=== PATIENT | female | born 1960 | race Caucasian/White ===

== ENCOUNTER → 2021-03-29 10:15 | Outpatient (CLI) | payer BC, SELFPAY | PROVIDERS: PCP Registered Nurse; Referring Provider Registered Nurse; Visit Provider Registered Nurse | DX: Z13.820 Encounter for screening for osteoporosis (principal); M85.88 Other specified disorders of bone density and structure, other site; Z78.0 Asymptomatic menopausal state | CPT/HCPCS: 77080 ==

== ENCOUNTER → 2021-05-03 08:15 | Outpatient (CLI) | payer BC, SELFPAY ==
[2021-05-03 10:38] LABS: Add Manual Diff / Slide Review NO; Basophils Absolute Auto 0 /uL (0-100); Basophils Percent Auto 0.8 % (0-2); Eosinophils Absolute Auto 0 /uL (0-450); Eosinophils Percent Auto 0.4 % (2-4); Hematocrit 39.3 % (36-46); Hemoglobin 13.3 g/dL (12.0-16.0); Lymphocytes Absolute Auto 1200 /uL (1100-4500); Lymphocytes Percent Auto 26.1 % (25-40); Mean Corpuscular HGB Conc 33.8 % (30-36); Mean Corpuscular Hemoglobin 32.1 PG (26-34); Monocytes Absolute Auto 400 /uL (0-900); Monocytes Percent Auto 8.8 % (3-14); Neutrophils Absolute Auto 2900 /uL (1500-7000); Neutrophils Percent Auto 63.9 % (50-75); Platelet Count 286 X10^3/uL (150-400); Red Blood Cell Count 4.14 X10^6/uL (4.0-5.2); Red Cell Distribution Width 13.1 % (11.6-14.8); White Blood Cell Count 4.5 X10^3/uL (4.5-11.0)
[2021-05-03 11:42] LABS: Alanine Aminotransferase 16 IU/L (<35); Albumin 4.5 g/dL (3.5-5.0); Albumin Globulin Ratio 1.8 (1.0-2.8); Alkaline Phosphatase 59 U/L (38-126); Aspartate Aminotransferase 25 IU/L (14-36); BUN Creatinine Ratio 18.2 (6-22); Bilirubin Total 0.5 mg/dL (0.2-1.3); Blood Urea Nitrogen 12 mg/dL (7-17); Calcium 10.1 mg/dL (8.4-10.2); Carbon Dioxide 33 mmol/L (22-32); Chloride 96 mmol/L (98-107); Cholesterol 280 mg/dL (140-199); Estimated Glomerular Filt Rate > 60.0 mL/min (>60); Globulin 2.5 g/dL (1.7-4.1); Glucose 92 mg/dL (70-100); HEMOLYSIS < 15 (0-50); Sodium 134 mmol/L (137-145); Triglycerides 72 mg/dL (35-150)
[2021-05-03 12:00] LABS: HDL Cholesterol 154 mg/dL (40-60); LDL Cholesterol Calculated 112 mg/dL (<100)
== END ==
PROVIDERS: PCP Registered Nurse; Referring Provider Registered Nurse; Visit Provider Registered Nurse
DX: K21.9 Gastro-esophageal reflux disease without esophagitis (principal); K22.70 Barrett's esophagus without dysplasia; M25.519 Pain in unspecified shoulder; E78.5 Hyperlipidemia, unspecified
CPT/HCPCS: 36415; 80053; 80061; 85025

== ENCOUNTER → 2021-05-28 15:16 | Outpatient (CLI) | payer BC, SELFPAY ==
[2021-05-28 16:10] LABS: Appearance Urine UA CLEAR; Bilirubin Urine UA NEGATIVE (NEGATIVE); Color Urine UA YELLOW; Glucose Urine UA NEGATIVE (Negative); Ketones Urine UA NEGATIVE (NEGATIVE); Leukocyte Esterase Urine UA 1+ (NEGATIVE); Nitrite Urine UA NEGATIVE (Negative); Occult Blood Urine UA TRACE-INTACT (Negative); Protein Urine UA NEGATIVE (Negative); Specific Gravity Urine UA <=1.005 (1.000-1.035); Urobilinogen Urine UA 0.2 E.U./dL (0.2)
[2021-05-28 16:12] LABS: pH Urine UA 6.5 (4.5-8.0)
[2021-05-28 16:52] LABS: Bacteria Urine Moderate (10-30); Culture Indicated Urine Specimen Cultured; RBC Urine 0-1/HPF (0-5/HPF); Squamous Epithelial Cell Urine 0-1 /HPF (0-5/HPF); WBC Urine 1-5/HPF (0-5/HPF)
== END ==
PROVIDERS: PCP Registered Nurse; Referring Provider Registered Nurse; Visit Provider Registered Nurse
DX: N39.0 Urinary tract infection, site not specified (principal)
CPT/HCPCS: 81003; 81015; 87077; 87086; 87186

== ENCOUNTER → 2021-06-05 10:20 | Outpatient (CLI) | payer BC, SELFPAY ==
--- NOTE | 2021-06-05 | DI.MG.S_ITS ---
BILATERAL DIGITAL SCREENING MAMMOGRAM 3D/2D WITH CAD WITH AUGMENTATION: 06/05/2021 CLINICAL: Routine screening. Family history of breast cancer. Comparison is made to exams dated: 03/01/2020 mammogram, 01/08/2019 mammogram, and 08/22/2017 mammogram - outside location. The tissue of both breasts is heterogeneously dense. This may lower the sensitivity of mammography. Current study was also evaluated with a Computer Aided Detection (CAD) system. Bilateral breast implants are stable. No significant masses, calcifications, or other findings are seen in either breast. There has been no significant interval change. IMPRESSION: NEGATIVE There is no mammographic evidence of malignancy. A 1 year screening mammogram is recommended. This exam was interpreted at Station ID: [id number]. NOTE: For mammograms, a report in lay terms will be sent to the patient. Approximately 15% of breast malignancies will not be visualized mammographically. In the management of a palpable breast mass, a negative mammogram must not discourage biopsy of a clinically suspicious lesion. Electronically Signed By: Brandyn gilmore/valeria:06/05/2021 11:36:08 letter sent: Normal Exam ACR BI-RADS Category 1: Negative [id number]
== END ==
PROVIDERS: PCP Registered Nurse; Referring Provider Registered Nurse; Visit Provider Registered Nurse
DX: Z12.31 Encounter for screening mammogram for malignant neoplasm of breast (principal); Z80.3 Family history of malignant neoplasm of breast
CPT/HCPCS: 77063; 77067

== ENCOUNTER 2021-06-28 07:50 | Emergency (ER) | payer BC, SELFPAY ==
--- NOTE | 2021-06-28 07:54 | ED_ITS ---
HPI - General Adult General Chief complaint: Urogenital-Female Stated complaint: Bad UTI, back after antibiotics Time Seen by Provider: 06/28/21 07:54 History of Present Illness HPI narrative: 60-year-old woman with a history of hypertension, this tubular migraine and vaginal atrophy with recurrent urinary tract infections. She presents today with complaints of dysuria and vaginal itching and discomfort. She had been on Estrace and had been doing fairly well was discontinued 6 months ago and since then she has had increasing discomfort, 3 urinary tract infections, is concerned that she has a yeast infection today, increase dyspareunia and significant vaginal dryness. She has no history of tobacco use, heart disease, breast cancer. She is very sensitive to antibiotics and most of them do cause reactions. The Macrobid prescribed for the most recent bladder infection (which was E coli and sensitive to Macrobid) was effective in treating the urinary tract symptoms but cause significant vomiting while she took the medication. She notes that at this point she is developing significant urinary tract symptoms with every incident of intercourse. Macrobid for most recent urinary tract infection was discontinued about 3 days ago. She is now having recurrent symptoms that are more vaginal itching and discomfort rather than true dysuria. She is having no fevers or evidence of systemic bacterial infection. Related Data Home Medications Medication Instructions Recorded Confirmed estradiol 1 g VAGINAL 2XW 03/22/21 06/07/21 Previous Rx's Medication Instructions Recorded verapamil 120 mg tablet,extended 120 mg PO BID #180 tab 04/02/21 release rabeprazole 20 mg tablet,delayed 20 mg PO DAILY #30 tab 06/06/21 release diazepam 2 mg tablet 2 mg PO BEDTIME PRN #30 tab 06/26/21 cephalexin 500 mg capsule 500 mg PO TID #45 cap 06/28/21 estradiol (Estrace) 2 g VAGINAL DAILY #42.5 g 06/28/21 Allergies Allergy/AdvReac Type Severity Reaction Status Date / Time No Known Drug Allergies Allergy Verified 06/07/21 15:37 Review of Systems Review of Systems Narrative: Remainder of complete review of systems is otherwise unremarkable except for that included in the HPI. Patient History Medical History Barretts syndrome (~2006) Chicken pox (~2006) Colitis (~2020) Colon polyps (~2019) Osteopenia (~2014) UTI (urinary tract infection) Vestibular migraine (~1996) Surgical History Anesthesia H/O left wrist surgery History of breast augmentation History of knee surgery History of rectopexy (~08/2018) History of shoulder surgery (~03/2013) Family History Father Cancer Grandfather Diabetes mellitus Stroke Grandmother Stroke Grandmother Stroke Social History Smoking Status: Never smoker Smoking Status: Never smoker Exam Narrative Exam Narrative: General: Alert appropriate in no acute distress Respiratory: Able to speak in full sentences, no obvious respiratory distress Skin: No obvious rashes, warm and dry Neurologic: Grossly intact no obvious asymmetries or abnormalities Psych: appropriate insight and affect, cooperative Genitals: Significant vaginal atrophy with very central urethra putting her at increased risk for recurrent bladder infections. There is minimal discharge, no vaginal lesions and no inguinal adenopathy Initial Vital Signs Initial Vital Signs: Vital Signs Temperature 98.1 F 06/28/21 08:09 Pulse Rate 92 H 06/28/21 08:09 Respiratory Rate 16 06/28/21 08:09 Blood Pressure 138/68 06/28/21 08:09 Pulse Oximetry 100 06/28/21 08:09 Course Orders Ordered: ED Orders 06/28/21 08:30 UA Complete [Urinalysis and Microscopic] Stat Urine Culture Stat 06/28/21 09:00 Wet Prep Tric BV [place] Stat Vital Signs Vital signs: Vital Signs - 8 hr 06/28/21 08:09 Temperature 98.1 F Pulse Rate 92 H Respiratory Rate 16 Blood Pressure 138/68 Pulse Oximetry 100 Medical Decision Making Lab Data Lab results narrative: Urine Culture Final 05/30/21-41 Organism 1 Escherichia coli [place] Count >100,000 CFU/ml 1. Escherichia coli M.I.C. RX --------- --- * Amoxicillin/Clavulanate 8 S * Ampicillin >=32 R * Ampicillin/Sulbactam 8 S * Cefazolin <=4 S * Cefepime <=1 S * Ceftriaxone <=1 S * Ciprofloxacin <=0.25 S * Ertapenem <=0.5 S * Gentamicin <=1 S * Imipenem <=0.25 S * Levofloxacin 1 S * Nitrofurantoin <=16 S * Tobramycin <=1 S * Trimethoprim/Sulfamethoxazole >=320 R * Piperacillin/Tazobactam <=4 S Labs: Lab Results 06/28/21 Range/Units 08:30 Urine Color [place] Urine Appearance Cloudy Urine pH (4.5-8.0) Ur Specific [place] Not Reportable Urine Protein Not Reportable Urine Glucose (UA) Not Reportable Urine Ketones Not Reportable Urine Occult Blood Not Reportable Urine Nitrate Not Reportable Urine Bilirubin Not Reportable Urine Urobilinogen Not Reportable Ur Leukocyte Esterase Not Reportable Urine RBC 5-10/hpf H (0-5/HPF) Urine WBC >100/hpf H (0-5/HPF) Ur Squamous Epith Cells 1-5 /hpf (0-5/HPF) Amorphous Sediment 1+ Urine Bacteria Occasional (0-1) D (None) Ur Culture Indicated? Specimen cultured MDM Narrative Medical decision making narrative: Thank you for coming in today You have fairly significant vaginal atrophy and dryness in this is absolutely contributing to the dyspareunia (pain with intercourse, particularly with penetration) as well as the recurrent bladder infections. We talked briefly about why your anatomy is perfectly positioned to put you at significant risk for recurrent bladder infections. Today, there is no evidence of yeast infection, bacterial vaginosis or Trichomonas. Your urine has both red blood cells and white blood cells. I am going to suggest a 3 day course of Keflex, 500 mg 3 times a day. Will see what the culture returns. I have a number of suggestions for helping 1. Restart the Estrace cream. To do this, begin with 2 g in your vagina (do make sure little bit is spread over the inner labia as well) daily for 2 weeks. After that you can decreased to 1 g 2 to 3 times a week based on how dry your vagina is feeling. This will help lump up some of those tissues to try and reduce symptoms 2. Invested in some good sexual lubricant. Brand names for silicone base lubricant that may be helpful include Uber lube and Point Venture. You can order these online. [employer] in [place] carries both of these brands in addition to multiple other lubricants so that you can find one that works best for you. 3. Take 500 mg of Keflex, and antibiotic, after each episode of intercourse to prevent infections You need to establish a new primary care physician. I reviewed her case with Dr. Ann Marie Zavala at [facility], who will follow up with her as an outpatient. Discharge Plan Departure Patient Disposition: Home Clinical Impression: Menopausal vaginal dryness, Dyspareunia Instructions: DI for Dyspareunia Activity Restrictions/Additional Instructions: Thank you for coming in today You have fairly significant vaginal atrophy and dryness in this is absolutely contributing to the dyspareunia (pain with intercourse, particularly with penetration) as well as the recurrent bladder infections.? We talked briefly about why your anatomy is perfectly positioned to put you at significant risk for recurrent bladder infections. Today, there is no evidence of yeast infection, bacterial vaginosis or Trichomonas. Your urine has both red blood cells and white blood cells.? I am going to suggest a 3 day course of Keflex, 500 mg 3 times a day.? Will see what the culture returns. I have a number of suggestions for helping 1. Restart the Estrace cream.? To do this, begin with 2 g in your vagina (do make sure little bit is spread over the inner labia as well) daily for 2 weeks.? After that you can decreased to 1 g 2 to 3 times a week based on how dry your vagina is feeling.? This will help lump up some of those tissues to try and reduce symptoms 2. Invested in some good sexual lubricant.? Brand names for silicone base lubricant that may be helpful include Uber lube and Point Venture.? You can order these online.? [employer] in [place] carries both of these brands in addition to multiple other lubricants so that you can find one that works best for you. 3. Take 500 mg of Keflex, and antibiotic, after each episode of intercourse to prevent infections You need to establish a new primary care physician.? I reviewed your case with Dr. Ann Marie Zavala at [facility], who will follow up with her as an outpatient. Please call to schedule an appointment, let them know that your in the emergency room and Dr. Zavala has agreed to see you a patient Prescriptions: New estradiol [Estrace] 0.01 % (0.1 mg/gram) cream 2 g vaginal DAILY Qty: 42.5 0RF Rx Instructions: for 14 days then decrease to 1 g 2 to 3 times a week cephalexin 500 mg capsule 500 mg PO TID Qty: 45 0RF Rx Instructions: T.i.d. for 3 days then 1 capsule post coital as needed No Action verapamil 120 mg tablet extended release 120 mg PO BID Qty: 180 2RF rabeprazole 20 mg tablet,delayed release (DR/EC) 20 mg PO DAILY Qty: 30 1RF diazepam 2 mg tablet 2 mg PO BEDTIME PRN (Reason: vestibular dysfunction) Qty: 30 3RF estradiol 0.01 % (0.1 mg/gram) cream 1 g vaginal 2XW 0RF Referrals: Winnie Valdez ARNP [Primary Care Provider] - Lauren Zavala MD [Physician] -
[2021-06-28 08:09] VITALS: BP 138/68; PULSE 92; RESP 16; TEMP 36.7; O2SAT 100; BMI 19.0
[2021-06-28 08:50] LABS: Amorphous Sediment Urine 1+; Bacteria Urine Occasional (0-1); Color Urine UA Orange; Culture Indicated Urine Specimen Cultured; RBC Urine 5-10/HPF (0-5/HPF); Squamous Epithelial Cell Urine 1-5 /HPF (0-5/HPF); WBC Urine >100/HPF (0-5/HPF)
[2021-06-28 08:51] LABS: Appearance Urine UA Cloudy
== END 2021-06-28 10:19 | disposition home or self-care (01) ==
PROVIDERS: Emergency Provider Emergency Medicine; PCP Registered Nurse
DX: N94.19 Other specified dyspareunia (principal); N95.1 Menopausal and female climacteric states
CPT/HCPCS: 81001; 87077; 87086; 87186; 87210; 99281; 99282

== ENCOUNTER 2021-12-13 11:15 | Outpatient (RCR) | payer BC, SELFPAY ==
--- NOTE | 2021-08-06 17:09 | PT.OIE ---
Current Diagnoses Primary osteoarthritis, left shoulder (08/06/21) Unspecified rotator cuff tear or rupture of left shoulder, not specified as traumatic (08/06/21) Bursitis of left shoulder (08/06/21) Past Medical History (Last Reviewed 06/28/21 @ 09:08 by Meena Kincaid MD) Barretts syndrome (~2006) Chicken pox (~2006) Colitis (~2020) Colon polyps (~2019) H/O left wrist surgery History of breast augmentation History of knee surgery History of rectopexy (~08/2018) History of shoulder surgery (~03/2013) Osteopenia (~2014) UTI (urinary tract infection) Vestibular migraine (~1996) Past Surgical History (Last Reviewed 06/28/21 @ 09:08 by Meena Kincaid MD) Anesthesia H/O left wrist surgery History of breast augmentation History of knee surgery History of rectopexy (~08/2018) History of shoulder surgery (~03/2013) Visit Care Team Role Provider Type ELIANE Brasher Family Provider Advanced Payroll Officer Primary Care Provider Specialty: Medical Address: [address] [place] [address], [facility] Email: [email or web address] Alex Thurman MD Attending Provider Physician Referring Provider Specialty: Orthopedic Surgery Address: [address] [place] [address], [id number] Email: [email or web address] Physical Therapy Initial Evaluation PT-OP-A Visit Information Start: 08/06/21 08:28 Freq: Status: Active Protocol: Document 08/06/21 16:35 ADALGISA (Rec: 08/06/21 17:09 SAK [id number]) Out-Patient Physical Therapy Visit Information Visit Information Visit Type Initial Evaluation Visit Note post-op week one Visit Start Time 15:16 Visit Stop Time 16:10 Total Visit Minutes 56 Visit Number Number of [facility] Visits 0 Evaluation Information Evaluation Date 08/06/21 Precautions Precautions wear sling for 6-8 weeks. Passive ROM exercises to be done with elbow and hand. PT-OP-B Current Condition Start: 08/06/21 08:28 Freq: Status: Active Protocol: Document 08/06/21 16:35 [facility] (Rec: 08/06/21 17:09 [facility] [id number]) Current Condition History of Current Condition Onset Date 08/02/21 Current Complaints left shoulder dysfunction History of Current Condition s/p left RCR with arthroscopic distal clavicle excision, subacromial decompression extensive, rotator cuff repair . (operative report not available this date; have requested from Dr. Thurman's office). 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 Functional Limitations- Recreation/ unable at this time Hobbies Personal Factors Other Personal Factors That May Effect patient has osteopenia Therapy/Recovery PT-OP-C Subjective Start: 08/06/21 08:28 Freq: Status: Active Protocol: Document 08/06/21 16:35 [facility] (Rec: 08/06/21 17:09 [facility] [id number]) Patient Questionnaires Quick Dash- Upper Extremity Quick Dash UE Score 0 OP-PT Pain Assessment Pain Assessment Grid Paper Pain Assessment Grid Completed Yes Location left shoulder Pain Location Details post-op pain Home Pain Medication Use Pain Medications Used Yes Patient Goal now just Ibuprofen Pain Behaviors Pain Behaviors Facial Grimacing,Guarding, Wincing PT-OP-H Neuro Start: 08/06/21 08:28 Freq: Status: Active Protocol: Document 08/06/21 16:35 [facility] (Rec: 08/06/21 17:09 [facility] [id number]) Sensation Evaluation Gross Sensation Gross Sensation Left UE Impaired Sensation Description Paresthesia PT-OP-J Posture/Palpation/Skin Start: 08/06/21 08:28 Freq: Status: Active Protocol: Document 08/06/21 16:35 [facility] (Rec: 08/06/21 17:09 [facility] [id number]) Posture Evaluation Position Sitting Head/C-Spine Posture Forward Head T-Spine Posture Increased Kyphosis Shoulder Posture (L) Rounded,(R) Rounded Scapula Posture (L) Protracted,(R) Protracted Arm Posture (L) Internally Rotated Palpation Assessment Location left shoulder Palpation Details palpable tightness in UT, deltoid Skin Assessment Incisional Assessment Incision Appearance/Comments post-op dressing off, steri- strips intact. No signs or symptoms of infection PT-OP-K Range of Motion Start: 08/06/21 08:28 Freq: Status: Active Protocol: Document 08/06/21 16:35 [facility] (Rec: 08/06/21 17:09 [facility] [id number]) Cervical Spine Range of Motion Cervical Spine Active Comments WNL except tight left neck sidebend possibly due to sleeping position Shoulder Goniometric Range of Motion Shoulder Left Passive Flexion 30 Extension 0 External Rotation at 0 degrees Abduction 0 Internal Rotation 0 Comments ER not tested due to RCR Right Active Shoulder ROM WFL Yes Elbow/Forearm Range of Motion Elbow/Forearm carley Elbow/Forearm ROM WFL Yes PT-OP-M Strength Start: 08/06/21 08:28 Freq: Status: Active Protocol: Document 08/06/21 16:35 [facility] (Rec: 08/06/21 17:09 [facility] [id number]) Shoulder Strength Shoulder Manual Muscle Testing Left Comments not assessed due to surgery Right Flexion 5 Normal Abduction (C5) 5 Normal External Rotation 5 Normal Internal Rotation 5 Normal PT-OP-Q Treatments Start: 08/06/21 08:28 Freq: Status: Active Protocol: Document 08/06/21 16:35 [facility] (Rec: 08/06/21 17:09 [facility] [id number]) Therapeutic Exercises Supine Exercises PROM shoulder flex Side left Reps/Minutes 10x Comments by PT Sitting Exercises deep breathing Comments initiate next session wrist and hand ROM Side left Reps/Minutes 5x forearm pron/sup Side left Reps/Minutes 5x Comments UE supported on pillow elbow flex/ext Side left Reps/Minutes 5x Comments UE supported on pillow neck ROM Sitting Exercise Name flex/ext, rot, sidebending Reps/Minutes 3-5x ea Manual Therapy Treatment Soft Tissue Mobilization c/s, UT Mobilization Type Myofascial Release Intensity/Depth gentle Body Position Hooklying Self-Care/Home Management Treatment Education Patient Education Home Exercise Program,Joint Protection,Pain Management, Posture Other Education issued written HEP PT-OP-R Modalities Start: 08/06/21 08:28 Freq: Status: Active Protocol: Document 08/06/21 16:35 [facility] (Rec: 08/06/21 17:09 [facility] [id number]) Hot Pack/Cold Pack Treatment Cold Pack Location left shoulder Patient Position Hooklying Patient Tolerance Fair Comments patient reported discomfort from positioning, encouraged to ring fair next time if uncomfortable PT-OP-T Assessment and Plan Start: 08/06/21 08:28 Freq: Status: Active Protocol: Document 08/06/21 16:35 [facility] (Rec: 08/06/21 17:09 [facility] [id number]) Physical Therapy Assessment Rehab Potential Rehabilitation Potential Good Evaluation Complexity Number of Personal Factors/Comorbidities 1-2 Number of Body Systems Impaired 3 Clinical Presentation at Evaluation Evolving Impairments Impairments Functional Activities,ROM, Strength Goals Two Impairment right shoulder dysfunction Impairment Quickdash UE disability 100% Short Term Goal (STG) Decrease Quickdash UE disability index score to no greater than 50% as measure of improved function STG Duration Cotton Presser Goal (LTG) Decrease Quickdash UE disability score to no greater than 10% as measure of improved left UE function with patient able to return to all usual ADL's and activities including reaching overhead and behind her back with ease LTG Duration 11/04/21 One Impairment limited shoulder ROM and strength Short Term Goal (STG) Patient will be independent and compliant with HEP following post-op RCR protocol STG Duration 09/18/21 Cotton Presser Goal (LTG) Improve left shoulder ROM to full and strength to 5/5 to allow her to do all usual activities. LTG Duration 11/04/21 Assessment Summary Assessment Patient presents to PT s/p surgery left shoulder 08/02/21 which included arthroscopic distal clavicle excision, subacromial decompression extensive, rotator cuff tear repair. No surgical report or detailed protocol was available at evaluation but has been requested. Patient is compliant with wearing her sling and has been doing gentle pendulum exercises. Pendulum and table slide reviewed (patient did previously with right RCR) and patient instructed in gentle neck, elbow, wrist, and hand ROM to promote healing and decrease muscle tension. Written HEP issued and patient demonstrated good understanding. Evaluation session ended with ice pack to left shoulder in supine. Operative report and post-op protocol requested from Dr. Thurman's office. Patient will benefit from PT to rehab her left shoulder s/p surgical intervention as above. Physical Therapy Plan Frequency and Duration Frequency of Treatment 2x/Week Duration of Treatment 12 weeks Plan of Care Start Date 08/06/21 Plan of Care End Date 11/04/21 Therapeutic Interventions Therapeutic Interventions Aquatic Therapy,Home Exercise Program,Joint Mobilizations, Manual Therapy,Neuromuscular Re-education,Patient/Caregiver Education,Self-Care/Home Management,Soft Tissue Mobilization,Taping, Therapeutic Activities, Therapeutic Exercises Modalities Cold Pack/Ice Massage,Electric Stimulation,Hot Packs, Iontophoresis Next Visit Focus/Plan Next Note Type Treatment Note Next Visit Plan Review HEP and post-op protocol with patient. Ex bike for aeorobic ex and to facilitate circulation and healing. Gentle ther ex left shoulder per protocol. STM as needed to decrease muscle tension and pain and promote healing. End with ice pack, possibly IFES depending on pain.
--- NOTE | 2021-08-06 17:10 | PT.OPPOC ---
Physical, Occupational & Speech Therapy At [facility] Current Diagnoses Primary osteoarthritis, left shoulder (08/06/21) Unspecified rotator cuff tear or rupture of left shoulder, not specified as traumatic (08/06/21) Bursitis of left shoulder (08/06/21) Visit Care Team Role Provider Type ELIANE Brasher Family Provider Advanced Betting [employer] Manager Primary Care Provider Specialty: Medical Address: [address] [place] [address], [id number] Email: [email or web address] Alex Thurman MD Attending Provider Physician Referring Provider Specialty: Orthopedic Surgery Address: [address] [place] [address], [address] Email: [email or web address]-T Assessment and Plan Start: 08/06/21 08:28 Freq: Status: Active Protocol: Document 08/06/21 16:35 [facility] (Rec: 08/06/21 17:09 [facility] [id number]) Physical Therapy Assessment Rehab Potential Rehabilitation Potential Good Evaluation Complexity Number of Personal Factors/Comorbidities 1-2 Number of Body Systems Impaired 3 Clinical Presentation at Evaluation Evolving Impairments Impairments Functional Activities,ROM, Strength Goals Two Impairment right shoulder dysfunction Impairment Quickdash UE disability 100% Short Term Goal (STG) Decrease Quickdash UE disability index score to no greater than 50% as measure of improved function STG Duration Residential Goal (LTG) Decrease Quickdash UE disability score to no greater than 10% as measure of improved left UE function with patient able to return to all usual ADL's and activities including reaching overhead and behind her back with ease LTG Duration 11/04/21 One Impairment limited shoulder ROM and strength Short Term Goal (STG) Patient will be independent and compliant with HEP following post-op RCR protocol STG Duration 09/18/21 Residential Goal (LTG) Improve left shoulder ROM to full and strength to 5/5 to allow her to do all usual activities. LTG Duration 11/04/21 Assessment Summary Assessment Patient presents to PT s/p surgery left shoulder 08/02/21 which included arthroscopic distal clavicle excision, subacromial decompression extensive, rotator cuff tear repair. No surgical report or detailed protocol was available at evaluation but has been requested. Patient is compliant with wearing her sling and has been doing gentle pendulum exercises. Pendulum and table slide reviewed (patient did previously with right RCR) and patient instructed in gentle neck, elbow, wrist, and hand ROM to promote healing and decrease muscle tension. Written HEP issued and patient demonstrated good understanding. Evaluation session ended with ice pack to left shoulder in supine. Operative report and post-op protocol requested from Dr. Thurman's office. Patient will benefit from PT to rehab her left shoulder s/p surgical intervention as above. Physical Therapy Plan Frequency and Duration Frequency of Treatment 2x/Week Duration of Treatment 12 weeks Plan of Care Start Date 08/06/21 Plan of Care End Date 11/04/21 Therapeutic Interventions Therapeutic Interventions Aquatic Therapy,Home Exercise Program,Joint Mobilizations, Manual Therapy,Neuromuscular Re-education,Patient/Caregiver Education,Self-Care/Home Management,Soft Tissue Mobilization,Taping, Therapeutic Activities, Therapeutic Exercises Modalities Cold Pack/Ice Massage,Electric Stimulation,Hot Packs, Iontophoresis Next Visit Focus/Plan Next Note Type Treatment Note Next Visit Plan Review HEP and post-op protocol with patient. Ex bike for aeorobic ex and to facilitate circulation and healing. Gentle ther ex left shoulder per protocol. STM as needed to decrease muscle tension and pain and promote healing. End with ice pack, possibly IFES depending on pain. Plan of Care Dates Plan of Care Start Date 08/06/21 Plan of Care End Date 11/04/21 Electronically Signed by: Mayra Montilla PT 08/06/21 [id number] Please Sign and Return: I have reviewed this Plan of Care and certify that the skilled therapy services above are required to meet the patient?s needs. Physician Signature Date Printed Name and Credentials Clinical Instructor Signature Printed Name and Credentials
--- NOTE | 2021-08-08 10:04 | PT.OTN ---
Current Diagnoses Primary osteoarthritis, left shoulder (08/08/21) Unspecified rotator cuff tear or rupture of left shoulder, not specified as traumatic (08/08/21) Bursitis of left shoulder (08/08/21) Physical Therapy Treatment Note PT-OP-A Visit Information Start: 08/06/21 08:28 Freq: Status: Active Protocol: Document 08/08/21 09:29 [facility] (Rec: 08/08/21 10:04 [facility] [id number]) Out-Patient Physical Therapy Visit Information Visit Information Visit Type Treatment Note Visit Start Time 09:00 Visit Stop Time 09:40 Total Visit Minutes 40 Visit Number 2/40 Number of NETWORK MGR Visits 0 Precautions Precautions wear sling for 6-8 weeks. Passive ROM exercises to be done with elbow and hand: PT-OP-B Current Condition Start: 08/06/21 08:28 Freq: Status: Active Protocol: Document 08/08/21 09:29 [facility] (Rec: 08/08/21 10:04 [facility] [id number]) Current Condition History of Current Condition Onset Date 08/02/21 Current Complaints left shoulder dysfunction History of Current Condition s/p left RCR with arthroscopic distal clavicle excision, subacromial decompression extensive, rotator cuff repair . (operative report not available this date; have requested from Dr. Thurman's office). Patient reports she has been wearing her sling, using ice, doing gentle pendulum Prior Treatments and Tests prior right shoulder surgery with good outcome Treatment Goals Patient/Caregiver Goals regain full active use of left UE PT-OP-C Subjective Start: 08/06/21 08:28 Freq: Status: Active Protocol: Document 08/08/21 09:29 [facility] (Rec: 08/08/21 10:04 [facility] [id number]) OP-PT Subjective Patient Comments Patient Comments Patient tolerated HEP well except table slide; advised to discontinue. Patient tried to get in touch with Dr. Thurman's office to get detailed protocol, hasn't heard back. PT informed patient just received post-op report but still no protocol after PT called physician office. PT-OP-H Neuro Start: 08/06/21 08:28 Freq: Status: Active Protocol: Document 08/06/21 16:35 [facility] (Rec: 08/06/21 17:09 [facility] [id number]) Sensation Evaluation Gross Sensation Gross Sensation Left UE Impaired Sensation Description Paresthesia PT-OP-J Posture/Palpation/Skin Start: 08/06/21 08:28 Freq: Status: Active Protocol: Document 08/06/21 16:35 [facility] (Rec: 08/06/21 17:09 [facility] [id number]) Posture Evaluation Position Sitting Head/C-Spine Posture Forward Head T-Spine Posture Increased Kyphosis Shoulder Posture (L) Rounded,(R) Rounded Scapula Posture (L) Protracted,(R) Protracted Arm Posture (L) Internally Rotated Palpation Assessment Location left shoulder Palpation Details palpable tightness in UT, deltoid Skin Assessment Incisional Assessment Incision Appearance/Comments post-op dressing off, steri- strips intact. No signs or symptoms of infection PT-OP-K Range of Motion Start: 08/06/21 08:28 Freq: Status: Active Protocol: Document 08/06/21 16:35 [facility] (Rec: 08/06/21 17:09 [facility] [id number]) Cervical Spine Range of Motion Cervical Spine Active Comments WNL except tight left neck sidebend possibly due to sleeping position Shoulder Goniometric Range of Motion Shoulder Left Passive Flexion 30 Extension 0 External Rotation at 0 degrees Abduction 0 Internal Rotation 0 Comments ER not tested due to RCR Right Active Shoulder ROM WFL Yes Elbow/Forearm Range of Motion Elbow/Forearm carley Elbow/Forearm ROM WFL Yes PT-OP-M Strength Start: 08/06/21 08:28 Freq: Status: Active Protocol: Document 08/06/21 16:35 [facility] (Rec: 08/06/21 17:09 [facility] [id number]) Shoulder Strength Shoulder Manual Muscle Testing Left Comments not assessed due to surgery Right Flexion 5 Normal Abduction (C5) 5 Normal External Rotation 5 Normal Internal Rotation 5 Normal PT-OP-Q Treatments Start: 08/06/21 08:28 Freq: Status: Active Protocol: Document 08/08/21 09:29 [facility] (Rec: 08/08/21 10:04 [facility] [id number]) Therapeutic Exercises Sitting Exercises deep breathing Reps/Minutes 5x Comments diaphragmatic wrist and hand ROM Side left Reps/Minutes 5x forearm pron/sup Side left Reps/Minutes 5x Comments UE supported on pillow elbow flex/ext Side left Reps/Minutes 5x Comments UE supported on pillow neck ROM Sitting Exercise Name flex/ext, rot, sidebending Reps/Minutes 3-5x ea Comments with deep breathing Standing Exercises postural correction Reps/Minutes 2x Comments comparison of sides, importance of relaxing upper traps Self-Care/Home Management Treatment Education Patient Education Home Exercise Program,Joint Protection,Pain Management, Posture Other Education issued copy of operative report, advised to discontinue table slide due to pain, continue all other ex. Will await detailed protocol before progressing with any other exercises. PT-OP-R Modalities Start: 08/06/21 08:28 Freq: Status: Active Protocol: Document 08/08/21 09:29 [facility] (Rec: 08/08/21 10:04 [facility] [id number]) Hot Pack/Cold Pack Treatment Cold Pack Comments patient to do at home PT-OP-T Assessment and Plan Start: 08/06/21 08:28 Freq: Status: Active Protocol: Document 08/08/21 09:29 [facility] (Rec: 08/08/21 10:04 [facility] [id number]) Physical Therapy Assessment Impairments Impairments Functional Activities,ROM, Strength Goals Two Impairment right shoulder dysfunction Impairment Quickdash UE disability 100% Short Term Goal (STG) Decrease Quickdash UE disability index score to no greater than 50% as measure of improved function STG Duration Alf Goal (LTG) Decrease Quickdash UE disability score to no greater than 10% as measure of improved left UE function with patient able to return to all usual ADL's and activities including reaching overhead and behind her back with ease LTG Duration 11/04/21 One Impairment limited shoulder ROM and strength Short Term Goal (STG) Patient will be independent and compliant with HEP following post-op RCR protocol STG Duration 09/18/21 Alf Goal (LTG) Improve left shoulder ROM to full and strength to 5/5 to allow her to do all usual activities. LTG Duration 11/04/21 Assessment Summary Assessment Received operative report which indicated supraspinatus repair along with subacromial decompression, distal clavicle excision, and debridement GH joint. The report referenced protocol for partial rotator cuff PASTA repair, but protocol not sent to PT department; have requested this. Discussed need to receive Dr. Thurman's written protocol due to variability in doctor's protocols and our need to carefully follow for best outcome. Patient in agreement. Patient to see Dr. Thurman for follow-up appointment 09/14/21 prior to any further PT. REviewed HEP today with some verbal cues for relaxing upper trap, gentle postural correction, use of body to move arm with pendulum. Patient demonstrated good understanding and is performing good deep breathing as instructed and with use of mirror able to self-correct overactivation of UT. Physical Therapy Plan Frequency and Duration Frequency of Treatment 2x/Week Duration of Treatment 12 weeks Plan of Care Start Date 08/06/21 Plan of Care End Date 11/04/21 Therapeutic Interventions Therapeutic Interventions Aquatic Therapy,Home Exercise Program,Joint Mobilizations, Manual Therapy,Neuromuscular Re-education,Patient/Caregiver Education,Self-Care/Home Management,Soft Tissue Mobilization,Taping, Therapeutic Activities, Therapeutic Exercises Modalities Cold Pack/Ice Massage,Electric Stimulation,Hot Packs, Iontophoresis Next Visit Focus/Plan Next Note Type Treatment Note Next Visit Plan Continue left shoulder rehab per post-op protocol when receive.
--- NOTE | 2021-08-23 14:18 | PT.OTN ---
Current Diagnoses Primary osteoarthritis, left shoulder (08/27/21) Unspecified rotator cuff tear or rupture of left shoulder, not specified as traumatic (08/27/21) Bursitis of left shoulder (08/27/21) Physical Therapy Treatment Note PT-OP-A Visit Information Start: 08/06/21 08:28 Freq: Status: Active Protocol: Document 08/27/21 10:20 [facility] (Rec: 08/27/21 11:17 [facility] [id number]) Out-Patient Physical Therapy Visit Information Visit Information Visit Type Treatment Note Visit Start Time 10:20 Visit Stop Time 11:17 Total Visit Minutes 57 Visit Number 4/40 Number of PLASTIC MOLDING OPERATOR Visits 1 Precautions Precautions wear sling for 6-8 weeks. Passive ROM exercises to be done with elbow and hand. See protocol in chart. PT-OP-B Current Condition Start: 08/06/21 08:28 Freq: Status: Active Protocol: Document 08/23/21 09:48 [facility] (Rec: 08/23/21 10:34 [facility] [id number]) Current Condition History of Current Condition Onset Date 08/02/21 Current Complaints left shoulder dysfunction History of Current Condition s/p left RCR with arthroscopic distal clavicle excision, subacromial decompression extensive, rotator cuff repair . (operative report not available this date; have requested from Dr. Thurman's office). Patient reports she has been wearing her sling, using ice, doing gentle pendulum Prior Treatments and Tests prior right shoulder surgery with good outcome PT-OP-C Subjective Start: 08/06/21 08:28 Freq: Status: Active Protocol: Document 08/27/21 10:20 [facility] (Rec: 08/27/21 11:22 [facility] [id number]) OP-PT Subjective Patient Comments Patient Comments Pt reports having more difficutly sleeping the last few nights due to increased L shd pain. PT-OP-H Neuro Start: 08/06/21 08:28 Freq: Status: Active Protocol: Document 08/06/21 16:35 [facility] (Rec: 08/06/21 17:09 [facility] [id number]) Sensation Evaluation Gross Sensation Gross Sensation Left UE Impaired Sensation Description Paresthesia PT-OP-J Posture/Palpation/Skin Start: 08/06/21 08:28 Freq: Status: Active Protocol: Document 08/06/21 16:35 [facility] (Rec: 08/06/21 17:09 [facility] [id number]) Posture Evaluation Position Sitting Head/C-Spine Posture Forward Head T-Spine Posture Increased Kyphosis Shoulder Posture (L) Rounded,(R) Rounded Scapula Posture (L) Protracted,(R) Protracted Arm Posture (L) Internally Rotated Palpation Assessment Location left shoulder Palpation Details palpable tightness in UT, deltoid Skin Assessment Incisional Assessment Incision Appearance/Comments post-op dressing off, steri- strips intact. No signs or symptoms of infection PT-OP-K Range of Motion Start: 08/06/21 08:28 Freq: Status: Active Protocol: Document 08/06/21 16:35 [facility] (Rec: 08/06/21 17:09 [facility] [id number]) Cervical Spine Range of Motion Cervical Spine Active Comments WNL except tight left neck sidebend possibly due to sleeping position Shoulder Goniometric Range of Motion Shoulder Left Passive Flexion 30 Extension 0 External Rotation at 0 degrees Abduction 0 Internal Rotation 0 Comments ER not tested due to RCR Right Active Shoulder ROM WFL Yes Elbow/Forearm Range of Motion Elbow/Forearm carley Elbow/Forearm ROM WFL Yes PT-OP-M Strength Start: 08/06/21 08:28 Freq: Status: Active Protocol: Document 08/06/21 16:35 [facility] (Rec: 08/06/21 17:09 [facility] [id number]) Shoulder Strength Shoulder Manual Muscle Testing Left Comments not assessed due to surgery Right Flexion 5 Normal Abduction (C5) 5 Normal External Rotation 5 Normal Internal Rotation 5 Normal PT-OP-Q Treatments Start: 08/06/21 08:28 Freq: Status: Active Protocol: Document 08/27/21 10:20 [facility] (Rec: 08/27/21 11:17 [facility] [id number]) Therapeutic Exercises Supine Exercises shoulder ER Supine Exercise Name no greater than 34 deg per protocol Equipment Used cane Reps/Minutes 10x10 Comments ROM to 15 deg PROM shoulder flex Side left Reps/Minutes 10x Comments by PT Sitting Exercises wrist and hand ROM Side left Reps/Minutes 5x forearm pron/sup Side left Reps/Minutes 5x Comments UE supported on pillow elbow flex/ext Side left Reps/Minutes 5x Comments UE supported on pillow neck ROM Sitting Exercise Name flex/ext, rot, sidebending Reps/Minutes 3-5x ea Comments with deep breathing Standing Exercises pendulum Reps/Minutes 10x all directions Comments cues for relaxation, deep breathing Manual Therapy Treatment Soft Tissue Mobilization Scar Body Location L shd Intensity/Depth Superficial Body Position Hooklying c/s, UT Mobilization Type Myofascial Release Intensity/Depth gentle Body Position Hooklying Comments pillow under L arm for comfort Self-Care/Home Management Treatment Education Patient Education Pain Management Other Education Pt has had more pain recently when sleeping. Practiced ways to place pillows around L shd for comfort for more support of L elbow & shd. Discussed getting abduction sling for more comfort/decreasing L shd pain PT-OP-R Modalities Start: 08/06/21 08:28 Freq: Status: Active Protocol: Document 08/27/21 10:20 [facility] (Rec: 08/27/21 11:17 [facility] [id number]) Hot Pack/Cold Pack Treatment Cold Pack Location left shoulder Patient Position Hooklying Patient Tolerance Good PT-OP-T Assessment and Plan Start: 08/06/21 08:28 Freq: Status: Active Protocol: Document 08/27/21 10:20 [facility] (Rec: 08/27/21 11:17 [facility] [id number]) Physical Therapy Assessment Goals Two Impairment right shoulder dysfunction Impairment Quickdash UE disability 100% Short Term Goal (STG) Decrease Quickdash UE disability index score to no greater than 50% as measure of improved function STG Duration Penitentiary Goal (LTG) Decrease Quickdash UE disability score to no greater than 10% as measure of improved left UE function with patient able to return to all usual ADL's and activities including reaching overhead and behind her back with ease LTG Duration 11/04/21 One Impairment limited shoulder ROM and strength Short Term Goal (STG) Patient will be independent and compliant with HEP following post-op RCR protocol STG Duration 09/18/21 [employer] Leader Goal (LTG) Improve left shoulder ROM to full and strength to 5/5 to allow her to do all usual activities. LTG Duration 11/04/21 Assessment Summary Assessment Pt has been having more pain recently when sleeping but is still able to be active during the day. She gets relief with both ice and heat and has been alternating at home. Encouraged pt to continue alternating if it's most comfortable for pain management and educated pt on using pillows for positioning L shd for comfort to improve sleep. Performed gentle ROM and STM for shd/neck pain relief with pt feeling decreased shd/neck pain after STM to L UT. Physical Therapy Plan Frequency and Duration Frequency of Treatment 2x/Week Duration of Treatment 12 weeks Plan of Care Start Date 08/06/21 Plan of Care End Date 11/04/21 Therapeutic Interventions Therapeutic Interventions Aquatic Therapy,Home Exercise Program,Joint Mobilizations, Manual Therapy,Neuromuscular Re-education,Patient/Caregiver Education,Self-Care/Home Management,Soft Tissue Mobilization,Taping, Therapeutic Activities, Therapeutic Exercises Modalities Cold Pack/Ice Massage,Electric Stimulation,Hot Packs, Iontophoresis Next Visit Focus/Plan Next Note Type Treatment Note Next Visit Plan Follow up on sleep position. Continue PT per protocol received from Dr. Thurman through patient today. STM to UT & cervical musculature for pain relief.
--- NOTE | 2021-08-27 11:24 | PT.OTN ---
Current Diagnoses Primary osteoarthritis, left shoulder (08/27/21) Unspecified rotator cuff tear or rupture of left shoulder, not specified as traumatic (08/27/21) Bursitis of left shoulder (08/27/21) Physical Therapy Treatment Note PT-OP-A Visit Information Start: 08/06/21 08:28 Freq: Status: Active Protocol: Document 08/27/21 10:20 MA (Rec: 08/27/21 11:17 MA [id number]) Out-Patient Physical Therapy Visit Information Visit Information Visit Type Treatment Note Visit Start Time 10:20 Visit Stop Time 11:17 Total Visit Minutes 57 Visit Number 4/40 Number of FIRE EXTINGUISHER TESTER Visits 1 Precautions Precautions wear sling for 6-8 weeks. Passive ROM exercises to be done with elbow and hand. See protocol in chart. PT-OP-B Current Condition Start: 08/06/21 08:28 Freq: Status: Active Protocol: Document 08/23/21 09:48 SAK (Rec: 08/23/21 10:34 SAK [id number]) Current Condition History of Current Condition Onset Date 08/02/21 Current Complaints left shoulder dysfunction History of Current Condition s/p left RCR with arthroscopic distal clavicle excision, subacromial decompression extensive, rotator cuff repair . (operative report not available this date; have requested from Dr. Thurman's office). Patient reports she has been wearing her sling, using ice, doing gentle pendulum Prior Treatments and Tests prior right shoulder surgery with good outcome PT-OP-C Subjective Start: 08/06/21 08:28 Freq: Status: Active Protocol: Document 08/27/21 10:20 MA (Rec: 08/27/21 11:22 MA [id number]) OP-PT Subjective Patient Comments Patient Comments Pt reports having more difficutly sleeping the last few nights due to increased L shd pain. PT-OP-H Neuro Start: 08/06/21 08:28 Freq: Status: Active Protocol: Document 08/06/21 16:35 SAK (Rec: 08/06/21 17:09 SAK [id number]) Sensation Evaluation Gross Sensation Gross Sensation Left UE Impaired Sensation Description Paresthesia PT-OP-J Posture/Palpation/Skin Start: 08/06/21 08:28 Freq: Status: Active Protocol: Document 08/06/21 16:35 SAK (Rec: 08/06/21 17:09 SAK [id number]) Posture Evaluation Position Sitting Head/C-Spine Posture Forward Head T-Spine Posture Increased Kyphosis Shoulder Posture (L) Rounded,(R) Rounded Scapula Posture (L) Protracted,(R) Protracted Arm Posture (L) Internally Rotated Palpation Assessment Location left shoulder Palpation Details palpable tightness in UT, deltoid Skin Assessment Incisional Assessment Incision Appearance/Comments post-op dressing off, steri- strips intact. No signs or symptoms of infection PT-OP-K Range of Motion Start: 08/06/21 08:28 Freq: Status: Active Protocol: Document 08/06/21 16:35 [facility] (Rec: 08/06/21 17:09 [facility] [id number]) Cervical Spine Range of Motion Cervical Spine Active Comments WNL except tight left neck sidebend possibly due to sleeping position Shoulder Goniometric Range of Motion Shoulder Left Passive Flexion 30 Extension 0 External Rotation at 0 degrees Abduction 0 Internal Rotation 0 Comments ER not tested due to RCR Right Active Shoulder ROM WFL Yes Elbow/Forearm Range of Motion Elbow/Forearm carley Elbow/Forearm ROM WFL Yes PT-OP-M Strength Start: 08/06/21 08:28 Freq: Status: Active Protocol: Document 08/06/21 16:35 [facility] (Rec: 08/06/21 17:09 [facility] [id number]) Shoulder Strength Shoulder Manual Muscle Testing Left Comments not assessed due to surgery Right Flexion 5 Normal Abduction (C5) 5 Normal External Rotation 5 Normal Internal Rotation 5 Normal PT-OP-Q Treatments Start: 08/06/21 08:28 Freq: Status: Active Protocol: Document 08/27/21 10:20 MA (Rec: 08/27/21 11:17 MA [id number]) Therapeutic Exercises Supine Exercises shoulder ER Supine Exercise Name no greater than 34 deg per protocol Equipment Used cane Reps/Minutes 10x10 Comments ROM to 15 deg PROM shoulder flex Side left Reps/Minutes 10x Comments by PT Sitting Exercises wrist and hand ROM Side left Reps/Minutes 5x forearm pron/sup Side left Reps/Minutes 5x Comments UE supported on pillow elbow flex/ext Side left Reps/Minutes 5x Comments UE supported on pillow neck ROM Sitting Exercise Name flex/ext, rot, sidebending Reps/Minutes 3-5x ea Comments with deep breathing Standing Exercises pendulum Reps/Minutes 10x all directions Comments cues for relaxation, deep breathing Manual Therapy Treatment Soft Tissue Mobilization Scar Body Location L shd Intensity/Depth Superficial Body Position Hooklying c/s, UT Mobilization Type Myofascial Release Intensity/Depth gentle Body Position Hooklying Comments pillow under L arm for comfort Self-Care/Home Management Treatment Education Patient Education Pain Management Other Education Pt has had more pain recently when sleeping. Practiced ways to place pillows around L shd for comfort for more support of L elbow & shd. Discussed getting abduction sling for more comfort/decreasing L shd pain PT-OP-R Modalities Start: 08/06/21 08:28 Freq: Status: Active Protocol: Document 08/27/21 10:20 MA (Rec: 08/27/21 11:17 MA [id number]) Hot Pack/Cold Pack Treatment Cold Pack Location left shoulder Patient Position Hooklying Patient Tolerance Good PT-OP-T Assessment and Plan Start: 08/06/21 08:28 Freq: Status: Active Protocol: Document 08/27/21 10:20 MA (Rec: 08/27/21 11:17 MA [id number]) Physical Therapy Assessment Goals Two Impairment right shoulder dysfunction Impairment Quickdash UE disability 100% Short Term Goal (STG) Decrease Quickdash UE disability index score to no greater than 50% as measure of improved function STG Duration Fpc Goal (LTG) Decrease Quickdash UE disability score to no greater than 10% as measure of improved left UE function with patient able to return to all usual ADL's and activities including reaching overhead and behind her back with ease LTG Duration 11/04/21 One Impairment limited shoulder ROM and strength Short Term Goal (STG) Patient will be independent and compliant with HEP following post-op RCR protocol STG Duration 09/18/21 Can Dragger Goal (LTG) Improve left shoulder ROM to full and strength to 5/5 to allow her to do all usual activities. LTG Duration 11/04/21 Assessment Summary Assessment Pt has been having more pain recently when sleeping but is still able to be active during the day. She gets relief with both ice and heat and has been alternating at home. Encouraged pt to continue alternating if it's most comfortable for pain management and educated pt on using pillows for positioning L shd for comfort to improve sleep. Performed gentle ROM and STM for shd/neck pain relief with pt feeling decreased shd/neck pain after STM to L UT. Physical Therapy Plan Frequency and Duration Frequency of Treatment 2x/Week Duration of Treatment 12 weeks Plan of Care Start Date 08/06/21 Plan of Care End Date 11/04/21 Therapeutic Interventions Therapeutic Interventions Aquatic Therapy,Home Exercise Program,Joint Mobilizations, Manual Therapy,Neuromuscular Re-education,Patient/Caregiver Education,Self-Care/Home Management,Soft Tissue Mobilization,Taping, Therapeutic Activities, Therapeutic Exercises Modalities Cold Pack/Ice Massage,Electric Stimulation,Hot Packs, Iontophoresis Next Visit Focus/Plan Next Note Type Treatment Note Next Visit Plan Follow up on sleep position. Continue PT per protocol received from Dr. Thurman through patient today. STM to UT & cervical musculature for pain relief.
--- NOTE | 2021-08-29 16:35 | PT.OTN ---
Current Diagnoses Primary osteoarthritis, left shoulder (08/29/21) Unspecified rotator cuff tear or rupture of left shoulder, not specified as traumatic (08/29/21) Bursitis of left shoulder (08/29/21) Physical Therapy Treatment Note PT-OP-A Visit Information Start: 08/06/21 08:28 Freq: Status: Active Protocol: Document 08/29/21 14:17 SAK (Rec: 08/29/21 15:29 SAK [id number]) Out-Patient Physical Therapy Visit Information Visit Information Visit Type Treatment Note Visit Note 4 wks post op tomorrow Visit Start Time 14:30 Visit Stop Time 15:27 Total Visit Minutes 57 Visit Number 5/40 Number of FAUCETS ASSEMBLER Visits 0 Precautions Precautions wear sling for 6-8 weeks. Passive ROM exercises to be done with elbow and hand. See protocol in chart. PT-OP-B Current Condition Start: 08/06/21 08:28 Freq: Status: Active Protocol: Document 08/23/21 09:48 SAK (Rec: 08/23/21 10:34 SAK [id number]) Current Condition History of Current Condition Onset Date 08/02/21 Current Complaints left shoulder dysfunction History of Current Condition s/p left RCR with arthroscopic distal clavicle excision, subacromial decompression extensive, rotator cuff repair . (operative report not available this date; have requested from Dr. Thurman's office). Patient reports she has been wearing her sling, using ice, doing gentle pendulum Prior Treatments and Tests prior right shoulder surgery with good outcome PT-OP-C Subjective Start: 08/06/21 08:28 Freq: Status: Active Protocol: Document 08/27/21 10:20 MA (Rec: 08/27/21 11:22 MA [id number]) OP-PT Subjective Patient Comments Patient Comments Pt reports having more difficutly sleeping the last few nights due to increased L shd pain. PT-OP-H Neuro Start: 08/06/21 08:28 Freq: Status: Active Protocol: Document 08/06/21 16:35 SAK (Rec: 08/06/21 17:09 SAK [id number]) Sensation Evaluation Gross Sensation Gross Sensation Left UE Impaired Sensation Description Paresthesia PT-OP-J Posture/Palpation/Skin Start: 08/06/21 08:28 Freq: Status: Active Protocol: Document 08/06/21 16:35 SAK (Rec: 08/06/21 17:09 [facility] [id number]) Posture Evaluation Position Sitting Head/C-Spine Posture Forward Head T-Spine Posture Increased Kyphosis Shoulder Posture (L) Rounded,(R) Rounded Scapula Posture (L) Protracted,(R) Protracted Arm Posture (L) Internally Rotated Palpation Assessment Location left shoulder Palpation Details palpable tightness in UT, deltoid Skin Assessment Incisional Assessment Incision Appearance/Comments post-op dressing off, steri- strips intact. No signs or symptoms of infection PT-OP-K Range of Motion Start: 08/06/21 08:28 Freq: Status: Active Protocol: Document 08/06/21 16:35 [facility] (Rec: 08/06/21 17:09 [facility] [id number]) Cervical Spine Range of Motion Cervical Spine Active Comments WNL except tight left neck sidebend possibly due to sleeping position Shoulder Goniometric Range of Motion Shoulder Left Passive Flexion 30 Extension 0 External Rotation at 0 degrees Abduction 0 Internal Rotation 0 Comments ER not tested due to RCR Right Active Shoulder ROM WFL Yes Elbow/Forearm Range of Motion Elbow/Forearm carley Elbow/Forearm ROM WFL Yes PT-OP-M Strength Start: 08/06/21 08:28 Freq: Status: Active Protocol: Document 08/06/21 16:35 [facility] (Rec: 08/06/21 17:09 [facility] [id number]) Shoulder Strength Shoulder Manual Muscle Testing Left Comments not assessed due to surgery Right Flexion 5 Normal Abduction (C5) 5 Normal External Rotation 5 Normal Internal Rotation 5 Normal PT-OP-Q Treatments Start: 08/06/21 08:28 Freq: Status: Active Protocol: Document 08/29/21 14:17 [facility] (Rec: 08/29/21 15:29 [facility] [id number]) Therapeutic Exercises Supine Exercises Shoulder abd Supine Exercise Name PROM Reps/Minutes 10x3 Comments in scapular plane Shoulder flex Supine Exercise Name AAROM Equipment Used wand Reps/Minutes 10x Comments issued written instr for HEP PROM IR/ER Reps/Minutes 10x Comments UE at 30 deg abd, supported on pillow shoulder ER Supine Exercise Name as tolerated Equipment Used cane Reps/Minutes 10x10 Comments ROM to 15 deg, pain end-range. Instructed to increase frequency of ex PROM shoulder flex Side left Reps/Minutes 10x Comments by PT Sidelying Exercises scapular retraction Sidelying Exercise Name A. Straight toward spine B. diagonal Reps/Minutes 10x ea Comments verbal and manual cues Sitting Exercises neck stretches Comments HEP deep breathing Comments HEP wrist and hand ROM Comments HEP forearm pron/sup Comments HEP elbow flex/ext Comments HEP neck ROM Comments HEP Standing Exercises pendulum Comments HEP Manual Therapy Treatment Soft Tissue Mobilization rhomboids Body Location left Mobilization Type Strumming,Sustained Pressure Intensity/Depth Moderate Body Position Sidelying right Comments instructed in use of tennis or raquetball for self-massage at home Scar Body Location L shd Intensity/Depth Moderate Body Position Hooklying c/s, UT Mobilization Type Myofascial Release Intensity/Depth gentle Body Position Hooklying Comments pillow under L arm for comfort Self-Care/Home Management Treatment Education Patient Education Home Exercise Program,Joint Protection,Pain Management, Posture Other Education Discussed protocol. AAROM shoulder flexion with wand added to HEP, instructed to increase frequency of ER PT-OP-R Modalities Start: 08/06/21 08:28 Freq: Status: Active Protocol: Document 08/29/21 14:17 [facility] (Rec: 08/29/21 15:29 [facility] [id number]) Electric Stimulation Electric Stimulation Interferential Current (IFC) Body Location left shoulder Duration (Minutes) 10 Intensity 14 Target/Sweep Sweep Patient Position Hooklying Combined With Heat/Cold Cold Pack Comments for pain management Hot Pack/Cold Pack Treatment Hot Pack Location left c/s and shoulder Patient Position Hooklying Treatment Duration (minutes) 10 Patient Tolerance Good Comments beginning of treatment during detailed discussion of protocol, precautions PT-OP-T Assessment and Plan Start: 08/06/21 08:28 Freq: Status: Active Protocol: Document 08/29/21 14:17 [facility] (Rec: 08/29/21 15:29 [facility] [id number]) Physical Therapy Assessment Goals Two Impairment right shoulder dysfunction Impairment Quickdash UE disability 100% Short Term Goal (STG) Decrease Quickdash UE disability index score to no greater than 50% as measure of improved function STG Duration [facility]iary Goal (LTG) Decrease Quickdash UE disability score to no greater than 10% as measure of improved left UE function with patient able to return to all usual ADL's and activities including reaching overhead and behind her back with ease LTG Duration 11/04/21 One Impairment limited shoulder ROM and strength Short Term Goal (STG) Patient will be independent and compliant with HEP following post-op RCR protocol STG Duration 2/15/22 [facility]iary Goal (LTG) Improve left shoulder ROM to full and strength to 5/5 to allow her to do all usual activities. LTG Duration 11/04/21 Assessment Summary Assessment Improved left shoulder flexion to 114 deg with AAROM. Demonstrated good understanding of this ex and addition of table slide as shown previously. Patient to increase frequency of shoulder ER ROM as very limited at this time. Scapular retraction difficulty for patient. Continue with cues for relaxing into shoulder ROM with HEP, decreasing overactivation of UT. Physical Therapy Plan Frequency and Duration Frequency of Treatment 2x/Week Duration of Treatment 12 weeks Plan of Care Start Date 08/06/21 Plan of Care End Date 11/04/21 Therapeutic Interventions Therapeutic Interventions Aquatic Therapy,Home Exercise Program,Joint Mobilizations, Manual Therapy,Neuromuscular Re-education,Patient/Caregiver Education,Self-Care/Home Management,Soft Tissue Mobilization,Taping, Therapeutic Activities, Therapeutic Exercises Modalities Cold Pack/Ice Massage,Electric Stimulation,Hot Packs, Iontophoresis Next Visit Focus/Plan Next Note Type Treatment Note Next Visit Plan Continue left shoulder rehab per protocol with emphasis at this time on achieving full ROM. Add prone row to neutral after further scapular stab work in sidelying
--- NOTE | 2021-09-03 12:05 | PT.OTN ---
Current Diagnoses Primary osteoarthritis, left shoulder (09/03/21) Unspecified rotator cuff tear or rupture of left shoulder, not specified as traumatic (09/03/21) Bursitis of left shoulder (09/03/21) Physical Therapy Treatment Note PT-OP-A Visit Information Start: 08/06/21 08:28 Freq: Status: Active Protocol: Document 09/03/21 11:06 MA (Rec: 09/03/21 12:05 MA [id number]) Out-Patient Physical Therapy Visit Information Visit Information Visit Type Treatment Note Visit Start Time 11:05 Visit Stop Time 12:05 Total Visit Minutes 60 Visit Number Number of WAIST CUTTER Visits 1 Precautions Precautions wear sling for 6-8 weeks. Passive ROM exercises to be done with elbow and hand. See protocol in chart. PT-OP-B Current Condition Start: 08/06/21 08:28 Freq: Status: Active Protocol: Document 08/23/21 09:48 SAK (Rec: 08/23/21 10:34 SAK [id number]) Current Condition History of Current Condition Onset Date 08/02/21 Current Complaints left shoulder dysfunction History of Current Condition s/p left RCR with arthroscopic distal clavicle excision, subacromial decompression extensive, rotator cuff repair . (operative report not available this date; have requested from Dr. Thurman's office). Patient reports she has been wearing her sling, using ice, doing gentle pendulum Prior Treatments and Tests prior right shoulder surgery with good outcome PT-OP-C Subjective Start: 08/06/21 08:28 Freq: Status: Active Protocol: Document 09/03/21 11:06 MA (Rec: 09/03/21 12:05 MA [id number]) OP-PT Subjective Patient Comments Patient Comments Pt reports still having difficulty sleeping but thinks it is because she has upped her reps. PT-OP-H Neuro Start: 08/06/21 08:28 Freq: Status: Active Protocol: Document 08/06/21 16:35 SAK (Rec: 08/06/21 17:09 SAK [id number]) Sensation Evaluation Gross Sensation Gross Sensation Left UE Impaired Sensation Description Paresthesia PT-OP-J Posture/Palpation/Skin Start: 08/06/21 08:28 Freq: Status: Active Protocol: Document 08/06/21 16:35 SAK (Rec: 08/06/21 17:09 SAK [id number]) Posture Evaluation Position Sitting Head/C-Spine Posture Forward Head T-Spine Posture Increased Kyphosis Shoulder Posture (L) Rounded,(R) Rounded Scapula Posture (L) Protracted,(R) Protracted Arm Posture (L) Internally Rotated Palpation Assessment Location left shoulder Palpation Details palpable tightness in UT, deltoid Skin Assessment Incisional Assessment Incision Appearance/Comments post-op dressing off, steri- strips intact. No signs or symptoms of infection PT-OP-K Range of Motion Start: 08/06/21 08:28 Freq: Status: Active Protocol: Document 08/06/21 16:35 [facility] (Rec: 08/06/21 17:09 [facility] [id number]) Cervical Spine Range of Motion Cervical Spine Active Comments WNL except tight left neck sidebend possibly due to sleeping position Shoulder Goniometric Range of Motion Shoulder Left Passive Flexion 30 Extension 0 External Rotation at 0 degrees Abduction 0 Internal Rotation 0 Comments ER not tested due to RCR Right Active Shoulder ROM WFL Yes Elbow/Forearm Range of Motion Elbow/Forearm carley Elbow/Forearm ROM WFL Yes PT-OP-M Strength Start: 08/06/21 08:28 Freq: Status: Active Protocol: Document 08/06/21 16:35 [facility] (Rec: 08/06/21 17:09 [facility] [id number]) Shoulder Strength Shoulder Manual Muscle Testing Left Comments not assessed due to surgery Right Flexion 5 Normal Abduction (C5) 5 Normal External Rotation 5 Normal Internal Rotation 5 Normal PT-OP-Q Treatments Start: 08/06/21 08:28 Freq: Status: Active Protocol: Document 09/03/21 11:06 MA (Rec: 09/03/21 12:05 MA [id number]) Therapeutic Exercises Supine Exercises Shoulder abd Supine Exercise Name PROM Reps/Minutes 10x3 Comments in scapular plane Shoulder flex Supine Exercise Name AAROM Equipment Used wand Reps/Minutes 10x Comments issued written instr for HEP PROM IR/ER Reps/Minutes 10x Comments UE at 30 deg abd, supported on pillow shoulder ER Supine Exercise Name as tolerated Equipment Used cane Reps/Minutes 10x10 Comments ROM to 15 deg, pain end-range. Instructed to increase frequency of ex PROM shoulder flex Side left Reps/Minutes 10x Comments by PT Prone Exercises Row Prone Exercise Name scap retraction Side left Reps/Minutes 10x Comments AAROM for first 5x to get motion and avoid UT Sidelying Exercises scapular retraction Sidelying Exercise Name A. Straight toward spine B. diagonal Reps/Minutes 10x ea Comments verbal and manual cues Manual Therapy Treatment Soft Tissue Mobilization Scar Body Location L shd Intensity/Depth Moderate Body Position Hooklying c/s, UT Mobilization Type Myofascial Release Intensity/Depth gentle Body Position Hooklying Comments pillow under L arm for comfort PT-OP-R Modalities Start: 08/06/21 08:28 Freq: Status: Active Protocol: Document 09/03/21 11:06 MA (Rec: 09/03/21 12:05 MA [id number]) Electric Stimulation Electric Stimulation Interferential Current (IFC) Body Location left shoulder Duration (Minutes) 10 Intensity 14 Target/Sweep Sweep Patient Position Hooklying Combined With Heat/Cold Cold Pack Comments for pain management PT-OP-T Assessment and Plan Start: 08/06/21 08:28 Freq: Status: Active Protocol: Document 09/03/21 11:06 MA (Rec: 09/03/21 12:05 MA [id number]) Physical Therapy Assessment Goals Two Impairment right shoulder dysfunction Impairment Quickdash UE disability 100% Short Term Goal (STG) Decrease Quickdash UE disability index score to no greater than 50% as measure of improved function STG Duration Group Home Goal (LTG) Decrease Quickdash UE disability score to no greater than 10% as measure of improved left UE function with patient able to return to all usual ADL's and activities including reaching overhead and behind her back with ease LTG Duration 11/04/21 One Impairment limited shoulder ROM and strength Short Term Goal (STG) Patient will be independent and compliant with HEP following post-op RCR protocol STG Duration 09/18/21 Preschool Substitute Teacher Goal (LTG) Improve left shoulder ROM to full and strength to 5/5 to allow her to do all usual activities. LTG Duration 11/04/21 Assessment Summary Assessment Pt requires cues throughout exercises to avoid elevating L shd. She is able to perform prone scap retraction exercise with tactile cues for avoiding elevation during retraction. Pt has minor stretch pain felt when L arm is hanging over table when prone. At end of tx, pt states her shd flexion table slide exercise is too painful. Discussed holding off on exercise until Friday when PT can review exercise with pt . Physical Therapy Plan Frequency and Duration Frequency of Treatment 2x/Week Duration of Treatment 12 weeks Plan of Care Start Date 08/06/21 Plan of Care End Date 11/04/21 Therapeutic Interventions Therapeutic Interventions Aquatic Therapy,Home Exercise Program,Joint Mobilizations, Manual Therapy,Neuromuscular Re-education,Patient/Caregiver Education,Self-Care/Home Management,Soft Tissue Mobilization,Taping, Therapeutic Activities, Therapeutic Exercises Modalities Cold Pack/Ice Massage,Electric Stimulation,Hot Packs, Iontophoresis Next Visit Focus/Plan Next Note Type Treatment Note Next Visit Plan Start with table slide shd flexion Continue left shoulder rehab per protocol with emphasis at this time on achieving full ROM. Add prone row to neutral after further scapular stab work in sidelying
--- NOTE | 2021-09-05 13:36 | PT.OTN ---
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 Passive ROM exercises to be done with elbow and hand. See protocol in chart. PT-OP-B Current Condition Start: 08/06/21 08:28 Freq: Status: Active Protocol: Document 08/23/21 09:48 SAK (Rec: 08/23/21 10:34 SAK [id number]) Current Condition History of Current Condition Onset Date 08/02/21 Current Complaints left shoulder dysfunction History of Current Condition s/p left RCR with arthroscopic distal clavicle excision, subacromial decompression extensive, rotator cuff repair . (operative report not available this date; have requested from Dr. Thurman's office). Patient reports she has been wearing her sling, using ice, doing gentle pendulum Prior Treatments and Tests prior right shoulder surgery with good outcome PT-OP-C Subjective Start: 08/06/21 08:28 Freq: Status: Active Protocol: Document 09/05/21 13:19 MA (Rec: 09/05/21 13:36 MA [id number]) OP-PT Subjective Patient Comments Patient Comments Pt arrives with towel roll for increasing abduction with sling and states it has been helping but her shoulder continues to be really sore in the evenings and while sleeping. PT-OP-H Neuro Start: 08/06/21 08:28 Freq: Status: Active Protocol: Document 08/06/21 16:35 SAK (Rec: 08/06/21 17:09 SAK [id number]) Sensation Evaluation Gross Sensation Gross Sensation Left UE Impaired Sensation Description Paresthesia PT-OP-J Posture/Palpation/Skin Start: 08/06/21 08:28 Freq: Status: Active Protocol: Document 08/06/21 16:35 [facility] (Rec: 08/06/21 17:09 [facility] [id number]) Posture Evaluation Position Sitting Head/C-Spine Posture Forward Head T-Spine Posture Increased Kyphosis Shoulder Posture (L) Rounded,(R) Rounded Scapula Posture (L) Protracted,(R) Protracted Arm Posture (L) Internally Rotated Palpation Assessment Location left shoulder Palpation Details palpable tightness in UT, deltoid Skin Assessment Incisional Assessment Incision Appearance/Comments post-op dressing off, steri- strips intact. No signs or symptoms of infection PT-OP-K Range of Motion Start: 08/06/21 08:28 Freq: Status: Active Protocol: Document 08/06/21 16:35 [facility] (Rec: 08/06/21 17:09 [facility] [id number]) Cervical Spine Range of Motion Cervical Spine Active Comments WNL except tight left neck sidebend possibly due to sleeping position Shoulder Goniometric Range of Motion Shoulder Left Passive Flexion 30 Extension 0 External Rotation at 0 degrees Abduction 0 Internal Rotation 0 Comments ER not tested due to RCR Right Active Shoulder ROM WFL Yes Elbow/Forearm Range of Motion Elbow/Forearm carley Elbow/Forearm ROM WFL Yes PT-OP-M Strength Start: 08/06/21 08:28 Freq: Status: Active Protocol: Document 08/06/21 16:35 [facility] (Rec: 08/06/21 17:09 [facility] [id number]) Shoulder Strength Shoulder Manual Muscle Testing Left Comments not assessed due to surgery Right Flexion 5 Normal Abduction (C5) 5 Normal External Rotation 5 Normal Internal Rotation 5 Normal PT-OP-Q Treatments Start: 08/06/21 08:28 Freq: Status: Active Protocol: Document 09/05/21 13:19 MA (Rec: 09/05/21 13:36 MA [id number]) Therapeutic Exercises Supine Exercises Shoulder flex Supine Exercise Name AAROM Equipment Used wand Reps/Minutes 10x Comments issued written instr for HEP shoulder ER Supine Exercise Name as tolerated Equipment Used cane Reps/Minutes 10x10 Comments ROM to 15 deg, pain end-range. Instructed to increase frequency of ex PROM shoulder flex Side left Reps/Minutes 10x Comments by PT Prone Exercises Row Prone Exercise Name scap retraction Side left Reps/Minutes 10x Comments AAROM Sitting Exercises Table Slide Sitting Exercise Name shd flex Side bilateral Comments modified HEP version to have elbows bent for comfort Scap Retraction Side bilateral Resistance none Reps/Minutes 8x Comments cues to avoid elevation- added to HEP Manual Therapy Treatment Soft Tissue Mobilization Scar Body Location L shd Intensity/Depth Moderate Body Position Hooklying c/s, UT Mobilization Type Myofascial Release Intensity/Depth gentle Body Position Hooklying Comments pillow under L arm for comfort Self-Care/Home Management Treatment Education Patient Education Home Exercise Program Other Education Added seated scap retraction. Reviewed table slide-shd flexion- exercise with pt due to pain felt when performing. Modified exercise to have elbows flexed to 90 with pt having no pain, only feeling stretch. PT-OP-R Modalities Start: 08/06/21 08:28 Freq: Status: Active Protocol: Document 09/05/21 13:19 MA (Rec: 09/05/21 13:36 MA [id number]) Hot Pack/Cold Pack Treatment Hot Pack Location left c/s and shoulder Patient Position Hooklying Treatment Duration (minutes) 10 Patient Tolerance Good Comments during STM PT-OP-T Assessment and Plan Start: 08/06/21 08:28 Freq: Status: Active Protocol: Document 09/05/21 13:19 MA (Rec: 09/05/21 13:36 MA [id number]) Physical Therapy Assessment Goals Two Impairment right shoulder dysfunction Impairment Quickdash UE disability 100% Short Term Goal (STG) Decrease Quickdash UE disability index score to no greater than 50% as measure of improved function STG Duration Longterm Goal (LTG) Decrease Quickdash UE disability score to no greater than 10% as measure of improved left UE function with patient able to return to all usual ADL's and activities including reaching overhead and behind her back with ease LTG Duration 11/04/21 One Impairment limited shoulder ROM and strength Short Term Goal (STG) Patient will be independent and compliant with HEP following post-op RCR protocol STG Duration 09/18/21 Longterm Goal (LTG) Improve left shoulder ROM to full and strength to 5/5 to allow her to do all usual activities. LTG Duration 11/04/21 Assessment Summary Assessment Pt continues to have difficulty with scapular retraction without elevation on L shd. Added seated scap retraction to HEP and reviewed prone AAROM scap retraction exercise with pt unable to complete independently with proper form this session. Modified pt's table slide (shd flex) exercise to pt performing with elbows flexed to 90 degrees to reduce discomfort and bring pt into slight ABD with flexion ( scaption). Physical Therapy Plan Frequency and Duration Frequency of Treatment 2x/Week Duration of Treatment 12 weeks Plan of Care Start Date 08/06/21 Plan of Care End Date 11/04/21 Therapeutic Interventions Therapeutic Interventions Aquatic Therapy,Home Exercise Program,Joint Mobilizations, Manual Therapy,Neuromuscular Re-education,Patient/Caregiver Education,Self-Care/Home Management,Soft Tissue Mobilization,Taping, Therapeutic Activities, Therapeutic Exercises Modalities Cold Pack/Ice Massage,Electric Stimulation,Hot Packs, Iontophoresis Next Visit Focus/Plan Next Note Type Treatment Note Next Visit Plan Review modified table slide Continue left shoulder rehab per protocol with emphasis at this time on achieving full ROM. Add prone row to neutral after further scapular stab work in sidelying
--- NOTE | 2021-09-11 17:46 | PT.OTN ---
Current Diagnoses Primary osteoarthritis, left shoulder (09/11/21) Unspecified rotator cuff tear or rupture of left shoulder, not specified as traumatic (09/11/21) Bursitis of left shoulder (09/11/21) Physical Therapy Treatment Note PT-OP-A Visit Information Start: 08/06/21 08:28 Freq: Status: Active Protocol: Document 09/11/21 11:22 SAK (Rec: 09/11/21 12:55 [facility] [id number]) Out-Patient Physical Therapy Visit Information Visit Information Visit Type Treatment Note Visit Note 5 1/2 wks post op Visit Start Time 11:10 Visit Stop Time 12:07 Total Visit Minutes 57 Visit Number 8/40 Number of ASSESSMENT ANALYST Visits 0 Precautions Precautions see protocol in chart. Now able to progress to AAROM as tolerated, no sling per physician PT-OP-B Current Condition Start: 08/06/21 08:28 Freq: Status: Active Protocol: Document 08/23/21 09:48 SAK (Rec: 08/23/21 10:34 [facility] [id number]) Current Condition History of Current Condition Onset Date 08/02/21 Current Complaints left shoulder dysfunction History of Current Condition s/p left RCR with arthroscopic distal clavicle excision, subacromial decompression extensive, rotator cuff repair . (operative report not available this date; have requested from Dr. Thurman's office). Patient reports she has been wearing her sling, using ice, doing gentle pendulum Prior Treatments and Tests prior right shoulder surgery with good outcome PT-OP-C Subjective Start: 08/06/21 08:28 Freq: Status: Active Protocol: Document 09/11/21 11:22 SAK (Rec: 09/11/21 12:55 [facility] [id number]) OP-PT Subjective Patient Comments Patient Comments Saw Dr. Thurman yesterday who said no more sling, slept without sling last night and that was much better. Ok to use left UE to brush teeth. Feels better without sling, feels external rotation still very slow. PT-OP-H Neuro Start: 08/06/21 08:28 Freq: Status: Active Protocol: Document 08/06/21 16:35 SAK (Rec: 08/06/21 17:09 [facility] [id number]) Sensation Evaluation Gross Sensation Gross Sensation Left UE Impaired Sensation Description Paresthesia PT-OP-J Posture/Palpation/Skin Start: 08/06/21 08:28 Freq: Status: Active Protocol: Document 08/06/21 16:35 [facility] (Rec: 08/06/21 17:09 [facility] [id number]) Posture Evaluation Position Sitting Head/C-Spine Posture Forward Head T-Spine Posture Increased Kyphosis Shoulder Posture (L) Rounded,(R) Rounded Scapula Posture (L) Protracted,(R) Protracted Arm Posture (L) Internally Rotated Palpation Assessment Location left shoulder Palpation Details palpable tightness in [place], deltoid Skin Assessment Incisional Assessment Incision Appearance/Comments post-op dressing off, steri- strips intact. No signs or symptoms of infection PT-OP-K Range of Motion Start: 08/06/21 08:28 Freq: Status: Active Protocol: Document 08/06/21 16:35 [facility] (Rec: 08/06/21 17:09 [facility] [id number]) Cervical Spine Range of Motion Cervical Spine Active Comments WNL except tight left neck sidebend possibly due to sleeping position Shoulder Goniometric Range of Motion Shoulder Left Passive Flexion 30 Extension 0 External Rotation at 0 degrees Abduction 0 Internal Rotation 0 Comments ER not tested due to RCR Right Active Shoulder ROM WFL Yes Elbow/Forearm Range of Motion Elbow/Forearm carley Elbow/Forearm ROM WFL Yes PT-OP-M Strength Start: 08/06/21 08:28 Freq: Status: Active Protocol: Document 08/06/21 16:35 [facility] (Rec: 08/06/21 17:09 [facility] [id number]) Shoulder Strength Shoulder Manual Muscle Testing Left Comments not assessed due to surgery Right Flexion 5 Normal Abduction (C5) 5 Normal External Rotation 5 Normal Internal Rotation 5 Normal PT-OP-Q Treatments Start: 08/06/21 08:28 Freq: Status: Active Protocol: Document 09/11/21 11:22 [facility] (Rec: 09/11/21 17:46 [facility] [id number]) Therapeutic Exercises Supine Exercises shoulder abduction Side left Equipment Used wand Reps/Minutes 5x Comments pain-free ROM Shoulder abd Supine Exercise Name PROM Reps/Minutes 10x3 Comments in scapular plane Shoulder flex Supine Exercise Name AAROM Equipment Used wand Reps/Minutes 10x Comments issued written instr for HEP PROM IR/ER Reps/Minutes 10x Comments UE at 30 deg abd, supported on pillow Sidelying Exercises scapular retraction Sidelying Exercise Name A. Straight toward spine B. diagonal Reps/Minutes 10x ea Comments verbal and manual cues to avoid [place] recruitement Standing Exercises ball roll Standing Exercise Name flx/ext, hor ab/ad, circles Equipment Used 55 cm ball on elevated mat table (kitchen table height) Comments palm down; try palm up next session pendulum Comments adding AAROM movement Manual Therapy Treatment Soft Tissue Mobilization biceps, deltoid insertion Body Location left shoulder Mobilization Type Myofascial Release Intensity/Depth Moderate rhomboids Body Location left Mobilization Type Myofascial Release,Strumming, Sustained Pressure Intensity/Depth Moderate Body Position Sidelying right Comments instructed in use of tennis or raquetball for self-massage at home Scar Body Location L shd Mobilization Type Myofascial Release Intensity/Depth Moderate Body Position Hooklying c/s, [place] Mobilization Type Myofascial Release Intensity/Depth Moderate Body Position Hooklying Comments pillow under L arm for comfort Self-Care/Home Management Treatment Education Patient Education Home Exercise Program Other Education updated with HANNA with hand on therapy ball, with wand for abduction in scapular plane PT-OP-R Modalities Start: 08/06/21 08:28 Freq: Status: Active Protocol: Document 09/11/21 11:22 [facility] (Rec: 09/11/21 17:46 [facility] [id number]) Electric Stimulation Electric Stimulation Interferential Current (IFC) Body Location left shoulder Duration (Minutes) 10 Intensity 14 Target/Sweep Sweep Patient Position Hooklying Combined With Heat/Cold Cold Pack Comments for pain management s/p ther ex Hot Pack/Cold Pack Treatment Hot Pack Location left c/s and shoulder Patient Position Hooklying Treatment Duration (minutes) 10 Patient Tolerance Good Comments during [facility] PT-OP-T Assessment and Plan Start: 08/06/21 08:28 Freq: Status: Active Protocol: Document 09/11/21 11:22 [facility] (Rec: 09/11/21 12:55 [facility] [id number]) Physical Therapy Assessment Goals Two Impairment right shoulder dysfunction Impairment Quickdash UE disability 100% Short Term Goal (STG) Decrease Quickdash UE disability index score to no greater than 50% as measure of improved function STG Duration Hand Welt Butter Goal (LTG) Decrease Quickdash UE disability score to no greater than 10% as measure of improved left UE function with patient able to return to all usual ADL's and activities including reaching overhead and behind her back with ease LTG Duration 11/04/21 One Impairment limited shoulder ROM and strength Short Term Goal (STG) Patient will be independent and compliant with HEP following post-op RCR protocol STG Duration 09/18/21 Hand Welt Butter Goal (LTG) Improve left shoulder ROM to full and strength to 5/5 to allow her to do all usual activities. LTG Duration 11/04/21 Assessment Summary Assessment Continue to emphasize normalized mechanics with use of mirror for visual feedback. Added AAROM shoulder abduction, standing AAROM with arm on therapy bal on table. Added self-massage with tennis ball for periscapualr musculature. Improved tolerance for shoulder flex with wand with thumbs up position. Improved scapular retraction in sidelying with manual cues. Physical Therapy Plan Frequency and Duration Frequency of Treatment 2x/Week Duration of Treatment 12 weeks Plan of Care Start Date 08/06/21 Plan of Care End Date 11/04/21 Therapeutic Interventions Therapeutic Interventions Aquatic Therapy,Home Exercise Program,Joint Mobilizations, Manual Therapy,Neuromuscular Re-education,Patient/Caregiver Education,Self-Care/Home Management,Soft Tissue Mobilization,Taping, Therapeutic Activities, Therapeutic Exercises Modalities Cold Pack/Ice Massage,Electric Stimulation,Hot Packs, Iontophoresis Next Visit Focus/Plan Next Note Type Treatment Note Next Visit Plan Initiate aquatic therapy for AAROM, manual aquatic therapy techniques for ROM left shoulder.
--- NOTE | 2021-09-12 10:15 | PT.OTN ---
Current Diagnoses Primary osteoarthritis, left shoulder (09/11/21) Unspecified rotator cuff tear or rupture of left shoulder, not specified as traumatic (09/11/21) Bursitis of left shoulder (09/11/21) Physical Therapy Treatment Note PT-OP-A Visit Information Start: 08/06/21 08:28 Freq: Status: Active Protocol: Document 09/12/21 10:15 SAK (Rec: 09/13/21 08:46 [facility] [id number]) Out-Patient Physical Therapy Visit Information Visit Information Visit Type Treatment Note Visit Start Time 10:15 Visit Stop Time 10:55 Total Visit Minutes 40 Visit Number Precautions Precautions see protocol in chart. Now able to progress to AAROM as tolerated, no sling per physician PT-OP-B Current Condition Start: 08/06/21 08:28 Freq: Status: Active Protocol: Document 08/23/21 09:48 SAK (Rec: 08/23/21 10:34 SAK [id number]) Current Condition History of Current Condition Onset Date 08/02/21 Current Complaints left shoulder dysfunction History of Current Condition s/p left RCR with arthroscopic distal clavicle excision, subacromial decompression extensive, rotator cuff repair . (operative report not available this date; have requested from Dr. Thurman's office). Patient reports she has been wearing her sling, using ice, doing gentle pendulum Prior Treatments and Tests prior right shoulder surgery with good outcome PT-OP-C Subjective Start: 08/06/21 08:28 Freq: Status: Active Protocol: Document 09/12/21 10:15 SAK (Rec: 09/13/21 08:46 [facility] [id number]) OP-PT Subjective Patient Comments Patient Comments Sore from PT yesterday; sore not painful. Excited but nervous to try aquatic PT PT-OP-H Neuro Start: 08/06/21 08:28 Freq: Status: Active Protocol: Document 08/06/21 16:35 SAK (Rec: 08/06/21 17:09 [facility] [id number]) Sensation Evaluation Gross Sensation Gross Sensation Left UE Impaired Sensation Description Paresthesia PT-OP-J Posture/Palpation/Skin Start: 08/06/21 08:28 Freq: Status: Active Protocol: Document 08/06/21 16:35 SAK (Rec: 08/06/21 17:09 [facility] [id number]) Posture Evaluation Position Sitting Head/C-Spine Posture Forward Head T-Spine Posture Increased Kyphosis Shoulder Posture (L) Rounded,(R) Rounded Scapula Posture (L) Protracted,(R) Protracted Arm Posture (L) Internally Rotated Palpation Assessment Location left shoulder Palpation Details palpable tightness in UT, deltoid Skin Assessment Incisional Assessment Incision Appearance/Comments post-op dressing off, steri- strips intact. No signs or symptoms of infection PT-OP-K Range of Motion Start: 08/06/21 08:28 Freq: Status: Active Protocol: Document 08/06/21 16:35 [facility] (Rec: 08/06/21 17:09 [facility] [id number]) Cervical Spine Range of Motion Cervical Spine Active Comments WNL except tight left neck sidebend possibly due to sleeping position Shoulder Goniometric Range of Motion Shoulder Left Passive Flexion 30 Extension 0 External Rotation at 0 degrees Abduction 0 Internal Rotation 0 Comments ER not tested due to RCR Right Active Shoulder ROM WFL Yes Elbow/Forearm Range of Motion Elbow/Forearm carley Elbow/Forearm ROM WFL Yes PT-OP-M Strength Start: 08/06/21 08:28 Freq: Status: Active Protocol: Document 08/06/21 16:35 [facility] (Rec: 08/06/21 17:09 [facility] [id number]) Shoulder Strength Shoulder Manual Muscle Testing Left Comments not assessed due to surgery Right Flexion 5 Normal Abduction (C5) 5 Normal External Rotation 5 Normal Internal Rotation 5 Normal PT-OP-Q Treatments Start: 08/06/21 08:28 Freq: Status: Active Protocol: Document 09/11/21 11:22 [facility] (Rec: 09/11/21 17:46 [facility] [id number]) Therapeutic Exercises Supine Exercises shoulder abduction Side left Equipment Used wand Reps/Minutes 5x Comments pain-free ROM Shoulder abd Supine Exercise Name PROM Reps/Minutes 10x3 Comments in scapular plane Shoulder flex Supine Exercise Name AAROM Equipment Used wand Reps/Minutes 10x Comments issued written instr for HEP PROM IR/ER Reps/Minutes 10x Comments UE at 30 deg abd, supported on pillow Sidelying Exercises scapular retraction Sidelying Exercise Name A. Straight toward spine B. diagonal Reps/Minutes 10x ea Comments verbal and manual cues to avoid UT recruitement Standing Exercises ball roll Standing Exercise Name flx/ext, hor ab/ad, circles Equipment Used 55 cm ball on elevated mat table (kitchen table height) Comments palm down; try palm up next session pendulum Comments adding AAROM movement Manual Therapy Treatment Soft Tissue Mobilization biceps, deltoid insertion Body Location left shoulder Mobilization Type Myofascial Release Intensity/Depth Moderate rhomboids Body Location left Mobilization Type Myofascial Release,Strumming, Sustained Pressure Intensity/Depth Moderate Body Position Sidelying right Comments instructed in use of tennis or raquetball for self-massage at home Scar Body Location L shd Mobilization Type Myofascial Release Intensity/Depth Moderate Body Position Hooklying c/s, UT Mobilization Type Myofascial Release Intensity/Depth Moderate Body Position Hooklying Comments pillow under L arm for comfort Self-Care/Home Management Treatment Education Patient Education Home Exercise Program Other Education updated with HANNA with hand on therapy ball, with wand for abduction in scapular plane PT-OP-R Modalities Start: 08/06/21 08:28 Freq: Status: Active Protocol: Document 09/11/21 11:22 [facility] (Rec: 09/11/21 17:46 [facility] [id number]) Electric Stimulation Electric Stimulation Interferential Current (IFC) Body Location left shoulder Duration (Minutes) 10 Intensity 14 Target/Sweep Sweep Patient Position Hooklying Combined With Heat/Cold Cold Pack Comments for pain management s/p ther ex Hot Pack/Cold Pack Treatment Hot Pack Location left c/s and shoulder Patient Position Hooklying Treatment Duration (minutes) 10 Patient Tolerance Good Comments during STM PT-OP-S Aquatic Treatment Start: 08/06/21 08:28 Freq: Status: Active Protocol: Document 09/12/21 10:15 [facility] (Rec: 09/13/21 08:53 [facility] [id number]) Aquatics Treatment Pool Entry/Exit Pool Entry/Exit Method Stairs Assistance Independent Water Walking Forwards Water Level Chest Level Walking Equipment no left UE use Upper Extremity Exercises UT stretch Body Position Standing Water Level Neck Level Reps/Duration 10x1 left scapular retraction Body Position Standing Water Level Neck Level Reps/Duration 10x2 pendulum Body Position Standing Water Level Waist Level Reps/Duration 10x all planes shoulder ER/IR Body Position Standing Water Level Neck Level Reps/Duration 10x2 Comments cane shoulder ext Body Position Standing Water Level Neck Level Reps/Duration cane Comments cues for neutral postural alignment, inhibit UT shoulder hor ab/ad Details palms parallel to water surface Body Position Standing Water Level Neck Level Reps/Duration 10x2 Comments cues for neutral postural alignment, inhibit UT shoulder abduction Body Position Standing Reps/Duration 10x2 Comments cues for neutral postural alignment, inhibit UT shoulder flex Body Position wall squat and stand Water Level Neck Level Reps/Duration 10x2 Comments allowing bouyancy assist, opposite UE for extension Manual Techniques WATSU for thoracic and shoulder mobility/ROM; initial hold at scapulas, then at waist, gentle Aquatic Massage black neck float, float-its above knees rhomboids, UT, subscap, scar PT-OP-T Assessment and Plan Start: 08/06/21 08:28 Freq: Status: Active Protocol: Document 09/12/21 10:15 SAK (Rec: 09/13/21 08:46 SAK [id number]) Physical Therapy Assessment Goals Two Impairment right shoulder dysfunction Impairment Quickdash UE disability 100% Short Term Goal (STG) Decrease Quickdash UE disability index score to no greater than 50% as measure of improved function STG Duration Shoe Salesperson Goal (LTG) Decrease Quickdash UE disability score to no greater than 10% as measure of improved left UE function with patient able to return to all usual ADL's and activities including reaching overhead and behind her back with ease LTG Duration 11/04/21 One Impairment limited shoulder ROM and strength Short Term Goal (STG) Patient will be independent and compliant with HEP following post-op RCR protocol STG Duration 09/18/21 Shoe Salesperson Goal (LTG) Improve left shoulder ROM to full and strength to 5/5 to allow her to do all usual activities. LTG Duration 11/04/21 Assessment Summary Assessment Good tolerance for gentle aquatic therapy with supine PROM techniques, DTM, and AAROM with patient education regarding effects of bouyancy. Cont with cues for decreased UT recruitment but patient verbalized and dmeonstrated increase ease of shoulder movement in the pool, ER still very limited. Wasn't able to find her mask and snorkel so unable to do prone techniques. Physical Therapy Plan Frequency and Duration Frequency of Treatment 2x/Week Duration of Treatment 12 weeks Plan of Care Start Date 08/06/21 Plan of Care End Date 11/04/21 Therapeutic Interventions Therapeutic Interventions Aquatic Therapy,Home Exercise Program,Joint Mobilizations, Manual Therapy,Neuromuscular Re-education,Patient/Caregiver Education,Self-Care/Home Management,Soft Tissue Mobilization,Taping, Therapeutic Activities, Therapeutic Exercises Modalities Cold Pack/Ice Massage,Electric Stimulation,Hot Packs, Iontophoresis Next Visit Focus/Plan Next Note Type Treatment Note Next Visit Plan Continue PT with combination land and aquatic PT following RCR protocol. Gentle progression of AAROM all planes of movement.
--- NOTE | 2021-09-17 16:58 | PT.OTN ---
Current Diagnoses Primary osteoarthritis, left shoulder (09/12/21) Unspecified rotator cuff tear or rupture of left shoulder, not specified as traumatic (09/12/21) Bursitis of left shoulder (09/12/21) Physical Therapy Treatment Note PT-OP-A Visit Information Start: 08/06/21 08:28 Freq: Status: Active Protocol: Document 09/17/21 11:00 SAK (Rec: 09/17/21 16:57 [facility] [id number]) Out-Patient Physical Therapy Visit Information Visit Information Visit Type Treatment Note Visit Start Time 11:00 Visit Stop Time 11:45 Total Visit Minutes 45 Visit Number Precautions Precautions see protocol in chart. Now able to progress to AAROM as tolerated, no sling per physician PT-OP-B Current Condition Start: 08/06/21 08:28 Freq: Status: Active Protocol: Document 08/23/21 09:48 SAK (Rec: 08/23/21 10:34 [facility] [id number]) Current Condition History of Current Condition Onset Date 08/02/21 Current Complaints left shoulder dysfunction History of Current Condition s/p left RCR with arthroscopic distal clavicle excision, subacromial decompression extensive, rotator cuff repair . (operative report not available this date; have requested from Dr. Thurman's office). Patient reports she has been wearing her sling, using ice, doing gentle pendulum Prior Treatments and Tests prior right shoulder surgery with good outcome PT-OP-C Subjective Start: 08/06/21 08:28 Freq: Status: Active Protocol: Document 09/17/21 11:00 SAK (Rec: 09/17/21 16:57 [facility] [id number]) OP-PT Subjective Patient Comments Patient Comments Had some soreness from aquatic PT but felt like it was helpful. Glad to get back in for another aquatic PT session . Range of motion slow PT-OP-H Neuro Start: 08/06/21 08:28 Freq: Status: Active Protocol: Document 08/06/21 16:35 SAK (Rec: 08/06/21 17:09 [facility] [id number]) Sensation Evaluation Gross Sensation Gross Sensation Left UE Impaired Sensation Description Paresthesia PT-OP-J Posture/Palpation/Skin Start: 08/06/21 08:28 Freq: Status: Active Protocol: Document 08/06/21 16:35 SAK (Rec: 08/06/21 17:09 [facility] [id number]) Posture Evaluation Position Sitting Head/C-Spine Posture Forward Head T-Spine Posture Increased Kyphosis Shoulder Posture (L) Rounded,(R) Rounded Scapula Posture (L) Protracted,(R) Protracted Arm Posture (L) Internally Rotated Palpation Assessment Location left shoulder Palpation Details palpable tightness in UT, deltoid Skin Assessment Incisional Assessment Incision Appearance/Comments post-op dressing off, steri- strips intact. No signs or symptoms of infection PT-OP-K Range of Motion Start: 08/06/21 08:28 Freq: Status: Active Protocol: Document 08/06/21 16:35 [facility] (Rec: 08/06/21 17:09 [facility] [id number]) Cervical Spine Range of Motion Cervical Spine Active Comments WNL except tight left neck sidebend possibly due to sleeping position Shoulder Goniometric Range of Motion Shoulder Left Passive Flexion 30 Extension 0 External Rotation at 0 degrees Abduction 0 Internal Rotation 0 Comments ER not tested due to RCR Right Active Shoulder ROM WFL Yes Elbow/Forearm Range of Motion Elbow/Forearm carley Elbow/Forearm ROM WFL Yes PT-OP-M Strength Start: 08/06/21 08:28 Freq: Status: Active Protocol: Document 08/06/21 16:35 [facility] (Rec: 08/06/21 17:09 [facility] [id number]) Shoulder Strength Shoulder Manual Muscle Testing Left Comments not assessed due to surgery Right Flexion 5 Normal Abduction (C5) 5 Normal External Rotation 5 Normal Internal Rotation 5 Normal PT-OP-Q Treatments Start: 08/06/21 08:28 Freq: Status: Active Protocol: Document 09/11/21 11:22 [facility] (Rec: 09/11/21 17:46 [facility] [id number]) Therapeutic Exercises Supine Exercises shoulder abduction Side left Equipment Used wand Reps/Minutes 5x Comments pain-free ROM Shoulder abd Supine Exercise Name PROM Reps/Minutes 10x3 Comments in scapular plane Shoulder flex Supine Exercise Name AAROM Equipment Used wand Reps/Minutes 10x Comments issued written instr for HEP PROM IR/ER Reps/Minutes 10x Comments UE at 30 deg abd, supported on pillow Sidelying Exercises scapular retraction Sidelying Exercise Name A. Straight toward spine B. diagonal Reps/Minutes 10x ea Comments verbal and manual cues to avoid UT recruitement Standing Exercises ball roll Standing Exercise Name flx/ext, hor ab/ad, circles Equipment Used 55 cm ball on elevated mat table (kitchen table height) Comments palm down; try palm up next session pendulum Comments adding AAROM movement Manual Therapy Treatment Soft Tissue Mobilization biceps, deltoid insertion Body Location left shoulder Mobilization Type Myofascial Release Intensity/Depth Moderate rhomboids Body Location left Mobilization Type Myofascial Release,Strumming, Sustained Pressure Intensity/Depth Moderate Body Position Sidelying right Comments instructed in use of tennis or raquetball for self-massage at home Scar Body Location L shd Mobilization Type Myofascial Release Intensity/Depth Moderate Body Position Hooklying c/s, UT Mobilization Type Myofascial Release Intensity/Depth Moderate Body Position Hooklying Comments pillow under L arm for comfort Self-Care/Home Management Treatment Education Patient Education Home Exercise Program Other Education updated with HANNA with hand on therapy ball, with wand for abduction in scapular plane PT-OP-R Modalities Start: 08/06/21 08:28 Freq: Status: Active Protocol: Document 09/11/21 11:22 [facility] (Rec: 09/11/21 17:46 [facility] [id number]) Electric Stimulation Electric Stimulation Interferential Current (IFC) Body Location left shoulder Duration (Minutes) 10 Intensity 14 Target/Sweep Sweep Patient Position Hooklying Combined With Heat/Cold Cold Pack Comments for pain management s/p ther ex Hot Pack/Cold Pack Treatment Hot Pack Location left c/s and shoulder Patient Position Hooklying Treatment Duration (minutes) 10 Patient Tolerance Good Comments during STM PT-OP-S Aquatic Treatment Start: 08/06/21 08:28 Freq: Status: Active Protocol: Document 09/17/21 11:00 [facility] (Rec: 09/17/21 16:57 [facility] [id number]) Aquatics Treatment Pool Entry/Exit Pool Entry/Exit Method Stairs Assistance Independent Water Walking Sideways Water Level Neck Level Level of Assistance Standby Assistance Comments with shoulder ab/ad backward Water Level Neck Level Level of Assistance Verbal Cues Comments reverse breastroke UE's Forwards Water Level Neck Level Walking Equipment gentle breastroke UE's Upper Extremity Exercises upper trunk rotation Body Position Standing Water Level Neck Level Comments noodle push/pull Body Position Standing Water Level Neck Level Reps/Duration 10x Comments noodle scapular retraction Body Position Standing Water Level Neck Level Reps/Duration 10x2 shoulder ER/IR Details elbows at side, at 90 abd, Body Position Standing Water Level Neck Level Reps/Duration 10x ea Comments cane shoulder hor ab/ad Details palms parallel to water surface with IR and ER Body Position Standing Water Level Neck Level Reps/Duration 10x2 Comments cues for neutral postural alignment, inhibit UT, cross midline in front shoulder abduction Body Position Standing Reps/Duration 10x2 Comments cues for neutral postural alignment, inhibit UT shoulder flex Body Position wall squat and stand Water Level Neck Level Reps/Duration 10x2 Swim Strokes prone crawl Laps/Duration 6 min Comments slow, pain-free ROM, manual facil of upward scapular rotation Manual Techniques [place] passive for thoracic and shoulder mobility/ROM; initial hold at scapulas, then at waist Aquatic Joint Mobilizations general upper thoracic, scapulothoracic mobilization Aquatic Massage black neck float, float-its above knees rhomboids, UT, subscap, scar Other shoulder isometrics Body Position Standing Comments instruction in isometrics for HEP all motions PT-OP-T Assessment and Plan Start: 08/06/21 08:28 Freq: Status: Active Protocol: Document 09/17/21 11:00 [facility] (Rec: 09/17/21 16:57 [facility] [id number]) Physical Therapy Assessment Goals Two Impairment right shoulder dysfunction Impairment Quickdash UE disability 100% Short Term Goal (STG) Decrease Quickdash UE disability index score to no greater than 50% as measure of improved function STG Duration Metal Flow Coordinator Goal (LTG) Decrease Quickdash UE disability score to no greater than 10% as measure of improved left UE function with patient able to return to all usual ADL's and activities including reaching overhead and behind her back with ease LTG Duration 11/04/21 One Impairment limited shoulder ROM and strength Short Term Goal (STG) Patient will be independent and compliant with HEP following post-op RCR protocol STG Duration 09/18/21 [facility] Goal (LTG) Improve left shoulder ROM to full and strength to 5/5 to allow her to do all usual activities. LTG Duration 11/04/21 Assessment Summary Assessment Improving tolerance for ther ex, stretching, HEP. Added isometrics for HEP, and progressed to active ROM all planes left shoulder. Continues to have difficulty with over-recruitment of UT but is also aware. Demonstrated good understanding of isometrics; will issue handout at next session. Physical Therapy Plan Next Visit Focus/Plan Next Note Type Treatment Note Next Visit Plan Continue PT with combination land and aquatic PT following RCR protocol. Progression of AROM all planes, gentle joint mobilization to improve shoulder ER. Goniometric measurements
--- NOTE | 2021-09-20 12:23 | PT.OTN ---
Current Diagnoses Primary osteoarthritis, left shoulder (09/20/21) Unspecified rotator cuff tear or rupture of left shoulder, not specified as traumatic (09/20/21) Bursitis of left shoulder (09/20/21) Physical Therapy Treatment Note PT-OP-A Visit Information Start: 08/06/21 08:28 Freq: Status: Active Protocol: Document 09/20/21 10:32 SAK (Rec: 09/20/21 12:23 SAK [id number]) Out-Patient Physical Therapy Visit Information Visit Information Visit Type Treatment Note Visit Start Time 10:30 Visit Stop Time 11:25 Total Visit Minutes 55 Visit Number Precautions Precautions see protocol in chart. Now able to progress to AAROM as tolerated, no sling per physician PT-OP-B Current Condition Start: 08/06/21 08:28 Freq: Status: Active Protocol: Document 08/23/21 09:48 SAK (Rec: 08/23/21 10:34 SAK [id number]) Current Condition History of Current Condition Onset Date 08/02/21 Current Complaints left shoulder dysfunction History of Current Condition s/p left RCR with arthroscopic distal clavicle excision, subacromial decompression extensive, rotator cuff repair . (operative report not available this date; have requested from Dr. Thurman's office). Patient reports she has been wearing her sling, using ice, doing gentle pendulum Prior Treatments and Tests prior right shoulder surgery with good outcome PT-OP-C Subjective Start: 08/06/21 08:28 Freq: Status: Active Protocol: Document 09/20/21 10:32 SAK (Rec: 09/20/21 12:23 SAK [id number]) OP-PT Subjective Patient Comments Patient Comments Sore in good way after PT, slept well, slept well next couple nights but last night didn't sleep well after busy day including 3 mile hike, sore back side of shoulder, then in middle of night went to move and accidentally used left UE. Thinks ROM improving . PT-OP-H Neuro Start: 08/06/21 08:28 Freq: Status: Active Protocol: Document 08/06/21 16:35 SAK (Rec: 08/06/21 17:09 SAK [id number]) Sensation Evaluation Gross Sensation Gross Sensation Left UE Impaired Sensation Description Paresthesia PT-OP-J Posture/Palpation/Skin Start: 08/06/21 08:28 Freq: Status: Active Protocol: Document 08/06/21 16:35 [facility] (Rec: 08/06/21 17:09 [facility] [id number]) Posture Evaluation Position Sitting Head/C-Spine Posture Forward Head T-Spine Posture Increased Kyphosis Shoulder Posture (L) Rounded,(R) Rounded Scapula Posture (L) Protracted,(R) Protracted Arm Posture (L) Internally Rotated Palpation Assessment Location left shoulder Palpation Details palpable tightness in UT, deltoid Skin Assessment Incisional Assessment Incision Appearance/Comments post-op dressing off, steri- strips intact. No signs or symptoms of infection PT-OP-K Range of Motion Start: 08/06/21 08:28 Freq: Status: Active Protocol: Document 08/06/21 16:35 [facility] (Rec: 08/06/21 17:09 [facility] [id number]) Cervical Spine Range of Motion Cervical Spine Active Comments WNL except tight left neck sidebend possibly due to sleeping position Shoulder Goniometric Range of Motion Shoulder Left Passive Flexion 30 Extension 0 External Rotation at 0 degrees Abduction 0 Internal Rotation 0 Comments ER not tested due to RCR Right Active Shoulder ROM WFL Yes Elbow/Forearm Range of Motion Elbow/Forearm carley Elbow/Forearm ROM WFL Yes PT-OP-M Strength Start: 08/06/21 08:28 Freq: Status: Active Protocol: Document 08/06/21 16:35 [facility] (Rec: 08/06/21 17:09 [facility] [id number]) Shoulder Strength Shoulder Manual Muscle Testing Left Comments not assessed due to surgery Right Flexion 5 Normal Abduction (C5) 5 Normal External Rotation 5 Normal Internal Rotation 5 Normal PT-OP-Q Treatments Start: 08/06/21 08:28 Freq: Status: Active Protocol: Document 09/20/21 10:32 [facility] (Rec: 09/20/21 12:23 [facility] [id number]) Therapeutic Exercises Supine Exercises PNF Supine Exercise Name AAROM D1 and D2 Reps/Minutes 5x ea lower trunk rotation Reps/Minutes 5x Comments cues for arms out to side sleeper stretch Reps/Minutes 2x30 Comments cues for deep breathing, stretch not pain shoulder horizontal add, post capsule stretch Reps/Minutes 4x30 Comments cues for deep breathing, stretch not pain shoulder abduction Side left Equipment Used wand Reps/Minutes 5x Comments cues for stretch, not pain Shoulder flex Supine Exercise Name AAROM Equipment Used wand Reps/Minutes 10x Comments with manual scapular mobilization PROM IR/ER Supine Exercise Name manual Reps/Minutes 10x Comments UE at 30 deg abd, supported on pillow shoulder ER Supine Exercise Name active Reps/Minutes 10x10 Comments cues for correct form PROM shoulder flex Side left Reps/Minutes 10x Comments by PT Prone Exercises Row Prone Exercise Name scap retraction, elbow straight Side left Reps/Minutes 10x Comments AAROM Sidelying Exercises upper trunk rotation Resistance left Reps/Minutes 5x scapular retraction Sidelying Exercise Name A. Straight toward spine B. diagonal Reps/Minutes 10x ea Comments verbal and manual cues to avoid UT recruitement Sitting Exercises Shoulder ER stretch Equipment Used table Reps/Minutes 2x30 Manual Therapy Treatment Soft Tissue Mobilization rhomboids Body Location left Mobilization Type Myofascial Release,Strumming, Sustained Pressure Intensity/Depth Moderate Body Position Sidelying right Manual Techniques shoulder Type inf and post glide Body Location left shoulder Body Position Supine Reps/Duration 5 min PT-OP-R Modalities Start: 08/06/21 08:28 Freq: Status: Active Protocol: Document 09/20/21 10:32 [facility] (Rec: 09/20/21 12:23 [facility] [id number]) Electric Stimulation Electric Stimulation Interferential Current (IFC) Body Location left shoulder Duration (Minutes) 10 Intensity 11 Target/Sweep Sweep Patient Position Hooklying Combined With Heat/Cold Cold Pack Comments for pain management s/p ther ex PT-OP-S Aquatic Treatment Start: 08/06/21 08:28 Freq: Status: Active Protocol: Document 09/17/21 11:00 SAK (Rec: 09/17/21 16:57 [facility] [id number]) Aquatics Treatment Pool Entry/Exit Pool Entry/Exit Method Stairs Assistance Independent Water Walking Sideways Water Level Neck Level Level of Assistance Standby Assistance Comments with shoulder ab/ad backward Water Level Neck Level Level of Assistance Verbal Cues Comments reverse breastroke UE's Forwards Water Level Neck Level Walking Equipment gentle breastroke UE's Upper Extremity Exercises upper trunk rotation Body Position Standing Water Level Neck Level Comments noodle push/pull Body Position Standing Water Level Neck Level Reps/Duration 10x Comments noodle scapular retraction Body Position Standing Water Level Neck Level Reps/Duration 10x2 shoulder ER/IR Details elbows at side, at 90 abd, Body Position Standing Water Level Neck Level Reps/Duration 10x ea Comments cane shoulder hor ab/ad Details palms parallel to water surface with IR and ER Body Position Standing Water Level Neck Level Reps/Duration 10x2 Comments cues for neutral postural alignment, inhibit UT, cross midline in front shoulder abduction Body Position Standing Reps/Duration 10x2 Comments cues for neutral postural alignment, inhibit UT shoulder flex Body Position wall squat and stand Water Level Neck Level Reps/Duration 10x2 Swim Strokes prone crawl Laps/Duration 6 min Comments slow, pain-free ROM, manual facil of upward scapular rotation Manual Techniques Bad Ragaz passive for thoracic and shoulder mobility/ROM; initial hold at scapulas, then at waist Aquatic Joint Mobilizations general upper thoracic, scapulothoracic mobilization Aquatic Massage black neck float, float-its above knees rhomboids, UT, subscap, scar Other shoulder isometrics Body Position Standing Comments instruction in isometrics for HEP all motions PT-OP-T Assessment and Plan Start: 08/06/21 08:28 Freq: Status: Active Protocol: Document 09/20/21 10:32 [facility] (Rec: 09/20/21 12:23 [facility] [id number]) Physical Therapy Assessment Goals Two Impairment right shoulder dysfunction Impairment Quickdash UE disability 100% Short Term Goal (STG) Decrease Quickdash UE disability index score to no greater than 50% as measure of improved function STG Duration Nursing Home Goal (LTG) Decrease Quickdash UE disability score to no greater than 10% as measure of improved left UE function with patient able to return to all usual ADL's and activities including reaching overhead and behind her back with ease LTG Duration 11/04/21 One Impairment limited shoulder ROM and strength Short Term Goal (STG) Patient will be independent and compliant with HEP following post-op RCR protocol STG Duration 09/18/21 Churn Tender Goal (LTG) Improve left shoulder ROM to full and strength to 5/5 to allow her to do all usual activities. LTG Duration 11/04/21 Assessment Summary Assessment Patient had a couple good days after PT, very sore today. Added gentle GH post and inf glides, posterior capusule stretch, sleeper stretch, seated passive ER stretch. ROM changes very slow despite excellent compliance to HEP. AAROM shoulder flex 120, abduction 78, ER 19, IR 34. Physical Therapy Plan Frequency and Duration Frequency of Treatment 2x/Week Duration of Treatment 12 weeks Plan of Care Start Date 08/06/21 Plan of Care End Date 11/04/21 Therapeutic Interventions Therapeutic Interventions Aquatic Therapy,Home Exercise Program,Joint Mobilizations, Manual Therapy,Neuromuscular Re-education,Patient/Caregiver Education,Self-Care/Home Management,Soft Tissue Mobilization,Taping, Therapeutic Activities, Therapeutic Exercises Modalities Cold Pack/Ice Massage,Electric Stimulation,Hot Packs, Iontophoresis Next Visit Focus/Plan Next Note Type Treatment Note Next Visit Plan Continue PT with combination land and aquatic PT following RCR protocol. Progression of AROM all planes, gentle joint mobilization to improve shoulder ER.
--- NOTE | 2021-09-24 12:00 | PT.OTN ---
Current Diagnoses Primary osteoarthritis, left shoulder (09/24/21) Unspecified rotator cuff tear or rupture of left shoulder, not specified as traumatic (09/24/21) Bursitis of left shoulder (09/24/21) Physical Therapy Treatment Note PT-OP-A Visit Information Start: 08/06/21 08:28 Freq: Status: Active Protocol: Document 09/24/21 10:21 MA (Rec: 09/24/21 11:06 MA [id number]) Out-Patient Physical Therapy Visit Information Visit Information Visit Type Treatment Note Visit Start Time 10:15 Visit Stop Time 11:00 Total Visit Minutes 45 Visit Number Number of CONTACT CENTER TEAM LEAD Visits 1 Precautions Precautions see protocol in chart. Now able to progress to AAROM as tolerated, no sling per physician PT-OP-B Current Condition Start: 08/06/21 08:28 Freq: Status: Active Protocol: Document 08/23/21 09:48 SAK (Rec: 08/23/21 10:34 SAK [id number]) Current Condition History of Current Condition Onset Date 08/02/21 Current Complaints left shoulder dysfunction History of Current Condition s/p left RCR with arthroscopic distal clavicle excision, subacromial decompression extensive, rotator cuff repair . (operative report not available this date; have requested from Dr. Thurman's office). Patient reports she has been wearing her sling, using ice, doing gentle pendulum Prior Treatments and Tests prior right shoulder surgery with good outcome PT-OP-C Subjective Start: 08/06/21 08:28 Freq: Status: Active Protocol: Document 09/24/21 10:21 MA (Rec: 09/24/21 11:06 MA [id number]) OP-PT Subjective Patient Comments Patient Comments Pt feels she is sleeping a little better. She has been feeling popping in L shd during flexion and doesn't know if it's just scar tissue or soemthing wrong. PT-OP-H Neuro Start: 08/06/21 08:28 Freq: Status: Active Protocol: Document 08/06/21 16:35 SAK (Rec: 08/06/21 17:09 SAK [id number]) Sensation Evaluation Gross Sensation Gross Sensation Left UE Impaired Sensation Description Paresthesia PT-OP-J Posture/Palpation/Skin Start: 08/06/21 08:28 Freq: Status: Active Protocol: Document 08/06/21 16:35 SAK (Rec: 08/06/21 17:09 [facility] [id number]) Posture Evaluation Position Sitting Head/C-Spine Posture Forward Head T-Spine Posture Increased Kyphosis Shoulder Posture (L) Rounded,(R) Rounded Scapula Posture (L) Protracted,(R) Protracted Arm Posture (L) Internally Rotated Palpation Assessment Location left shoulder Palpation Details palpable tightness in UT, deltoid Skin Assessment Incisional Assessment Incision Appearance/Comments post-op dressing off, steri- strips intact. No signs or symptoms of infection PT-OP-K Range of Motion Start: 08/06/21 08:28 Freq: Status: Active Protocol: Document 08/06/21 16:35 [facility] (Rec: 08/06/21 17:09 [facility] [id number]) Cervical Spine Range of Motion Cervical Spine Active Comments WNL except tight left neck sidebend possibly due to sleeping position Shoulder Goniometric Range of Motion Shoulder Left Passive Flexion 30 Extension 0 External Rotation at 0 degrees Abduction 0 Internal Rotation 0 Comments ER not tested due to RCR Right Active Shoulder ROM WFL Yes Elbow/Forearm Range of Motion Elbow/Forearm carley Elbow/Forearm ROM WFL Yes PT-OP-M Strength Start: 08/06/21 08:28 Freq: Status: Active Protocol: Document 08/06/21 16:35 [facility] (Rec: 08/06/21 17:09 [facility] [id number]) Shoulder Strength Shoulder Manual Muscle Testing Left Comments not assessed due to surgery Right Flexion 5 Normal Abduction (C5) 5 Normal External Rotation 5 Normal Internal Rotation 5 Normal PT-OP-Q Treatments Start: 08/06/21 08:28 Freq: Status: Active Protocol: Document 09/24/21 10:21 MA (Rec: 09/24/21 11:06 MA [id number]) Therapeutic Exercises Supine Exercises shoulder horizontal add, post capsule stretch Reps/Minutes 4x30 Comments cues for deep breathing, stretch not pain Shoulder flex Supine Exercise Name AAROM Equipment Used wand Reps/Minutes 10x Comments with manual scapular mobilization shoulder ER Supine Exercise Name active Reps/Minutes 10x10 Comments cues for correct form Sitting Exercises Shoulder ER stretch Equipment Used table Reps/Minutes 2x30 Table Slide Sitting Exercise Name shd flex Side bilateral Comments warm up stretch Standing Exercises Isometrics Standing Exercise Name Add, ABD, IR, ER, Ext, flex Side left Equipment Used towel roll Reps/Minutes 5x5SH Comments added to HEP Manual Therapy Treatment Soft Tissue Mobilization biceps, deltoid insertion Body Location left shoulder Mobilization Type Myofascial Release Intensity/Depth Moderate PT-OP-R Modalities Start: 08/06/21 08:28 Freq: Status: Active Protocol: Document 09/24/21 10:21 MA (Rec: 09/24/21 11:06 MA [id number]) Electric Stimulation Electric Stimulation Interferential Current (IFC) Body Location left shoulder Duration (Minutes) 10 Intensity 11 Target/Sweep Sweep Patient Position Hooklying Combined With Heat/Cold Cold Pack Comments for pain management s/p ther ex PT-OP-S Aquatic Treatment Start: 08/06/21 08:28 Freq: Status: Active Protocol: Document 09/17/21 11:00 SAK (Rec: 09/17/21 16:57 SAK [id number]) Aquatics Treatment Pool Entry/Exit Pool Entry/Exit Method Stairs Assistance Independent Water Walking Sideways Water Level Neck Level Level of Assistance Standby Assistance Comments with shoulder ab/ad backward Water Level Neck Level Level of Assistance Verbal Cues Comments reverse breastroke UE's Forwards Water Level Neck Level Walking Equipment gentle breastroke UE's Upper Extremity Exercises upper trunk rotation Body Position Standing Water Level Neck Level Comments noodle push/pull Body Position Standing Water Level Neck Level Reps/Duration 10x Comments noodle scapular retraction Body Position Standing Water Level Neck Level Reps/Duration 10x2 shoulder ER/IR Details elbows at side, at 90 abd, Body Position Standing Water Level Neck Level Reps/Duration 10x ea Comments cane shoulder hor ab/ad Details palms parallel to water surface with IR and ER Body Position Standing Water Level Neck Level Reps/Duration 10x2 Comments cues for neutral postural alignment, inhibit UT, cross midline in front shoulder abduction Body Position Standing Reps/Duration 10x2 Comments cues for neutral postural alignment, inhibit UT shoulder flex Body Position wall squat and stand Water Level Neck Level Reps/Duration 10x2 Swim Strokes prone crawl Laps/Duration 6 min Comments slow, pain-free ROM, manual facil of upward scapular rotation Manual Techniques Bad Ragaz passive for thoracic and shoulder mobility/ROM; initial hold at scapulas, then at waist Aquatic Joint Mobilizations general upper thoracic, scapulothoracic mobilization Aquatic Massage black neck float, float-its above knees rhomboids, UT, subscap, scar Other shoulder isometrics Body Position Standing Comments instruction in isometrics for HEP all motions PT-OP-T Assessment and Plan Start: 08/06/21 08:28 Freq: Status: Active Protocol: Document 09/24/21 10:21 MA (Rec: 09/24/21 11:06 MA [id number]) Physical Therapy Assessment Goals Two Impairment right shoulder dysfunction Impairment Quickdash UE disability 100% Short Term Goal (STG) Decrease Quickdash UE disability index score to no greater than 50% as measure of improved function STG Duration Employment Advisor Goal (LTG) Decrease Quickdash UE disability score to no greater than 10% as measure of improved left UE function with patient able to return to all usual ADL's and activities including reaching overhead and behind her back with ease LTG Duration 11/04/21 One Impairment limited shoulder ROM and strength Short Term Goal (STG) Patient will be independent and compliant with HEP following post-op RCR protocol STG Duration 09/18/21 Snf Goal (LTG) Improve left shoulder ROM to full and strength to 5/5 to allow her to do all usual activities. LTG Duration 11/04/21 Assessment Summary Assessment Pt requires frequent cues to avoid compensations during ER and flexion exercises. During supine AAROM flexion she extends thoracic spine; switching to hooklying position helped decrease this compensation. During AAROM ER pt tends to further abduct shd to increase ROM and therapist had to block pt's elbow to avoid abduction. Added isometric exercises (flex/ext, ER/IR, ADD/ABD) with pt having no increase in pain. She is getting occassional ' popping' felt over bicep tendon origin but does not have pain when it 'pops'. Physical Therapy Plan Frequency and Duration Frequency of Treatment 2x/Week Duration of Treatment 12 weeks Plan of Care Start Date 08/06/21 Plan of Care End Date 11/04/21 Therapeutic Interventions Therapeutic Interventions Aquatic Therapy,Home Exercise Program,Joint Mobilizations, Manual Therapy,Neuromuscular Re-education,Patient/Caregiver Education,Self-Care/Home Management,Soft Tissue Mobilization,Taping, Therapeutic Activities, Therapeutic Exercises Modalities Cold Pack/Ice Massage,Electric Stimulation,Hot Packs, Iontophoresis Next Visit Focus/Plan Next Note Type Treatment Note Next Visit Plan Review isometric exercises added to HEP. Continue PT with combination land and aquatic PT following RCR protocol. Progression of AROM all planes , gentle joint mobilization to improve shoulder ER.
--- NOTE | 2021-09-26 16:06 | PT.OTN ---
Current Diagnoses Primary osteoarthritis, left shoulder (09/26/21) Unspecified rotator cuff tear or rupture of left shoulder, not specified as traumatic (09/26/21) Bursitis of left shoulder (09/26/21) Physical Therapy Treatment Note PT-OP-A Visit Information Start: 08/06/21 08:28 Freq: Status: Active Protocol: Document 09/26/21 12:04 MA (Rec: 09/26/21 12:54 MA [id number]) Out-Patient Physical Therapy Visit Information Visit Information Visit Type Treatment Note Visit Start Time 12:00 Visit Stop Time 12:50 Total Visit Minutes 48 Visit Number 14/40 Number of DIET AID Visits 2 Precautions Precautions see protocol in chart. Now able to progress to AAROM as tolerated, no sling per physician PT-OP-B Current Condition Start: 08/06/21 08:28 Freq: Status: Active Protocol: Document 08/23/21 09:48 SAK (Rec: 08/23/21 10:34 SAK [id number]) Current Condition History of Current Condition Onset Date 08/02/21 Current Complaints left shoulder dysfunction History of Current Condition s/p left RCR with arthroscopic distal clavicle excision, subacromial decompression extensive, rotator cuff repair . (operative report not available this date; have requested from Dr. Thurman's office). Patient reports she has been wearing her sling, using ice, doing gentle pendulum Prior Treatments and Tests prior right shoulder surgery with good outcome PT-OP-C Subjective Start: 08/06/21 08:28 Freq: Status: Active Protocol: Document 09/26/21 12:04 MA (Rec: 09/26/21 12:54 MA [id number]) OP-PT Subjective Patient Comments Patient Comments Pt tried her isometric exercises at home and had no pain until last night. Pain kept her up again at night and she feels more still today. PT-OP-H Neuro Start: 08/06/21 08:28 Freq: Status: Active Protocol: Document 08/06/21 16:35 SAK (Rec: 08/06/21 17:09 SAK [id number]) Sensation Evaluation Gross Sensation Gross Sensation Left UE Impaired Sensation Description Paresthesia PT-OP-J Posture/Palpation/Skin Start: 08/06/21 08:28 Freq: Status: Active Protocol: Document 08/06/21 16:35 SAK (Rec: 08/06/21 17:09 SAK [id number]) Posture Evaluation Position Sitting Head/C-Spine Posture Forward Head T-Spine Posture Increased Kyphosis Shoulder Posture (L) Rounded,(R) Rounded Scapula Posture (L) Protracted,(R) Protracted Arm Posture (L) Internally Rotated Palpation Assessment Location left shoulder Palpation Details palpable tightness in UT, deltoid Skin Assessment Incisional Assessment Incision Appearance/Comments post-op dressing off, steri- strips intact. No signs or symptoms of infection PT-OP-K Range of Motion Start: 08/06/21 08:28 Freq: Status: Active Protocol: Document 08/06/21 16:35 SAK (Rec: 08/06/21 17:09 [facility] [id number]) Cervical Spine Range of Motion Cervical Spine Active Comments WNL except tight left neck sidebend possibly due to sleeping position Shoulder Goniometric Range of Motion Shoulder Left Passive Flexion 30 Extension 0 External Rotation at 0 degrees Abduction 0 Internal Rotation 0 Comments ER not tested due to RCR Right Active Shoulder ROM WFL Yes Elbow/Forearm Range of Motion Elbow/Forearm carley Elbow/Forearm ROM WFL Yes PT-OP-M Strength Start: 08/06/21 08:28 Freq: Status: Active Protocol: Document 08/06/21 16:35 SAK (Rec: 08/06/21 17:09 [facility] [id number]) Shoulder Strength Shoulder Manual Muscle Testing Left Comments not assessed due to surgery Right Flexion 5 Normal Abduction (C5) 5 Normal External Rotation 5 Normal Internal Rotation 5 Normal PT-OP-Q Treatments Start: 08/06/21 08:28 Freq: Status: Active Protocol: Document 09/26/21 12:04 MA (Rec: 09/26/21 12:54 MA [id number]) Therapeutic Exercises Supine Exercises sleeper stretch Reps/Minutes 2x30 Comments cues for deep breathing, stretch not pain shoulder horizontal add, post capsule stretch Reps/Minutes 4x30 Comments cues for deep breathing, stretch not pain shoulder abduction Side left Equipment Used wand Reps/Minutes 5x Comments cues for stretch, not pain Shoulder flex Supine Exercise Name AAROM Equipment Used wand Reps/Minutes 10x Comments with manual scapular mobilization PROM IR/ER Supine Exercise Name manual Reps/Minutes 10x Comments UE at 30 deg abd, supported on pillow shoulder ER Supine Exercise Name active Reps/Minutes 10x10 Comments cues for correct form Sidelying Exercises scapular retraction Sidelying Exercise Name A. Straight toward spine B. diagonal Reps/Minutes 10x ea Comments verbal and manual cues to avoid UT recruitement Standing Exercises Isometrics Standing Exercise Name Add, ABD, IR, ER, Ext, flex Side left Equipment Used towel roll Reps/Minutes 5x5SH Comments added to HEP Manual Therapy Treatment Soft Tissue Mobilization biceps, deltoid insertion Body Location left shoulder Mobilization Type Myofascial Release Intensity/Depth Moderate rhomboids Body Location left Mobilization Type Myofascial Release,Strumming, Sustained Pressure Intensity/Depth Moderate Body Position Sidelying right c/s, UT Mobilization Type Myofascial Release Intensity/Depth Moderate Body Position Hooklying Comments pillow under L arm for comfort Manual Techniques PNF Type L PROM D1/D2 diagonals PT-OP-R Modalities Start: 08/06/21 08:28 Freq: Status: Active Protocol: Document 09/26/21 12:04 MA (Rec: 09/26/21 12:54 MA [id number]) Hot Pack/Cold Pack Treatment Hot Pack Location left c/s and shoulder Patient Position Hooklying Treatment Duration (minutes) 10 Patient Tolerance Good Comments during [facility] PT-OP-S Aquatic Treatment Start: 08/06/21 08:28 Freq: Status: Active Protocol: Document 09/17/21 11:00 SAK (Rec: 09/17/21 16:57 SAK [id number]) Aquatics Treatment Pool Entry/Exit Pool Entry/Exit Method Stairs Assistance Independent Water Walking Sideways Water Level Neck Level Level of Assistance Standby Assistance Comments with shoulder ab/ad backward Water Level Neck Level Level of Assistance Verbal Cues Comments reverse breastroke UE's Forwards Water Level Neck Level Walking Equipment gentle breastroke UE's Upper Extremity Exercises upper trunk rotation Body Position Standing Water Level Neck Level Comments noodle push/pull Body Position Standing Water Level Neck Level Reps/Duration 10x Comments noodle scapular retraction Body Position Standing Water Level Neck Level Reps/Duration 10x2 shoulder ER/IR Details elbows at side, at 90 abd, Body Position Standing Water Level Neck Level Reps/Duration 10x ea Comments cane shoulder hor ab/ad Details palms parallel to water surface with IR and ER Body Position Standing Water Level Neck Level Reps/Duration 10x2 Comments cues for neutral postural alignment, inhibit UT, cross midline in front shoulder abduction Body Position Standing Reps/Duration 10x2 Comments cues for neutral postural alignment, inhibit UT shoulder flex Body Position wall squat and stand Water Level Neck Level Reps/Duration 10x2 Swim Strokes prone crawl Laps/Duration 6 min Comments slow, pain-free ROM, manual facil of upward scapular rotation Manual Techniques Bad Ragaz passive for thoracic and shoulder mobility/ROM; initial hold at scapulas, then at waist Aquatic Joint Mobilizations general upper thoracic, scapulothoracic mobilization Aquatic Massage black neck float, float-its above knees rhomboids, UT, subscap, scar Other shoulder isometrics Body Position Standing Comments instruction in isometrics for HEP all motions PT-OP-T Assessment and Plan Start: 08/06/21 08:28 Freq: Status: Active Protocol: Document 09/26/21 12:04 MA (Rec: 09/26/21 12:54 MA [id number]) Physical Therapy Assessment Goals Two Impairment right shoulder dysfunction Impairment Quickdash UE disability 100% Short Term Goal (STG) Decrease Quickdash UE disability index score to no greater than 50% as measure of improved function STG Duration Freight Tallier Goal (LTG) Decrease Quickdash UE disability score to no greater than 10% as measure of improved left UE function with patient able to return to all usual ADL's and activities including reaching overhead and behind her back with ease LTG Duration 11/04/21 One Impairment limited shoulder ROM and strength Short Term Goal (STG) Patient will be independent and compliant with HEP following post-op RCR protocol STG Duration 09/18/21 Freight Tallier Goal (LTG) Improve left shoulder ROM to full and strength to 5/5 to allow her to do all usual activities. LTG Duration 11/04/21 Assessment Summary Assessment Pt contiues to compensate during AAROM flexion by extending spine and requires heavy cues even with knees bent to avoid compensations. She has pain with AAROM PNF but only 'stretch' pain is felt in PROM PNF with pt having most difficulty when moved into D1 flexion. Her flexion, abduction and IR/ER ROM have all improved. Pt has had increased pain after long walks without her sling. Discussed pt wearing sling for her long walks/hikes only. Physical Therapy Plan Frequency and Duration Frequency of Treatment 2x/Week Duration of Treatment 12 weeks Plan of Care Start Date 08/06/21 Plan of Care End Date 11/04/21 Therapeutic Interventions Therapeutic Interventions Aquatic Therapy,Home Exercise Program,Joint Mobilizations, Manual Therapy,Neuromuscular Re-education,Patient/Caregiver Education,Self-Care/Home Management,Soft Tissue Mobilization,Taping, Therapeutic Activities, Therapeutic Exercises Modalities Cold Pack/Ice Massage,Electric Stimulation,Hot Packs, Iontophoresis Next Visit Focus/Plan Next Note Type Treatment Note Next Visit Plan Continue Isometric and PNF. Continue PT with combination land and aquatic PT following RCR protocol. Progression of AROM all planes, gentle joint mobilization to improve shoulder ER.
--- NOTE | 2021-10-01 14:44 | PT.OTN ---
Current Diagnoses Primary osteoarthritis, left shoulder (10/01/21) Unspecified rotator cuff tear or rupture of left shoulder, not specified as traumatic (10/01/21) Bursitis of left shoulder (10/01/21) Physical Therapy Treatment Note PT-OP-A Visit Information Start: 08/06/21 08:28 Freq: Status: Active Protocol: Document 10/01/21 14:33 SAK (Rec: 10/01/21 14:44 [facility] [id number]) Out-Patient Physical Therapy Visit Information Visit Information Visit Type Aquatic Treatment Note Visit Note post op 8 wks. Visit Start Time 12:30 Visit Stop Time 13:15 Total Visit Minutes 45 Visit Number 14/40 Number of EXHAUST AND MUFFLER REPAIRER Visits 0 Precautions Precautions See protocol. Can now do AROM . PT-OP-B Current Condition Start: 08/06/21 08:28 Freq: Status: Active Protocol: Document 08/23/21 09:48 SAK (Rec: 08/23/21 10:34 [facility] [id number]) Current Condition History of Current Condition Onset Date 08/02/21 Current Complaints left shoulder dysfunction History of Current Condition s/p left RCR with arthroscopic distal clavicle excision, subacromial decompression extensive, rotator cuff repair . (operative report not available this date; have requested from Dr. Thurman's office). Patient reports she has been wearing her sling, using ice, doing gentle pendulum Prior Treatments and Tests prior right shoulder surgery with good outcome PT-OP-C Subjective Start: 08/06/21 08:28 Freq: Status: Active Protocol: Document 10/01/21 14:33 SAK (Rec: 10/01/21 14:44 [facility] [id number]) OP-PT Subjective Patient Comments Patient Comments Reports sees improvement but it is slow, sleeping some better. Some deep aching with some sharper twinges at times . PT-OP-H Neuro Start: 08/06/21 08:28 Freq: Status: Active Protocol: Document 08/06/21 16:35 SAK (Rec: 08/06/21 17:09 [facility] [id number]) Sensation Evaluation Gross Sensation Gross Sensation Left UE Impaired Sensation Description Paresthesia PT-OP-J Posture/Palpation/Skin Start: 08/06/21 08:28 Freq: Status: Active Protocol: Document 08/06/21 16:35 SAK (Rec: 08/06/21 17:09 [facility] [id number]) Posture Evaluation Position Sitting Head/C-Spine Posture Forward Head T-Spine Posture Increased Kyphosis Shoulder Posture (L) Rounded,(R) Rounded Scapula Posture (L) Protracted,(R) Protracted Arm Posture (L) Internally Rotated Palpation Assessment Location left shoulder Palpation Details palpable tightness in UT, deltoid Skin Assessment Incisional Assessment Incision Appearance/Comments post-op dressing off, steri- strips intact. No signs or symptoms of infection PT-OP-K Range of Motion Start: 08/06/21 08:28 Freq: Status: Active Protocol: Document 08/06/21 16:35 [facility] (Rec: 08/06/21 17:09 [facility] [id number]) Cervical Spine Range of Motion Cervical Spine Active Comments WNL except tight left neck sidebend possibly due to sleeping position Shoulder Goniometric Range of Motion Shoulder Left Passive Flexion 30 Extension 0 External Rotation at 0 degrees Abduction 0 Internal Rotation 0 Comments ER not tested due to RCR Right Active Shoulder ROM WFL Yes Elbow/Forearm Range of Motion Elbow/Forearm carley Elbow/Forearm ROM WFL Yes PT-OP-M Strength Start: 08/06/21 08:28 Freq: Status: Active Protocol: Document 08/06/21 16:35 [facility] (Rec: 08/06/21 17:09 [facility] [id number]) Shoulder Strength Shoulder Manual Muscle Testing Left Comments not assessed due to surgery Right Flexion 5 Normal Abduction (C5) 5 Normal External Rotation 5 Normal Internal Rotation 5 Normal PT-OP-Q Treatments Start: 08/06/21 08:28 Freq: Status: Active Protocol: Document 09/26/21 12:04 MA (Rec: 09/26/21 12:54 MA [id number]) Therapeutic Exercises Supine Exercises sleeper stretch Reps/Minutes 2x30 Comments cues for deep breathing, stretch not pain shoulder horizontal add, post capsule stretch Reps/Minutes 4x30 Comments cues for deep breathing, stretch not pain shoulder abduction Side left Equipment Used wand Reps/Minutes 5x Comments cues for stretch, not pain Shoulder flex Supine Exercise Name AAROM Equipment Used wand Reps/Minutes 10x Comments with manual scapular mobilization PROM IR/ER Supine Exercise Name manual Reps/Minutes 10x Comments UE at 30 deg abd, supported on pillow shoulder ER Supine Exercise Name active Reps/Minutes 10x10 Comments cues for correct form Sidelying Exercises scapular retraction Sidelying Exercise Name A. Straight toward spine B. diagonal Reps/Minutes 10x ea Comments verbal and manual cues to avoid UT recruitement Standing Exercises Isometrics Standing Exercise Name Add, ABD, IR, ER, Ext, flex Side left Equipment Used towel roll Reps/Minutes 5x5SH Comments added to HEP Manual Therapy Treatment Soft Tissue Mobilization biceps, deltoid insertion Body Location left shoulder Mobilization Type Myofascial Release Intensity/Depth Moderate rhomboids Body Location left Mobilization Type Myofascial Release,Strumming, Sustained Pressure Intensity/Depth Moderate Body Position Sidelying right c/s, UT Mobilization Type Myofascial Release Intensity/Depth Moderate Body Position Hooklying Comments pillow under L arm for comfort Manual Techniques PNF Type L PROM D1/D2 diagonals PT-OP-R Modalities Start: 08/06/21 08:28 Freq: Status: Active Protocol: Document 09/26/21 12:04 MA (Rec: 09/26/21 12:54 MA [id number]) Hot Pack/Cold Pack Treatment Hot Pack Location left c/s and shoulder Patient Position Hooklying Treatment Duration (minutes) 10 Patient Tolerance Good Comments during [facility] PT-OP-S Aquatic Treatment Start: 08/06/21 08:28 Freq: Status: Active Protocol: Document 10/01/21 14:33 SAK (Rec: 10/01/21 14:44 SAK [id number]) Aquatics Treatment Pool Entry/Exit Pool Entry/Exit Method Stairs Assistance Independent Water Walking Sideways Water Level Neck Level Level of Assistance Standby Assistance Comments with shoulder ab/ad backward Water Level Neck Level Level of Assistance Verbal Cues Comments reverse breastroke UE's Upper Extremity Exercises circles Reps/Duration 10x upper trunk rotation Body Position Standing Water Level Neck Level Comments noodle push/pull Body Position Standing Water Level Neck Level Reps/Duration 10x Comments noodle shoulder ER/IR Details elbows at side, at 90 abd, Body Position Standing Water Level Neck Level Reps/Duration 10x ea Comments cane shoulder ext Body Position Standing Water Level Neck Level Reps/Duration cane Comments cues for neutral postural alignment, inhibit UT shoulder hor ab/ad Details palms parallel to water surface with IR and ER Body Position Standing Water Level Neck Level Reps/Duration 10x2 Comments cues for neutral postural alignment, inhibit UT, cross midline in front shoulder abduction Body Position Standing Reps/Duration 10x2 Comments cues for neutral postural alignment, inhibit UT shoulder flex Body Position wall squat and stand Water Level Neck Level Reps/Duration 10x2 [place] Activities [place] Activities Bicycle,Cross Country,Running Equipment medium belt Duration 7 min Swim Strokes sidestroke Comments verbal instruction Elementary Backstroke Laps/Duration 3 min prone crawl Laps/Duration 6 min Comments slow, pain-free ROM, manual facil of upward scapular rotation Manual Techniques Bad Ragaz passive for thoracic and shoulder mobility/ROM; initial hold at scapulas, then at waist Aquatic Joint Mobilizations general upper thoracic, scapulothoracic mobilization Aquatic Massage black neck float, float-its above knees rhomboids, UT, subscap, scar PT-OP-T Assessment and Plan Start: 08/06/21 08:28 Freq: Status: Active Protocol: Document 10/01/21 14:33 [facility] (Rec: 10/01/21 14:44 [facility] [id number]) Physical Therapy Assessment Goals Two Impairment right shoulder dysfunction Impairment Quickdash UE disability 100% Short Term Goal (STG) Decrease Quickdash UE disability index score to no greater than 50% as measure of improved function STG Duration Long-Term Goal (LTG) Decrease Quickdash UE disability score to no greater than 10% as measure of improved left UE function with patient able to return to all usual ADL's and activities including reaching overhead and behind her back with ease LTG Duration 11/04/21 One Impairment limited shoulder ROM and strength Short Term Goal (STG) Patient will be independent and compliant with HEP following post-op RCR protocol STG Duration 09/18/21 Long-Term Goal (LTG) Improve left shoulder ROM to full and strength to 5/5 to allow her to do all usual activities. LTG Duration 11/04/21 Assessment Summary Assessment slow progress, patient presenting with some impingement symptoms, poor scapular mobility and stabilization, range of motion coming slowly. Physical Therapy Plan Frequency and Duration Frequency of Treatment 2x/Week Duration of Treatment 12 weeks Plan of Care Start Date 08/06/21 Plan of Care End Date 11/04/21 Therapeutic Interventions Therapeutic Interventions Aquatic Therapy,Home Exercise Program,Joint Mobilizations, Manual Therapy,Neuromuscular Re-education,Patient/Caregiver Education,Self-Care/Home Management,Soft Tissue Mobilization,Taping, Therapeutic Activities, Therapeutic Exercises Modalities Cold Pack/Ice Massage,Electric Stimulation,Hot Packs, Iontophoresis Next Visit Focus/Plan Next Note Type Treatment Note Next Visit Plan Continue Isometric and PNF. Continue PT with combination land and aquatic PT following RCR protocol. Progression of AROM all planes, gentle joint mobilization to improve shoulder ROM especially ER. Sidelying shoulder elevation with UE on bedside table gravity eliminated with pillowcase or slider sheet. Goniometric measurements.
--- NOTE | 2021-10-17 17:57 | PT.OTN ---
Current Diagnoses Primary osteoarthritis, left shoulder (10/17/21) Unspecified rotator cuff tear or rupture of left shoulder, not specified as traumatic (10/17/21) Bursitis of left shoulder (10/17/21) Physical Therapy Treatment Note PT-OP-A Visit Information Start: 08/06/21 08:28 Freq: Status: Active Protocol: Document 10/17/21 09:19 MA (Rec: 10/17/21 10:25 MA [id number]) Out-Patient Physical Therapy Visit Information Visit Information Visit Type Treatment Note Visit Start Time 09:30 Visit Stop Time 10:15 Total Visit Minutes 45 Visit Number Number of FLATWORK ASSEMBLER Visits 1 Precautions Precautions See protocol. Can now do AROM . PT-OP-B Current Condition Start: 08/06/21 08:28 Freq: Status: Active Protocol: Document 08/23/21 09:48 SAK (Rec: 08/23/21 10:34 SAK [id number]) Current Condition History of Current Condition Onset Date 08/02/21 Current Complaints left shoulder dysfunction History of Current Condition s/p left RCR with arthroscopic distal clavicle excision, subacromial decompression extensive, rotator cuff repair . (operative report not available this date; have requested from Dr. Thurman's office). Patient reports she has been wearing her sling, using ice, doing gentle pendulum Prior Treatments and Tests prior right shoulder surgery with good outcome PT-OP-C Subjective Start: 08/06/21 08:28 Freq: Status: Active Protocol: Document 10/17/21 09:19 MA (Rec: 10/17/21 10:25 MA [id number]) OP-PT Subjective Patient Comments Patient Comments Pt has had a cold for the last two weeks but is starting to feel better. She has been doing her exercises every day PT-OP-H Neuro Start: 08/06/21 08:28 Freq: Status: Active Protocol: Document 08/06/21 16:35 SAK (Rec: 08/06/21 17:09 SAK [id number]) Sensation Evaluation Gross Sensation Gross Sensation Left UE Impaired Sensation Description Paresthesia PT-OP-J Posture/Palpation/Skin Start: 08/06/21 08:28 Freq: Status: Active Protocol: Document 08/06/21 16:35 SAK (Rec: 08/06/21 17:09 SAK [id number]) Posture Evaluation Position Sitting Head/C-Spine Posture Forward Head T-Spine Posture Increased Kyphosis Shoulder Posture (L) Rounded,(R) Rounded Scapula Posture (L) Protracted,(R) Protracted Arm Posture (L) Internally Rotated Palpation Assessment Location left shoulder Palpation Details palpable tightness in UT, deltoid Skin Assessment Incisional Assessment Incision Appearance/Comments post-op dressing off, steri- strips intact. No signs or symptoms of infection PT-OP-K Range of Motion Start: 08/06/21 08:28 Freq: Status: Active Protocol: Document 08/06/21 16:35 [facility] (Rec: 08/06/21 17:09 SAK [id number]) Cervical Spine Range of Motion Cervical Spine Active Comments WNL except tight left neck sidebend possibly due to sleeping position Shoulder Goniometric Range of Motion Shoulder Left Passive Flexion 30 Extension 0 External Rotation at 0 degrees Abduction 0 Internal Rotation 0 Comments ER not tested due to RCR Right Active Shoulder ROM WFL Yes Elbow/Forearm Range of Motion Elbow/Forearm carley Elbow/Forearm ROM WFL Yes PT-OP-M Strength Start: 08/06/21 08:28 Freq: Status: Active Protocol: Document 08/06/21 16:35 SAK (Rec: 08/06/21 17:09 [facility] [id number]) Shoulder Strength Shoulder Manual Muscle Testing Left Comments not assessed due to surgery Right Flexion 5 Normal Abduction (C5) 5 Normal External Rotation 5 Normal Internal Rotation 5 Normal PT-OP-Q Treatments Start: 08/06/21 08:28 Freq: Status: Active Protocol: Document 10/17/21 09:19 MA (Rec: 10/17/21 17:55 MA [id number]) Therapeutic Exercises Sidelying Exercises Flexion Sidelying Exercise Name table slide, gravity eliminated flexion Side left Equipment Used pillow case Reps/Minutes 2' Comments pt has improved AROM in gravity eliminated Sitting Exercises Table Slide Sitting Exercise Name shd flex Side bilateral Comments warm up stretch Standing Exercises Wall Crawl Standing Exercise Name flexion and abduction Side left Equipment Used wall Reps/Minutes 2x10SH Comments added to HEP ER stretch Side left Equipment Used doorway Reps/Minutes 2x30 Comments added to HEP Manual Therapy Treatment Manual Techniques PROM Type L shd all planes- stretcing into pt's tolerance to improve ROM Body Location L shd Body Position Supine Reps/Duration 10' Comments with hot pack PNF Type L PROM D1/D2 diagonals shoulder Type inf and post glide Body Location left shoulder Body Position Supine Reps/Duration 5 min Self-Care/Home Management Treatment Education Caregiver Education Added to HEP: shd ER stretch in doorway, wall crawl into flex and abuction PT-OP-R Modalities Start: 08/06/21 08:28 Freq: Status: Active Protocol: Document 10/17/21 09:19 MA (Rec: 10/17/21 17:57 MA [id number]) Hot Pack/Cold Pack Treatment Hot Pack Location left c/s and shoulder Patient Position Hooklying Treatment Duration (minutes) 10 Patient Tolerance Good Comments durign PROM stretches PT-OP-S Aquatic Treatment Start: 08/06/21 08:28 Freq: Status: Active Protocol: Document 10/01/21 14:33 SAK (Rec: 10/01/21 14:44 SAK [id number]) Aquatics Treatment Pool Entry/Exit Pool Entry/Exit Method Stairs Assistance Independent Water Walking Sideways Water Level Neck Level Level of Assistance Standby Assistance Comments with shoulder ab/ad backward Water Level Neck Level Level of Assistance Verbal Cues Comments reverse breastroke UE's Upper Extremity Exercises circles Reps/Duration 10x upper trunk rotation Body Position Standing Water Level Neck Level Comments noodle push/pull Body Position Standing Water Level Neck Level Reps/Duration 10x Comments noodle shoulder ER/IR Details elbows at side, at 90 abd, Body Position Standing Water Level Neck Level Reps/Duration 10x ea Comments cane shoulder ext Body Position Standing Water Level Neck Level Reps/Duration cane Comments cues for neutral postural alignment, inhibit UT shoulder hor ab/ad Details palms parallel to water surface with IR and ER Body Position Standing Water Level Neck Level Reps/Duration 10x2 Comments cues for neutral postural alignment, inhibit UT, cross midline in front shoulder abduction Body Position Standing Reps/Duration 10x2 Comments cues for neutral postural alignment, inhibit UT shoulder flex Body Position wall squat and stand Water Level Neck Level Reps/Duration 10x2 [place] Activities [place] Activities Bicycle,Cross Country,Running Equipment medium belt Duration 7 min Swim Strokes sidestroke Comments verbal instruction Elementary Backstroke Laps/Duration 3 min prone crawl Laps/Duration 6 min Comments slow, pain-free ROM, manual facil of upward scapular rotation Manual Techniques Bad Ragaz passive for thoracic and shoulder mobility/ROM; initial hold at scapulas, then at waist Aquatic Joint Mobilizations general upper thoracic, scapulothoracic mobilization Aquatic Massage black neck float, float-its above knees rhomboids, UT, subscap, scar PT-OP-T Assessment and Plan Start: 08/06/21 08:28 Freq: Status: Active Protocol: Document 10/17/21 09:19 MA (Rec: 10/17/21 10:25 MA [id number]) Physical Therapy Assessment Goals Two Impairment right shoulder dysfunction Impairment Quickdash UE disability 100% Short Term Goal (STG) Decrease Quickdash UE disability index score to no greater than 50% as measure of improved function STG Duration Alf Goal (LTG) Decrease Quickdash UE disability score to no greater than 10% as measure of improved left UE function with patient able to return to all usual ADL's and activities including reaching overhead and behind her back with ease LTG Duration 11/04/21 One Impairment limited shoulder ROM and strength Short Term Goal (STG) Patient will be independent and compliant with HEP following post-op RCR protocol STG Duration 09/18/21 Extrusion Bender Goal (LTG) Improve left shoulder ROM to full and strength to 5/5 to allow her to do all usual activities. LTG Duration 11/04/21 Assessment Summary Assessment AROM shd flexion increased from 105-115 degrees at end of session, ABD from 84-90 degrees, IR (from 45 degrees abd) 40-42 degrees, and ER 8- 11 degrees. Pt is 11 wks post op and continues to have decreased ROM. FLATWORK ASSEMBLER passively streteched pt to tolerance in all shd planes to increase ROM this session. Added in shd ER stretch using doorway and wall crawl into flexion and abduction with instructions for pt to go to tolerance and hold stretch. Pt requires frequent cues to avoid thoracic extension during shd flexion and to avoid increasing ABD during ER. Physical Therapy Plan Frequency and Duration Frequency of Treatment 2x/Week Duration of Treatment 12 weeks Plan of Care Start Date 08/06/21 Plan of Care End Date 11/04/21 Therapeutic Interventions Therapeutic Interventions Aquatic Therapy,Home Exercise Program,Joint Mobilizations, Manual Therapy,Neuromuscular Re-education,Patient/Caregiver Education,Self-Care/Home Management,Soft Tissue Mobilization,Taping, Therapeutic Activities, Therapeutic Exercises Modalities Cold Pack/Ice Massage,Electric Stimulation,Hot Packs, Iontophoresis Next Visit Focus/Plan Next Note Type Treatment Note Next Visit Plan Goniometric measurements. Review new HEP: shd ER stretch in doorway, wall crawl Flex and ABD; Continue with gravity eliminated shd flexion, Isometric and PNF. Continue PT with combination land and aquatic PT following RCR protocol. Progression of AROM all planes, gentle joint mobilization to improve shoulder ROM especially ER.
--- NOTE | 2021-10-22 16:44 | PT.OTN ---
Current Diagnoses Primary osteoarthritis, left shoulder (10/22/21) Unspecified rotator cuff tear or rupture of left shoulder, not specified as traumatic (10/22/21) Bursitis of left shoulder (10/22/21) Physical Therapy Treatment Note PT-OP-A Visit Information Start: 08/06/21 08:28 Freq: Status: Active Protocol: Document 10/22/21 12:30 SAK (Rec: 10/22/21 16:39 SAK [id number]) Out-Patient Physical Therapy Visit Information Visit Information Visit Type Aquatic Treatment Note Visit Start Time 12:30 Visit Stop Time 13:15 Total Visit Minutes 45 Visit Number 16/40 Number of HEALTH CARE RECRUITER Visits 0 Precautions Precautions Updated from Dr. Thurman today: continue with protocol, begin aggressive ROM, no ROM restrictions. PT-OP-B Current Condition Start: 08/06/21 08:28 Freq: Status: Active Protocol: Document 08/23/21 09:48 SAK (Rec: 08/23/21 10:34 SAK [id number]) Current Condition History of Current Condition Onset Date 08/02/21 Current Complaints left shoulder dysfunction History of Current Condition s/p left RCR with arthroscopic distal clavicle excision, subacromial decompression extensive, rotator cuff repair . (operative report not available this date; have requested from Dr. Thurman's office). Patient reports she has been wearing her sling, using ice, doing gentle pendulum Prior Treatments and Tests prior right shoulder surgery with good outcome PT-OP-C Subjective Start: 08/06/21 08:28 Freq: Status: Active Protocol: Document 10/22/21 12:30 SAK (Rec: 10/22/21 16:39 SAK [id number]) OP-PT Subjective Patient Comments Patient Comments Patient reports she saw Dr. Thurman who wants her to do aggressive ROM at this time. States her tells her he sees daily improvement but patient discouraged by slow progress with ROM. Has tried to do low load long duration stretching as recommended but has had difficulty with set-up . PT-OP-H Neuro Start: 08/06/21 08:28 Freq: Status: Active Protocol: Document 08/06/21 16:35 SAK (Rec: 08/06/21 17:09 SAK [id number]) Sensation Evaluation Gross Sensation Gross Sensation Left UE Impaired Sensation Description Paresthesia PT-OP-J Posture/Palpation/Skin Start: 08/06/21 08:28 Freq: Status: Active Protocol: Document 08/06/21 16:35 [facility] (Rec: 08/06/21 17:09 [facility] [id number]) Posture Evaluation Position Sitting Head/C-Spine Posture Forward Head T-Spine Posture Increased Kyphosis Shoulder Posture (L) Rounded,(R) Rounded Scapula Posture (L) Protracted,(R) Protracted Arm Posture (L) Internally Rotated Palpation Assessment Location left shoulder Palpation Details palpable tightness in UT, deltoid Skin Assessment Incisional Assessment Incision Appearance/Comments post-op dressing off, steri- strips intact. No signs or symptoms of infection PT-OP-K Range of Motion Start: 08/06/21 08:28 Freq: Status: Active Protocol: Document 08/06/21 16:35 [facility] (Rec: 08/06/21 17:09 [facility] [id number]) Cervical Spine Range of Motion Cervical Spine Active Comments WNL except tight left neck sidebend possibly due to sleeping position Shoulder Goniometric Range of Motion Shoulder Left Passive Flexion 30 Extension 0 External Rotation at 0 degrees Abduction 0 Internal Rotation 0 Comments ER not tested due to RCR Right Active Shoulder ROM WFL Yes Elbow/Forearm Range of Motion Elbow/Forearm carley Elbow/Forearm ROM WFL Yes PT-OP-M Strength Start: 08/06/21 08:28 Freq: Status: Active Protocol: Document 08/06/21 16:35 [facility] (Rec: 08/06/21 17:09 [facility] [id number]) Shoulder Strength Shoulder Manual Muscle Testing Left Comments not assessed due to surgery Right Flexion 5 Normal Abduction (C5) 5 Normal External Rotation 5 Normal Internal Rotation 5 Normal PT-OP-Q Treatments Start: 08/06/21 08:28 Freq: Status: Active Protocol: Document 10/17/21 09:19 MA (Rec: 10/17/21 17:55 MA [id number]) Therapeutic Exercises Sidelying Exercises Flexion Sidelying Exercise Name table slide, gravity eliminated flexion Side left Equipment Used pillow case Reps/Minutes 2' Comments pt has improved AROM in gravity eliminated Sitting Exercises Table Slide Sitting Exercise Name shd flex Side bilateral Comments warm up stretch Standing Exercises Wall Crawl Standing Exercise Name flexion and abduction Side left Equipment Used wall Reps/Minutes 2x10SH Comments added to HEP ER stretch Side left Equipment Used doorway Reps/Minutes 2x30 Comments added to HEP Manual Therapy Treatment Manual Techniques PROM Type L shd all planes- stretcing into pt's tolerance to improve ROM Body Location L shd Body Position Supine Reps/Duration 10' Comments with hot pack PNF Type L PROM D1/D2 diagonals shoulder Type inf and post glide Body Location left shoulder Body Position Supine Reps/Duration 5 min Self-Care/Home Management Treatment Education Caregiver Education Added to HEP: shd ER stretch in doorway, wall crawl into flex and abuction PT-OP-R Modalities Start: 08/06/21 08:28 Freq: Status: Active Protocol: Document 10/17/21 09:19 MA (Rec: 10/17/21 17:57 MA [id number]) Hot Pack/Cold Pack Treatment Hot Pack Location left c/s and shoulder Patient Position Hooklying Treatment Duration (minutes) 10 Patient Tolerance Good Comments durign PROM stretches PT-OP-S Aquatic Treatment Start: 08/06/21 08:28 Freq: Status: Active Protocol: Document 10/22/21 12:30 SAK (Rec: 10/22/21 16:44 SAK [id number]) Aquatics Treatment Pool Entry/Exit Pool Entry/Exit Method Stairs Assistance Independent Upper Extremity Exercises ER stretch Reps/Duration 10x shoulder ext Body Position Standing Water Level Neck Level Equipment cane Comments row shoulder abduction Body Position Standing Equipment cane Reps/Duration 10x2 Comments cues for neutral postural alignment, inhibit UT shoulder flex Body Position wall squat and stand Water Level Neck Level Equipment cane Reps/Duration 10x2 [place] Activities [place] Activities Bicycle,Cross Country,Running Equipment medium belt Duration 7 min Comments emphasis on UE reaching Swim Strokes Backstroke Laps/Duration 2 laps Comments cues for technique prone crawl Laps/Duration 2 laps Comments cues for incorporating trunk rotation, upward rotation of scapula Manual Techniques Bad Ragaz passive for thoracic and shoulder mobility/ROM; initial hold at scapulas, then at waist Aquatic Joint Mobilizations general upper thoracic, scapulothoracic mobilization Aquatic Massage black neck float, float-its above knees rhomboids, UT, subscap, scar PT-OP-T Assessment and Plan Start: 08/06/21 08:28 Freq: Status: Active Protocol: Document 10/22/21 12:30 SAK (Rec: 10/22/21 16:39 SAK [id number]) Physical Therapy Assessment Goals Two Impairment right shoulder dysfunction Impairment Quickdash UE disability 100% Short Term Goal (STG) Decrease Quickdash UE disability index score to no greater than 50% as measure of improved function STG Duration [employer] Terminal Operator Goal (LTG) Decrease Quickdash UE disability score to no greater than 10% as measure of improved left UE function with patient able to return to all usual ADL's and activities including reaching overhead and behind her back with ease LTG Duration 11/04/21 One Impairment limited shoulder ROM and strength Short Term Goal (STG) Patient will be independent and compliant with HEP following post-op RCR protocol STG Duration 09/18/21 [place] Terminal Operator Goal (LTG) Improve left shoulder ROM to full and strength to 5/5 to allow her to do all usual activities. LTG Duration 11/04/21 Assessment Summary Assessment Goniometric measurements not taken at pool but noted improved functional use of left UE with ability to lift left UE slightly out of water for modified crawl today, and with modified backstroke noted approx 120 degrees shoulder flex. Needs manual cues and facilitation for upward rotation of scapula with elevation, further joint mobilization to allow GH glide . Encouraged further trial of low load, long direction. Posterior capsule stretch technique corrected with improved stretch felt. Physical Therapy Plan Frequency and Duration Frequency of Treatment 2x/Week Duration of Treatment 12 weeks Plan of Care Start Date 08/06/21 Plan of Care End Date 11/04/21 Therapeutic Interventions Therapeutic Interventions Aquatic Therapy,Home Exercise Program,Joint Mobilizations, Manual Therapy,Neuromuscular Re-education,Patient/Caregiver Education,Self-Care/Home Management,Soft Tissue Mobilization,Taping, Therapeutic Activities, Therapeutic Exercises Modalities Cold Pack/Ice Massage,Electric Stimulation,Hot Packs, Iontophoresis Next Visit Focus/Plan Next Note Type Treatment Note Next Visit Plan Goniometric measurements. Progression of ROM all planes, PNF, joint mobilization with emphasis on posterior and inferior glide to improve shoulder ROM especially ER. Review new HEP: shoulder ER stretch doorway, wall crawl, corrected posterior capsule stretch.
--- NOTE | 2021-10-24 14:14 | PT.OTN ---
Current Diagnoses Primary osteoarthritis, left shoulder (10/24/21) Unspecified rotator cuff tear or rupture of left shoulder, not specified as traumatic (10/24/21) Bursitis of left shoulder (10/24/21) Physical Therapy Treatment Note PT-OP-A Visit Information Start: 08/06/21 08:28 Freq: Status: Active Protocol: Document 10/24/21 10:23 MA (Rec: 10/24/21 11:09 MA [id number]) Out-Patient Physical Therapy Visit Information Visit Information Visit Type Treatment Note Visit Start Time 10:20 Visit Stop Time 11:05 Total Visit Minutes 45 Visit Number Number of COMMERCIAL CONSTRUCTION PROJECT MANAGER Visits 1 Precautions Precautions Updated from Dr. Thurman today: continue with protocol, begin aggressive ROM, no ROM restrictions. PT-OP-B Current Condition Start: 08/06/21 08:28 Freq: Status: Active Protocol: Document 08/23/21 09:48 SAK (Rec: 08/23/21 10:34 SAK [id number]) Current Condition History of Current Condition Onset Date 08/02/21 Current Complaints left shoulder dysfunction History of Current Condition s/p left RCR with arthroscopic distal clavicle excision, subacromial decompression extensive, rotator cuff repair . (operative report not available this date; have requested from Dr. Thurman's office). Patient reports she has been wearing her sling, using ice, doing gentle pendulum Prior Treatments and Tests prior right shoulder surgery with good outcome PT-OP-C Subjective Start: 08/06/21 08:28 Freq: Status: Active Protocol: Document 10/24/21 10:23 MA (Rec: 10/24/21 11:09 MA [id number]) OP-PT Subjective Patient Comments Patient Comments Pt reports seeing Dr who wants her to start reistance exercises and continue with aggressive ROM PT-OP-H Neuro Start: 08/06/21 08:28 Freq: Status: Active Protocol: Document 08/06/21 16:35 SAK (Rec: 08/06/21 17:09 SAK [id number]) Sensation Evaluation Gross Sensation Gross Sensation Left UE Impaired Sensation Description Paresthesia PT-OP-J Posture/Palpation/Skin Start: 08/06/21 08:28 Freq: Status: Active Protocol: Document 08/06/21 16:35 SAK (Rec: 08/06/21 17:09 SAK [id number]) Posture Evaluation Position Sitting Head/C-Spine Posture Forward Head T-Spine Posture Increased Kyphosis Shoulder Posture (L) Rounded,(R) Rounded Scapula Posture (L) Protracted,(R) Protracted Arm Posture (L) Internally Rotated Palpation Assessment Location left shoulder Palpation Details palpable tightness in UT, deltoid Skin Assessment Incisional Assessment Incision Appearance/Comments post-op dressing off, steri- strips intact. No signs or symptoms of infection PT-OP-K Range of Motion Start: 08/06/21 08:28 Freq: Status: Active Protocol: Document 08/06/21 16:35 [facility] (Rec: 08/06/21 17:09 SAK [id number]) Cervical Spine Range of Motion Cervical Spine Active Comments WNL except tight left neck sidebend possibly due to sleeping position Shoulder Goniometric Range of Motion Shoulder Left Passive Flexion 30 Extension 0 External Rotation at 0 degrees Abduction 0 Internal Rotation 0 Comments ER not tested due to RCR Right Active Shoulder ROM WFL Yes Elbow/Forearm Range of Motion Elbow/Forearm carley Elbow/Forearm ROM WFL Yes PT-OP-M Strength Start: 08/06/21 08:28 Freq: Status: Active Protocol: Document 08/06/21 16:35 SAK (Rec: 08/06/21 17:09 SAK [id number]) Shoulder Strength Shoulder Manual Muscle Testing Left Comments not assessed due to surgery Right Flexion 5 Normal Abduction (C5) 5 Normal External Rotation 5 Normal Internal Rotation 5 Normal PT-OP-Q Treatments Start: 08/06/21 08:28 Freq: Status: Active Protocol: Document 10/24/21 10:23 MA (Rec: 10/24/21 11:09 MA [id number]) Therapeutic Exercises Standing Exercises Wall Crawl Standing Exercise Name flexion and abduction Side left Equipment Used wall Reps/Minutes 2x10SH Comments added to HEP ER stretch Side left Equipment Used doorway Reps/Minutes 2x30 Comments added to HEP Manual Therapy Treatment Manual Techniques PROM Type L shd all planes- stretcing into pt's tolerance to improve ROM Body Location L shd Body Position Supine Reps/Duration 10' Comments with hot pack PNF Type L PROM D1/D2 diagonals Self-Care/Home Management Treatment Education Patient Education Home Exercise Program Other Education HEP: added strap assisted inferior mob with 90/90 AROM shd ER/IR. Discussed watching for compensations while pt performs all HEP. PT-OP-R Modalities Start: 08/06/21 08:28 Freq: Status: Active Protocol: Document 10/24/21 10:23 MA (Rec: 10/24/21 14:13 MA [id number]) Hot Pack/Cold Pack Treatment Hot Pack Location left c/s and shoulder Patient Position Hooklying Treatment Duration (minutes) 10 Patient Tolerance Good Comments During manual PT-OP-S Aquatic Treatment Start: 08/06/21 08:28 Freq: Status: Active Protocol: Document 10/22/21 12:30 SAK (Rec: 10/22/21 16:44 SAK [id number]) Aquatics Treatment Pool Entry/Exit Pool Entry/Exit Method Stairs Assistance Independent Upper Extremity Exercises ER stretch Reps/Duration 10x shoulder ext Body Position Standing Water Level Neck Level Equipment cane Comments row shoulder abduction Body Position Standing Equipment cane Reps/Duration 10x2 Comments cues for neutral postural alignment, inhibit UT shoulder flex Body Position wall squat and stand Water Level Neck Level Equipment cane Reps/Duration 10x2 [place] Activities [place] Activities Bicycle,Cross Country,Running Equipment medium belt Duration 7 min Comments emphasis on UE reaching Swim Strokes Backstroke Laps/Duration 2 laps Comments cues for technique prone crawl Laps/Duration 2 laps Comments cues for incorporating trunk rotation, upward rotation of scapula Manual Techniques Bad Ragaz passive for thoracic and shoulder mobility/ROM; initial hold at scapulas, then at waist Aquatic Joint Mobilizations general upper thoracic, scapulothoracic mobilization Aquatic Massage black neck float, float-its above knees rhomboids, UT, subscap, scar PT-OP-T Assessment and Plan Start: 08/06/21 08:28 Freq: Status: Active Protocol: Document 10/24/21 10:23 MA (Rec: 10/24/21 11:09 MA [id number]) Physical Therapy Assessment Goals Two Impairment right shoulder dysfunction Impairment Quickdash UE disability 100% Short Term Goal (STG) Decrease Quickdash UE disability index score to no greater than 50% as measure of improved function STG Duration Senior Care Goal (LTG) Decrease Quickdash UE disability score to no greater than 10% as measure of improved left UE function with patient able to return to all usual ADL's and activities including reaching overhead and behind her back with ease LTG Duration 11/04/21 One Impairment limited shoulder ROM and strength Short Term Goal (STG) Patient will be independent and compliant with HEP following post-op RCR protocol STG Duration 09/18/21 Licensed Land Surveyor Goal (LTG) Improve left shoulder ROM to full and strength to 5/5 to allow her to do all usual activities. LTG Duration 11/04/21 Assessment Summary Assessment Jenny continues to have 7/10 pain during all ROM activities . She was able to improve AROM flexion 124-130 degrees and ABD 89-94 degrees today. Pt is still severly limited in L shd ABD and ER. Added to HEP an inferior jt mob using mobilization belt when L shd is supported at 90/90 for improving active IR/ER. Reivewed pt's latest HEP exercises with pt requiring heavy cues to avoid scapular elevation and/or thoracic extension. Pt will continue to benefit from skilled therapy for improving L shd ROM in all planes to return to normal ADLs. Physical Therapy Plan Frequency and Duration Frequency of Treatment 2x/Week Duration of Treatment 12 weeks Plan of Care Start Date 08/06/21 Plan of Care End Date 11/04/21 Therapeutic Interventions Therapeutic Interventions Aquatic Therapy,Home Exercise Program,Joint Mobilizations, Manual Therapy,Neuromuscular Re-education,Patient/Caregiver Education,Self-Care/Home Management,Soft Tissue Mobilization,Taping, Therapeutic Activities, Therapeutic Exercises Modalities Cold Pack/Ice Massage,Electric Stimulation,Hot Packs, Iontophoresis Next Visit Focus/Plan Next Note Type Progress Note Next Visit Plan Update POC next appt Goniometric measurements. Progression of ROM all planes, PNF, joint mobilization with emphasis on posterior and inferior glide to improve shoulder ROM especially ER. Review new HEP: shoulder ER stretch doorway, wall crawl, and self-mob for inferior glide with IR/ER. Subscapular release with PROM to AAROM elevation supine. Manual facilitation of upward scapular rotation with elevation.
--- NOTE | 2021-10-29 16:53 | PT.OTN ---
Current Diagnoses Primary osteoarthritis, left shoulder (10/29/21) Unspecified rotator cuff tear or rupture of left shoulder, not specified as traumatic (10/29/21) Bursitis of left shoulder (10/29/21) Physical Therapy Treatment Note PT-OP-A Visit Information Start: 08/06/21 08:28 Freq: Status: Active Protocol: Document 10/29/21 15:20 SAK (Rec: 10/29/21 16:52 [facility] [id number]) Out-Patient Physical Therapy Visit Information Visit Information Visit Type Treatment Note Visit Start Time 15:15 Visit Stop Time 16:15 Total Visit Minutes 60 Visit Number 18/40 Number of FIELD LABORATORY OPERATOR Visits 0 Precautions Precautions Updated from Dr. Thurman today: continue with protocol, begin aggressive ROM, no ROM restrictions. PT-OP-B Current Condition Start: 08/06/21 08:28 Freq: Status: Active Protocol: Document 08/23/21 09:48 SAK (Rec: 08/23/21 10:34 [facility] [id number]) Current Condition History of Current Condition Onset Date 08/02/21 Current Complaints left shoulder dysfunction History of Current Condition s/p left RCR with arthroscopic distal clavicle excision, subacromial decompression extensive, rotator cuff repair . (operative report not available this date; have requested from Dr. Thurman's office). Patient reports she has been wearing her sling, using ice, doing gentle pendulum Prior Treatments and Tests prior right shoulder surgery with good outcome PT-OP-C Subjective Start: 08/06/21 08:28 Freq: Status: Active Protocol: Document 10/29/21 15:20 SAK (Rec: 10/29/21 16:52 [facility] [id number]) OP-PT Subjective Patient Comments Patient Comments Having more difficulty sleeping, frustrated by slow progress but had frozen shoulder after right shoulder surgery so realizes she is at higher risk. Compliant to HEP but has difficulty with not letting shoulder elevate with movement of shoulder. PT-OP-H Neuro Start: 08/06/21 08:28 Freq: Status: Active Protocol: Document 08/06/21 16:35 SAK (Rec: 08/06/21 17:09 [facility] [id number]) Sensation Evaluation Gross Sensation Gross Sensation Left UE Impaired Sensation Description Paresthesia PT-OP-J Posture/Palpation/Skin Start: 08/06/21 08:28 Freq: Status: Active Protocol: Document 08/06/21 16:35 [facility] (Rec: 08/06/21 17:09 [facility] [id number]) Posture Evaluation Position Sitting Head/C-Spine Posture Forward Head T-Spine Posture Increased Kyphosis Shoulder Posture (L) Rounded,(R) Rounded Scapula Posture (L) Protracted,(R) Protracted Arm Posture (L) Internally Rotated Palpation Assessment Location left shoulder Palpation Details palpable tightness in UT, deltoid Skin Assessment Incisional Assessment Incision Appearance/Comments post-op dressing off, steri- strips intact. No signs or symptoms of infection PT-OP-K Range of Motion Start: 08/06/21 08:28 Freq: Status: Active Protocol: Document 08/06/21 16:35 [facility] (Rec: 08/06/21 17:09 [facility] [id number]) Cervical Spine Range of Motion Cervical Spine Active Comments WNL except tight left neck sidebend possibly due to sleeping position Shoulder Goniometric Range of Motion Shoulder Left Passive Flexion 30 Extension 0 External Rotation at 0 degrees Abduction 0 Internal Rotation 0 Comments ER not tested due to RCR Right Active Shoulder ROM WFL Yes Elbow/Forearm Range of Motion Elbow/Forearm carley Elbow/Forearm ROM WFL Yes PT-OP-M Strength Start: 08/06/21 08:28 Freq: Status: Active Protocol: Document 08/06/21 16:35 [facility] (Rec: 08/06/21 17:09 [facility] [id number]) Shoulder Strength Shoulder Manual Muscle Testing Left Comments not assessed due to surgery Right Flexion 5 Normal Abduction (C5) 5 Normal External Rotation 5 Normal Internal Rotation 5 Normal PT-OP-Q Treatments Start: 08/06/21 08:28 Freq: Status: Active Protocol: Document 10/29/21 15:20 [facility] (Rec: 10/29/21 16:52 [facility] [id number]) Therapeutic Exercises Supine Exercises pec stretch Equipment Used foam roll Reps/Minutes 1 min shoulder horizontal add, post capsule stretch Reps/Minutes 4x30 Comments cues for deep breathing, stretch not pain Shoulder abd Supine Exercise Name PROM Reps/Minutes 10x3 Comments in scapular plane, with inf GH glide PROM IR/ER Supine Exercise Name manual Reps/Minutes 10x Comments UE at 30 deg abd, supported on pillow shoulder ER Supine Exercise Name passive, AAROM, AROM Reps/Minutes 10x10 Comments cues for correct form PROM shoulder flex Side left Reps/Minutes 10x Comments by PT with manual inferior GH glide Sidelying Exercises Flexion Sidelying Exercise Name table slide, gravity eliminated flexion Side left Equipment Used pillow case Reps/Minutes 2' Comments pt has improved AROM in gravity eliminated scapular retraction Sidelying Exercise Name A. Straight toward spine B. diagonal Reps/Minutes 10x ea Comments verbal and manual cues to avoid UT recruitement Standing Exercises scapular square Reps/Minutes 5x ea shoulder ext Standing Exercise Name paddle Equipment Used cane Reps/Minutes 10x5 Wall Crawl Comments discontinue due to impingement ER stretch Comments discontinue due to impingement pendulum Reps/Minutes 10x ea Comments 1# weight for distraction Manual Therapy Treatment Joint Mobilizations GH Direction posterior glides, inferior glides Body Position Supine Comments gr II-III scapula Direction protract, retract Grade III Body Position Sidelying Manual Techniques PROM Type L shd all planes- stretcing into pt's tolerance to improve ROM Body Location L shd Body Position Supine Reps/Duration 10' Comments with hot pack PNF Type L PROM D1/D2 diagonals PT-OP-R Modalities Start: 08/06/21 08:28 Freq: Status: Active Protocol: Document 10/29/21 15:20 SAK (Rec: 10/29/21 16:52 SAK [id number]) Hot Pack/Cold Pack Treatment Cold Pack Location left shoulder Patient Position Hooklying Patient Tolerance Good Comments after treatment PT-OP-S Aquatic Treatment Start: 08/06/21 08:28 Freq: Status: Active Protocol: Document 10/22/21 12:30 SAK (Rec: 10/22/21 16:44 [facility] [id number]) Aquatics Treatment Pool Entry/Exit Pool Entry/Exit Method Stairs Assistance Independent Upper Extremity Exercises ER stretch Reps/Duration 10x shoulder ext Body Position Standing Water Level Neck Level Equipment cane Comments row shoulder abduction Body Position Standing Equipment cane Reps/Duration 10x2 Comments cues for neutral postural alignment, inhibit UT shoulder flex Body Position wall squat and stand Water Level Neck Level Equipment cane Reps/Duration 10x2 [place] Activities [place] Activities Bicycle,Cross [place],Running Equipment medium belt Duration 7 min Comments emphasis on UE reaching Swim Strokes Backstroke Laps/Duration 2 laps Comments cues for technique prone crawl Laps/Duration 2 laps Comments cues for incorporating trunk rotation, upward rotation of scapula Manual Techniques Bad Ragaz passive for thoracic and shoulder mobility/ROM; initial hold at scapulas, then at waist Aquatic Joint Mobilizations general upper thoracic, scapulothoracic mobilization Aquatic Massage black neck float, float-its above knees rhomboids, UT, subscap, scar PT-OP-T Assessment and Plan Start: 08/06/21 08:28 Freq: Status: Active Protocol: Document 10/29/21 15:20 SAK (Rec: 10/29/21 16:52 [facility] [id number]) Physical Therapy Assessment Goals Two Impairment right shoulder dysfunction Impairment Quickdash UE disability 100% Short Term Goal (STG) Decrease Quickdash UE disability index score to no greater than 50% as measure of improved function 10/29/21: goal progress STG Duration 11/29/21 Residential Goal (LTG) Decrease Quickdash UE disability score to no greater than 10% as measure of improved left UE function with patient able to return to all usual ADL's and activities including reaching overhead and behind her back with ease LTG Duration 12/28/21 One Impairment limited shoulder ROM and strength Short Term Goal (STG) Patient will be independent and compliant with HEP following post-op RCR protocol 10/29/21: patient independent and compliant with HEP, however ROM coming slowly, appears to have developed adhesive capsulitis as she did after right shoulder surgery STG Duration 11/29/21 Residential Goal (LTG) Improve left shoulder ROM to full and strength to 5/5 to allow her to do all usual activities. 10/29/21: PROM left shoulder flex 130, abduction 88, IR to buttock, ER to 28 LTG Duration 12/28/21 Assessment Summary Assessment Patient having difficulty with recovery from her left shoulder surgery as noted above with limited range of motion and appears to have developed adhesive capsulitis/ frozen shoulder as she reports she did after a right shoulder surgery previously. We discussed her risk factors. Continue to educate her in not jamming her shoulder into impingement positions; she has difficulty inhibiting her upper traps with ther ex. and in her frustration with progress tends to push into impingment. ROM improvements noted with GH and scapular joint mobilization and manual guidance of scapular rotation with shoulder elvation. Have begun instruction in self- mobilization of GH joint for HEP, but will need further instruction and guidance for safety. She is highly motivated. Will benefit from further PT to increase her left shoulder ROM, strength, and function. Physical Therapy Plan Frequency and Duration Frequency of Treatment 2x/Week Duration of Treatment 12 weeks Plan of Care Start Date 10/29/21 Plan of Care End Date 12/28/21 Therapeutic Interventions Therapeutic Interventions Aquatic Therapy,Home Exercise Program,Joint Mobilizations, Manual Therapy,Neuromuscular Re-education,Patient/Caregiver Education,Self-Care/Home Management,Soft Tissue Mobilization,Taping, Therapeutic Activities, Therapeutic Exercises Modalities Cold Pack/Ice Massage,Electric Stimulation,Hot Packs, Iontophoresis Next Visit Focus/Plan Next Note Type Treatment Note Next Visit Plan Goniometric measurements. Progression of ROM all planes, PNF, joint mobilization with emphasis on posterior and inferior glide to improve shoulder ROM especially ER. Continue patient instruction for self-mobilization. Subscapular release with PROM to AAROM elevation supine. Manual facilitation of upward scapular rotation with elevation.
--- NOTE | 2021-10-29 16:55 | PT.OPPOC ---
Physical, Occupational & Speech Therapy At [facility] Current Diagnoses Primary osteoarthritis, left shoulder (10/29/21) Unspecified rotator cuff tear or rupture of left shoulder, not specified as traumatic (10/29/21) Bursitis of left shoulder (10/29/21) Visit Care Team Role Provider Type ELIANE Brasher Family Provider Advanced Macroeconomics Professor Primary Care Provider Specialty: Medical Address: [address] [place] [address], [id number] Email: [email or web address] Alex Thurman MD Attending Provider Physician Referring Provider Specialty: Orthopedics Orthopedic Surgery Address: [address] [place] [address], [id number] Email: [email or web address] Plan Of Care PT-OP-T Assessment and Plan Start: 08/06/21 08:28 Freq: Status: Active Protocol: Document 10/29/21 15:20 SAK (Rec: 10/29/21 16:52 [facility] [id number]) Physical Therapy Assessment Goals Two Impairment right shoulder dysfunction Impairment Quickdash UE disability 100% Short Term Goal (STG) Decrease Quickdash UE disability index score to no greater than 50% as measure of improved function 10/29/21: goal progress STG Duration 11/29/21 Long-Term Goal (LTG) Decrease Quickdash UE disability score to no greater than 10% as measure of improved left UE function with patient able to return to all usual ADL's and activities including reaching overhead and behind her back with ease LTG Duration 12/28/21 One Impairment limited shoulder ROM and strength Short Term Goal (STG) Patient will be independent and compliant with HEP following post-op RCR protocol 10/29/21: patient independent and compliant with HEP, however ROM coming slowly, appears to have developed adhesive capsulitis as she did after right shoulder surgery STG Duration 11/29/21 Long-Term Goal (LTG) Improve left shoulder ROM to full and strength to 5/5 to allow her to do all usual activities. 10/29/21: PROM left shoulder flex 130, abduction 88, IR to buttock, ER to 28 LTG Duration 12/28/21 Assessment Summary Assessment Patient having difficulty with recovery from her left shoulder surgery as noted above with limited range of motion and appears she likely has developed adhesive capsulitis/frozen shoulder as she reports she did after a right shoulder surgery previously. She did miss 2 weeks of PT due to illness which also has impacted her recover. Continue to educate her in not jamming her shoulder into impingement positions; she has difficulty inhibiting her upper traps with ther ex. and in her frustration with progress tends to push into impingment. ROM improvements noted with GH and scapular joint mobilization and manual guidance of scapular rotation with shoulder elvation. Have begun instruction in self- mobilization of GH joint for HEP, but will need further instruction and guidance for safety. She is highly motivated. Will benefit from further PT to increase her left shoulder ROM, strength, and function. Physical Therapy Plan Frequency and Duration Frequency of Treatment 2x/Week Duration of Treatment 12 weeks Plan of Care Start Date 10/29/21 Plan of Care End Date 12/28/21 Therapeutic Interventions Therapeutic Interventions Aquatic Therapy,Home Exercise Program,Joint Mobilizations, Manual Therapy,Neuromuscular Re-education,Patient/Caregiver Education,Self-Care/Home Management,Soft Tissue Mobilization,Taping, Therapeutic Activities, Therapeutic Exercises Modalities Cold Pack/Ice Massage,Electric Stimulation,Hot Packs, Iontophoresis Next Visit Focus/Plan Next Note Type Treatment Note Next Visit Plan Goniometric measurements. Progression of ROM all planes, PNF, joint mobilization with emphasis on posterior and inferior glide to improve shoulder ROM especially ER. Continue patient instruction for self-mobilization. Subscapular release with PROM to AAROM elevation supine. Manual facilitation of upward scapular rotation with elevation. Plan of Care Dates Plan of Care Start Date 10/29/21 Plan of Care End Date 12/28/21 Electronically Signed by: Mayra Montilla, PT 10/29/21 [id number] Please Sign and Return: I have reviewed this Plan of Care and certify that the skilled therapy services above are required to meet the patient?s needs. Physician Signature Date Printed Name and Credentials Clinical Instructor Signature Printed Name and Credentials
--- NOTE | 2021-11-02 11:00 | PT.OTN ---
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 (operative report not available this date; have requested from Dr. Thurman's office). Patient reports she has been wearing her sling, using ice, doing gentle pendulum Prior Treatments and Tests prior right shoulder surgery with good outcome PT-OP-C Subjective Start: 08/06/21 08:28 Freq: Status: Active Protocol: Document 11/05/21 11:15 MA (Rec: 11/05/21 13:08 MA [id number]) OP-PT Subjective Patient Comments Patient Comments Pt feels she is getting a little better now that got a belt to do jt mobs at home PT-OP-H Neuro Start: 08/06/21 08:28 Freq: Status: Active Protocol: Document 08/06/21 16:35 SAK (Rec: 08/06/21 17:09 SAK [id number]) Sensation Evaluation Gross Sensation Gross Sensation Left UE Impaired Sensation Description Paresthesia PT-OP-J Posture/Palpation/Skin Start: 08/06/21 08:28 Freq: Status: Active Protocol: Document 08/06/21 16:35 SAK (Rec: 08/06/21 17:09 SAK [id number]) Posture Evaluation Position Sitting Head/C-Spine Posture Forward Head T-Spine Posture Increased Kyphosis Shoulder Posture (L) Rounded,(R) Rounded Scapula Posture (L) Protracted,(R) Protracted Arm Posture (L) Internally Rotated Palpation Assessment Location left shoulder Palpation Details palpable tightness in UT, deltoid Skin Assessment Incisional Assessment Incision Appearance/Comments post-op dressing off, steri- strips intact. No signs or symptoms of infection PT-OP-K Range of Motion Start: 08/06/21 08:28 Freq: Status: Active Protocol: Document 08/06/21 16:35 [facility] (Rec: 08/06/21 17:09 [facility] [id number]) Cervical Spine Range of Motion Cervical Spine Active Comments WNL except tight left neck sidebend possibly due to sleeping position Shoulder Goniometric Range of Motion Shoulder Left Passive Flexion 30 Extension 0 External Rotation at 0 degrees Abduction 0 Internal Rotation 0 Comments ER not tested due to RCR Right Active Shoulder ROM WFL Yes Elbow/Forearm Range of Motion Elbow/Forearm carley Elbow/Forearm ROM WFL Yes PT-OP-M Strength Start: 08/06/21 08:28 Freq: Status: Active Protocol: Document 08/06/21 16:35 [facility] (Rec: 08/06/21 17:09 [facility] [id number]) Shoulder Strength Shoulder Manual Muscle Testing Left Comments not assessed due to surgery Right Flexion 5 Normal Abduction (C5) 5 Normal External Rotation 5 Normal Internal Rotation 5 Normal PT-OP-Q Treatments Start: 08/06/21 08:28 Freq: Status: Active Protocol: Document 11/05/21 11:15 MA (Rec: 11/05/21 13:08 MA [id number]) Therapeutic Exercises Supine Exercises PNF Supine Exercise Name AAROM D1 and D2 Reps/Minutes 5x ea Sitting Exercises Self-mob Sitting Exercise Name inferior glide- AROM ER Side left Equipment Used traction belt Reps/Minutes 3' Table Slide Sitting Exercise Name shd flex Side bilateral Comments warm up stretch Manual Therapy Treatment Soft Tissue Mobilization biceps, deltoid insertion Body Location left shoulder Mobilization Type Myofascial Release Intensity/Depth Moderate c/s, UT Mobilization Type Myofascial Release Intensity/Depth Moderate Body Position Hooklying Joint Mobilizations GH Direction inferior glides Body Position Supine Comments gr II Manual Techniques PROM Type L shd all planes- stretcing into pt's tolerance to improve ROM Body Location L shd Body Position Supine Reps/Duration 10' Comments with hot pack PT-OP-R Modalities Start: 08/06/21 08:28 Freq: Status: Active Protocol: Document 11/05/21 11:15 MA (Rec: 11/05/21 13:08 MA [id number]) Hot Pack/Cold Pack Treatment Hot Pack Location left c/s and shoulder Patient Position Hooklying Treatment Duration (minutes) 10 Patient Tolerance Good Comments During manual PT-OP-S Aquatic Treatment Start: 08/06/21 08:28 Freq: Status: Active Protocol: Document 11/02/21 15:03 SAK (Rec: 11/02/21 15:15 SAK [id number]) Aquatics Treatment Upper Extremity Exercises ER stretch Reps/Duration 10x scapular retraction Body Position Standing Water Level Neck Level Reps/Duration 10x2 Comments manual cues for scapular retraction shoulder ER/IR Details elbows at side, at 90 abd, Body Position Standing Water Level Neck Level Reps/Duration 10x ea Comments cane [place] Activities [place] Activities Bicycle,Bicycle Backwards, Cross [place],Running Equipment medium belt Duration 10 min Comments emphasis on UE reaching fwd/ bck in flex/ext and breastroke arms with scapular retraction Swim Strokes Backstroke Laps/Duration 2 laps Comments cues for technique, no jamming into joint pain prone crawl Laps/Duration 2 laps Comments cues for technique, no jamming into joint pain Manual Techniques Bad Ragaz passive for thoracic and shoulder mobility/ROM; initial hold at scapulas, then at waist Aquatic Joint Mobilizations general upper thoracic, scapulothoracic mobilization, subscapular release, GH inf glide supine and standing with left UE on pool deck for stabilization, posterior glide standing Aquatic Massage black neck float, float-its above knees rhomboids, subscap PT-OP-T Assessment and Plan Start: 08/06/21 08:28 Freq: Status: Active Protocol: Document 11/05/21 11:15 MA (Rec: 11/05/21 13:08 MA [id number]) Physical Therapy Assessment Goals Two Impairment right shoulder dysfunction Impairment Quickdash UE disability 100% Short Term Goal (STG) Decrease Quickdash UE disability index score to no greater than 50% as measure of improved function 10/29/21: goal progress STG Duration 11/29/21 Content Checker Goal (LTG) Decrease Quickdash UE disability score to no greater than 10% as measure of improved left UE function with patient able to return to all usual ADL's and activities including reaching overhead and behind her back with ease LTG Duration 12/28/21 One Impairment limited shoulder ROM and strength Short Term Goal (STG) Patient will be independent and compliant with HEP following post-op RCR protocol 10/29/21: patient independent and compliant with HEP, however ROM coming slowly, appears to have developed adhesive capsulitis as she did after right shoulder surgery STG Duration 11/29/21 Longterm Goal (LTG) Improve left shoulder ROM to full and strength to 5/5 to allow her to do all usual activities. 10/29/21: PROM left shoulder flex 130, abduction 88, IR to buttock, ER to 28 LTG Duration 12/28/21 Assessment Summary Assessment Pt has L shd AROM 128 degree flexion, abd 96 degrees, ER 15 degrees, Ext 40 degrees at end of session. She is doing better self-correcting when she begins to compensate with scaupular elevation during GH flexion. Pt continues to be limited in all L shd ROM and will continue to benefit from both aquatic and land PT to increase ROM to functional levels. Physical Therapy Plan Frequency and Duration Frequency of Treatment 2x/Week Duration of Treatment 12 weeks Plan of Care Start Date 10/29/21 Plan of Care End Date 12/28/21 Therapeutic Interventions Therapeutic Interventions Aquatic Therapy,Home Exercise Program,Joint Mobilizations, Manual Therapy,Neuromuscular Re-education,Patient/Caregiver Education,Self-Care/Home Management,Soft Tissue Mobilization,Taping, Therapeutic Activities, Therapeutic Exercises Modalities Cold Pack/Ice Massage,Electric Stimulation,Hot Packs, Iontophoresis Next Visit Focus/Plan Next Note Type Treatment Note Next Visit Plan Goniometric measurements. Progression of ROM all planes without impingement, joint mobilization with emphasis on posterior and inferior glide to improve shoulder ROM especially ER. Continue patient instruction for self- mobilization. Subscapular release with PROM to AAROM elevation supine. Manual facilitation of upward scapular rotation with elevation. MWM techniques to facilitate normal joint kinematics and decreased RC irritation with movment.
--- NOTE | 2021-11-05 13:08 | PT.OTN ---
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 (operative report not available this date; have requested from Dr. Thurman's office). Patient reports she has been wearing her sling, using ice, doing gentle pendulum Prior Treatments and Tests prior right shoulder surgery with good outcome PT-OP-C Subjective Start: 08/06/21 08:28 Freq: Status: Active Protocol: Document 11/05/21 11:15 MA (Rec: 11/05/21 13:08 MA [id number]) OP-PT Subjective Patient Comments Patient Comments Pt feels she is getting a little better now that got a belt to do jt mobs at home PT-OP-H Neuro Start: 08/06/21 08:28 Freq: Status: Active Protocol: Document 08/06/21 16:35 SAK (Rec: 08/06/21 17:09 SAK [id number]) Sensation Evaluation Gross Sensation Gross Sensation Left UE Impaired Sensation Description Paresthesia PT-OP-J Posture/Palpation/Skin Start: 08/06/21 08:28 Freq: Status: Active Protocol: Document 08/06/21 16:35 SAK (Rec: 08/06/21 17:09 SAK [id number]) Posture Evaluation Position Sitting Head/C-Spine Posture Forward Head T-Spine Posture Increased Kyphosis Shoulder Posture (L) Rounded,(R) Rounded Scapula Posture (L) Protracted,(R) Protracted Arm Posture (L) Internally Rotated Palpation Assessment Location left shoulder Palpation Details palpable tightness in UT, deltoid Skin Assessment Incisional Assessment Incision Appearance/Comments post-op dressing off, steri- strips intact. No signs or symptoms of infection PT-OP-K Range of Motion Start: 08/06/21 08:28 Freq: Status: Active Protocol: Document 08/06/21 16:35 [facility] (Rec: 08/06/21 17:09 [facility] [id number]) Cervical Spine Range of Motion Cervical Spine Active Comments WNL except tight left neck sidebend possibly due to sleeping position Shoulder Goniometric Range of Motion Shoulder Left Passive Flexion 30 Extension 0 External Rotation at 0 degrees Abduction 0 Internal Rotation 0 Comments ER not tested due to RCR Right Active Shoulder ROM WFL Yes Elbow/Forearm Range of Motion Elbow/Forearm carley Elbow/Forearm ROM WFL Yes PT-OP-M Strength Start: 08/06/21 08:28 Freq: Status: Active Protocol: Document 08/06/21 16:35 [facility] (Rec: 08/06/21 17:09 [facility] [id number]) Shoulder Strength Shoulder Manual Muscle Testing Left Comments not assessed due to surgery Right Flexion 5 Normal Abduction (C5) 5 Normal External Rotation 5 Normal Internal Rotation 5 Normal PT-OP-Q Treatments Start: 08/06/21 08:28 Freq: Status: Active Protocol: Document 11/05/21 11:15 MA (Rec: 11/05/21 13:08 MA [id number]) Therapeutic Exercises Supine Exercises PNF Supine Exercise Name AAROM D1 and D2 Reps/Minutes 5x ea Sitting Exercises Self-mob Sitting Exercise Name inferior glide- AROM ER Side left Equipment Used traction belt Reps/Minutes 3' Table Slide Sitting Exercise Name shd flex Side bilateral Comments warm up stretch Manual Therapy Treatment Soft Tissue Mobilization biceps, deltoid insertion Body Location left shoulder Mobilization Type Myofascial Release Intensity/Depth Moderate c/s, [place] Mobilization Type Myofascial Release Intensity/Depth Moderate Body Position Hooklying Joint Mobilizations GH Direction inferior glides Body Position Supine Comments gr II Manual Techniques PROM Type L shd all planes- stretcing into pt's tolerance to improve ROM Body Location L shd Body Position Supine Reps/Duration 10' Comments with hot pack PT-OP-R Modalities Start: 08/06/21 08:28 Freq: Status: Active Protocol: Document 11/05/21 11:15 MA (Rec: 11/05/21 13:08 MA [id number]) Hot Pack/Cold Pack Treatment Hot Pack Location left c/s and shoulder Patient Position Hooklying Treatment Duration (minutes) 10 Patient Tolerance Good Comments During manual PT-OP-S Aquatic Treatment Start: 08/06/21 08:28 Freq: Status: Active Protocol: Document 11/02/21 15:03 SAK (Rec: 11/02/21 15:15 SAK [id number]) Aquatics Treatment Upper Extremity Exercises ER stretch Reps/Duration 10x scapular retraction Body Position Standing Water Level Neck Level Reps/Duration 10x2 Comments manual cues for scapular retraction shoulder ER/IR Details elbows at side, at 90 abd, Body Position Standing Water Level Neck Level Reps/Duration 10x ea Comments cane [place] Activities [place] Activities Bicycle,Bicycle Backwards, Cross [place],Running Equipment medium belt Duration 10 min Comments emphasis on UE reaching fwd/ bck in flex/ext and breastroke arms with scapular retraction Swim Strokes Backstroke Laps/Duration 2 laps Comments cues for technique, no jamming into joint pain prone crawl Laps/Duration 2 laps Comments cues for technique, no jamming into joint pain Manual Techniques Bad Ragaz passive for thoracic and shoulder mobility/ROM; initial hold at scapulas, then at waist Aquatic Joint Mobilizations general upper thoracic, scapulothoracic mobilization, subscapular release, GH inf glide supine and standing with left UE on pool deck for stabilization, posterior glide standing Aquatic Massage black neck float, float-its above knees rhomboids, subscap PT-OP-T Assessment and Plan Start: 08/06/21 08:28 Freq: Status: Active Protocol: Document 11/05/21 11:15 MA (Rec: 11/05/21 13:08 MA [id number]) Physical Therapy Assessment Goals Two Impairment right shoulder dysfunction Impairment Quickdash UE disability 100% Short Term Goal (STG) Decrease Quickdash UE disability index score to no greater than 50% as measure of improved function 10/29/21: goal progress STG Duration 11/29/21 Online Trader Goal (LTG) Decrease Quickdash UE disability score to no greater than 10% as measure of improved left UE function with patient able to return to all usual ADL's and activities including reaching overhead and behind her back with ease LTG Duration 12/28/21 One Impairment limited shoulder ROM and strength Short Term Goal (STG) Patient will be independent and compliant with HEP following post-op RCR protocol 10/29/21: patient independent and compliant with HEP, however ROM coming slowly, appears to have developed adhesive capsulitis as she did after right shoulder surgery STG Duration 11/29/21 Residential Goal (LTG) Improve left shoulder ROM to full and strength to 5/5 to allow her to do all usual activities. 10/29/21: PROM left shoulder flex 130, abduction 88, IR to buttock, ER to 28 LTG Duration 12/28/21 Assessment Summary Assessment Pt has L shd AROM 128 degree flexion, abd 96 degrees, ER 15 degrees, Ext 40 degrees at end of session. She is doing better self-correcting when she begins to compensate with scaupular elevation during GH flexion. Pt continues to be limited in all L shd ROM and will continue to benefit from both aquatic and land PT to increase ROM to functional levels. Physical Therapy Plan Frequency and Duration Frequency of Treatment 2x/Week Duration of Treatment 12 weeks Plan of Care Start Date 10/29/21 Plan of Care End Date 12/28/21 Therapeutic Interventions Therapeutic Interventions Aquatic Therapy,Home Exercise Program,Joint Mobilizations, Manual Therapy,Neuromuscular Re-education,Patient/Caregiver Education,Self-Care/Home Management,Soft Tissue Mobilization,Taping, Therapeutic Activities, Therapeutic Exercises Modalities Cold Pack/Ice Massage,Electric Stimulation,Hot Packs, Iontophoresis Next Visit Focus/Plan Next Note Type Treatment Note Next Visit Plan Goniometric measurements. Progression of ROM all planes without impingement, joint mobilization with emphasis on posterior and inferior glide to improve shoulder ROM especially ER. Continue patient instruction for self- mobilization. Subscapular release with PROM to AAROM elevation supine. Manual facilitation of upward scapular rotation with elevation. MWM techniques to facilitate normal joint kinematics and decreased RC irritation with movment.
--- NOTE | 2021-11-09 15:26 | PT.OTN ---
Current Diagnoses Primary osteoarthritis, left shoulder (11/09/21) Unspecified rotator cuff tear or rupture of left shoulder, not specified as traumatic (11/09/21) Bursitis of left shoulder (11/09/21) Physical Therapy Treatment Note PT-OP-A Visit Information Start: 08/06/21 08:28 Freq: Status: Active Protocol: Document 11/09/21 13:45 MA (Rec: 11/09/21 15:20 MA [id number]) Out-Patient Physical Therapy Visit Information Visit Information Visit Type Treatment Note Visit Start Time 13:45 Visit Stop Time 14:35 Total Visit Minutes 50 Visit Number Number of CIPHER EXPERT Visits 2 PT-OP-B Current Condition Start: 08/06/21 08:28 Freq: Status: Active Protocol: Document 08/23/21 09:48 SAK (Rec: 08/23/21 10:34 SAK [id number]) Current Condition History of Current Condition Onset Date 08/02/21 Current Complaints left shoulder dysfunction History of Current Condition s/p left RCR with arthroscopic distal clavicle excision, subacromial decompression extensive, rotator cuff repair . (operative report not available this date; have requested from Dr. Thurman's office). Patient reports she has been wearing her sling, using ice, doing gentle pendulum Prior Treatments and Tests prior right shoulder surgery with good outcome PT-OP-C Subjective Start: 08/06/21 08:28 Freq: Status: Active Protocol: Document 11/09/21 13:45 MA (Rec: 11/09/21 15:20 MA [id number]) OP-PT Subjective Patient Comments Patient Comments Pt has been going to pool on her own and tried fwd crawl in pool but had a lot of pain. The pain has gone away now . PT-OP-H Neuro Start: 08/06/21 08:28 Freq: Status: Active Protocol: Document 08/06/21 16:35 SAK (Rec: 08/06/21 17:09 SAK [id number]) Sensation Evaluation Gross Sensation Gross Sensation Left UE Impaired Sensation Description Paresthesia PT-OP-J Posture/Palpation/Skin Start: 08/06/21 08:28 Freq: Status: Active Protocol: Document 08/06/21 16:35 SAK (Rec: 08/06/21 17:09 SAK [id number]) Posture Evaluation Position Sitting Head/C-Spine Posture Forward Head T-Spine Posture Increased Kyphosis Shoulder Posture (L) Rounded,(R) Rounded Scapula Posture (L) Protracted,(R) Protracted Arm Posture (L) Internally Rotated Palpation Assessment Location left shoulder Palpation Details palpable tightness in UT, deltoid Skin Assessment Incisional Assessment Incision Appearance/Comments post-op dressing off, steri- strips intact. No signs or symptoms of infection PT-OP-K Range of Motion Start: 08/06/21 08:28 Freq: Status: Active Protocol: Document 08/06/21 16:35 [facility] (Rec: 08/06/21 17:09 [facility] [id number]) Cervical Spine Range of Motion Cervical Spine Active Comments WNL except tight left neck sidebend possibly due to sleeping position Shoulder Goniometric Range of Motion Shoulder Left Passive Flexion 30 Extension 0 External Rotation at 0 degrees Abduction 0 Internal Rotation 0 Comments ER not tested due to RCR Right Active Shoulder ROM WFL Yes Elbow/Forearm Range of Motion Elbow/Forearm carley Elbow/Forearm ROM WFL Yes PT-OP-M Strength Start: 08/06/21 08:28 Freq: Status: Active Protocol: Document 08/06/21 16:35 [facility] (Rec: 08/06/21 17:09 [facility] [id number]) Shoulder Strength Shoulder Manual Muscle Testing Left Comments not assessed due to surgery Right Flexion 5 Normal Abduction (C5) 5 Normal External Rotation 5 Normal Internal Rotation 5 Normal PT-OP-Q Treatments Start: 08/06/21 08:28 Freq: Status: Active Protocol: Document 11/09/21 13:45 MA (Rec: 11/09/21 15:20 MA [id number]) Therapeutic Exercises Standing Exercises ER stretch Comments reviewed per pt's request Other Exercises Self-Mobs Other Exercise Name MWM flexion, Abd, IR/ER Equipment Used lvl 5 TB and traction belt Reps/Minutes 25' Comments see self-care for HEP additions Self-Care/Home Management Treatment Activities Self-Care/Home Management Activities Self-Mobs to L shd: 1. seated inferior glide with AROM ER/IR 2. Inferior self mob with oscillations in standing (no AROM) 3. inferior glide AROM flexion in supine 4. standing inferior glide AROM ABD 5. posterior glide AROM IR PT-OP-R Modalities Start: 08/06/21 08:28 Freq: Status: Active Protocol: Document 11/09/21 13:45 MA (Rec: 11/09/21 15:20 MA [id number]) Hot Pack/Cold Pack Treatment Hot Pack Location left c/s and shoulder Patient Position Hooklying Treatment Duration (minutes) 10 Patient Tolerance Good Comments after session today PT-OP-S Aquatic Treatment Start: 08/06/21 08:28 Freq: Status: Active Protocol: Document 11/02/21 15:03 SAK (Rec: 11/02/21 15:15 SAK [id number]) Aquatics Treatment Upper Extremity Exercises ER stretch Reps/Duration 10x scapular retraction Body Position Standing Water Level Neck Level Reps/Duration 10x2 Comments manual cues for scapular retraction shoulder ER/IR Details elbows at side, at 90 abd, Body Position Standing Water Level Neck Level Reps/Duration 10x ea Comments cane [place] Activities [place] Activities Bicycle,Bicycle Backwards, Cross [place],Running Equipment medium belt Duration 10 min Comments emphasis on UE reaching fwd/ bck in flex/ext and breastroke arms with scapular retraction Swim Strokes Backstroke Laps/Duration 2 laps Comments cues for technique, no jamming into joint pain prone crawl Laps/Duration 2 laps Comments cues for technique, no jamming into joint pain Manual Techniques Bad Ragaz passive for thoracic and shoulder mobility/ROM; initial hold at scapulas, then at waist Aquatic Joint Mobilizations general upper thoracic, scapulothoracic mobilization, subscapular release, GH inf glide supine and standing with left UE on pool deck for stabilization, posterior glide standing Aquatic Massage black neck float, float-its above knees rhomboids, subscap PT-OP-T Assessment and Plan Start: 08/06/21 08:28 Freq: Status: Active Protocol: Document 11/09/21 13:45 MA (Rec: 11/09/21 15:20 MA [id number]) Physical Therapy Assessment Goals Two Impairment right shoulder dysfunction Impairment Quickdash UE disability 100% Short Term Goal (STG) Decrease Quickdash UE disability index score to no greater than 50% as measure of improved function 10/29/21: goal progress STG Duration 11/29/21 [place] Goal (LTG) Decrease Quickdash UE disability score to no greater than 10% as measure of improved left UE function with patient able to return to all usual ADL's and activities including reaching overhead and behind her back with ease LTG Duration 12/28/21 One Impairment limited shoulder ROM and strength Short Term Goal (STG) Patient will be independent and compliant with HEP following post-op RCR protocol 10/29/21: patient independent and compliant with HEP, however ROM coming slowly, appears to have developed adhesive capsulitis as she did after right shoulder surgery STG Duration 11/29/21 [place] Goal (LTG) Improve left shoulder ROM to full and strength to 5/5 to allow her to do all usual activities. 10/29/21: PROM left shoulder flex 130, abduction 88, IR to buttock, ER to 28 LTG Duration 12/28/21 Assessment Summary Assessment Pt had 130 degrees L shd flex, 94 degrees ABD, 14 degrees ER today. Spent this session educating pt on MWM and self- mobs to do at home. Dispensed new HEP and lvl 5 TB for mobs. Discussed doing mobs every other day to start and educated pt on possible increased soreness after today 's session. Physical Therapy Plan Frequency and Duration Frequency of Treatment 2x/Week Duration of Treatment 12 weeks Plan of Care Start Date 10/29/21 Plan of Care End Date 12/28/21 Therapeutic Interventions Therapeutic Interventions Aquatic Therapy,Home Exercise Program,Joint Mobilizations, Manual Therapy,Neuromuscular Re-education,Patient/Caregiver Education,Self-Care/Home Management,Soft Tissue Mobilization,Taping, Therapeutic Activities, Therapeutic Exercises Modalities Cold Pack/Ice Massage,Electric Stimulation,Hot Packs, Iontophoresis Next Visit Focus/Plan Next Note Type Treatment Note Next Visit Plan Review new HEP (MWM). Goniometric measurements. Progression of ROM all planes without impingement, joint mobilization with emphasis on posterior and inferior glide to improve shoulder ROM especially ER. Continue patient instruction for self- mobilization. Subscapular release with PROM to AAROM elevation supine. Manual facilitation of upward scapular rotation with elevation. MWM techniques to facilitate normal joint kinematics and decreased RC irritation with movment.
--- NOTE | 2021-11-12 13:41 | PT.OTN ---
Current Diagnoses Primary osteoarthritis, left shoulder (11/12/21) Unspecified rotator cuff tear or rupture of left shoulder, not specified as traumatic (11/12/21) Bursitis of left shoulder (11/12/21) Physical Therapy Treatment Note PT-OP-A Visit Information Start: 08/06/21 08:28 Freq: Status: Active Protocol: Document 11/12/21 11:15 MA (Rec: 11/12/21 12:04 MA [id number]) Out-Patient Physical Therapy Visit Information Visit Information Visit Type Treatment Note Visit Start Time 11:12 Visit Stop Time 12:00 Total Visit Minutes 43 Visit Number Number of S[employer]IOR [employer]PORATE [employer]ATEGY MANAGER Visits 3 PT-OP-B Current Condition Start: 08/06/21 08:28 Freq: Status: Active Protocol: Document 08/23/21 09:48 SAK (Rec: 08/23/21 10:34 SAK [id number]) Current Condition History of Current Condition Onset Date 08/02/21 Current Complaints left shoulder dysfunction History of Current Condition s/p left RCR with arthroscopic distal clavicle excision, subacromial decompression extensive, rotator cuff repair . (operative report not available this date; have requested from Dr. Thurman's office). Patient reports she has been wearing her sling, using ice, doing gentle pendulum Prior Treatments and Tests prior right shoulder surgery with good outcome PT-OP-C Subjective Start: 08/06/21 08:28 Freq: Status: Active Protocol: Document 11/12/21 11:15 MA (Rec: 11/12/21 12:04 MA [id number]) OP-PT Subjective Patient Comments Patient Comments Pt would like to review several of the self-mobs PT-OP-H Neuro Start: 08/06/21 08:28 Freq: Status: Active Protocol: Document 08/06/21 16:35 SAK (Rec: 08/06/21 17:09 SAK [id number]) Sensation Evaluation Gross Sensation Gross Sensation Left UE Impaired Sensation Description Paresthesia PT-OP-J Posture/Palpation/Skin Start: 08/06/21 08:28 Freq: Status: Active Protocol: Document 08/06/21 16:35 SAK (Rec: 08/06/21 17:09 SAK [id number]) Posture Evaluation Position Sitting Head/C-Spine Posture Forward Head T-Spine Posture Increased Kyphosis Shoulder Posture (L) Rounded,(R) Rounded Scapula Posture (L) Protracted,(R) Protracted Arm Posture (L) Internally Rotated Palpation Assessment Location left shoulder Palpation Details palpable tightness in UT, deltoid Skin Assessment Incisional Assessment Incision Appearance/Comments post-op dressing off, steri- strips intact. No signs or symptoms of infection PT-OP-K Range of Motion Start: 08/06/21 08:28 Freq: Status: Active Protocol: Document 08/06/21 16:35 [facility] (Rec: 08/06/21 17:09 [facility] [id number]) Cervical Spine Range of Motion Cervical Spine Active Comments WNL except tight left neck sidebend possibly due to sleeping position Shoulder Goniometric Range of Motion Shoulder Left Passive Flexion 30 Extension 0 External Rotation at 0 degrees Abduction 0 Internal Rotation 0 Comments ER not tested due to RCR Right Active Shoulder ROM WFL Yes Elbow/Forearm Range of Motion Elbow/Forearm carley Elbow/Forearm ROM WFL Yes PT-OP-M Strength Start: 08/06/21 08:28 Freq: Status: Active Protocol: Document 08/06/21 16:35 [facility] (Rec: 08/06/21 17:09 [facility] [id number]) Shoulder Strength Shoulder Manual Muscle Testing Left Comments not assessed due to surgery Right Flexion 5 Normal Abduction (C5) 5 Normal External Rotation 5 Normal Internal Rotation 5 Normal PT-OP-Q Treatments Start: 08/06/21 08:28 Freq: Status: Active Protocol: Document 11/12/21 11:15 MA (Rec: 11/12/21 12:04 MA [id number]) Therapeutic Exercises Standing Exercises Isometrics Standing Exercise Name Add, ABD, IR, ER, Ext, flex Side left Equipment Used towel roll Reps/Minutes 5x5SH Comments reviewed ER and ext only due to pt having increased pain at home Other Exercises Self-Mobs Other Exercise Name MWM flexion, Abd, IR/ER Equipment Used lvl 5 TB and traction belt Reps/Minutes 10' Comments review of HEP Manual Therapy Treatment Joint Mobilizations GH Direction inferior glides Body Position Supine Comments gr II Manual Techniques PROM Type L shd all planes- contract- relax Body Location L shd Body Position Supine Reps/Duration 10' Comments with hot pack shoulder Type inf and post glide Body Location left shoulder Body Position Supine Reps/Duration 5 min PT-OP-R Modalities Start: 08/06/21 08:28 Freq: Status: Active Protocol: Document 11/12/21 11:15 MA (Rec: 11/12/21 12:04 MA [id number]) Hot Pack/Cold Pack Treatment Hot Pack Location left shoulder Patient Position Hooklying Treatment Duration (minutes) 10 Patient Tolerance Good Comments during manual PT-OP-S Aquatic Treatment Start: 08/06/21 08:28 Freq: Status: Active Protocol: Document 11/02/21 15:03 SAK (Rec: 11/02/21 15:15 SAK [id number]) Aquatics Treatment Upper Extremity Exercises ER stretch Reps/Duration 10x scapular retraction Body Position Standing Water Level Neck Level Reps/Duration 10x2 Comments manual cues for scapular retraction shoulder ER/IR Details elbows at side, at 90 abd, Body Position Standing Water Level Neck Level Reps/Duration 10x ea Comments cane [place] Activities [place] Activities Bicycle,Bicycle Backwards, Cross [place],Running Equipment medium belt Duration 10 min Comments emphasis on UE reaching fwd/ bck in flex/ext and breastroke arms with scapular retraction Swim Strokes Backstroke Laps/Duration 2 laps Comments cues for technique, no jamming into joint pain prone crawl Laps/Duration 2 laps Comments cues for technique, no jamming into joint pain Manual Techniques Bad Ragaz passive for thoracic and shoulder mobility/ROM; initial hold at scapulas, then at waist Aquatic Joint Mobilizations general upper thoracic, scapulothoracic mobilization, subscapular release, GH inf glide supine and standing with left UE on pool deck for stabilization, posterior glide standing Aquatic Massage black neck float, float-its above knees rhomboids, subscap PT-OP-T Assessment and Plan Start: 08/06/21 08:28 Freq: Status: Active Protocol: Document 11/12/21 11:15 MA (Rec: 11/12/21 12:04 MA [id number]) Physical Therapy Assessment Goals Two Impairment right shoulder dysfunction Impairment Quickdash UE disability 100% Short Term Goal (STG) Decrease Quickdash UE disability index score to no greater than 50% as measure of improved function 10/29/21: goal progress STG Duration 11/29/21 [facility] Goal (LTG) Decrease Quickdash UE disability score to no greater than 10% as measure of improved left UE function with patient able to return to all usual ADL's and activities including reaching overhead and behind her back with ease LTG Duration 12/28/21 One Impairment limited shoulder ROM and strength Short Term Goal (STG) Patient will be independent and compliant with HEP following post-op RCR protocol 10/29/21: patient independent and compliant with HEP, however ROM coming slowly, appears to have developed adhesive capsulitis as she did after right shoulder surgery STG Duration 11/29/21 Sleeve Fixer Goal (LTG) Improve left shoulder ROM to full and strength to 5/5 to allow her to do all usual activities. 10/29/21: PROM left shoulder flex 130, abduction 88, IR to buttock, ER to 28 LTG Duration 12/28/21 Assessment Summary Assessment Jenny'ashley Parisi shd AROM today: 133 degrees flexion, 100 degrees ABD, 23 degrees ER. She is showing good improvement in ROM since starting more MWM and self-mobs at home. Encouraged pt to keep up with all HEP while she is out of therapy for a week on vacation . Physical Therapy Plan Frequency and Duration Frequency of Treatment 2x/Week Duration of Treatment 12 weeks Plan of Care Start Date 10/29/21 Plan of Care End Date 12/28/21 Therapeutic Interventions Therapeutic Interventions Aquatic Therapy,Home Exercise Program,Joint Mobilizations, Manual Therapy,Neuromuscular Re-education,Patient/Caregiver Education,Self-Care/Home Management,Soft Tissue Mobilization,Taping, Therapeutic Activities, Therapeutic Exercises Modalities Cold Pack/Ice Massage,Electric Stimulation,Hot Packs, Iontophoresis Next Visit Focus/Plan Next Note Type Treatment Note Next Visit Plan Review new HEP (MWM). Goniometric measurements. Progression of ROM all planes without impingement, joint mobilization with emphasis on posterior and inferior glide to improve shoulder ROM especially ER. Continue patient instruction for self- mobilization. Subscapular release with PROM to AAROM elevation supine. Manual facilitation of upward scapular rotation with elevation. MWM techniques to facilitate normal joint kinematics and decreased RC irritation with movment.
--- NOTE | 2021-11-23 13:44 | PT.OTN ---
Current Diagnoses Primary osteoarthritis, left shoulder (11/23/21) Unspecified rotator cuff tear or rupture of left shoulder, not specified as traumatic (11/23/21) Bursitis of left shoulder (11/23/21) Physical Therapy Treatment Note PT-OP-A Visit Information Start: 08/06/21 08:28 Freq: Status: Active Protocol: Document 11/23/21 13:04 SP (Rec: 11/23/21 13:48 SP [id number]) Out-Patient Physical Therapy Visit Information Visit Information Visit Type Treatment Note Visit Start Time 13:04 Visit Stop Time 13:44 Total Visit Minutes 40 Visit Number Number of MEDICAL ARTIST Visits 4 Evaluation Information Evaluation Date 08/06/21 Precautions Precautions Aggressive ROM, no ROM restrictions PT-OP-B Current Condition Start: 08/06/21 08:28 Freq: Status: Active Protocol: Document 08/23/21 09:48 SAK (Rec: 08/23/21 10:34 SAK [id number]) Current Condition History of Current Condition Onset Date 08/02/21 Current Complaints left shoulder dysfunction History of Current Condition s/p left RCR with arthroscopic distal clavicle excision, subacromial decompression extensive, rotator cuff repair . (operative report not available this date; have requested from Dr. Thurman's office). Patient reports she has been wearing her sling, using ice, doing gentle pendulum Prior Treatments and Tests prior right shoulder surgery with good outcome PT-OP-C Subjective Start: 08/06/21 08:28 Freq: Status: Active Protocol: Document 11/23/21 13:04 SP (Rec: 11/23/21 13:48 SP [id number]) OP-PT Subjective Patient Comments Patient Comments Pt states busy out of town, did what can, thinks lost ROM. PT-OP-H Neuro Start: 08/06/21 08:28 Freq: Status: Active Protocol: Document 08/06/21 16:35 SAK (Rec: 08/06/21 17:09 SAK [id number]) Sensation Evaluation Gross Sensation Gross Sensation Left UE Impaired Sensation Description Paresthesia PT-OP-J Posture/Palpation/Skin Start: 08/06/21 08:28 Freq: Status: Active Protocol: Document 08/06/21 16:35 SAK (Rec: 08/06/21 17:09 SAK [id number]) Posture Evaluation Position Sitting Head/C-Spine Posture Forward Head T-Spine Posture Increased Kyphosis Shoulder Posture (L) Rounded,(R) Rounded Scapula Posture (L) Protracted,(R) Protracted Arm Posture (L) Internally Rotated Palpation Assessment Location left shoulder Palpation Details palpable tightness in UT, deltoid Skin Assessment Incisional Assessment Incision Appearance/Comments post-op dressing off, steri- strips intact. No signs or symptoms of infection PT-OP-K Range of Motion Start: 08/06/21 08:28 Freq: Status: Active Protocol: Document 11/23/21 13:04 SP (Rec: 11/23/21 13:48 SP [id number]) Shoulder Goniometric Range of Motion Shoulder Left Passive Shoulder ROM WFL No Testing Position Supine Flexion 129 Abduction 95 External Rotation at 0 degrees Abduction 39 Comments standing IR: L behind L buttocks/ lateral sacrum Right Active Shoulder ROM WFL Yes Testing Position Supine Flexion 180 Abduction 178 External Rotation at 0 degrees Abduction 65 Internal Rotation Behind Back (text) T6 PT-OP-M Strength Start: 08/06/21 08:28 Freq: Status: Active Protocol: Document 08/06/21 16:35 SAK (Rec: 08/06/21 17:09 SAK [id number]) Shoulder Strength Shoulder Manual Muscle Testing Left Comments not assessed due to surgery Right Flexion 5 Normal Abduction (C5) 5 Normal External Rotation 5 Normal Internal Rotation 5 Normal PT-OP-Q Treatments Start: 08/06/21 08:28 Freq: Status: Active Protocol: Document 11/23/21 13:04 SP (Rec: 11/23/21 13:48 SP [id number]) Therapeutic Exercises Sitting Exercises pulleys Sitting Exercise Name FF and scaption Side right Resistance AAROM using RUE Equipment Used traction belt under L pelvis and over L shld (clavicle/scap ) Reps/Minutes x10 each direction Comments improved segemental MWM and less UT recruitment Self-mob Sitting Exercise Name inferior glide- AROM ER ( standing) Side left Resistance dowel, rolled towel under arm Equipment Used back to wall for neutral spine LS/CS Reps/Minutes x10 Comments cued inferior glide with ER no trunk twisting Standing Exercises shd IR Standing Exercise Name added toHEP Side right Resistance towel AAROM Equipment Used mirror Reps/Minutes 3 sec hold x5 Comments cued no UT recruit Other Exercises self STMs Other Exercise Name ball wall, theracane Comments post scap and neck- good feedback. Self-Care/Home Management Treatment Education Patient Education Body Mechanics,Home Exercise Program,Pain Management, Posture Other Education Initiated kamille w/ Mob strap FF/scaption, ER wand back to wall, IR behind back, self STMs. PT-OP-R Modalities Start: 08/06/21 08:28 Freq: Status: Active Protocol: Document 11/12/21 11:15 MA (Rec: 11/12/21 12:04 MA [id number]) Hot Pack/Cold Pack Treatment Hot Pack Location left shoulder Patient Position Hooklying Treatment Duration (minutes) 10 Patient Tolerance Good Comments during manual PT-OP-S Aquatic Treatment Start: 08/06/21 08:28 Freq: Status: Active Protocol: Document 11/02/21 15:03 SAK (Rec: 11/02/21 15:15 SAK [id number]) Aquatics Treatment Upper Extremity Exercises ER stretch Reps/Duration 10x scapular retraction Body Position Standing Water Level Neck Level Reps/Duration 10x2 Comments manual cues for scapular retraction shoulder ER/IR Details elbows at side, at 90 abd, Body Position Standing Water Level Neck Level Reps/Duration 10x ea Comments cane Scheller Activities Scheller Activities Bicycle,Bicycle Backwards, Cross Country,Running Equipment medium belt Duration 10 min Comments emphasis on UE reaching fwd/ bck in flex/ext and breastroke arms with scapular retraction Swim Strokes Backstroke Laps/Duration 2 laps Comments cues for technique, no jamming into joint pain prone crawl Laps/Duration 2 laps Comments cues for technique, no jamming into joint pain Manual Techniques Bad Ragaz passive for thoracic and shoulder mobility/ROM; initial hold at scapulas, then at waist Aquatic Joint Mobilizations general upper thoracic, scapulothoracic mobilization, subscapular release, GH inf glide supine and standing with left UE on pool deck for stabilization, posterior glide standing Aquatic Massage black neck float, float-its above knees rhomboids, subscap PT-OP-T Assessment and Plan Start: 08/06/21 08:28 Freq: Status: Active Protocol: Document 11/23/21 13:04 SP (Rec: 11/23/21 13:48 SP [id number]) Physical Therapy Assessment Goals Two Impairment right shoulder dysfunction Impairment Quickdash UE disability 100% Short Term Goal (STG) Decrease Quickdash UE disability index score to no greater than 50% as measure of improved function 10/29/21: goal progress STG Duration 11/29/21 Prison Goal (LTG) Decrease Quickdash UE disability score to no greater than 10% as measure of improved left UE function with patient able to return to all usual ADL's and activities including reaching overhead and behind her back with ease LTG Duration 12/28/21 One Impairment limited shoulder ROM and strength Short Term Goal (STG) Patient will be independent and compliant with HEP following post-op RCR protocol 10/29/21: patient independent and compliant with HEP, however ROM coming slowly, appears to have developed adhesive capsulitis as she did after right shoulder surgery STG Duration 11/29/21 Prison Goal (LTG) Improve left shoulder ROM to full and strength to 5/5 to allow her to do all usual activities. 10/29/21: PROM left shoulder flex 130, abduction 88, IR to buttock, ER to 28 11/23/21: L shld AROM supine: FF 129deg, 95 aBD, ER 39, IR behind back buttocks standing. LTG Duration 12/28/21 Progressing 11/23/21 Assessment Summary Assessment Pt improved AAROM w/ strap over superior shld around L leg while performed kamille FF/ Scaption cued neck and jaw relax neutral decreased UT recruitment, will go to [employer] and see if can get materials to make kamille for home, good feedback response and less UT recruitment AAROM self without assist required today. Good feedback to self STMs ball wall and theracane. Physical Therapy Plan Frequency and Duration Frequency of Treatment 2x/Week Duration of Treatment 12 weeks Plan of Care Start Date 10/29/21 Plan of Care End Date 12/28/21 Therapeutic Interventions Therapeutic Interventions Aquatic Therapy,Home Exercise Program,Joint Mobilizations, Manual Therapy,Neuromuscular Re-education,Patient/Caregiver Education,Self-Care/Home Management,Soft Tissue Mobilization,Taping, Therapeutic Activities, Therapeutic Exercises Modalities Cold Pack/Ice Massage,Electric Stimulation,Hot Packs, Iontophoresis Next Visit Focus/Plan Next Note Type Treatment Note Next Visit Plan Review response to las ttx: new HEP (MWM): kamille w/ strap , ER/ IR wand, self STMs. POC:Progression of ROM all planes without impingement, joint mobilization with emphasis on posterior and inferior glide to improve shoulder ROM especially ER. Continue patient instruction for self-mobilization. Subscapular release with PROM to AAROM elevation supine. Manual facilitation of upward scapular rotation with elevation. MWM techniques to facilitate normal joint kinematics and decreased RC irritation with movment.
--- NOTE | 2021-11-26 16:22 | PT.OTN ---
Current Diagnoses Primary osteoarthritis, left shoulder (11/26/21) Unspecified rotator cuff tear or rupture of left shoulder, not specified as traumatic (11/26/21) Bursitis of left shoulder (11/26/21) Physical Therapy Treatment Note PT-OP-A Visit Information Start: 08/06/21 08:28 Freq: Status: Active Protocol: Document 11/26/21 15:20 SAK (Rec: 11/26/21 16:21 [facility] [id number]) Out-Patient Physical Therapy Visit Information Visit Information Visit Type Treatment Note Visit Start Time 15:15 Visit Stop Time 16:05 Total Visit Minutes 55 Visit Number Number of PLATE PRINTER Visits 0 Evaluation Information Evaluation Date 08/06/21 Precautions Precautions Aggressive ROM, no ROM restrictions PT-OP-B Current Condition Start: 08/06/21 08:28 Freq: Status: Active Protocol: Document 08/23/21 09:48 SAK (Rec: 08/23/21 10:34 SAK [id number]) Current Condition History of Current Condition Onset Date 08/02/21 Current Complaints left shoulder dysfunction History of Current Condition s/p left RCR with arthroscopic distal clavicle excision, subacromial decompression extensive, rotator cuff repair . (operative report not available this date; have requested from Dr. Thurman's office). Patient reports she has been wearing her sling, using ice, doing gentle pendulum Prior Treatments and Tests prior right shoulder surgery with good outcome PT-OP-C Subjective Start: 08/06/21 08:28 Freq: Status: Active Protocol: Document 11/26/21 15:20 SAK (Rec: 11/26/21 16:21 [facility] [id number]) OP-PT Subjective Patient Comments Patient Comments Patient states she is feeling she is making gradual progress , slow but steady, isn't having trouble sleeping anymore. Can't quite do her hair using left UE but geting close. Very difficult still to reach behind her back. PT-OP-H Neuro Start: 08/06/21 08:28 Freq: Status: Active Protocol: Document 08/06/21 16:35 SAK (Rec: 08/06/21 17:09 [facility] [id number]) Sensation Evaluation Gross Sensation Gross Sensation Left UE Impaired Sensation Description Paresthesia PT-OP-J Posture/Palpation/Skin Start: 08/06/21 08:28 Freq: Status: Active Protocol: Document 08/06/21 16:35 [facility] (Rec: 08/06/21 17:09 [facility] [id number]) Posture Evaluation Position Sitting Head/C-Spine Posture Forward Head T-Spine Posture Increased Kyphosis Shoulder Posture (L) Rounded,(R) Rounded Scapula Posture (L) Protracted,(R) Protracted Arm Posture (L) Internally Rotated Palpation Assessment Location left shoulder Palpation Details palpable tightness in UT, deltoid Skin Assessment Incisional Assessment Incision Appearance/Comments post-op dressing off, steri- strips intact. No signs or symptoms of infection PT-OP-K Range of Motion Start: 08/06/21 08:28 Freq: Status: Active Protocol: Document 11/23/21 13:04 SP (Rec: 11/23/21 13:48 SP [id number]) Shoulder Goniometric Range of Motion Shoulder Left Passive Shoulder ROM WFL No Testing Position Supine Flexion 129 Abduction 95 External Rotation at 0 degrees Abduction 39 Comments standing IR: L behind L buttocks/ lateral sacrum Right Active Shoulder ROM WFL Yes Testing Position Supine Flexion 180 Abduction 178 External Rotation at 0 degrees Abduction 65 Internal Rotation Behind Back (text) T6 PT-OP-M Strength Start: 08/06/21 08:28 Freq: Status: Active Protocol: Document 08/06/21 16:35 [facility] (Rec: 08/06/21 17:09 [facility] [id number]) Shoulder Strength Shoulder Manual Muscle Testing Left Comments not assessed due to surgery Right Flexion 5 Normal Abduction (C5) 5 Normal External Rotation 5 Normal Internal Rotation 5 Normal PT-OP-Q Treatments Start: 08/06/21 08:28 Freq: Status: Active Protocol: Document 11/26/21 15:20 [facility] (Rec: 11/26/21 16:21 [facility] [id number]) Therapeutic Exercises Supine Exercises shoulder horizontal add, post capsule stretch Reps/Minutes 4x30 Comments cues for deep breathing, stretch not pain Shoulder flex Equipment Used theraband Reps/Minutes 10x Comments with submax hor ab/ER pull of TB PROM IR/ER Supine Exercise Name manual Reps/Minutes 10x Comments UE at 30 deg abd, supported on pillow Sitting Exercises pulleys Sitting Exercise Name FF and scaption Side right Resistance AAROM using RUE Equipment Used traction belt under L pelvis and over L shld (clavicle/scap ) Reps/Minutes x10 each direction Comments improved segemental MWM and less UT recruitment Self-mob Sitting Exercise Name inferior glide- AROM ER ( standing) Side left Resistance dowel, rolled towel under arm Equipment Used back to wall for neutral spine LS/CS Reps/Minutes x10 Comments cued inferior glide with ER no trunk twisting Standing Exercises row, sh ext, add Resistance L1 TB Reps/Minutes 10x Comments cues for scapular movement shd IR Standing Exercise Name added toHEP Side right Resistance towel AAROM Equipment Used mirror Reps/Minutes 3 sec hold x5 Comments cued no UT recruit Manual Therapy Treatment Joint Mobilizations GH Direction inferior glides, posterior glides Body Position Supine Comments gr III Manual Techniques PROM Type L shd all planes- contract- relax Body Location L shd Body Position Supine Self-Care/Home Management Treatment Education Patient Education Body Mechanics,Home Exercise Program,Pain Management, Posture PT-OP-R Modalities Start: 08/06/21 08:28 Freq: Status: Active Protocol: Document 11/26/21 15:20 [facility] (Rec: 11/26/21 16:22 [facility] [id number]) Hot Pack/Cold Pack Treatment Hot Pack Location left shoulder Patient Position Hooklying Treatment Duration (minutes) 15 Patient Tolerance Good Comments after treatment PT-OP-S Aquatic Treatment Start: 08/06/21 08:28 Freq: Status: Active Protocol: Document 11/02/21 15:03 [facility] (Rec: 11/02/21 15:15 [facility] [id number]) Aquatics Treatment Upper Extremity Exercises ER stretch Reps/Duration 10x scapular retraction Body Position Standing Water Level Neck Level Reps/Duration 10x2 Comments manual cues for scapular retraction shoulder ER/IR Details elbows at side, at 90 abd, Body Position Standing Water Level Neck Level Reps/Duration 10x ea Comments cane [place]more Activities Gilmore Activities Bicycle,Bicycle Backwards, Cross [place],Running Equipment medium belt Duration 10 min Comments emphasis on UE reaching fwd/ bck in flex/ext and breastroke arms with scapular retraction Swim Strokes Backstroke Laps/Duration 2 laps Comments cues for technique, no jamming into joint pain prone crawl Laps/Duration 2 laps Comments cues for technique, no jamming into joint pain Manual Techniques Bad Ragaz passive for thoracic and shoulder mobility/ROM; initial hold at scapulas, then at waist Aquatic Joint Mobilizations general upper thoracic, scapulothoracic mobilization, subscapular release, GH inf glide supine and standing with left UE on pool deck for stabilization, posterior glide standing Aquatic Massage black neck float, float-its above knees rhomboids, subscap PT-OP-T Assessment and Plan Start: 08/06/21 08:28 Freq: Status: Active Protocol: Document 11/26/21 15:20 SAK (Rec: 11/26/21 16:21 SAK [id number]) Physical Therapy Assessment Goals Two Impairment right shoulder dysfunction Impairment Quickdash UE disability 100% Short Term Goal (STG) Decrease Quickdash UE disability index score to no greater than 50% as measure of improved function 10/29/21: goal progress STG Duration 11/29/21 Pin Inserter Goal (LTG) Decrease Quickdash UE disability score to no greater than 10% as measure of improved left UE function with patient able to return to all usual ADL's and activities including reaching overhead and behind her back with ease LTG Duration 12/28/21 One Impairment limited shoulder ROM and strength Short Term Goal (STG) Patient will be independent and compliant with HEP following post-op RCR protocol 10/29/21: patient independent and compliant with HEP, however ROM coming slowly, appears to have developed adhesive capsulitis as she did after right shoulder surgery STG Duration 11/29/21 Fdc Goal (LTG) Improve left shoulder ROM to full and strength to 5/5 to allow her to do all usual activities. 10/29/21: PROM left shoulder flex 130, abduction 88, IR to buttock, ER to 28 11/23/21: L shld AROM supine: FF 129deg, 95 aBD, ER 39, IR behind back buttocks standing. LTG Duration 12/28/21 Progressing 11/23/21 Assessment Summary Assessment Patient improved to 140 deg PROM shoulder flex, 102 abduction, 39 ER, posterior buttock IR. Excellent compliance to HEP with assisting. Steady progress Physical Therapy Plan Frequency and Duration Frequency of Treatment 2x/Week Duration of Treatment 12 weeks Plan of Care Start Date 10/29/21 Plan of Care End Date 12/28/21 Therapeutic Interventions Therapeutic Interventions Aquatic Therapy,Home Exercise Program,Joint Mobilizations, Manual Therapy,Neuromuscular Re-education,Patient/Caregiver Education,Self-Care/Home Management,Soft Tissue Mobilization,Taping, Therapeutic Activities, Therapeutic Exercises Modalities Cold Pack/Ice Massage,Electric Stimulation,Hot Packs, Iontophoresis Next Visit Focus/Plan Next Note Type Treatment Note Next Visit Plan Continue PT per POC: Progression of ROM all planes without impingement, joint mobilization with emphasis on posterior and inferior glide to improve shoulder ROM especially ER. Continue patient instruction for self- mobilization. Subscapular release with PROM to AAROM elevation supine. Manual facilitation of upward scapular rotation with elevation. MWM techniques to facilitate normal joint kinematics and decreased RC irritation with movment.
--- NOTE | 2021-11-29 08:28 | PT.OTN ---
Current Diagnoses Primary osteoarthritis, left shoulder (11/29/21) Unspecified rotator cuff tear or rupture of left shoulder, not specified as traumatic (11/29/21) Bursitis of left shoulder (11/29/21) Physical Therapy Treatment Note PT-OP-A Visit Information Start: 08/06/21 08:28 Freq: Status: Active Protocol: Document 11/29/21 11:17 SAK (Rec: 11/29/21 12:57 SAK [id number]) Out-Patient Physical Therapy Visit Information Visit Information Visit Type Treatment Note Visit Start Time 11:15 Visit Stop Time 12:10 Total Visit Minutes 55 Visit Number / Number of CALCULATION REVIEWER Visits 0 Evaluation Information Evaluation Date 08/06/21 Precautions Precautions Aggressive ROM, no ROM restrictions PT-OP-B Current Condition Start: 08/06/21 08:28 Freq: Status: Active Protocol: Document 08/23/21 09:48 SAK (Rec: 08/23/21 10:34 SAK [id number]) Current Condition History of Current Condition Onset Date 08/02/21 Current Complaints left shoulder dysfunction History of Current Condition s/p left RCR with arthroscopic distal clavicle excision, subacromial decompression extensive, rotator cuff repair . (operative report not available this date; have requested from Dr. Thurman's office). Patient reports she has been wearing her sling, using ice, doing gentle pendulum Prior Treatments and Tests prior right shoulder surgery with good outcome PT-OP-C Subjective Start: 08/06/21 08:28 Freq: Status: Active Protocol: Document 11/29/21 11:17 SAK (Rec: 11/29/21 12:57 SAK [id number]) OP-PT Subjective Patient Comments Patient Comments No new c/o. Should get pulleys today in mail PT-OP-H Neuro Start: 08/06/21 08:28 Freq: Status: Active Protocol: Document 08/06/21 16:35 SAK (Rec: 08/06/21 17:09 SAK [id number]) Sensation Evaluation Gross Sensation Gross Sensation Left UE Impaired Sensation Description Paresthesia PT-OP-J Posture/Palpation/Skin Start: 08/06/21 08:28 Freq: Status: Active Protocol: Document 08/06/21 16:35 SAK (Rec: 08/06/21 17:09 SAK [id number]) Posture Evaluation Position Sitting Head/C-Spine Posture Forward Head T-Spine Posture Increased Kyphosis Shoulder Posture (L) Rounded,(R) Rounded Scapula Posture (L) Protracted,(R) Protracted Arm Posture (L) Internally Rotated Palpation Assessment Location left shoulder Palpation Details palpable tightness in UT, deltoid Skin Assessment Incisional Assessment Incision Appearance/Comments post-op dressing off, steri- strips intact. No signs or symptoms of infection PT-OP-K Range of Motion Start: 08/06/21 08:28 Freq: Status: Active Protocol: Document 11/23/21 13:04 SP (Rec: 11/23/21 13:48 SP [id number]) Shoulder Goniometric Range of Motion Shoulder Left Passive Shoulder ROM WFL No Testing Position Supine Flexion 129 Abduction 95 External Rotation at 0 degrees Abduction 39 Comments standing IR: L behind L buttocks/ lateral sacrum Right Active Shoulder ROM WFL Yes Testing Position Supine Flexion 180 Abduction 178 External Rotation at 0 degrees Abduction 65 Internal Rotation Behind Back (text) T6 PT-OP-M Strength Start: 08/06/21 08:28 Freq: Status: Active Protocol: Document 08/06/21 16:35 [facility] (Rec: 08/06/21 17:09 [facility] [id number]) Shoulder Strength Shoulder Manual Muscle Testing Left Comments not assessed due to surgery Right Flexion 5 Normal Abduction (C5) 5 Normal External Rotation 5 Normal Internal Rotation 5 Normal PT-OP-Q Treatments Start: 08/06/21 08:28 Freq: Status: Active Protocol: Document 11/29/21 11:17 SAK (Rec: 11/29/21 12:57 SAK [id number]) Cardio Equipment Upper Body Ergometer (UBE) Duration (Minutes) 6 RPM 120 Seat Position 9 Height 2.5 Other fwd/bck; cues for right UE doing most of work Therapeutic Exercises Supine Exercises Shoulder abd Supine Exercise Name PROM Reps/Minutes 10x3 Comments in scapular plane, with inf GH glide Shoulder flex Equipment Used theraband, foam roller Reps/Minutes 10x Comments with submax hor ab/ER pull of TB PROM IR/ER Supine Exercise Name manual Reps/Minutes 10x Comments UE at 30 deg abd, supported on pillow, with contract/relax PROM shoulder flex Side left Reps/Minutes 10x Comments by PT with manual inferior GH glide Prone Exercises I,T,Y Equipment Used 65 cm ball Reps/Minutes 10xea Comments manual facil scapula, vc for initiating movement with scapula Sidelying Exercises shoulder abduction Sidelying Exercise Name scaption Comments manual inferior glide humerus Flexion Sidelying Exercise Name table slide, gravity eliminated flexion Side left Equipment Used pillow case Reps/Minutes 2' Comments pt has improved AROM in gravity eliminated upper trunk rotation Sidelying Exercise Name open book Resistance carley Reps/Minutes 5x Comments manual facil, deep breath Sitting Exercises pulleys Sitting Exercise Name FF,scaption, IR Side right Resistance AAROM using RUE Equipment Used traction belt under L pelvis and over L shld (clavicle/scap ) Reps/Minutes x10 each direction Comments improved segemental MWM and less UT recruitment Standing Exercises row, sh ext, add Comments not done, did yesterday at home shd IR Comments not done, did yesterday at home PT-OP-R Modalities Start: 08/06/21 08:28 Freq: Status: Active Protocol: Document 11/29/21 11:17 [facility] (Rec: 12/02/21 08:20 [facility] [id number]) Electric Stimulation Electric Stimulation Interferential Current (IFC) Body Location left shoulder Duration (Minutes) 10 Intensity 11 Target/Sweep Sweep Patient Position Hooklying Combined With Heat/Cold Cold Pack Comments for pain management s/p ther ex PT-OP-S Aquatic Treatment Start: 08/06/21 08:28 Freq: Status: Active Protocol: Document 11/02/21 15:03 [facility] (Rec: 11/02/21 15:15 [facility] [id number]) Aquatics Treatment Upper Extremity Exercises ER stretch Reps/Duration 10x scapular retraction Body Position Standing Water Level Neck Level Reps/Duration 10x2 Comments manual cues for scapular retraction shoulder ER/IR Details elbows at side, at 90 abd, Body Position Standing Water Level Neck Level Reps/Duration 10x ea Comments cane [place] Activities [place] Activities Bicycle,Bicycle Backwards, Cross [place],Running Equipment medium belt Duration 10 min Comments emphasis on UE reaching fwd/ bck in flex/ext and breastroke arms with scapular retraction Swim Strokes Backstroke Laps/Duration 2 laps Comments cues for technique, no jamming into joint pain prone crawl Laps/Duration 2 laps Comments cues for technique, no jamming into joint pain Manual Techniques Bad Ragaz passive for thoracic and shoulder mobility/ROM; initial hold at scapulas, then at waist Aquatic Joint Mobilizations general upper thoracic, scapulothoracic mobilization, subscapular release, GH inf glide supine and standing with left UE on pool deck for stabilization, posterior glide standing Aquatic Massage black neck float, float-its above knees rhomboids, subscap PT-OP-T Assessment and Plan Start: 08/06/21 08:28 Freq: Status: Active Protocol: Document 11/29/21 11:17 [facility] (Rec: 11/29/21 12:57 [facility] [id number]) Physical Therapy Assessment Goals Two Impairment right shoulder dysfunction Impairment Quickdash UE disability 100% Short Term Goal (STG) Decrease Quickdash UE disability index score to no greater than 50% as measure of improved function 10/29/21: goal progress STG Duration 11/29/21 Nursing Home Goal (LTG) Decrease Quickdash UE disability score to no greater than 10% as measure of improved left UE function with patient able to return to all usual ADL's and activities including reaching overhead and behind her back with ease LTG Duration 12/28/21 One Impairment limited shoulder ROM and strength Short Term Goal (STG) Patient will be independent and compliant with HEP following post-op RCR protocol 10/29/21: patient independent and compliant with HEP, however ROM coming slowly, appears to have developed adhesive capsulitis as she did after right shoulder surgery STG Duration 11/29/21 Client Experience Consultant Goal (LTG) Improve left shoulder ROM to full and strength to 5/5 to allow her to do all usual activities. 10/29/21: PROM left shoulder flex 130, abduction 88, IR to buttock, ER to 28 11/23/21: L shld AROM supine: FF 129deg, 95 aBD, ER 39, IR behind back buttocks standing. LTG Duration 12/28/21 Progressing 11/23/21 Assessment Summary Assessment Shoulder ER inc to 45 after ex , manual techniques today, steady progress. IR most limited. Physical Therapy Plan Frequency and Duration Frequency of Treatment 2x/Week Duration of Treatment 12 weeks Plan of Care Start Date 10/29/21 Plan of Care End Date 12/28/21 Therapeutic Interventions Therapeutic Interventions Aquatic Therapy,Home Exercise Program,Joint Mobilizations, Manual Therapy,Neuromuscular Re-education,Patient/Caregiver Education,Self-Care/Home Management,Soft Tissue Mobilization,Taping, Therapeutic Activities, Therapeutic Exercises Modalities Cold Pack/Ice Massage,Electric Stimulation,Hot Packs, Iontophoresis Next Visit Focus/Plan Next Note Type Treatment Note Next Visit Plan Add prone W over therapy ball, continue progression of shoulder ROM and strengthening with cues and mobilization for normal joint kinematics, avoid impoingment. Add light weight to sidelying shoulder ER. MWM for shoulder IR.
--- NOTE | 2021-12-02 08:20 | PT.OTN ---
Current Diagnoses Primary osteoarthritis, left shoulder (11/29/21) Unspecified rotator cuff tear or rupture of left shoulder, not specified as traumatic (11/29/21) Bursitis of left shoulder (11/29/21) Physical Therapy Treatment Note PT-OP-A Visit Information Start: 08/06/21 08:28 Freq: Status: Active Protocol: Document 11/29/21 11:17 SAK (Rec: 11/29/21 12:57 SAK [id number]) Out-Patient Physical Therapy Visit Information Visit Information Visit Type Treatment Note Visit Start Time 11:15 Visit Stop Time 12:10 Total Visit Minutes 55 Visit Number / Number of SYSTEMS SOFTWARE MANAGER Visits 0 Evaluation Information Evaluation Date 08/06/21 Precautions Precautions Aggressive ROM, no ROM restrictions PT-OP-B Current Condition Start: 08/06/21 08:28 Freq: Status: Active Protocol: Document 08/23/21 09:48 SAK (Rec: 08/23/21 10:34 SAK [id number]) Current Condition History of Current Condition Onset Date 08/02/21 Current Complaints left shoulder dysfunction History of Current Condition s/p left RCR with arthroscopic distal clavicle excision, subacromial decompression extensive, rotator cuff repair . (operative report not available this date; have requested from Dr. Thurman's office). Patient reports she has been wearing her sling, using ice, doing gentle pendulum Prior Treatments and Tests prior right shoulder surgery with good outcome PT-OP-C Subjective Start: 08/06/21 08:28 Freq: Status: Active Protocol: Document 11/29/21 11:17 SAK (Rec: 11/29/21 12:57 SAK [id number]) OP-PT Subjective Patient Comments Patient Comments No new c/o. Should get pulleys today in mail PT-OP-H Neuro Start: 08/06/21 08:28 Freq: Status: Active Protocol: Document 08/06/21 16:35 SAK (Rec: 08/06/21 17:09 SAK [id number]) Sensation Evaluation Gross Sensation Gross Sensation Left UE Impaired Sensation Description Paresthesia PT-OP-J Posture/Palpation/Skin Start: 08/06/21 08:28 Freq: Status: Active Protocol: Document 08/06/21 16:35 SAK (Rec: 08/06/21 17:09 SAK [id number]) Posture Evaluation Position Sitting Head/C-Spine Posture Forward Head T-Spine Posture Increased Kyphosis Shoulder Posture (L) Rounded,(R) Rounded Scapula Posture (L) Protracted,(R) Protracted Arm Posture (L) Internally Rotated Palpation Assessment Location left shoulder Palpation Details palpable tightness in [place], deltoid Skin Assessment Incisional Assessment Incision Appearance/Comments post-op dressing off, steri- strips intact. No signs or symptoms of infection PT-OP-K Range of Motion Start: 08/06/21 08:28 Freq: Status: Active Protocol: Document 11/23/21 13:04 SP (Rec: 11/23/21 13:48 SP [id number]) Shoulder Goniometric Range of Motion Shoulder Left Passive Shoulder ROM WFL No Testing Position Supine Flexion 129 Abduction 95 External Rotation at 0 degrees Abduction 39 Comments standing IR: L behind L buttocks/ lateral sacrum Right Active Shoulder ROM WFL Yes Testing Position Supine Flexion 180 Abduction 178 External Rotation at 0 degrees Abduction 65 Internal Rotation Behind Back (text) T6 PT-OP-M Strength Start: 08/06/21 08:28 Freq: Status: Active Protocol: Document 08/06/21 16:35 [facility] (Rec: 08/06/21 17:09 [facility] [id number]) Shoulder Strength Shoulder Manual Muscle Testing Left Comments not assessed due to surgery Right Flexion 5 Normal Abduction (C5) 5 Normal External Rotation 5 Normal Internal Rotation 5 Normal PT-OP-Q Treatments Start: 08/06/21 08:28 Freq: Status: Active Protocol: Document 11/29/21 11:17 SAK (Rec: 11/29/21 12:57 SAK [id number]) Cardio Equipment Upper Body Ergometer (UBE) Duration (Minutes) 6 RPM 120 Seat Position 9 Height 2.5 Other fwd/bck; cues for right UE doing most of work Therapeutic Exercises Supine Exercises Shoulder abd Supine Exercise Name PROM Reps/Minutes 10x3 Comments in scapular plane, with inf GH glide Shoulder flex Equipment Used theraband, foam roller Reps/Minutes 10x Comments with submax hor ab/ER pull of TB PROM IR/ER Supine Exercise Name manual Reps/Minutes 10x Comments UE at 30 deg abd, supported on pillow, with contract/relax PROM shoulder flex Side left Reps/Minutes 10x Comments by PT with manual inferior GH glide Prone Exercises I,T,Y Equipment Used 65 cm ball Reps/Minutes 10xea Comments manual facil scapula, vc for initiating movement with scapula Sidelying Exercises shoulder abduction Sidelying Exercise Name scaption Comments manual inferior glide humerus Flexion Sidelying Exercise Name table slide, gravity eliminated flexion Side left Equipment Used pillow case Reps/Minutes 2' Comments pt has improved AROM in gravity eliminated upper trunk rotation Sidelying Exercise Name open book Resistance carley Reps/Minutes 5x Comments manual facil, deep breath Sitting Exercises pulleys Sitting Exercise Name FF,scaption, IR Side right Resistance AAROM using RUE Equipment Used traction belt under L pelvis and over L shld (clavicle/scap ) Reps/Minutes x10 each direction Comments improved segemental MWM and less UT recruitment Standing Exercises row, sh ext, add Comments not done, did yesterday at home shd IR Comments not done, did yesterday at home PT-OP-R Modalities Start: 08/06/21 08:28 Freq: Status: Active Protocol: Document 11/29/21 11:17 [facility] (Rec: 12/02/21 08:20 [facility] [id number]) Electric Stimulation Electric Stimulation Interferential Current (IFC) Body Location left shoulder Duration (Minutes) 10 Intensity 11 Target/Sweep Sweep Patient Position Hooklying Combined With Heat/Cold Cold Pack Comments for pain management s/p ther ex PT-OP-S Aquatic Treatment Start: 08/06/21 08:28 Freq: Status: Active Protocol: Document 11/02/21 15:03 [facility] (Rec: 11/02/21 15:15 [facility] [id number]) Aquatics Treatment Upper Extremity Exercises ER stretch Reps/Duration 10x scapular retraction Body Position Standing Water Level Neck Level Reps/Duration 10x2 Comments manual cues for scapular retraction shoulder ER/IR Details elbows at side, at 90 abd, Body Position Standing Water Level Neck Level Reps/Duration 10x ea Comments cane [place] Activities [place] Activities Bicycle,Bicycle Backwards, Cross [place],Running Equipment medium belt Duration 10 min Comments emphasis on UE reaching fwd/ bck in flex/ext and breastroke arms with scapular retraction Swim Strokes Backstroke Laps/Duration 2 laps Comments cues for technique, no jamming into joint pain prone crawl Laps/Duration 2 laps Comments cues for technique, no jamming into joint pain Manual Techniques Bad Ragaz passive for thoracic and shoulder mobility/ROM; initial hold at scapulas, then at waist Aquatic Joint Mobilizations general upper thoracic, scapulothoracic mobilization, subscapular release, GH inf glide supine and standing with left UE on pool deck for stabilization, posterior glide standing Aquatic Massage black neck float, float-its above knees rhomboids, subscap PT-OP-T Assessment and Plan Start: 08/06/21 08:28 Freq: Status: Active Protocol: Document 11/29/21 11:17 [facility] (Rec: 11/29/21 12:57 [facility] [id number]) Physical Therapy Assessment Goals Two Impairment right shoulder dysfunction Impairment Quickdash UE disability 100% Short Term Goal (STG) Decrease Quickdash UE disability index score to no greater than 50% as measure of improved function 10/29/21: goal progress STG Duration 11/29/21 Care Home Goal (LTG) Decrease Quickdash UE disability score to no greater than 10% as measure of improved left UE function with patient able to return to all usual ADL's and activities including reaching overhead and behind her back with ease LTG Duration 12/28/21 One Impairment limited shoulder ROM and strength Short Term Goal (STG) Patient will be independent and compliant with HEP following post-op RCR protocol 10/29/21: patient independent and compliant with HEP, however ROM coming slowly, appears to have developed adhesive capsulitis as she did after right shoulder surgery STG Duration 11/29/21 Motion Picture Photographer Goal (LTG) Improve left shoulder ROM to full and strength to 5/5 to allow her to do all usual activities. 10/29/21: PROM left shoulder flex 130, abduction 88, IR to buttock, ER to 28 11/23/21: L shld AROM supine: FF 129deg, 95 aBD, ER 39, IR behind back buttocks standing. LTG Duration 12/28/21 Progressing 11/23/21 Assessment Summary Assessment Shoulder ER inc to 45 after ex , manual techniques today, steady progress. IR most limited. Physical Therapy Plan Frequency and Duration Frequency of Treatment 2x/Week Duration of Treatment 12 weeks Plan of Care Start Date 10/29/21 Plan of Care End Date 12/28/21 Therapeutic Interventions Therapeutic Interventions Aquatic Therapy,Home Exercise Program,Joint Mobilizations, Manual Therapy,Neuromuscular Re-education,Patient/Caregiver Education,Self-Care/Home Management,Soft Tissue Mobilization,Taping, Therapeutic Activities, Therapeutic Exercises Modalities Cold Pack/Ice Massage,Electric Stimulation,Hot Packs, Iontophoresis Next Visit Focus/Plan Next Note Type Treatment Note Next Visit Plan Add prone W over therapy ball, continue progression of shoulder ROM and strengthening with cues and mobilization for normal joint kinematics, avoid impoingment. Add light weight to sidelying shoulder ER. MWM for shoulder IR.
--- NOTE | 2021-12-03 15:38 | PT.OTN ---
Current Diagnoses Primary osteoarthritis, left shoulder (12/03/21) Unspecified rotator cuff tear or rupture of left shoulder, not specified as traumatic (12/03/21) Bursitis of left shoulder (12/03/21) Physical Therapy Treatment Note PT-OP-A Visit Information Start: 08/06/21 08:28 Freq: Status: Active Protocol: Document 12/03/21 08:59 SAK (Rec: 12/03/21 09:51 [facility] [id number]) Out-Patient Physical Therapy Visit Information Visit Information Visit Type Treatment Note Visit Start Time 09:00 Visit Stop Time 09:55 Total Visit Minutes 55 Visit Number 26/40 Number of GEAR HOBBER OPERATOR Visits 0 Precautions Precautions Aggressive ROM, no ROM restrictions PT-OP-B Current Condition Start: 08/06/21 08:28 Freq: Status: Active Protocol: Document 08/23/21 09:48 SAK (Rec: 08/23/21 10:34 [facility] [id number]) Current Condition History of Current Condition Onset Date 08/02/21 Current Complaints left shoulder dysfunction History of Current Condition s/p left RCR with arthroscopic distal clavicle excision, subacromial decompression extensive, rotator cuff repair . (operative report not available this date; have requested from Dr. Thurman's office). Patient reports she has been wearing her sling, using ice, doing gentle pendulum Prior Treatments and Tests prior right shoulder surgery with good outcome PT-OP-C Subjective Start: 08/06/21 08:28 Freq: Status: Active Protocol: Document 12/03/21 08:59 SAK (Rec: 12/03/21 09:51 [facility] [id number]) OP-PT Subjective Patient Comments Patient Comments stiff this am, got pulleys and therapy ball, managed to use left UE to assist with doing hair. Continues to use strap for self-mobilization PT-OP-H Neuro Start: 08/06/21 08:28 Freq: Status: Active Protocol: Document 08/06/21 16:35 SAK (Rec: 08/06/21 17:09 [facility] [id number]) Sensation Evaluation Gross Sensation Gross Sensation Left UE Impaired Sensation Description Paresthesia PT-OP-J Posture/Palpation/Skin Start: 08/06/21 08:28 Freq: Status: Active Protocol: Document 08/06/21 16:35 SAK (Rec: 08/06/21 17:09 [facility] [id number]) Posture Evaluation Position Sitting Head/C-Spine Posture Forward Head T-Spine Posture Increased Kyphosis Shoulder Posture (L) Rounded,(R) Rounded Scapula Posture (L) Protracted,(R) Protracted Arm Posture (L) Internally Rotated Palpation Assessment Location left shoulder Palpation Details palpable tightness in UT, deltoid Skin Assessment Incisional Assessment Incision Appearance/Comments post-op dressing off, steri- strips intact. No signs or symptoms of infection PT-OP-K Range of Motion Start: 08/06/21 08:28 Freq: Status: Active Protocol: Document 11/23/21 13:04 SP (Rec: 11/23/21 13:48 SP [id number]) Shoulder Goniometric Range of Motion Shoulder Left Passive Shoulder ROM WFL No Testing Position Supine Flexion 129 Abduction 95 External Rotation at 0 degrees Abduction 39 Comments standing IR: L behind L buttocks/ lateral sacrum Right Active Shoulder ROM WFL Yes Testing Position Supine Flexion 180 Abduction 178 External Rotation at 0 degrees Abduction 65 Internal Rotation Behind Back (text) T6 PT-OP-M Strength Start: 08/06/21 08:28 Freq: Status: Active Protocol: Document 08/06/21 16:35 [facility] (Rec: 08/06/21 17:09 [facility] [id number]) Shoulder Strength Shoulder Manual Muscle Testing Left Comments not assessed due to surgery Right Flexion 5 Normal Abduction (C5) 5 Normal External Rotation 5 Normal Internal Rotation 5 Normal PT-OP-Q Treatments Start: 08/06/21 08:28 Freq: Status: Active Protocol: Document 12/03/21 08:59 [facility] (Rec: 12/03/21 09:51 [facility] [id number]) Cardio Equipment Upper Body Ergometer (UBE) Duration (Minutes) 8 RPM 120 Seat Position 9 Height 3.5 Other fwd/bck; cues for right UE doing most of work Therapeutic Exercises Supine Exercises T, Y Reps/Minutes 5x10 Comments stretch Prone Exercises W Reps/Minutes 10x I,T,Y Equipment Used 65 cm ball Reps/Minutes 10xea Comments manual facil scapula, vc for initiating movement with scapula Sidelying Exercises shoulder abduction Sidelying Exercise Name scaption Comments manual inferior glide humerus Manual Therapy Treatment Soft Tissue Mobilization rhomboids Body Location left Mobilization Type Myofascial Release,Strumming, Sustained Pressure Intensity/Depth Moderate Body Position Sidelying right Joint Mobilizations GH Direction inferior glides, posterior glides Body Position Supine Comments gr III Manual Techniques contract/relaxd shoulder IR Body Position Sitting Reps/Duration 3 reps x 2 Comments followed by active IR MWM shoulder IR Body Position Sitting Reps/Duration 3 min Comments with inf glide GH PNF Type L PROM D1/D2 diagonals PT-OP-R Modalities Start: 08/06/21 08:28 Freq: Status: Active Protocol: Document 12/03/21 08:59 [facility] (Rec: 12/03/21 15:37 [facility] [id number]) Electric Stimulation Electric Stimulation Interferential Current (IFC) Body Location left shoulder Duration (Minutes) 10 Intensity 11 Target/Sweep Sweep Patient Position Hooklying Combined With Heat/Cold Cold Pack Comments for pain management s/p ther ex PT-OP-S Aquatic Treatment Start: 08/06/21 08:28 Freq: Status: Active Protocol: Document 11/02/21 15:03 [facility] (Rec: 11/02/21 15:15 [facility] [id number]) Aquatics Treatment Upper Extremity Exercises ER stretch Reps/Duration 10x scapular retraction Body Position Standing Water Level Neck Level Reps/Duration 10x2 Comments manual cues for scapular retraction shoulder ER/IR Details elbows at side, at 90 abd, Body Position Standing Water Level Neck Level Reps/Duration 10x ea Comments cane [place] Activities [place] Activities Bicycle,Bicycle Backwards, Cross [place],Running Equipment medium belt Duration 10 min Comments emphasis on UE reaching fwd/ bck in flex/ext and breastroke arms with scapular retraction Swim Strokes Backstroke Laps/Duration 2 laps Comments cues for technique, no jamming into joint pain prone crawl Laps/Duration 2 laps Comments cues for technique, no jamming into joint pain Manual Techniques Bad Ragaz passive for thoracic and shoulder mobility/ROM; initial hold at scapulas, then at waist Aquatic Joint Mobilizations general upper thoracic, scapulothoracic mobilization, subscapular release, GH inf glide supine and standing with left UE on pool deck for stabilization, posterior glide standing Aquatic Massage black neck float, float-its above knees rhomboids, subscap PT-OP-T Assessment and Plan Start: 08/06/21 08:28 Freq: Status: Active Protocol: Document 12/03/21 08:59 [facility] (Rec: 12/03/21 09:51 SAK [id number]) Physical Therapy Assessment Impairments Impairments Functional Activities,ROM, Strength Goals Two Impairment right shoulder dysfunction Impairment Quickdash UE disability 100% Short Term Goal (STG) Decrease Quickdash UE disability index score to no greater than 50% as measure of improved function 10/29/21: goal progress STG Duration 11/29/21 Senior Care Goal (LTG) Decrease Quickdash UE disability score to no greater than 10% as measure of improved left UE function with patient able to return to all usual ADL's and activities including reaching overhead and behind her back with ease LTG Duration 12/28/21 One Impairment limited shoulder ROM and strength Short Term Goal (STG) Patient will be independent and compliant with HEP following post-op RCR protocol 10/29/21: patient independent and compliant with HEP, however ROM coming slowly, appears to have developed adhesive capsulitis as she did after right shoulder surgery STG Duration 11/29/21 Senior Care Goal (LTG) Improve left shoulder ROM to full and strength to 5/5 to allow her to do all usual activities. 10/29/21: PROM left shoulder flex 130, abduction 88, IR to buttock, ER to 28 11/23/21: L shld AROM supine: FF 129deg, 95 aBD, ER 39, IR behind back buttocks standing. LTG Duration 12/28/21 Progressing 11/23/21 Assessment Summary Assessment Shoulder ER inc to 50 after exercises and manual techniques today. IR improved to L5 after MWM. Continues with steady progress with ROM and functional use of her left UE. Physical Therapy Plan Frequency and Duration Frequency of Treatment 2x/Week Duration of Treatment 12 weeks Plan of Care Start Date 10/29/21 Plan of Care End Date 12/28/21 Therapeutic Interventions Therapeutic Interventions Aquatic Therapy,Home Exercise Program,Joint Mobilizations, Manual Therapy,Neuromuscular Re-education,Patient/Caregiver Education,Self-Care/Home Management,Soft Tissue Mobilization,Taping, Therapeutic Activities, Therapeutic Exercises Modalities Cold Pack/Ice Massage,Electric Stimulation,Hot Packs, Iontophoresis Next Visit Focus/Plan Next Note Type Treatment Note Next Visit Plan Add light weight to sidelying shoulder ER. MWM for shoulder IR, abduction, and flexion. Work toward full ROM left shoulder without impingement.
--- NOTE | 2021-12-11 16:43 | PT.OTN ---
Current Diagnoses Primary osteoarthritis, left shoulder (12/11/21) Unspecified rotator cuff tear or rupture of left shoulder, not specified as traumatic (12/11/21) Bursitis of left shoulder (12/11/21) Physical Therapy Treatment Note PT-OP-A Visit Information Start: 08/06/21 08:28 Freq: Status: Active Protocol: Document 12/11/21 13:47 SAK (Rec: 12/11/21 14:34 [facility] [id number]) Out-Patient Physical Therapy Visit Information Visit Information Visit Type Treatment Note Visit Start Time 13:45 Visit Stop Time 14:40 Total Visit Minutes 55 Visit Number Number of ENDLESS STEAMER TENDER Visits 0 Precautions Precautions Aggressive ROM, no ROM restrictions PT-OP-B Current Condition Start: 08/06/21 08:28 Freq: Status: Active Protocol: Document 08/23/21 09:48 SAK (Rec: 08/23/21 10:34 [facility] [id number]) Current Condition History of Current Condition Onset Date 08/02/21 Current Complaints left shoulder dysfunction History of Current Condition s/p left RCR with arthroscopic distal clavicle excision, subacromial decompression extensive, rotator cuff repair . (operative report not available this date; have requested from Dr. Thurman's office). Patient reports she has been wearing her sling, using ice, doing gentle pendulum Prior Treatments and Tests prior right shoulder surgery with good outcome PT-OP-C Subjective Start: 08/06/21 08:28 Freq: Status: Active Protocol: Document 12/11/21 13:47 SAK (Rec: 12/11/21 14:34 [facility] [id number]) OP-PT Subjective Patient Comments Patient Comments Was doing a lot of lifting of heavy camera, left elbow swelling a lot. Traveling and having visitors. Trying to do exercises but not quite as compliant. PT-OP-H Neuro Start: 08/06/21 08:28 Freq: Status: Active Protocol: Document 08/06/21 16:35 SAK (Rec: 08/06/21 17:09 [facility]AK [id number]) Sensation Evaluation Gross Sensation Gross Sensation Left UE Impaired Sensation Description Paresthesia PT-OP-J Posture/Palpation/Skin Start: 08/06/21 08:28 Freq: Status: Active Protocol: Document 08/06/21 16:35 SAK (Rec: 08/06/21 17:09 [facility] [id number]) Posture Evaluation Position Sitting Head/C-Spine Posture Forward Head T-Spine Posture Increased Kyphosis Shoulder Posture (L) Rounded,(R) Rounded Scapula Posture (L) Protracted,(R) Protracted Arm Posture (L) Internally Rotated Palpation Assessment Location left shoulder Palpation Details palpable tightness in UT, deltoid Skin Assessment Incisional Assessment Incision Appearance/Comments post-op dressing off, steri- strips intact. No signs or symptoms of infection PT-OP-K Range of Motion Start: 08/06/21 08:28 Freq: Status: Active Protocol: Document 11/23/21 13:04 SP (Rec: 11/23/21 13:48 SP [id number]) Shoulder Goniometric Range of Motion Shoulder Left Passive Shoulder ROM WFL No Testing Position Supine Flexion 129 Abduction 95 External Rotation at 0 degrees Abduction 39 Comments standing IR: L behind L buttocks/ lateral sacrum Right Active Shoulder ROM WFL Yes Testing Position Supine Flexion 180 Abduction 178 External Rotation at 0 degrees Abduction 65 Internal Rotation Behind Back (text) T6 PT-OP-M Strength Start: 08/06/21 08:28 Freq: Status: Active Protocol: Document 08/06/21 16:35 [facility] (Rec: 08/06/21 17:09 [facility] [id number]) Shoulder Strength Shoulder Manual Muscle Testing Left Comments not assessed due to surgery Right Flexion 5 Normal Abduction (C5) 5 Normal External Rotation 5 Normal Internal Rotation 5 Normal PT-OP-Q Treatments Start: 08/06/21 08:28 Freq: Status: Active Protocol: Document 12/11/21 13:47 [facility] (Rec: 12/11/21 14:34 [facility] [id number]) Cardio Equipment Upper Body Ergometer (UBE) Duration (Minutes) 8 RPM 120 Seat Position 9 Height 5.0 Other fwd/bck; cues for right UE doing most of work Therapeutic Exercises Supine Exercises Shoulder flex Equipment Used theraband, foam roller Reps/Minutes 10x Comments with submax hor ab/ER pull of TB, with manual inf glide PROM IR/ER Supine Exercise Name manual Reps/Minutes 10x Comments UE at 30 deg abd, supported on pillow, with contract/relax Sidelying Exercises circles Reps/Minutes 5x Comments with IR and ER shoulder abduction Sidelying Exercise Name scaption Comments manual inferior glide humerus upper trunk rotation Sidelying Exercise Name open book Resistance carley Reps/Minutes 5x Comments manual facil, deep breath Manual Therapy Treatment Soft Tissue Mobilization biceps, deltoid insertion Body Location left shoulder Mobilization Type Myofascial Release Intensity/Depth Moderate rhomboids Body Location left Mobilization Type Myofascial Release,Strumming, Sustained Pressure Intensity/Depth Moderate Body Position Sidelying right Joint Mobilizations GH Direction inferior glides, posterior glides Body Position Supine Reps/Duration 10 min Comments gr III also sidelying use of strap for some post Manual Techniques contract/relaxd shoulder IR Body Position Sitting Reps/Duration 5 reps x 2 Comments followed by active IR MWM shoulder IR Body Position Sitting Reps/Duration 3 min Comments with inf glide GH PT-OP-R Modalities Start: 08/06/21 08:28 Freq: Status: Active Protocol: Document 12/11/21 13:47 [facility] (Rec: 12/11/21 14:34 [facility] [id number]) Electric Stimulation Electric Stimulation Interferential Current (IFC) Body Location left shoulder Duration (Minutes) 10 Intensity 11 Target/Sweep Sweep Patient Position Hooklying Combined With Heat/Cold Cold Pack Comments for pain management s/p ther ex PT-OP-S Aquatic Treatment Start: 08/06/21 08:28 Freq: Status: Active Protocol: Document 11/02/21 15:03 [facility] (Rec: 11/02/21 15:15 [facility] [id number]) Aquatics Treatment Upper Extremity Exercises ER stretch Reps/Duration 10x scapular retraction Body Position Standing Water Level Neck Level Reps/Duration 10x2 Comments manual cues for scapular retraction shoulder ER/IR Details elbows at side, at 90 abd, Body Position Standing Water Level Neck Level Reps/Duration 10x ea Comments cane [place] Activities [place] Activities Bicycle,Bicycle Backwards, Cross Country,Running Equipment medium belt Duration 10 min Comments emphasis on UE reaching fwd/ bck in flex/ext and breastroke arms with scapular retraction Swim Strokes Backstroke Laps/Duration 2 laps Comments cues for technique, no jamming into joint pain prone crawl Laps/Duration 2 laps Comments cues for technique, no jamming into joint pain Manual Techniques Bad Ragaz passive for thoracic and shoulder mobility/ROM; initial hold at scapulas, then at waist Aquatic Joint Mobilizations general upper thoracic, scapulothoracic mobilization, subscapular release, GH inf glide supine and standing with left UE on pool deck for stabilization, posterior glide standing Aquatic Massage black neck float, float-its above knees rhomboids, subscap PT-OP-T Assessment and Plan Start: 08/06/21 08:28 Freq: Status: Active Protocol: Document 12/11/21 13:47 [facility] (Rec: 12/11/21 14:34 [facility] [id number]) Physical Therapy Assessment Goals Two Impairment right shoulder dysfunction Impairment Quickdash UE disability 100% Short Term Goal (STG) Decrease Quickdash UE disability index score to no greater than 50% as measure of improved function 10/29/21: goal progress STG Duration 11/29/21 Senior Care Goal (LTG) Decrease Quickdash UE disability score to no greater than 10% as measure of improved left UE function with patient able to return to all usual ADL's and activities including reaching overhead and behind her back with ease LTG Duration 12/28/21 One Impairment limited shoulder ROM and strength Short Term Goal (STG) Patient will be independent and compliant with HEP following post-op RCR protocol 10/29/21: patient independent and compliant with HEP, however ROM coming slowly, appears to have developed adhesive capsulitis as she did after right shoulder surgery STG Duration 11/29/21 Entry Level Account Manager Goal (LTG) Improve left shoulder ROM to full and strength to 5/5 to allow her to do all usual activities. 10/29/21: PROM left shoulder flex 130, abduction 88, IR to buttock, ER to 28 11/23/21: L shld AROM supine: FF 129deg, 95 aBD, ER 39, IR behind back buttocks standing. LTG Duration 12/28/21 Progressing 11/23/21 Assessment Summary Assessment Shoulder ER 55 after ex, IR to L5, flex to 145, abduction 110. Steady progress. Elbow swelling due to overuse; encouraged ice, compression. Physical Therapy Plan Frequency and Duration Frequency of Treatment 2x/Week Duration of Treatment 12 weeks Plan of Care Start Date 10/29/21 Plan of Care End Date 12/28/21 Therapeutic Interventions Therapeutic Interventions Aquatic Therapy,Home Exercise Program,Joint Mobilizations, Manual Therapy,Neuromuscular Re-education,Patient/Caregiver Education,Self-Care/Home Management,Soft Tissue Mobilization,Taping, Therapeutic Activities, Therapeutic Exercises Modalities Cold Pack/Ice Massage,Electric Stimulation,Hot Packs, Iontophoresis Next Visit Focus/Plan Next Note Type Treatment Note Next Visit Plan Emphasis on manual joint mobs and MWM. Add light weight to sidelying shoulder ER. MWM for shoulder IR, abduction, and flexion. Work toward full ROM left shoulder without impingement.
--- NOTE | 2021-12-13 12:20 | PT.OTN ---
Current Diagnoses Primary osteoarthritis, left shoulder (12/13/21) Unspecified rotator cuff tear or rupture of left shoulder, not specified as traumatic (12/13/21) Bursitis of left shoulder (12/13/21) Physical Therapy Treatment Note PT-OP-A Visit Information Start: 08/06/21 08:28 Freq: Status: Active Protocol: Document 12/13/21 11:00 MA (Rec: 12/13/21 12:19 MA [id number]) Out-Patient Physical Therapy Visit Information Visit Information Visit Type Treatment Note Visit Start Time 11:15 Visit Stop Time 12:00 Total Visit Minutes 45 Visit Number Number of COOK CHILI Visits 1 PT-OP-B Current Condition Start: 08/06/21 08:28 Freq: Status: Active Protocol: Document 08/23/21 09:48 SAK (Rec: 08/23/21 10:34 SAK [id number]) Current Condition History of Current Condition Onset Date 08/02/21 Current Complaints left shoulder dysfunction History of Current Condition s/p left RCR with arthroscopic distal clavicle excision, subacromial decompression extensive, rotator cuff repair . (operative report not available this date; have requested from Dr. Thurman's office). Patient reports she has been wearing her sling, using ice, doing gentle pendulum Prior Treatments and Tests prior right shoulder surgery with good outcome PT-OP-C Subjective Start: 08/06/21 08:28 Freq: Status: Active Protocol: Document 12/13/21 11:00 MA (Rec: 12/13/21 12:19 MA [id number]) OP-PT Subjective Patient Comments Patient Comments Pt continues to have elbow swelling which she has been trying ice and heat for. She is happy with her improvement in ROM recently. PT-OP-H Neuro Start: 08/06/21 08:28 Freq: Status: Active Protocol: Document 08/06/21 16:35 SAK (Rec: 08/06/21 17:09 SAK [id number]) Sensation Evaluation Gross Sensation Gross Sensation Left UE Impaired Sensation Description Paresthesia PT-OP-J Posture/Palpation/Skin Start: 08/06/21 08:28 Freq: Status: Active Protocol: Document 08/06/21 16:35 SAK (Rec: 08/06/21 17:09 SAK [id number]) Posture Evaluation Position Sitting Head/C-Spine Posture Forward Head T-Spine Posture Increased Kyphosis Shoulder Posture (L) Rounded,(R) Rounded Scapula Posture (L) Protracted,(R) Protracted Arm Posture (L) Internally Rotated Palpation Assessment Location left shoulder Palpation Details palpable tightness in UT, deltoid Skin Assessment Incisional Assessment Incision Appearance/Comments post-op dressing off, steri- strips intact. No signs or symptoms of infection PT-OP-K Range of Motion Start: 08/06/21 08:28 Freq: Status: Active Protocol: Document 11/23/21 13:04 SP (Rec: 11/23/21 13:48 SP [id number]) Shoulder Goniometric Range of Motion Shoulder Left Passive Shoulder ROM WFL No Testing Position Supine Flexion 129 Abduction 95 External Rotation at 0 degrees Abduction 39 Comments standing IR: L behind L buttocks/ lateral sacrum Right Active Shoulder ROM WFL Yes Testing Position Supine Flexion 180 Abduction 178 External Rotation at 0 degrees Abduction 65 Internal Rotation Behind Back (text) T6 PT-OP-M Strength Start: 08/06/21 08:28 Freq: Status: Active Protocol: Document 08/06/21 16:35 SAK (Rec: 08/06/21 17:09 SAK [id number]) Shoulder Strength Shoulder Manual Muscle Testing Left Comments not assessed due to surgery Right Flexion 5 Normal Abduction (C5) 5 Normal External Rotation 5 Normal Internal Rotation 5 Normal PT-OP-Q Treatments Start: 08/06/21 08:28 Freq: Status: Active Protocol: Document 12/13/21 11:00 MA (Rec: 12/13/21 12:19 MA [id number]) Cardio Equipment Upper Body Ergometer (UBE) Duration (Minutes) 8 RPM 120 Seat Position 9 Height 5.0 Other fwd/bck; cues for right UE doing most of work Therapeutic Exercises Supine Exercises Foam Roller Supine Exercise Name 1. pec stretch 2. AROM flex, abd, horiz abd 3. resisted hori abd & flex Side bilateral Resistance lvl 2 resistance Equipment Used foam roller Reps/Minutes 10' Comments difficulty with resisted flex Prone Exercises I,T,Y Equipment Used 65 cm ball Reps/Minutes 10xea Comments manual facil scapula, vc for initiating movement with scapula Sidelying Exercises ER Side left Resistance 1# Equipment Used towel roll under elbow Reps/Minutes x10 circles Reps/Minutes 5x Comments with IR and ER Manual Therapy Treatment Soft Tissue Mobilization biceps, deltoid insertion Body Location left shoulder Mobilization Type Myofascial Release Intensity/Depth Moderate rhomboids Body Location left Mobilization Type Myofascial Release,Strumming, Sustained Pressure Intensity/Depth Moderate Body Position Sidelying right Joint Mobilizations GH Direction inferior glides, posterior glides Body Position Supine Reps/Duration 10 min Comments gr III also sidelying use of strap for some post Manual Techniques MWM shoulder IR Body Position Sitting Reps/Duration 3 min Comments with inf glide GH PT-OP-R Modalities Start: 08/06/21 08:28 Freq: Status: Active Protocol: Document 12/13/21 11:00 MA (Rec: 12/13/21 12:19 MA [id number]) Electric Stimulation Electric Stimulation Interferential Current (IFC) Body Location left shoulder Duration (Minutes) 10 Intensity 11 Target/Sweep Sweep Patient Position Hooklying Combined With Heat/Cold Cold Pack Comments for pain management s/p ther ex PT-OP-S Aquatic Treatment Start: 08/06/21 08:28 Freq: Status: Active Protocol: Document 11/02/21 15:03 SAK (Rec: 11/02/21 15:15 SAK [id number]) Aquatics Treatment Upper Extremity Exercises ER stretch Reps/Duration 10x scapular retraction Body Position Standing Water Level Neck Level Reps/Duration 10x2 Comments manual cues for scapular retraction shoulder ER/IR Details elbows at side, at 90 abd, Body Position Standing Water Level Neck Level Reps/Duration 10x ea Comments cane Tangent Activities Tangent Activities Bicycle,Bicycle Backwards, Cross Country,Running Equipment medium belt Duration 10 min Comments emphasis on UE reaching fwd/ bck in flex/ext and breastroke arms with scapular retraction Swim Strokes Backstroke Laps/Duration 2 laps Comments cues for technique, no jamming into joint pain prone crawl Laps/Duration 2 laps Comments cues for technique, no jamming into joint pain Manual Techniques [place]az passive for thoracic and shoulder mobility/ROM; initial hold at scapulas, then at waist Aquatic Joint Mobilizations general upper thoracic, scapulothoracic mobilization, subscapular release, GH inf glide supine and standing with left UE on pool deck for stabilization, posterior glide standing Aquatic Massage black neck float, float-its above knees rhomboids, subscap PT-OP-T Assessment and Plan Start: 08/06/21 08:28 Freq: Status: Active Protocol: Document 12/13/21 11:00 MA (Rec: 12/13/21 12:19 MA [id number]) Physical Therapy Assessment Goals Two Impairment right shoulder dysfunction Impairment Quickdash UE disability 100% Short Term Goal (STG) Decrease Quickdash UE disability index score to no greater than 50% as measure of improved function 10/29/21: goal progress STG Duration 11/29/21 Marketing Researcher Goal (LTG) Decrease Quickdash UE disability score to no greater than 10% as measure of improved left UE function with patient able to return to all usual ADL's and activities including reaching overhead and behind her back with ease LTG Duration 12/28/21 One Impairment limited shoulder ROM and strength Short Term Goal (STG) Patient will be independent and compliant with HEP following post-op RCR protocol 10/29/21: patient independent and compliant with HEP, however ROM coming slowly, appears to have developed adhesive capsulitis as she did after right shoulder surgery STG Duration 11/29/21 Marketing Researcher Goal (LTG) Improve left shoulder ROM to full and strength to 5/5 to allow her to do all usual activities. 10/29/21: PROM left shoulder flex 130, abduction 88, IR to buttock, ER to 28 11/23/21: L shld AROM supine: FF 129deg, 95 aBD, ER 39, IR behind back buttocks standing. LTG Duration 12/28/21 Progressing 11/23/21 Assessment Summary Assessment Educated pt on using only ice to decrease elbow swelling and to discuss swelling with PCP next week when she has an appointment already scheduled. Pt has pain only at end range during all AROM exercises. She enjoys exercises supine on foam roller vs supine on theraball due to feeling unstable on ball and unable to concentrate on shoulder position while balancing. Jenny has difficulty with prone exercises over theraball and requries manual faciliation for upward rotation of scap during lower trap 'Y' exercise. Physical Therapy Plan Frequency and Duration Frequency of Treatment 2x/Week Duration of Treatment 12 weeks Plan of Care Start Date 10/29/21 Plan of Care End Date 12/28/21 Therapeutic Interventions Therapeutic Interventions Aquatic Therapy,Home Exercise Program,Joint Mobilizations, Manual Therapy,Neuromuscular Re-education,Patient/Caregiver Education,Self-Care/Home Management,Soft Tissue Mobilization,Taping, Therapeutic Activities, Therapeutic Exercises Modalities Cold Pack/Ice Massage,Electric Stimulation,Hot Packs, Iontophoresis Next Visit Focus/Plan Next Note Type Treatment Note Next Visit Plan Emphasis on manual joint mobs and MWM. Cont. light weight to sidelying shoulder ER. MWM for shoulder IR, abduction, and flexion. Work toward full ROM left shoulder without impingement.
--- NOTE | 2022-01-02 09:15 | PT-OP ANOTE ---
Addendum entered and electronically signed by Lelo Schmid PTA 01/02/22 15:42: Pt returned LOADING UNIT OPERATOR [employer] CHARGING's call, stated answered televox yesterday to cancel her appt for today 01/02 with confirmed received a text back due to moving at the moment and can't make appt. She requested to cancel 01/04 appt due to POC and will follow up with Mayra confirmed her 2 appts has left next week. She states feels can continue on own and save remaining PT visits has for the year in case needs them. LOADING UNIT OPERATOR [employer] CHARGING suggested speak with PT can just keep the next appt and cancel the 2nd if wish and confident in HEP and how to progress on own. Original Note: Pt did not show for today's appt with LOADING UNIT OPERATOR POWDER CHARGING, noticed that POC on 12/28/21 and would need to see PT to up date POC. LOADING UNIT OPERATOR P[employer] CHARGING called and left message for pt regarding and offered openings for 2 PTs this am if available and to call front schedulers to reschedule before next appt with LOADING UNIT OPERATOR POWDER CHARGING on 01/04 so can keep appt if not will need to reschedule. Pt is scheduled with EMMA Nunez on 01/08 if unavailable see another PT til then.
--- NOTE | 2022-01-08 10:47 | PT-OP ANOTE ---
exposure to Covide+ person, having symptoms . Will call back to reschedule when recovered.
--- NOTE | 2022-06-12 10:57 | PT.OPDS ---
Current Diagnoses Primary osteoarthritis, left shoulder (12/13/21) Unspecified rotator cuff tear or rupture of left shoulder, not specified as traumatic (12/13/21) Bursitis of left shoulder (12/13/21) Visit Care Team Role Provider Type ELIANE Brasher Family Provider Advanced Benefits Specialist Recruiter Primary Care Provider Specialty: Medical Address: [address] [place] [address], [id number] Email: [email or web address] Alex Thurman MD Attending Provider Physician Referring Provider Specialty: Orthopedics Orthopedic Surgery Address: [address] [place] [address], [id number] Email: [email or web address] Visit Number Visit Number Discharge Summary PT-OP-B Current Condition Start: 08/06/21 08:28 Freq: Status: Active Protocol: Document 08/23/21 09:48 SAK (Rec: 08/23/21 10:34 SAK [id number]) Current Condition History of Current Condition Onset Date 08/02/21 Current Complaints left shoulder dysfunction History of Current Condition s/p left RCR with arthroscopic distal clavicle excision, subacromial decompression extensive, rotator cuff repair . (operative report not available this date; have requested from Dr. Thurman's office). Patient reports she has been wearing her sling, using ice, doing gentle pendulum Prior Treatments and Tests prior right shoulder surgery with good outcome PT-OP-C Subjective Start: 08/06/21 08:28 Freq: Status: Active Protocol: Document 12/13/21 11:00 MA (Rec: 12/13/21 12:19 MA [id number]) OP-PT Subjective Patient Comments Patient Comments Pt continues to have elbow swelling which she has been trying ice and heat for. She is happy with her improvement in ROM recently. PT-OP-H Neuro Start: 08/06/21 08:28 Freq: Status: Active Protocol: Document 08/06/21 16:35 SAK (Rec: 08/06/21 17:09 SAK [id number]) Sensation Evaluation Gross Sensation Gross Sensation Left UE Impaired Sensation Description Paresthesia PT-OP-J Posture/Palpation/Skin Start: 08/06/21 08:28 Freq: Status: Active Protocol: Document 08/06/21 16:35 SAK (Rec: 08/06/21 17:09 [facility] [id number]) Posture Evaluation Position Sitting Head/C-Spine Posture Forward Head T-Spine Posture Increased Kyphosis Shoulder Posture (L) Rounded,(R) Rounded Scapula Posture (L) Protracted,(R) Protracted Arm Posture (L) Internally Rotated Palpation Assessment Location left shoulder Palpation Details palpable tightness in UT, deltoid Skin Assessment Incisional Assessment Incision Appearance/Comments post-op dressing off, steri- strips intact. No signs or symptoms of infection PT-OP-K Range of Motion Start: 08/06/21 08:28 Freq: Status: Active Protocol: Document 11/23/21 13:04 SP (Rec: 11/23/21 13:48 SP [id number]) Shoulder Goniometric Range of Motion Shoulder Left Passive Shoulder ROM WFL No Testing Position Supine Flexion 129 Abduction 95 External Rotation at 0 degrees Abduction 39 Comments standing IR: L behind L buttocks/ lateral sacrum Right Active Shoulder ROM WFL Yes Testing Position Supine Flexion 180 Abduction 178 External Rotation at 0 degrees Abduction 65 Internal Rotation Behind Back (text) T6 PT-OP-M Strength Start: 08/06/21 08:28 Freq: Status: Active Protocol: Document 08/06/21 16:35 [facility] (Rec: 08/06/21 17:09 [facility] [id number]) Shoulder Strength Shoulder Manual Muscle Testing Left Comments not assessed due to surgery Right Flexion 5 Normal Abduction (C5) 5 Normal External Rotation 5 Normal Internal Rotation 5 Normal PT-OP-T Assessment and Plan Start: 08/06/21 08:28 Freq: Status: Active Protocol: Document 06/12/22 10:56 SAK (Rec: 06/12/22 10:57 [facility] [id number]) Physical Therapy Plan Discharge Physical Therapy Discharge Reasons No Longer Attending PT
== END 2022-06-13 10:46 | disposition home or self-care (01) ==
LOC: PHYS 11:15
PROVIDERS: Family Provider Registered Nurse; PCP Registered Nurse; Referring Provider Orthopaedic Surgery; Visit Provider Orthopaedic Surgery
DX: M75.52 Bursitis of left shoulder (principal); M19.012 Primary osteoarthritis, left shoulder; M75.102 Unspecified rotator cuff tear or rupture of left shoulder, not specified as traumatic
CPT/HCPCS: 97014; 97110; 97113; 97140; 97162; 97535; G0283

== ENCOUNTER 2022-02-19 13:35 | Emergency (ER) | payer BC, SELFPAY ==
[2022-02-19 13:39] VITALS: BP 128/71; PULSE 88; RESP 20; TEMP 36.6; O2SAT 99
--- NOTE | 2022-02-19 13:46 | DI.RAD.S_ITS ---
PROCEDURE: XR ELBOW LT MIN 3V INDICATIONS: fall TECHNIQUE: 3 views of the elbow were acquired. COMPARISON: None. FINDINGS: Bones: No fractures or dislocations. No suspicious bony lesions. Soft tissues: Prominent elbow joint effusion. No suspicious soft tissue calcifications. IMPRESSION: Prominent effusion. Fracture is not visualized. However, given extent of effusion, occult injury is suspected. Short interval imaging follow-up in 7-10 days is recommended. Alternately, CT may be obtained. Dictated by: Angy Collado M.D. on 02/19/2022 at 14:54 Approved by: Angy Collado M.D. on 02/19/2022 at 14:54
--- NOTE | 2022-02-19 13:47 | DI.RAD.S_ITS ---
PROCEDURE: XR RIBS LT MIN 3V W CXR1V INDICATIONS: fall TECHNIQUE: 3 views of the left ribs were acquired, along with a single view chest. COMPARISON: None. FINDINGS: Surgical changes and devices: None. Bones and chest wall: No fractures or dislocations. No suspicious bony lesions. Overlying soft tissues appear unremarkable. Lungs and pleura: No pleural effusions or pneumothorax. Lungs appear clear. Mediastinum: Mediastinal contours appear normal. Heart size is normal. IMPRESSION: No visualized acute fracture or dislocation. However, if clinical concern and/or pain persist, short interval imaging followup in 7-10 days is recommended, as occult injury cannot be definitively excluded. Dictated by: Angy Collado M.D. on 02/19/2022 at 14:28 Approved by: Angy Collado M.D. on 02/19/2022 at 14:29
[2022-02-19] MEDS: TET,DIPH,PERTUSS(ACELL),VAC/PF 0.5 ML SYRINGE IM (14:58)
[2022-02-19] MEDS: LIDOCAINE 1% W/EPI 30 ML (15:02)
[2022-02-19] MEDS: ACETAMINOPHEN 325 MG TABLET 975 MG PO (15:22)
[2022-02-19] MEDS: IBUPROFEN 400 MG TABLET 800 MG PO (15:22)
--- NOTE | 2022-02-19 15:33 | ED.TRAUMA ---
HPI - Trauma General Chief Complaint: Extremity Injury, Upper Stated Complaint: fell hiking hit face/left arm Time Seen by Provider: 02/19/22 13:54 Source: patient Mode of arrival: Ambulatory History of Present Illness HPI narrative: This retired 61-year-old woman was walking with her near [facility] and she tripped and fell on the trail landing on her face and left arm. She also struck her chest on the ground. Fifteen years ago she had silicone breast implants and she is concerned about this. She says she is having trouble completely straightening or completely bending her left elbow. She has quite a bit of pain in the left upper chest anteriorly. She also has a contusion to her left face that she is concerned about. She reports soreness in her face. She denies loss of consciousness, vomiting, neck pain, back pain, abdominal pain or lower extremity injury. Her right upper extremity is unaffected. She denies any recent illness. She does have a remote history of this tubular migraine. Related Data Home Medications Medication Instructions Recorded Confirmed estradiol 0.01% (0.1 mg/gram) 1 g vaginal 2XW 03/22/21 06/07/21 vaginal cream Previous Rx's Medication Instructions Recorded cephalexin 500 mg capsule 500 mg PO TID #45 caps 06/28/21 estradiol 0.01% (0.1 mg/gram) 2 g vaginal DAILY #42.5 grams 08/21/21 vaginal cream (Estrace) verapamil 120 mg tablet,extended 120 mg PO BID #180 tabs 12/28/21 release rabeprazole 20 mg tablet,delayed 20 mg PO DAILY GERD #30 tabs 01/02/22 release diazepam 2 mg tablet 2 mg PO BEDTIME PRN vestibular 02/19/22 dysfunction #30 tabs Allergies Allergy/AdvReac Type Severity Reaction Status Date / Time No Known Drug Allergies Allergy Verified 06/07/21 15:37 Review of Systems Review of Systems Narrative: Complete review of systems is negative other than as noted Patient History Medical History (Updated 02/19/22 @ 15:32 by Flaquito Galeano MD) Barretts syndrome (~2006) Chicken pox (~2006) Colitis (~2020) Colon polyps (~2019) Osteopenia (~2014) Recurrent UTI Vestibular migraine Surgical History Anesthesia H/O left wrist surgery History of breast augmentation History of knee surgery History of rectopexy (~08/2018) History of shoulder surgery (~03/2013) Family History Father Cancer Grandfather Diabetes mellitus Stroke Grandmother Stroke Grandmother Stroke Social History Smoking Status: Never smoker Smoking Status: Never smoker Substance Use Type: does not use Exam Narrative Exam Narrative: GENERAL: Alert, cooperative and in no distress. HEAD: Contusion and laceration lateral to the left eyebrow. The orbital rim is intact without crepitus or step-off. She has full extraocular movements. The zygoma is intact. The knee is Ott is intact. She has good occlusion.. Normocephalic. EYES: Sclera are clear without icterus. Extraocular movements are full. ENT: No rhinorrhea. Oropharynx is moist. Mouth exam is benign. NECK: Supple. Full range of motion. CARDIOVASCULAR: Normal rate and rhythm without murmur gallop or rub. Chest is tender in the left upper portion. The breast has normal contour. Compression of the chest in the AP orientation in the lateral orientation reveal some tenderness in the left upper rib cage. RESPIRATORY: Clear to auscultation. Breath sounds equal bilaterally. No wheezes, rales, or rhonchi. GASTROINTESTINAL: Abdomen soft, non-tender, nondistended. EXTREMITIES: No edema, full range of motion. No obvious trauma. Except the left elbow which cannot be fully flex or fully extended secondary to pain. There is a bit of swelling of the left elbow. No bony deformity is identified she has tenderness at the proximal ulna BACK: Normal inspection, no CVA tenderness. NEURO: Nonfocal examination, normal speech, normal gait. SKIN: No rash or erythema of visible areas PSYCH: Normally oriented. Normal range of affect. Appropriate behavior Initial Vital Signs Initial Vital Signs: Vital Signs Temperature 97.8 F 02/19/22 13:39 Pulse Rate 88 02/19/22 13:39 Respiratory Rate 20 02/19/22 13:39 Blood Pressure 128/71 02/19/22 13:39 Pulse Oximetry 99 02/19/22 13:39 Oxygen Delivery Method 02/19/22 13:39 Procedures Laceration Repair Laceration 1: Time of procedure: 15:00 Site: face Side (If applicable): left Size (cm): 1.0 Description: stellate Depth: simple, single layer Local Anesthetic: lidocaine 1% and with epi Amount of anesthesia used (mL): 1 Pre-repair: wound explored and cleansed with chlorhexadine (Cleansed with Betadine) Skin layer closed with: nylon Skin layer suture size: 6-0 Number of sutures: 5 Technique: simple, interrupted Laceration 2: Time of procedure: 15:00 Site: face Side (If applicable): left Size (cm): 0.5 Description: flap Depth: simple, single layer Local Anesthetic: lidocaine 1% and with epi Amount of anesthesia used (mL): 1 Pre-repair: wound explored and cleansed with chlorhexadine (Cleansed with Betadine) Skin layer closed with: nylon Skin layer suture size: 6-0 Number of sutures: 1 Technique: simple, interrupted Orthopedic Splinting/Casting Injury #1: Time of procedure: 15:30 Side: left Upper Extremity Injury Location: elbow Upper Extremity Immobilizer: posterior splint Post splinting neuro exam: intact Post splinting vascular exam: intact Placed by: Nursing Course Orders Ordered: ED Orders 02/19/22 13:46 XR elbow LT min 3V Stat 02/19/22 13:47 XR ribs LT min 3V w CXR1V Stat Discontinued Medications Acetaminophen (Acetaminophen 325 Mg Tablet) 975 mg PO NOW ONE Stop: 02/19/22 15:19 Last Admin: 02/19/22 15:22 Dose: 975 mg Documented By: BS Diphtheria/Tetanus/Acell Pertussis (Tet,Diph,Pertuss(Acell),Vac/Pf 0.5 Ml Syringe) 0.5 ml IM .ONCE ONE Stop: 02/19/22 14:31 Last Admin: 02/19/22 14:58 Dose: 0.5 ml Documented By: COURTNEY Ibuprofen (Ibuprofen 400 Mg Tablet) 800 mg PO NOW ONE Stop: 02/19/22 15:19 Last Admin: 02/19/22 15:22 Dose: 800 mg Documented By: BS Consultations Consultation #1: Dr. Pichardo who recommends out patient follow-up for silicone breast implant integrity Vital Signs Vital signs: Vital Signs - 8 hr 02/19/22 13:39 Temperature 97.8 F Pulse Rate 88 Respiratory Rate 20 Blood Pressure 128/71 Pulse Oximetry 99 Oxygen Delivery Method Room Air MDM - Trauma MDM Narrative Medical decision making narrative: Effusion seen on x-ray of the elbow. Will splint as if fractured with outpatient follow-up. See discharge instructions Discharge Plan Departure Clinical Impression: Fall, Face lacerations, Chest wall contusion, Effusion of elbow Instructions: DI for Laceration Repair, DI for Elbow Fracture Activity Restrictions/Additional Instructions: Thank you for interesting assist with her care today. I am glad your injured more severely. I do not suspect a dangerous head injury but if you become increasingly sleepy or have difficulty walking or vomiting multiple times you should return to the emergency department for further evaluation of this potential problem. Laceration care is as we discussed at the bedside, just gentle washing daily with antibiotic ointment and a sterile dressing bandage. Sutures should come out no sooner than 7 days but no longer than 14 days. Seven days is better. I recommended daily sun block after the sutures come out to minimize scarring. Sun block should be applied daily for a year. Regarding the chest injury. I do not suspect a dangerous rib fracture. As I said, I spoke with my friend Dr. Pichardo who said that the routine care for silicone breast implants is 5-6 years postoperatively to have a high-resolution ultrasound or breast MRI to check for rupture. It ought to be checked every 3-4 years after that. Given the injury of course this should probably happen in the coming days or weeks. He said it is not urgent in the current situation but should not be ignored either. Regarding the elbow. I think this is probably the most significant injury. It looks like you have an occult fracture. It is not visible on the x-ray but you do have swelling that is consistent with a possible fracture. Wear the splint consistently until you follow-up with your doctor. I recommend follow-up with your primary care doctor within the week. For pain management I recommend ice packs no longer than 30 minutes at a time to avoid frostbite. I also recommend ibuprofen and Tylenol regularly to help with the pain. A good dose is Tylenol 1000 mg and ibuprofen 600 mg every 6 hours together. As always, follow-up right away for new or worsening symptoms. Your tetanus shot was updated today as well. Prescriptions: No Action estradiol [Estrace] 0.01 % (0.1 mg/gram) cream 2 g vaginal DAILY Qty: 42.5 2RF Rx Instructions: for 14 days then decrease to 1 g 2 to 3 times a week verapamil 120 mg tablet extended release 120 mg PO BID Qty: 180 2RF rabeprazole 20 mg tablet,delayed release (DR/EC) 20 mg PO DAILY Qty: 30 11RF diazepam 2 mg tablet 2 mg PO BEDTIME PRN (Reason: vestibular dysfunction) Qty: 30 3RF estradiol 0.01 % (0.1 mg/gram) cream 1 g vaginal 2XW cephalexin 500 mg capsule 500 mg PO TID Qty: 45 0RF Rx Instructions: T.i.d. for 3 days then 1 capsule post coital as needed Referrals: Lauren Zavala MD [Primary Care Provider] -
[2022-02-19 16:06] VITALS: BP 124/87; PULSE 72; RESP 16; O2SAT 99
== END 2022-02-19 16:06 | disposition home or self-care (01) ==
PROVIDERS: Emergency Provider Family Medicine Addiction Medicine; Family Provider Registered Nurse; PCP Family Medicine
DX: S01.81XA Laceration without foreign body of other part of head, initial encounter (principal); S20.219A Contusion of unspecified front wall of thorax, initial encounter; M25.422 Effusion, left elbow; W19.XXXA Unspecified fall, initial encounter; Z23 Encounter for immunization
CPT/HCPCS: 12011; 29105; 71101; 73080; 90471; 99283; 99284; 90715

== ENCOUNTER → 2022-02-27 12:01 | Outpatient (CLI) | payer BC, SELFPAY ==
--- NOTE | 2022-02-27 12:04 | DI.RAD.S_ITS ---
PROCEDURE: XR ELBOW LT MIN 3V INDICATIONS: pain from fall TECHNIQUE: 3 views of the elbow were acquired. COMPARISON: [facility], , XR ELBOW LT MIN 3V, 02/19/2022, 14:42. FINDINGS: Bones: No definite fractures or dislocations. No suspicious bony lesions. Soft tissues: Decrease in the previously demonstrated elbow joint effusion. No suspicious soft tissue calcifications. IMPRESSION: Decrease of the previously demonstrated elbow joint effusion. No definite acute or healing fracture identified, but recent presence of an elbow joint effusion is suspicious for an occult fracture. If clinically indicated, CT may be helpful for further evaluation. Dictated by: Brandyn Hanson M.D. on 02/27/2022 at 18:55 Approved by: Brandyn Hanson M.D. on 02/27/2022 at 19:00
== END ==
PROVIDERS: Family Provider Registered Nurse; PCP Family Medicine; Referring Provider Physician Assistant; Visit Provider Physician Assistant
DX: M25.422 Effusion, left elbow (principal)
CPT/HCPCS: 73080

== ENCOUNTER → 2022-03-04 10:41 | Outpatient (CLI) | payer BC, SELFPAY ==
--- NOTE | 2022-03-04 10:41 | DI.US.S_ITS ---
PROCEDURE: US BREAST LT LIMITED COMPARISON: None. INDICATIONS: 02/19 ER visit; breast pain; concern for implant rupture FINDINGS: IMPRESSION: Dictated by: Refugio Goodrich M.D. on 03/04/2022 at 11:27 Approved by: Refugio Goodrich M.D. on 03/04/2022 at 11:31
--- NOTE | 2022-03-04 10:52 | DI.US.S_ITS ---
Procedure: US breast LT limited LIMITED ULTRASOUND OF LEFT BREAST: 03/04/2022 CLINICAL: Patient fell 2 weeks ago. Pain to 12:00 with visible brusing at 6:00. Patient has implants and wanted to be precautionary about a possible ruptured implant. No prior exams were available for comparison. Color flow and real-time ultrasound of the left breast four quadrants were performed. Suárez scale images of the real-time examination were reviewed. No significant abnormalities were seen sonographically in the left breast. IMPRESSION: NEGATIVE No sonographic evidence of implant rupture, although please note that MRI is the preferred imaging modality to evaluate for implant rupture. Annual mammogram screening is recommended. This exam was interpreted at Station ID: [id number]. Electronically Signed By: Refugio Goodrich M.D. jr/:03/07/2022 13:07:44 letter sent: Normal Exam Ultrasound BI-RADS: 1 Negative
== END ==
PROVIDERS: Family Provider Registered Nurse; PCP Family Medicine; Referring Provider Physician Assistant; Visit Provider Physician Assistant
DX: T85.43XA Leakage of breast prosthesis and implant, initial encounter (principal)
CPT/HCPCS: 76642

== ENCOUNTER → 2022-03-13 12:14 | Outpatient (CLI) | payer BC, SELFPAY ==
--- NOTE | 2022-03-13 12:16 | DI.MRI.S_ITS ---
BREAST MRI OF BOTH BREASTS: 03/13/2022 CLINICAL: Implant leak. Comparison is made to exams dated: 03/04/2022 ultrasound, 06/05/2021 mammogram - [facility], and 03/01/2020 mammogram - outside location. Interpretation of this MRI was correlated with available mammograms and ultrasounds. Informed consent was obtained from the patient. Implant sequence, axial T1, T2, and sagittal T2 images were obtained with a dedicated breast coil. There is bilateral intracapsular implant rupture. At the medial and superior aspect of the right implant capsule, there are several small areas of suspected extracapsular rupture and silicone leak. IMPRESSION: BENIGN Bilateral intracapsular implant rupture. Few small contour irregularities of the right medial and upper capsule with silicone extending beyond the boundaries of the capsule are consistent with areas of focal extracapsular rupture. This exam was interpreted at Station ID: [id number]. Electronically Signed By: Refugio Goodrich M.D. jr/:03/13/2022 16:21:57 letter sent: Normal Exam ACR BI-RADS Category 2: Benign Finding(s) [id number]
== END ==
PROVIDERS: Family Provider Registered Nurse; PCP Family Medicine; Referring Provider Physician Assistant; Visit Provider Physician Assistant
DX: T85.43XA Leakage of breast prosthesis and implant, initial encounter (principal)
CPT/HCPCS: 77047

== ENCOUNTER → 2023-04-28 08:01 | Outpatient (CLI) | payer BC, SELFPAY ==
[2023-04-28 09:08] LABS: BUN Creatinine Ratio 13.7 (6-22); Blood Urea Nitrogen 10 mg/dL (7-17); Calcium 9.6 mg/dL (8.4-10.2); Carbon Dioxide 28 mmol/L (22-32); Chloride 99 mmol/L (98-107); Cholesterol 270 mg/dL (140-199); Estimated Glomerular Filt Rate > 60 mL/min (>60); Glucose 91 mg/dL (80-110); HEMOLYSIS < 15 (0-50); Potassium 4.8 mmol/L (3.4-5.1); Sodium 135 mmol/L (137-145); Triglycerides 71 mg/dL (35-150)
[2023-04-28 09:32] LABS: HDL Cholesterol 117 mg/dL (40-60); LDL Cholesterol Calculated 139 mg/dL (<100)
== END ==
PROVIDERS: PCP Family Medicine; Referring Provider Family Medicine; Visit Provider Family Medicine
DX: E78.5 Hyperlipidemia, unspecified (principal); E87.1 Hypo-osmolality and hyponatremia
CPT/HCPCS: 36415; 80048; 80061

== ENCOUNTER → 2023-08-26 16:56 | Outpatient (CLI) | payer BC, SELFPAY ==
--- NOTE | 2023-08-26 | DI.MG.S_ITS ---
BILATERAL DIGITAL SCREENING MAMMOGRAM 3D/2D WITH CAD WITH AUGMENTATION: 08/26/2023 CLINICAL: Routine screening. Family history of breast cancer. Comparison is made to exams dated: 06/05/2021 mammogram - [facility], 03/01/2020 mammogram, and 01/08/2019 mammogram - outside location. Both breasts are heterogeneously dense, which may obscure small masses (category c / 51-75% glandular tissue). Current study was also evaluated with a Computer Aided Detection (CAD) system. Bilateral breast implants are stable. No significant masses, calcifications, or other findings are seen in either breast. There has been no significant interval change. IMPRESSION: NEGATIVE There is no mammographic evidence of malignancy. A 1 year screening mammogram is recommended. Based on the Tyrer Cuzick model (a risk assessment model) the patient's lifetime risk is 12.5% and her 10 year risk is 5.3%. According to the ACR, ACS, and NCCN guidelines, an annual breast MRI exam along with mammogram is recommended if the patient's lifetime risk is 20% or greater. This exam was interpreted at Station ID: [id number]. NOTE: For mammograms, a report in lay terms will be sent to the patient. Approximately 15% of breast malignancies will not be visualized mammographically. In the management of a palpable breast mass, a negative mammogram must not discourage biopsy of a clinically suspicious lesion. Electronically Signed By: Luis Alberto guillen/valeria:08/27/2023 08:00:26 letter sent: Normal Exam ACR BI-RADS Category 1: Negative [id number]
== END ==
LOC: MAMMO 16:57
PROVIDERS: Family Provider Family Medicine; PCP Family Medicine; Referring Provider Family Medicine; Visit Provider Family Medicine
DX: Z12.31 Encounter for screening mammogram for malignant neoplasm of breast (principal); Z80.3 Family history of malignant neoplasm of breast; R92.333 Mammographic heterogeneous density, bilateral breasts
CPT/HCPCS: 77063; 77067

== ENCOUNTER 2023-09-08 11:15 | Outpatient (RCR) | payer BC, SELFPAY ==
--- NOTE | 2023-07-22 17:12 | PT.OIE ---
Current Diagnoses Unspecified disorder of synovium and tendon, left shoulder (07/22/23) Nondisplaced fracture of neck of left radius, initial encounter for closed fracture (07/22/23) Past Medical History (Last Updated 08/24/21 @ 12:08 by Lauren Zavala MD) Barretts syndrome (~2006) Chicken pox (~2006) Colitis (~2020) Colon polyps (~2019) Osteopenia (~2014) Recurrent UTI Vestibular migraine Past Surgical History (Last Reviewed 06/28/21 @ 09:08 by Meena Kincaid MD) Anesthesia H/O left wrist surgery History of breast augmentation History of knee surgery History of rectopexy (~08/2018) History of shoulder surgery (~03/2013) Visit Care Team Role Provider Type Lauren Zavala MD Family Provider Physician Primary Care Provider Specialty: Family Practice Address: [address] [place] [address], [address] Email: [email or web address] Moy Patel MD Attending Provider Non-Staff Referring Provider Specialty: Orthopedic Surgery Address: [address] [place] [address], [phone] Email: Physical Therapy Initial Evaluation PT-OP-A Visit Information Start: 07/22/23 12:59 Freq: Status: Active Protocol: Document 07/22/23 13:48 SAK (Rec: 07/22/23 14:37 SAK [id number]) Out-Patient Physical Therapy Visit Information Visit Information Visit Type Initial Evaluation Visit Start Time 13:48 Visit Stop Time 14:35 Total Visit Minutes 47 Visit Number 1 Evaluation Information Evaluation Date 07/22/23 Precautions Precautions per physician recommendations to patient: please refrain from any overhead activities including any vigorous pushing and/or pulling movements. Please keep your elbow close to your body when performing activities with your arm. PT order is for ROM, strengthening, and stabilization. PT-OP-B Current Condition Start: 07/22/23 12:59 Freq: Status: Active Protocol: Document 07/22/23 13:48 SAK (Rec: 07/22/23 14:37 SAK [id number]) Current Condition History of Current Condition Onset Date July 2022 Current Complaints left shoulder pain, left elbow pain History of Current Condition left shoulder RCR 2020, saw pt post-op, difficult recovery August to December with frozen shoulder. Discontinued PT, kept doing exercises. February 2022 fell and broke proximal radius, finger, brused face, left UE in immobilizer. Saw OT for elbow rehab. Beginning of 2022 noting increased difficulty with left shoulder, did HEP, MRI June. Diagnosed with new tear RCR and slap lesion. Continues to work on not letting shoulder freeze. Does exercises for left elbow from OT, still with some pain. Advised by Dr. Miller not to use any weight away from her body, try ROM and strengthening. Pain moderate. Pain achy all the her arm. Can't sleep on her arm, can sleep on back. Taking anti- inflammatories 2x/day. Can't lift camera lense with left UE . Prior Treatments and Tests left shoulder arthrogram at [facility]: 1. Post surgical changes from RC tendon repair. Thinning of distal supraspinatus and infraspinatus tendons may be secondary to prior postsurgical changes vs recurrent mod grad partial articular side tearing. There is delamination and proximal retraction of articular sided fibers distal insertion. Bursal sided fibers appear to be intact although there may be focal bursal surface perforation at the infraspinatus tendon . 2. Mild proximal biceps long head tendinosis 3. 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 Grade 2 chondromalacia GH joint. Postsurgical changes AC joint w/ recurrent narrowing of supraspinatus outlet Future Testing and Treatments Planned Follow up with Dr. Miller in September. Treatment Goals Patient/Caregiver Goals improve left shoulder ROM and strength Current Functional Impairments (Reported) Functional Limitations- ADL's painful, weak Functional Limitations- Recreation/ can't kayak due to elbow and Hobbies shoulder pain left. PT-OP-C Subjective Start: 07/22/23 12:59 Freq: Status: Active Protocol: Document 07/22/23 13:48 [facility] (Rec: 07/23/23 17:11 [facility] [id number]) Patient Questionnaires Quick Dash- Upper Extremity Quick Dash UE Score 43 OP-PT Pain Assessment Pain Assessment Grid Paper Pain Assessment Grid Completed Yes Location left shoulder and elbow Pain Location Details see pain chart Intensity 8 Description Aching,Pressure,Tender, Tightness,With Movement Frequency Frequent Pain Aggravating Factors Activity Other Pain Aggravating Factors reaching overhead and behind her back Pain Alleviating Factors Medication,Inactivity Pain Behaviors Pain Behaviors Facial Grimacing,Guarding, Wincing PT-OP-J Posture/Palpation/Skin Start: 07/22/23 12:59 Freq: Status: Active Protocol: Document 07/22/23 13:48 SAK (Rec: 07/23/23 17:11 SAK [id number]) Posture Evaluation Position Sitting Head/C-Spine Posture Forward Head T-Spine Posture Increased Kyphosis Shoulder Posture (L) Elevated Scapula Posture (L) Retracted Arm Posture (L) Internally Rotated,(R) Internally Rotated Palpation Assessment Location proxi radius Palpation Findings Tenderness biceps origin Palpation Findings Tenderness RC insertion Palpation Findings Tenderness PT-OP-K Range of Motion Start: 07/22/23 12:59 Freq: Status: Active Protocol: Document 07/22/23 13:48 SAK (Rec: 07/22/23 14:37 SAK [id number]) Cervical Spine Range of Motion Cervical Spine Active Comments mild dec ROM Shoulder Goniometric Range of Motion Shoulder Left Flexion 135 Extension 20 Abduction 135 External Rotation at 45 degrees 75 Abduction Internal Rotation Behind Back (text) L1 Comments pain end-range elevation Right Shoulder ROM WFL Yes Internal Rotation Behind Back (text) T3 Elbow/Forearm Range of Motion Elbow/Forearm Left Elbow/Forearm ROM WFL No ROM Testing Position Sitting Elbow Flexion (degrees) 155 Elbow Extension (degrees) 5 Pronation (degrees) 75 Supination (degrees) 70 Right Elbow/Forearm ROM WFL Yes Elbow/Forearm ROM Limitations Elbow/Forearm ROM Limitations Soft Tissue Tightness,Pain PT-OP-L Special Tests Start: 07/22/23 12:59 Freq: Status: Active Protocol: Document 07/22/23 13:48 SAK (Rec: 07/23/23 17:11 SAK [id number]) Special Tests Shoulder Special Tests Elevation Impingement Test Results positive left Drop Arm Rotator Cuff Test Results positive left Belly Press Test Results neg PT-OP-M Strength Start: 07/22/23 12:59 Freq: Status: Active Protocol: Document 07/22/23 13:48 SAK (Rec: 07/23/23 17:11 SAK [id number]) Shoulder Strength Shoulder Manual Muscle Testing Left Flexion 3- Fair- Extension 3+ Fair+ Abduction (C5) 3- Fair- External Rotation 3+ Fair+ Internal Rotation 3+ Fair+ Right Flexion 5 Normal Extension 5 Normal Abduction (C5) 5 Normal Adduction 5 Normal External Rotation 5 Normal Internal Rotation 5 Normal Elbow/Forearm Strength Elbow and Forearm Manual Muscle Testing Left Flexion (C6) 4 Good Extension (C7) 4 Good Pronation 4 Good Supination 4 Good Comments pain prox radius with resistance Right Flexion (C6) 5 Normal Extension (C7) 5 Normal Pronation 5 Normal Supination 5 Normal PT-OP-Q Treatments Start: 07/22/23 12:59 Freq: Status: Active Protocol: Document 07/22/23 13:48 [facility] (Rec: 07/23/23 17:11 [facility] [id number]) Manual Therapy Treatment Taping 1 Body Location left shoulder Treatment Focus RC, postural Type of Tape Kinesio Tape Skin Inspection intact Comments 2 Y strips RC 50% stretch 1 I strip T10 catching inf scapula end ant GH 50% stretch Self-Care/Home Management Treatment Education Patient Education Home Exercise Program,Pain Management,Posture PT-OP-T Assessment and Plan Start: 07/22/23 12:59 Freq: Status: Active Protocol: Document 07/22/23 13:48 [facility] (Rec: 07/22/23 14:37 [facility] [id number]) Physical Therapy Assessment Rehab Potential Rehabilitation Potential Good Evaluation Complexity Number of Personal Factors/Comorbidities 1-2 Number of Body Systems Impaired 3 Clinical Presentation at Evaluation Evolving Impairments Impairments Activity Tolerance,Functional Activities,Pain,ROM,Strength Goals Three Impairment activity intolerance Impairment UE Quickdash questionnaire 43% Short Term Goal (STG) Decrease Quickdash score to no greater than 30% as measure of improved activity tolerance and function left UE STG Duration 09/18/23 Jail Goal (LTG) Decrease Quickdash score to no greater than 15% as measure of improved acivity tolerance and function left UE LTG Duration 10/22/23 One Impairment pain right shoulder and elbow Impairment 5-8/10 pain scale Short Term Goal (STG) decrease pain to no greater than 4/10 with all usual activities STG Duration 08/23/23 Bung Sewer Goal (LTG) decrease pain to no greater than 2/10 with all usual activities including return to recreational activities such as kayaking. LTG Duration 10/22/23 Two Impairment Dec ROM and strength left shoulder and elbow Short Term Goal (STG) Patient to be instructed in progressive, individualized HEP for purposes of ROM, strengthening, and stabilization left shoulder and elbow STG Duration 09/04/23 Bung Sewer Goal (LTG) Patient to be independent and compliant to HEP and demonstrate ROM WNL and strength 5/5 left shoulder and elbow LTG Duration 10/22/23 Assessment Summary Assessment Patient presents to PT with function-limiting pain left shoulder and elbow s/p RCR 2020 with complicated recovery , and proximal radius fracture February 2022 after which she received OT. Special tests left shoulder are positive drop arm, negative belly press , positive impingement. Imaging: left shoulder arthrogram at [facility]: 1. Post surgical changes from RC tendon repair. Thinning of distal supraspinatus and infraspinatus tendons may be secondary to prior postsurgical changes vs recurrent mod grad partial articular side tearing. There is delamination and proximal retraction of articular sided fibers distal insertion. Bursal sided fibers appear to be intact although there may be focal bursal surface perforation at the infraspinatus tendon . 2. Mild proximal biceps long head tendinosis 3. 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 Grade 2 chondromalacia GH joint. Postsurgical changes AC joint w/ recurrent narrowing of supraspinatus outlet. Patient has been working diligently at [facility] due to conerns over her shoulder freezing up. Feel patient would benefit from PT for ROM, strengthening, stabilization ex, manual techniques, and modalities PRN left shoulder and elbow to help her return to prior very active lifestyle. POC was discussed and patient was in agreement. KT tape applied to left shoulder and she was instructed in initial HEP and was issued handout. Physical Therapy Plan Frequency and Duration Frequency of Treatment 2x/Week Duration of treatment (weeks) 8 Plan of Care Start Date 07/23/23 Plan of Care End Date 10/22/23 Therapeutic Interventions Therapeutic Interventions Home Exercise Program,Manual Therapy,Patient/Caregiver Education,Self-Care/Home Management,Soft Tissue Mobilization,Taping, Therapeutic Activities, Therapeutic Exercises Modalities Cold Pack/Ice Massage,Electric Stimulation,Hot Packs, Infrared Therapy,Iontophoresis ,Ultrasound Next Visit Focus/Plan Next Note Type Treatment Note Next Visit Plan Review HEP, PROM>AAROM>AROM, strengthening, and stabilization ex as tolerated left shoulder and elbow. Assess response to kinesiotape . Modalities and manual therapy PRN
--- NOTE | 2023-07-22 17:13 | PT.OPPOC ---
Physical, Occupational & Speech Therapy At [facility] Current Diagnoses Unspecified disorder of synovium and tendon, left shoulder (07/22/23) Nondisplaced fracture of neck of left radius, initial encounter for closed fracture (07/22/23) Visit Care Team Role Provider Type Lauren Zavala MD Family Provider Physician Primary Care Provider Specialty: Family Practice Address: [address] [place] [address], [place], [address] Email: [email or web address] Moy Patel MD Attending Provider Non-Staff Referring Provider Specialty: Orthopedic Surgery Address: [address] [place] [address], [address] Email: Plan Of Care PT-OP-T Assessment and Plan Start: 07/22/23 12:59 Freq: Status: Active Protocol: Document 07/22/23 13:48 SAK (Rec: 07/22/23 14:37 SAK [id number]) Physical Therapy Assessment Rehab Potential Rehabilitation Potential Good Evaluation Complexity Number of Personal Factors/Comorbidities 1-2 Number of Body Systems Impaired 3 Clinical Presentation at Evaluation Evolving Impairments Impairments Activity Tolerance,Functional Activities,Pain,ROM,Strength Goals Three Impairment activity intolerance Impairment UE Quickdash questionnaire 43% Short Term Goal (STG) Decrease Quickdash score to no greater than 30% as measure of improved activity tolerance and function left UE STG Duration 09/18/23 Half-Way Goal (LTG) Decrease Quickdash score to no greater than 15% as measure of improved acivity tolerance and function left UE LTG Duration 10/22/23 One Impairment pain right shoulder and elbow Impairment 5-8/10 pain scale Short Term Goal (STG) decrease pain to no greater than 4/10 with all usual activities STG Duration 08/23/23 Half-Way Goal (LTG) decrease pain to no greater than 2/10 with all usual activities including return to recreational activities such as kayaking. LTG Duration 10/22/23 Two Impairment Dec ROM and strength left shoulder and elbow Short Term Goal (STG) Patient to be instructed in progressive, individualized HEP for purposes of ROM, strengthening, and stabilization left shoulder and elbow STG Duration 2/1/24 Electronic Musical Instrument Repairer Goal (LTG) Patient to be independent and compliant to [facility] and demonstrate ROM WNL and strength 5/5 left shoulder and elbow LTG Duration 10/22/23 Assessment Summary Assessment Patient presents to PT with function-limiting pain left shoulder and elbow s/p RCR 2020 with complicated recovery , and proximal radius fracture February 2022 after which she received OT. Special tests left shoulder are positive drop arm, negative belly press , positive impingement. Imaging: left shoulder arthrogram at [facility]: 1. Post surgical changes from RC tendon repair. Thinning of distal supraspinatus and infraspinatus tendons may be secondary to prior postsurgical changes vs recurrent mod grad partial articular side tearing. There is delamination and proximal retraction of articular sided fibers distal insertion. Bursal sided fibers appear to be intact although there may be focal bursal surface perforation at the infraspinatus tendon . 2. Mild proximal biceps long head tendinosis 3. 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 Grade 2 chondromalacia GH joint. Postsurgical changes AC joint w/ recurrent narrowing of supraspinatus outlet. Patient has been working diligently at [facility] due to conerns over her shoulder freezing up. Feel patient would benefit from PT for ROM, strengthening, stabilization ex, manual techniques, and modalities PRN left shoulder and elbow to help her return to prior very active lifestyle. POC was discussed and patient was in agreement. KT tape applied to left shoulder and she was instructed in initial HEP and was issued handout. Physical Therapy Plan Frequency and Duration Frequency of Treatment 2x/Week Duration of treatment (weeks) 8 Plan of Care Start Date 07/23/23 Plan of Care End Date 10/22/23 Therapeutic Interventions Therapeutic Interventions Home Exercise Program,Manual Therapy,Patient/Caregiver Education,Self-Care/Home Management,Soft Tissue Mobilization,Taping, Therapeutic Activities, Therapeutic Exercises Modalities Cold Pack/Ice Massage,Electric Stimulation,Hot Packs, Infrared Therapy,Iontophoresis ,Ultrasound Next Visit Focus/Plan Next Note Type Treatment Note Next Visit Plan Review HEP, PROM>AAROM>AROM, strengthening, and stabilization ex as tolerated left shoulder and elbow. Assess response to kinesiotape . Modalities and manual therapy PRN Plan of Care Dates Plan of Care Start Date 07/23/23 Plan of Care End Date 10/22/23 Electronically Signed by: Mayra Montilla, PT 07/23/23 [id number] If you are in agreement with this Plan of Care, please return a signed and dated copy. I have reviewed this Plan of Care and certify that the skilled therapy services above are required to meet the patient?s needs. Physician Signature Date Printed Name and Credentials Clinical Instructor Signature Printed Name and Credentials
--- NOTE | 2023-07-24 11:38 | PT.OTN ---
Current Diagnoses Unspecified disorder of synovium and tendon, left shoulder (07/24/23) Nondisplaced fracture of neck of left radius, initial encounter for closed fracture (07/24/23) Physical Therapy Treatment Note PT-OP-A Visit Information Start: 07/22/23 12:59 Freq: Status: Active Protocol: Document 07/24/23 10:30 SAK (Rec: 07/24/23 11:[address] [facility] [id number]) Out-Patient Physical Therapy Visit Information Visit Information Visit Type Treatment Note Visit Note reports muscle soreness with exercises, pain with only one ex (resisted shoulder rotation ). Feels kinesiotpae helpful Visit Start Time 10:31 Visit Stop Time 11:20 Total Visit Minutes 49 Visit Number 2 Evaluation Information Evaluation Date 07/22/23 Precautions Precautions per physician recommendations to patient: please refrain from any overhead activities including any vigorous pushing and/or pulling movements. Please keep your elbow close to your body when performing activities with your arm. PT order is for ROM, strengthening, and stabilization. PT-OP-B Current Condition Start: 07/22/23 12:59 Freq: Status: Active Protocol: Document 07/24/23 10:30 SAK (Rec: 07/24/23 11:36 SAK [id number]) Current Condition History of Current Condition Onset Date July 2022 Current Complaints left shoulder pain, left elbow pain History of Current Condition left shoulder RCR 2020, saw pt post-op, difficult recovery August to December with frozen shoulder. Discontinued PT, kept doing exercises. February 2022 fell and broke proximal radius, finger, brused face, left UE in immobilizer. Saw OT for elbow rehab. Beginning of 2022 noting increased difficulty with left shoulder, did HEP, MRI June. Diagnosed with new tear RCR and slap lesion. Continues to work on not letting shoulder freeze. Does exercises for left elbow from OT, still with some pain. Advised by Dr. Miller not to use any weight away from her body, try ROM and strengthening. Pain moderate. Pain achy all the her arm. Can't sleep on her arm, can sleep on back. Taking anti- inflammatories 2x/day. Can't lift camera lense with left UE . Prior Treatments and Tests left shoulder arthrogram at [facility]: 1. Post surgical changes from RC tendon repair. Thinning of distal supraspinatus and infraspinatus tendons may be secondary to prior postsurgical changes vs recurrent mod grad partial articular side tearing. There is delamination and proximal retraction of articular sided fibers distal insertion. Bursal sided fibers appear to be intact although there may be focal bursal surface perforation at the infraspinatus tendon . 2. Mild proximal biceps long head tendinosis 3. 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 Grade 2 chondromalacia GH joint. Postsurgical changes AC joint w/ recurrent narrowing of supraspinatus outlet Future Testing and Treatments Planned Follow up with Dr. Miller in September. Treatment Goals Patient/Caregiver Goals improve left shoulder ROM and strength PT-OP-C Subjective Start: 07/22/23 12:59 Freq: Status: Active Protocol: Document 07/24/23 10:30 SAK (Rec: 07/24/23 11:[address] [facility] [id number]) OP-PT Subjective Patient Comments Patient Comments reports muscle soreness with exercises, pain with only one ex (resisted shoulder rotation ). Feels kinesiotpae helpful PT-OP-J Posture/Palpation/Skin Start: 07/22/23 12:59 Freq: Status: Active Protocol: Document 07/22/23 13:48 SAK (Rec: 07/23/23 17:[address] [facility] [id number]) Posture Evaluation Position Sitting Head/C-Spine Posture Forward Head T-Spine Posture Increased Kyphosis Shoulder Posture (L) Elevated Scapula Posture (L) Retracted Arm Posture (L) Internally Rotated,(R) Internally Rotated Palpation Assessment Location proxi radius Palpation Findings Tenderness biceps origin Palpation Findings Tenderness RC insertion Palpation Findings Tenderness PT-OP-K Range of Motion Start: 07/22/23 12:59 Freq: Status: Active Protocol: Document 07/22/23 13:48 SAK (Rec: 07/22/23 14:[address] [facility] [id number]) Cervical Spine Range of Motion Cervical Spine Active Comments mild dec ROM Shoulder Goniometric Range of Motion Shoulder Left Flexion 135 Extension 20 Abduction 135 External Rotation at 45 degrees 75 Abduction Internal Rotation Behind Back (text) L1 Comments pain end-range elevation Right Shoulder ROM WFL Yes Internal Rotation Behind Back (text) T3 Elbow/Forearm Range of Motion Elbow/Forearm Left Elbow/Forearm ROM WFL No ROM Testing Position Sitting Elbow Flexion (degrees) 155 Elbow Extension (degrees) 5 Pronation (degrees) 75 Supination (degrees) 70 Right Elbow/Forearm ROM WFL Yes Elbow/Forearm ROM Limitations Elbow/Forearm ROM Limitations Soft Tissue Tightness,Pain PT-OP-L Special Tests Start: 07/22/23 12:59 Freq: Status: Active Protocol: Document 07/22/23 13:[address] [facility] (Rec: 07/23/23 17:[address] [facility] [id number]) Special Tests Shoulder Special Tests Elevation Impingement Test Results positive left Drop Arm Rotator Cuff Test Results positive left Belly Press Test Results neg PT-OP-M Strength Start: 07/22/23 12:59 Freq: Status: Active Protocol: Document 07/22/23 13:[address] [facility] (Rec: 07/23/23 17:[address] [facility] [id number]) Shoulder Strength Shoulder Manual Muscle Testing Left Flexion 3- Fair- Extension 3+ Fair+ Abduction (C5) 3- Fair- External Rotation 3+ Fair+ Internal Rotation 3+ Fair+ Right Flexion 5 Normal Extension 5 Normal Abduction (C5) 5 Normal Adduction 5 Normal External Rotation 5 Normal Internal Rotation 5 Normal Elbow/Forearm Strength Elbow and Forearm Manual Muscle Testing Left Flexion (C6) 4 Good Extension (C7) 4 Good Pronation 4 Good Supination 4 Good Comments pain prox radius with resistance Right Flexion (C6) 5 Normal Extension (C7) 5 Normal Pronation 5 Normal Supination 5 Normal PT-OP-Q Treatments Start: 07/22/23 12:59 Freq: Status: Active Protocol: Document 07/24/23 10:[address] [facility] (Rec: 07/24/23 11:[address] [facility] [id number]) Therapeutic Exercises Sidelying Exercises open book Sidelying Exercise Name modified with elbow bent,hand behind head Side bilateral Sitting Exercises resisted trunk rotation Sitting Exercise Name facing toward Reps/Minutes 10x L1 TB Comments cues for trunk alignment, core and scapular ac shoulder elke Equipment Used towel, chair Reps/Minutes 10x Comments option to do while on roadtrips vs prior standing at wall trunk rotation Sitting Exercise Name stretch Reps/Minutes 3x10 scap retr Resistance manual Equipment Used 5x shoulder shrugs Reps/Minutes 5x Standing Exercises Body blade Equipment Used small Reps/Minutes 30 ea Comments elbow ex down at side, elbow flex fwd/bck, side/side shld ER Reps/Minutes 5x shoulder ext Resistance L1 TB Reps/Minutes 5x Comments cues for scapular activation row Standing Exercise Name sidestepping carley Resistance L1 TB Reps/Minutes 5x Comments cues for scapular activation sidestepping shld stab Standing Exercise Name ER, IR Resistance L1 TB Reps/Minutes 10x ea Comments cues for scapular activation Manual Therapy Treatment Taping 1 Comments intact, patient reports she feels it decr pain Self-Care/Home Management Treatment Education Patient Education Home Exercise Program,Pain Management,Posture Other Education encouraged resume elbow ex, 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 (Rec: 07/24/23 11:[address] [facility] [id number]) Physical Therapy Assessment Goals Three Impairment activity intolerance Impairment UE Quickdash questionnaire 43% Short Term Goal (STG) Decrease Quickdash score to no greater than 30% as measure of improved activity tolerance and function left UE STG Duration 09/18/23 Swedish Masseuse Goal (LTG) Decrease Quickdash score to no greater than 15% as measure of improved acivity tolerance and function left UE LTG Duration 10/22/23 One Impairment pain right shoulder and elbow Impairment 5-8/10 pain scale Short Term Goal (STG) decrease pain to no greater than 4/10 with all usual activities STG Duration 08/23/23 Correction Goal (LTG) decrease pain to no greater than 2/10 with all usual activities including return to recreational activities such as kayaking. LTG Duration 10/22/23 Two Impairment Dec ROM and strength left shoulder and elbow Impairment Quickdash UE disability 100% Short Term Goal (STG) Patient to be instructed in progressive, individualized HEP for purposes of ROM, strengthening, and stabilization left shoulder and elbow STG Duration 09/04/23 Swedish Masseuse Goal (LTG) Patient to be independent and compliant to HEP and demonstrate ROM WNL and strength 5/5 left shoulder and elbow LTG Duration 10/22/23 Assessment Summary Assessment Modification and progression of HEP with good tolerance, issued updated written handout . Reported muscle soreness from ex, pain from active resisted shoulder IR so modified. Good tolerance for small body blade. Dec pain with kinesiotape. Elbow pain only with forearm rotation with elbow extended. Physical Therapy Plan Frequency and Duration Frequency of Treatment 2x/Week Duration of treatment (weeks) 8 Plan of Care Start Date 07/23/23 Plan of Care End Date 10/22/23 Therapeutic Interventions Therapeutic Interventions Home Exercise Program,Manual Therapy,Patient/Caregiver Education,Self-Care/Home Management,Soft Tissue Mobilization,Taping, Therapeutic Activities, Therapeutic Exercises Modalities Cold Pack/Ice Massage,Electric Stimulation,Hot Packs, Infrared Therapy,Iontophoresis ,Ultrasound Next Visit Focus/Plan Next Note Type Treatment Note Next Visit Plan Review HEP, PROM>AAROM>AROM, strengthening, and stabilization ex as tolerated left shoulder and elbow. Assess response to kinesiotape . Modalities and manual therapy PRN
--- NOTE | 2023-08-07 16:17 | PT.OTN ---
Current Diagnoses Unspecified disorder of synovium and tendon, left shoulder (08/07/23) Nondisplaced fracture of neck of left radius, initial encounter for closed fracture (08/07/23) Physical Therapy Treatment Note PT-OP-A Visit Information Start: 07/22/23 12:59 Freq: Status: Active Protocol: Document 08/07/23 14:29 SAK (Rec: 08/07/23 15:47 [facility] [id number]) Out-Patient Physical Therapy Visit Information Visit Information Visit Type Treatment Note Visit Start Time 14:30 Visit Stop Time 15:20 Total Visit Minutes 50 Visit Number 3 Evaluation Information Evaluation Date 07/22/23 Precautions Precautions per physician recommendations to patient: please refrain from any overhead activities including any vigorous pushing and/or pulling movements. Please keep your elbow close to your body when performing activities with your arm. PT order is for ROM, strengthening, and stabilization. PT-OP-B Current Condition Start: 07/22/23 12:59 Freq: Status: Active Protocol: Document 08/07/23 14:29 [facility] (Rec: 08/07/23 15:47 [facility] [id number]) Current Condition History of Current Condition Onset Date July 2022 Current Complaints left shoulder pain, left elbow pain History of Current Condition left shoulder RCR 2020, saw pt post-op, difficult recovery August to December with frozen shoulder. Discontinued PT, kept doing exercises. February 2022 fell and broke proximal radius, finger, brused face, left UE in immobilizer. Saw OT for elbow rehab. Beginning of 2022 noting increased difficulty with left shoulder, did HEP, MRI June. Diagnosed with new tear RCR and slap lesion. Continues to work on not letting shoulder freeze. Does exercises for left elbow from OT, still with some pain. Advised by Dr. Miller not to use any weight away from her body, try ROM and strengthening. Pain moderate. Pain achy all the her arm. Can't sleep on her arm, can sleep on back. Taking anti- inflammatories 2x/day. Can't lift camera lense with left UE . Prior Treatments and Tests left shoulder arthrogram at [facility]: 1. Post surgical changes from RC tendon repair. Thinning of distal supraspinatus and infraspinatus tendons may be secondary to prior postsurgical changes vs recurrent mod grad partial articular side tearing. There is delamination and proximal retraction of articular sided fibers distal insertion. Bursal sided fibers appear to be intact although there may be focal bursal surface perforation at the infraspinatus tendon . 2. Mild proximal biceps long head tendinosis 3. 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 Grade 2 chondromalacia GH joint. Postsurgical changes AC joint w/ recurrent narrowing of supraspinatus outlet Future Testing and Treatments Planned Follow up with Dr. Miller in September. Treatment Goals Patient/Caregiver Goals improve left shoulder ROM and strength PT-OP-C Subjective Start: 07/22/23 12:59 Freq: Status: Active Protocol: Document 08/07/23 14:29 SAK (Rec: 08/07/23 15:47 [facility] [id number]) OP-PT Subjective Patient Comments Patient Comments Was sick due to trial collagen peptides, had to cancel last session. Doing HEP. Feels the exercises are helpful. Fatigues quickly, mostly feeling muscle soreness. Most exercises going well, has a couple questions. PT-OP-J Posture/Palpation/Skin Start: 07/22/23 12:59 Freq: Status: Active Protocol: Document 07/22/23 13:48 [facility] (Rec: 07/23/23 17:11 [facility] [id number]) Posture Evaluation Position Sitting Head/C-Spine Posture Forward Head T-Spine Posture Increased Kyphosis Shoulder Posture (L) Elevated Scapula Posture (L) Retracted Arm Posture (L) Internally Rotated,(R) Internally Rotated Palpation Assessment Location proxi radius Palpation Findings Tenderness biceps origin Palpation Findings Tenderness RC insertion Palpation Findings Tenderness PT-OP-K Range of Motion Start: 07/22/23 12:59 Freq: Status: Active Protocol: Document 07/22/23 13:48 [facility] (Rec: 07/22/23 14:37 [facility] [id number]) Cervical Spine Range of Motion Cervical Spine Active Comments mild dec ROM Shoulder Goniometric Range of Motion Shoulder Left Flexion 135 Extension 20 Abduction 135 External Rotation at 45 degrees 75 Abduction Internal Rotation Behind Back (text) L1 Comments pain end-range elevation Right Shoulder ROM WFL Yes Internal Rotation Behind Back (text) T3 Elbow/Forearm Range of Motion Elbow/Forearm Left Elbow/Forearm ROM WFL No ROM Testing Position Sitting Elbow Flexion (degrees) 155 Elbow Extension (degrees) 5 Pronation (degrees) 75 Supination (degrees) 70 Right Elbow/Forearm ROM WFL Yes Elbow/Forearm ROM Limitations Elbow/Forearm ROM Limitations Soft Tissue Tightness,Pain PT-OP-L Special Tests Start: 07/22/23 12:59 Freq: Status: Active Protocol: Document 07/22/23 13:48 [facility] (Rec: 07/23/23 17:11 [facility] [id number]) Special Tests Shoulder Special Tests Elevation Impingement Test Results positive left Drop Arm Rotator Cuff Test Results positive left Belly Press Test Results neg PT-OP-M Strength Start: 07/22/23 12:59 Freq: Status: Active Protocol: Document 07/22/23 13:48 [facility] (Rec: 07/23/23 17:11 [facility] [id number]) Shoulder Strength Shoulder Manual Muscle Testing Left Flexion 3- Fair- Extension 3+ Fair+ Abduction (C5) 3- Fair- External Rotation 3+ Fair+ Internal Rotation 3+ Fair+ Right Flexion 5 Normal Extension 5 Normal Abduction (C5) 5 Normal Adduction 5 Normal External Rotation 5 Normal Internal Rotation 5 Normal Elbow/Forearm Strength Elbow and Forearm Manual Muscle Testing Left Flexion (C6) 4 Good Extension (C7) 4 Good Pronation 4 Good Supination 4 Good Comments pain prox radius with resistance Right Flexion (C6) 5 Normal Extension (C7) 5 Normal Pronation 5 Normal Supination 5 Normal PT-OP-Q Treatments Start: 07/22/23 12:59 Freq: Status: Active Protocol: Document 08/07/23 14:29 [facility] (Rec: 08/07/23 15:47 [facility] [id number]) Cardio Equipment Upper Body Ergometer (UBE) Duration (Minutes) 4 RPM 120 Seat Position 11 Height 2.5 Therapeutic Exercises Standing Exercises barbell carry Reps/Minutes 2# right, 1# left Comments fatigues quickly Body blade Equipment Used small Reps/Minutes 30 ea Comments 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, elbow ex down at side, elbow flex fwd/bck, side /side, 90/90 overh shld ER Reps/Minutes 5x shoulder ext Resistance L1 TB Reps/Minutes 5x Comments cues for scapular activation row Resistance L1 TB Reps/Minutes 5x Comments cues for scapular activation sidestepping shld stab Standing Exercise Name ER, IR Resistance L1 TB Reps/Minutes 10x ea Comments cues for scapular activation Manual Therapy Treatment Soft Tissue Mobilization RC insertion Body Location L Mobilization Type Cross-Friction Intensity/Depth Moderate Body Position Supine Taping 1 Comments requests no tape due to experiencing rash and itchiness last time applied. States thinks she is doing ok without the tape Self-Care/Home Management Treatment Education Patient Education Home Exercise Program,Pain Management,Posture Other Education updated HEP, urged caution with overhead lift, discontinue with any pain. With barbell carry, stay below 90 deg. Shown skeleton discussed alignment, scapular mechanics PT-OP-T Assessment and Plan Start: 07/22/23 12:59 Freq: Status: Active Protocol: Document 08/07/23 14:29 [facility] (Rec: 08/07/23 15:47 [facility] [id number]) Physical Therapy Assessment Goals Three Impairment activity intolerance Impairment UE Quickdash questionnaire 43% Short Term Goal (STG) Decrease Quickdash score to no greater than 30% as measure of improved activity tolerance and function left UE STG Duration 09/18/23 Correction Goal (LTG) Decrease Quickdash score to no greater than 15% as measure of improved acivity tolerance and function left UE LTG Duration 10/22/23 One Impairment pain right shoulder and elbow Impairment 5-8/10 pain scale Short Term Goal (STG) decrease pain to no greater than 4/10 with all usual activities STG Duration 08/23/23 Radiographic Technologist Goal (LTG) decrease pain to no greater than 2/10 with all usual activities including return to recreational activities such as kayaking. LTG Duration 10/22/23 Two Impairment Dec ROM and strength left shoulder and elbow Impairment Quickdash UE disability 100% Short Term Goal (STG) Patient to be instructed in progressive, individualized HEP for purposes of ROM, strengthening, and stabilization left shoulder and elbow STG Duration 09/04/23 Radiographic Technologist Goal (LTG) Patient to be independent and compliant to HEP and demonstrate ROM WNL and strength 5/5 left shoulder and elbow LTG Duration 10/22/23 Assessment Summary Assessment Patient doing well with HEP, fatigues quickly, has to limit shoulder IR ROM, and still notable weakness ER. Improved pain and strength and activity tolerance overall. Trial barbell carry (1# left) and overhead press with wand with caution regarding any inc pain. Ice at home after. Issued updated HEP. Physical Therapy Plan Frequency and Duration Frequency of Treatment 2x/Week Duration of treatment (weeks) 8 Plan of Care Start Date 07/23/23 Plan of Care End Date 10/22/23 Therapeutic Interventions Therapeutic Interventions Home Exercise Program,Manual Therapy,Patient/Caregiver Education,Self-Care/Home Management,Soft Tissue Mobilization,Taping, Therapeutic Activities, Therapeutic Exercises Modalities Cold Pack/Ice Massage,Electric Stimulation,Hot Packs, Infrared Therapy,Iontophoresis ,Ultrasound Next Visit Focus/Plan Next Note Type Treatment Note Next Visit Plan Review HEP, PROM>AAROM>AROM, strengthening, and stabilization ex as tolerated left shoulder and elbow. Assess response to kinesiotape . Modalities and manual therapy PRN
--- NOTE | 2023-08-11 16:47 | PT.OTN ---
Current Diagnoses Unspecified disorder of synovium and tendon, left shoulder (08/11/23) Nondisplaced fracture of neck of left radius, initial encounter for closed fracture (08/11/23) Physical Therapy Treatment Note PT-OP-A Visit Information Start: 07/22/23 12:59 Freq: Status: Active Protocol: Document 08/11/23 10:33 [facility] (Rec: 08/11/23 11:16 [facility] [id number]) Out-Patient Physical Therapy Visit Information Visit Information Visit Type Treatment Note Visit Start Time 10:33 Visit Stop Time 11:20 Total Visit Minutes 47 Visit Number 4 Evaluation Information Evaluation Date 07/22/23 Precautions Precautions per physician recommendations to patient: please refrain from any overhead activities including any vigorous pushing and/or pulling movements. Please keep your elbow close to your body when performing activities with your arm. PT order is for ROM, strengthening, and stabilization. PT-OP-B Current Condition Start: 07/22/23 12:59 Freq: Status: Active Protocol: Document 08/11/23 10:33 [facility] (Rec: 08/11/23 11:16 [facility] [id number]) Current Condition History of Current Condition Onset Date July 2022 Current Complaints left shoulder pain, left elbow pain History of Current Condition left shoulder RCR 2020, saw pt post-op, difficult recovery August to December with frozen shoulder. Discontinued PT, kept doing exercises. February 2022 fell and broke proximal radius, finger, brused face, left UE in immobilizer. Saw OT for elbow rehab. Beginning of 2022 noting increased difficulty with left shoulder, did HEP, MRI June. Diagnosed with new tear RCR and slap lesion. Continues to work on not letting shoulder freeze. Does exercises for left elbow from OT, still with some pain. Advised by Dr. Miller not to use any weight away from her body, try ROM and strengthening. Pain moderate. Pain achy all the her arm. Can't sleep on her arm, can sleep on back. Taking anti- inflammatories 2x/day. Can't lift camera lense with left UE . Prior Treatments and Tests left shoulder arthrogram at [facility]: 1. Post surgical changes from RC tendon repair. Thinning of distal supraspinatus and infraspinatus tendons may be secondary to prior postsurgical changes vs recurrent mod grad partial articular side tearing. There is delamination and proximal retraction of articular sided fibers distal insertion. Bursal sided fibers appear to be intact although there may be focal bursal surface perforation at the infraspinatus tendon . 2. Mild proximal biceps long head tendinosis 3. 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 Grade 2 chondromalacia GH joint. Postsurgical changes AC joint w/ recurrent narrowing of supraspinatus outlet Future Testing and Treatments Planned Follow up with Dr. Miller in September. Treatment Goals Patient/Caregiver Goals improve left shoulder ROM and strength PT-OP-C Subjective Start: 07/22/23 12:59 Freq: Status: Active Protocol: Document 08/11/23 10:33 [facility] (Rec: 08/11/23 11:16 [facility] [id number]) OP-PT Subjective Patient Comments Patient Comments Increase in pain after last session, was too much in PT, slowly working back into HEP with dec pain. PT-OP-J Posture/Palpation/Skin Start: 07/22/23 12:59 Freq: Status: Active Protocol: Document 07/22/23 13:48 [facility] (Rec: 07/23/23 17:11 [facility] [id number]) Posture Evaluation Position Sitting Head/C-Spine Posture Forward Head T-Spine Posture Increased Kyphosis Shoulder Posture (L) Elevated Scapula Posture (L) Retracted Arm Posture (L) Internally Rotated,(R) Internally Rotated Palpation Assessment Location proxi radius Palpation Findings Tenderness biceps origin Palpation Findings Tenderness RC insertion Palpation Findings Tenderness PT-OP-K Range of Motion Start: 07/22/23 12:59 Freq: Status: Active Protocol: Document 07/22/23 13:48 [facility] (Rec: 07/22/23 14:37 [facility] [id number]) Cervical Spine Range of Motion Cervical Spine Active Comments mild dec ROM Shoulder Goniometric Range of Motion Shoulder Left Flexion 135 Extension 20 Abduction 135 External Rotation at 45 degrees 75 Abduction Internal Rotation Behind Back (text) L1 Comments pain end-range elevation Right Shoulder ROM WFL Yes Internal Rotation Behind Back (text) T3 Elbow/Forearm Range of Motion Elbow/Forearm Left Elbow/Forearm ROM WFL No ROM Testing Position Sitting Elbow Flexion (degrees) 155 Elbow Extension (degrees) 5 Pronation (degrees) 75 Supination (degrees) 70 Right Elbow/Forearm ROM WFL Yes Elbow/Forearm ROM Limitations Elbow/Forearm ROM Limitations Soft Tissue Tightness,Pain PT-OP-L Special Tests Start: 07/22/23 12:59 Freq: Status: Active Protocol: Document 07/22/23 13:48 [facility] (Rec: 07/23/23 17:11 [facility] [id number]) Special Tests Shoulder Special Tests Elevation Impingement Test Results positive left Drop Arm Rotator Cuff Test Results positive left Belly Press Test Results neg PT-OP-M Strength Start: 07/22/23 12:59 Freq: Status: Active Protocol: Document 07/22/23 13:48 [facility] (Rec: 07/23/23 17:11 [facility] [id number]) Shoulder Strength Shoulder Manual Muscle Testing Left Flexion 3- Fair- Extension 3+ Fair+ Abduction (C5) 3- Fair- External Rotation 3+ Fair+ Internal Rotation 3+ Fair+ Right Flexion 5 Normal Extension 5 Normal Abduction (C5) 5 Normal Adduction 5 Normal External Rotation 5 Normal Internal Rotation 5 Normal Elbow/Forearm Strength Elbow and Forearm Manual Muscle Testing Left Flexion (C6) 4 Good Extension (C7) 4 Good Pronation 4 Good Supination 4 Good Comments pain prox radius with resistance Right Flexion (C6) 5 Normal Extension (C7) 5 Normal Pronation 5 Normal Supination 5 Normal PT-OP-Q Treatments Start: 07/22/23 12:59 Freq: Status: Active Protocol: Document 08/11/23 10:33 [facility] (Rec: 08/11/23 11:16 [facility] [id number]) Cardio Equipment Upper Body Ergometer (UBE) Other held today Therapeutic Exercises Sitting Exercises cat/cow Reps/Minutes 3x row Equipment Used L1 TB attached to dowel, seated on therapy ball Reps/Minutes 10x shld ER Equipment Used L1 TB Reps/Minutes 10x pulleys Sitting Exercise Name flex,abduction Reps/Minutes 10x ea resisted trunk rotation Sitting Exercise Name facing toward Equipment Used bar; TB attached Reps/Minutes 10x L1 TB Comments cues for trunk alignment, core and scapular ac scap retr Resistance manual Equipment Used 5x shoulder shrugs Reps/Minutes 5x Standing Exercises barbell carry Comments held Body blade Comments held Manual Therapy Treatment Soft Tissue Mobilization subscap Mobilization Type Sustained Pressure Intensity/Depth mod Body Position sidelying and supine Comments pain and stretch periscapular Mobilization Type Strumming,Sustained Pressure, Trigger Point Release Intensity/Depth mod Body Position Sidelying PT-OP-T Assessment and Plan Start: 07/22/23 12:59 Freq: Status: Active Protocol: Document 08/11/23 10:33 [facility] (Rec: 08/11/23 11:16 [facility] [id number]) Physical Therapy Assessment Goals Three Impairment activity intolerance Impairment UE Quickdash questionnaire 43% Short Term Goal (STG) Decrease Quickdash score to no greater than 30% as measure of improved activity tolerance and function left UE STG Duration 09/18/23 [employer] Probation [employer] Goal (LTG) Decrease Quickdash score to no greater than 15% as measure of improved acivity tolerance and function left UE LTG Duration 10/22/23 One Impairment pain right shoulder and elbow Impairment 5-8/10 pain scale Short Term Goal (STG) decrease pain to no greater than 4/10 with all usual activities STG Duration 08/23/23 Correction Goal (LTG) decrease pain to no greater than 2/10 with all usual activities including return to recreational activities such as kayaking. LTG Duration 10/22/23 Two Impairment Dec ROM and strength left shoulder and elbow Impairment Quickdash UE disability 100% Short Term Goal (STG) Patient to be instructed in progressive, individualized HEP for purposes of ROM, strengthening, and stabilization left shoulder and elbow STG Duration 09/04/23 Correction Goal (LTG) Patient to be independent and compliant to HEP and demonstrate ROM WNL and strength 5/5 left shoulder and elbow LTG Duration 10/22/23 Assessment Summary Assessment Increased pain after last session , new ex removed today due to poor tolerance. Trial iontophoresis, cues for no ex above shoulder level except pulleys. Physical Therapy Plan Frequency and Duration Frequency of Treatment 2x/Week Duration of treatment (weeks) 8 Plan of Care Start Date 07/23/23 Plan of Care End Date 10/22/23 Therapeutic Interventions Therapeutic Interventions Home Exercise Program,Manual Therapy,Patient/Caregiver Education,Self-Care/Home Management,Soft Tissue Mobilization,Taping, Therapeutic Activities, Therapeutic Exercises Modalities Cold Pack/Ice Massage,Electric Stimulation,Hot Packs, Infrared Therapy,Iontophoresis ,Ultrasound Next Visit Focus/Plan Next Note Type Treatment Note Next Visit Plan assess response to modification of treatment and addition of iontophoresis
--- NOTE | 2023-08-13 11:38 | PT.OTN ---
Current Diagnoses Unspecified disorder of synovium and tendon, left shoulder (08/13/23) Nondisplaced fracture of neck of left radius, initial encounter for closed fracture (08/13/23) Physical Therapy Treatment Note PT-OP-A Visit Information Start: 07/22/23 12:59 Freq: Status: Active Protocol: Document 08/13/23 10:27 [facility] (Rec: 08/13/23 11:38 [facility] [id number]) Out-Patient Physical Therapy Visit Information Visit Information Visit Type Treatment Note Visit Start Time 10:29 Visit Stop Time 11:25 Total Visit Minutes 56 Visit Number 5 Evaluation Information Evaluation Date 07/22/23 Precautions Precautions per physician recommendations to patient: please refrain from any overhead activities including any vigorous pushing and/or pulling movements. Please keep your elbow close to your body when performing activities with your arm. PT order is for ROM, strengthening, and stabilization. PT-OP-B Current Condition Start: 07/22/23 12:59 Freq: Status: Active Protocol: Document 08/13/23 10:27 [facility] (Rec: 08/13/23 11:38 [facility] [id number]) Current Condition History of Current Condition Onset Date July 2022 Current Complaints left shoulder pain, left elbow pain History of Current Condition left shoulder RCR 2020, saw pt post-op, difficult recovery August to December with frozen shoulder. Discontinued PT, kept doing exercises. February 2022 fell and broke proximal radius, finger, brused face, left UE in immobilizer. Saw OT for elbow rehab. Beginning of 2022 noting increased difficulty with left shoulder, did HEP, MRI June. Diagnosed with new tear RCR and slap lesion. Continues to work on not letting shoulder freeze. Does exercises for left elbow from OT, still with some pain. Advised by Dr. Miller not to use any weight away from her body, try ROM and strengthening. Pain moderate. Pain achy all the her arm. Can't sleep on her arm, can sleep on back. Taking anti- inflammatories 2x/day. Can't lift camera lense with left UE . Prior Treatments and Tests left shoulder arthrogram at [facility]: 1. Post surgical changes from RC tendon repair. Thinning of distal supraspinatus and infraspinatus tendons may be secondary to prior postsurgical changes vs recurrent mod grad partial articular side tearing. There is delamination and proximal retraction of articular sided fibers distal insertion. Bursal sided fibers appear to be intact although there may be focal bursal surface perforation at the infraspinatus tendon . 2. Mild proximal biceps long head tendinosis 3. 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 Grade 2 chondromalacia GH joint. Postsurgical changes AC joint w/ recurrent narrowing of supraspinatus outlet Future Testing and Treatments Planned Follow up with Dr. Miller in September. Treatment Goals Patient/Caregiver Goals improve left shoulder ROM and strength PT-OP-C Subjective Start: 07/22/23 12:59 Freq: Status: Active Protocol: Document 08/13/23 10:27 [facility] (Rec: 08/13/23 11:38 [facility] [id number]) OP-PT Subjective Patient Comments Patient Comments [place] pretty good after PT last session, did all her exercises yesterday, feels fatigued. Iced after exercises at home PT-OP-J Posture/Palpation/Skin Start: 07/22/23 12:59 Freq: Status: Active Protocol: Document 07/22/23 13:48 [facility] (Rec: 07/23/23 17:11 [facility] [id number]) Posture Evaluation Position Sitting Head/C-Spine Posture Forward Head T-Spine Posture Increased Kyphosis Shoulder Posture (L) Elevated Scapula Posture (L) Retracted Arm Posture (L) Internally Rotated,(R) Internally Rotated Palpation Assessment Location proxi radius Palpation Findings Tenderness biceps origin Palpation Findings Tenderness RC insertion Palpation Findings Tenderness PT-OP-K Range of Motion Start: 07/22/23 12:59 Freq: Status: Active Protocol: Document 07/22/23 13:48 [facility] (Rec: 07/22/23 14:37 [facility] [id number]) Cervical Spine Range of Motion Cervical Spine Active Comments mild dec ROM Shoulder Goniometric Range of Motion Shoulder Left Flexion 135 Extension 20 Abduction 135 External Rotation at 45 degrees 75 Abduction Internal Rotation Behind Back (text) L1 Comments pain end-range elevation Right Shoulder ROM WFL Yes Internal Rotation Behind Back (text) T3 Elbow/Forearm Range of Motion Elbow/Forearm Left Elbow/Forearm ROM WFL No ROM Testing Position Sitting Elbow Flexion (degrees) 155 Elbow Extension (degrees) 5 Pronation (degrees) 75 Supination (degrees) 70 Right Elbow/Forearm ROM WFL Yes Elbow/Forearm ROM Limitations Elbow/Forearm ROM Limitations Soft Tissue Tightness,Pain PT-OP-L Special Tests Start: 07/22/23 12:59 Freq: Status: Active Protocol: Document 07/22/23 13:48 [facility] (Rec: 07/23/23 17:11 [facility] [id number]) Special Tests Shoulder Special Tests Elevation Impingement Test Results positive left Drop Arm Rotator Cuff Test Results positive left Belly Press Test Results neg PT-OP-M Strength Start: 07/22/23 12:59 Freq: Status: Active Protocol: Document 07/22/23 13:48 [facility] (Rec: 07/23/23 17:11 [facility] [id number]) Shoulder Strength Shoulder Manual Muscle Testing Left Flexion 3- Fair- Extension 3+ Fair+ Abduction (C5) 3- Fair- External Rotation 3+ Fair+ Internal Rotation 3+ Fair+ Right Flexion 5 Normal Extension 5 Normal Abduction (C5) 5 Normal Adduction 5 Normal External Rotation 5 Normal Internal Rotation 5 Normal Elbow/Forearm Strength Elbow and Forearm Manual Muscle Testing Left Flexion (C6) 4 Good Extension (C7) 4 Good Pronation 4 Good Supination 4 Good Comments pain prox radius with resistance Right Flexion (C6) 5 Normal Extension (C7) 5 Normal Pronation 5 Normal Supination 5 Normal PT-OP-Q Treatments Start: 07/22/23 12:59 Freq: Status: Active Protocol: Document 08/13/23 10:27 [facility] (Rec: 08/13/23 11:38 [facility] [id number]) Therapeutic Exercises Supine Exercises pec stretch Reps/Minutes 2 min Comments manual, cues to gradually wean from pillow under left UE when sleeping Sitting Exercises cat/cow Reps/Minutes 5x pulleys Sitting Exercise Name flex,abduction Reps/Minutes 10x ea shoulder shrugs Sitting Exercise Name carley and unil Reps/Minutes 5x Standing Exercises trunk rotation Standing Exercise Name with loose UE's Reps/Minutes 5x posterior capsule stretch Reps/Minutes 2x30 Comments cues for starting with right UE, gentle to left UE with tolerated angle Body blade Equipment Used small Reps/Minutes 30 ea Comments carley woodworking machine offbearer, fwd/bck, IR/ER (both with shld ER Standing Exercise Name long axis ER/IR Reps/Minutes 5x Manual Therapy Treatment Soft Tissue Mobilization subscap Mobilization Type Sustained Pressure Intensity/Depth mod Body Position sidelying and supine Comments pain and stretch periscapular Mobilization Type Strumming,Sustained Pressure, Trigger Point Release Intensity/Depth mod Body Position Sidelying Self-Care/Home Management Treatment Education Patient Education Home Exercise Program,Pain Management,Posture Other Education further cues and instruction for postural correction due to habitual overactivation of left UT and forward positionin of left shoulder girdle. PT-OP-R Modalities Start: 07/22/23 12:59 Freq: Status: Active Protocol: Document 08/13/23 10:27 [facility] (Rec: 08/13/23 11:38 [facility] [id number]) Electric Stimulation Electric Stimulation Interferential Current (IFC) Body Location left shoulder Duration (Minutes) 10 Frequency 11 Target/Sweep Sweep Patient Position Hooklying Combined With Heat/Cold Cold Pack Comments Patient reports has TENS at home, she has never used. Encouraged to try at home if felt helpful today. Infrared Treatment Treatment left shoulder Duration (Minutes) 6 Body Position Sitting Continuous/Pulsed c Program or Protocal chronic pain and stiffness PT-OP-T Assessment and Plan Start: 07/22/23 12:59 Freq: Status: Active Protocol: Document 08/13/23 10:27 [facility] (Rec: 08/13/23 11:38 [facility] [id number]) Physical Therapy Assessment Goals Three Impairment activity intolerance Impairment UE Quickdash questionnaire 43% Short Term Goal (STG) Decrease Quickdash score to no greater than 30% as measure of improved activity tolerance and function left UE STG Duration 09/18/23 Longterm Goal (LTG) Decrease Quickdash score to no greater than 15% as measure of improved acivity tolerance and function left UE LTG Duration 10/22/23 One Impairment pain right shoulder and elbow Impairment 5-8/10 pain scale Short Term Goal (STG) decrease pain to no greater than 4/10 with all usual activities STG Duration 08/23/23 Longterm Goal (LTG) decrease pain to no greater than 2/10 with all usual activities including return to recreational activities such as kayaking. LTG Duration 10/22/23 Two Impairment Dec ROM and strength left shoulder and elbow Impairment Quickdash UE disability 100% Short Term Goal (STG) Patient to be instructed in progressive, individualized HEP for purposes of ROM, strengthening, and stabilization left shoulder and elbow STG Duration 09/04/23 Cupola Tender Helper Goal (LTG) Patient to be independent and compliant to HEP and demonstrate ROM WNL and strength 5/5 left shoulder and elbow LTG Duration 10/22/23 Assessment Summary Assessment Better tolerance PT last session, fatigued today from exercises yesterday. Today focused on postural correction , ROM, modalities and manual therapy to dec pain and inflammation and promote healing. Use of mirror for postural correction, and frequent reminders, including when supine. Advised to try to wean off use of pillow under left UE when sleeping to promote improved shoulder alignment Physical Therapy Plan Frequency and Duration Frequency of Treatment 2x/Week Duration of treatment (weeks) 8 Plan of Care Start Date 07/23/23 Plan of Care End Date 10/22/23 Therapeutic Interventions Therapeutic Interventions Home Exercise Program,Manual Therapy,Patient/Caregiver Education,Self-Care/Home Management,Soft Tissue Mobilization,Taping, Therapeutic Activities, Therapeutic Exercises Modalities Cold Pack/Ice Massage,Electric Stimulation,Hot Packs, Infrared Therapy,Iontophoresis ,Ultrasound Next Visit Focus/Plan Next Note Type Treatment Note Next Visit Plan Assess response to today's treatment and gently progress ther ex as tolerated.
--- NOTE | 2023-08-18 16:30 | PT.OTN ---
Current Diagnoses Unspecified disorder of synovium and tendon, left shoulder (08/18/23) Nondisplaced fracture of neck of left radius, initial encounter for closed fracture (08/18/23) Physical Therapy Treatment Note PT-OP-A Visit Information Start: 07/22/23 12:59 Freq: Status: Active Protocol: Document 08/18/23 15:12 [facility]AK (Rec: 08/18/23 16:30 [facility] [id number]) Out-Patient Physical Therapy Visit Information Visit Information Visit Type Treatment Note Visit Start Time 15:12 Visit Stop Time 16:08 Total Visit Minutes 56 Visit Number 6 Evaluation Information Evaluation Date 07/22/23 Precautions Precautions per physician recommendations to patient: please refrain from any overhead activities including any vigorous pushing and/or pulling movements. Please keep your elbow close to your body when performing activities with your arm. PT order is for ROM, strengthening, and stabilization. PT-OP-B Current Condition Start: 07/22/23 12:59 Freq: Status: Active Protocol: Document 08/18/23 15:12 SAK (Rec: 08/18/23 16:30 [facility] [id number]) Current Condition History of Current Condition Onset Date July 2022 Current Complaints left shoulder pain, left elbow pain History of Current Condition left shoulder RCR 2020, saw pt post-op, difficult recovery August to December with frozen shoulder. Discontinued PT, kept doing exercises. February 2022 fell and broke proximal radius, finger, brused face, left UE in immobilizer. Saw OT for elbow rehab. Beginning of 2022 noting increased difficulty with left shoulder, did HEP, MRI June. Diagnosed with new tear RCR and slap lesion. Continues to work on not letting shoulder freeze. Does exercises for left elbow from OT, still with some pain. Advised by Dr. Miller not to use any weight away from her body, try ROM and strengthening. Pain moderate. Pain achy all the her arm. Can't sleep on her arm, can sleep on back. Taking anti- inflammatories 2x/day. Can't lift camera lense with left UE . Prior Treatments and Tests left shoulder arthrogram at [facility]: 1. Post surgical changes from RC tendon repair. Thinning of distal supraspinatus and infraspinatus tendons may be secondary to prior postsurgical changes vs recurrent mod grad partial articular side tearing. There is delamination and proximal retraction of articular sided fibers distal insertion. Bursal sided fibers appear to be intact although there may be focal bursal surface perforation at the infraspinatus tendon . 2. Mild proximal biceps long head tendinosis 3. 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 Grade 2 chondromalacia GH joint. Postsurgical changes AC joint w/ recurrent narrowing of supraspinatus outlet Future Testing and Treatments Planned Follow up with Dr. Miller in September. Treatment Goals Patient/Caregiver Goals improve left shoulder ROM and strength PT-OP-C Subjective Start: 07/22/23 12:59 Freq: Status: Active Protocol: Document 08/18/23 15:12 [facility] (Rec: 08/18/23 16:30 [facility] [id number]) OP-PT Subjective Patient Comments Patient Comments Feels doing well, ready to progress, no pain since 2 visits ago. PT-OP-J Posture/Palpation/Skin Start: 07/22/23 12:59 Freq: Status: Active Protocol: Document 07/22/23 13:48 [facility] (Rec: 07/23/23 17:11 [facility] [id number]) Posture Evaluation Position Sitting Head/C-Spine Posture Forward Head T-Spine Posture Increased Kyphosis Shoulder Posture (L) Elevated Scapula Posture (L) Retracted Arm Posture (L) Internally Rotated,(R) Internally Rotated Palpation Assessment Location proxi radius Palpation Findings Tenderness biceps origin Palpation Findings Tenderness RC insertion Palpation Findings Tenderness PT-OP-K Range of Motion Start: 07/22/23 12:59 Freq: Status: Active Protocol: Document 07/22/23 13:48 [facility] (Rec: 07/22/23 14:37 [facility] [id number]) Cervical Spine Range of Motion Cervical Spine Active Comments mild dec ROM Shoulder Goniometric Range of Motion Shoulder Left Flexion 135 Extension 20 Abduction 135 External Rotation at 45 degrees 75 Abduction Internal Rotation Behind Back (text) L1 Comments pain end-range elevation Right Shoulder ROM WFL Yes Internal Rotation Behind Back (text) T3 Elbow/Forearm Range of Motion Elbow/Forearm Left Elbow/Forearm ROM WFL No ROM Testing Position Sitting Elbow Flexion (degrees) 155 Elbow Extension (degrees) 5 Pronation (degrees) 75 Supination (degrees) 70 Right Elbow/Forearm ROM WFL Yes Elbow/Forearm ROM Limitations Elbow/Forearm ROM Limitations Soft Tissue Tightness,Pain PT-OP-L Special Tests Start: 07/22/23 12:59 Freq: Status: Active Protocol: Document 07/22/23 13:48 [facility] (Rec: 07/23/23 17:11 [facility] [id number]) Special Tests Shoulder Special Tests Elevation Impingement Test Results positive left Drop Arm Rotator Cuff Test Results positive left Belly Press Test Results neg PT-OP-M Strength Start: 07/22/23 12:59 Freq: Status: Active Protocol: Document 07/22/23 13:48 [facility] (Rec: 07/23/23 17:11 [facility] [id number]) Shoulder Strength Shoulder Manual Muscle Testing Left Flexion 3- Fair- Extension 3+ Fair+ Abduction (C5) 3- Fair- External Rotation 3+ Fair+ Internal Rotation 3+ Fair+ Right Flexion 5 Normal Extension 5 Normal Abduction (C5) 5 Normal Adduction 5 Normal External Rotation 5 Normal Internal Rotation 5 Normal Elbow/Forearm Strength Elbow and Forearm Manual Muscle Testing Left Flexion (C6) 4 Good Extension (C7) 4 Good Pronation 4 Good Supination 4 Good Comments pain prox radius with resistance Right Flexion (C6) 5 Normal Extension (C7) 5 Normal Pronation 5 Normal Supination 5 Normal PT-OP-Q Treatments Start: 07/22/23 12:59 Freq: Status: Active Protocol: Document 08/18/23 15:12 [facility] (Rec: 08/18/23 16:30 [facility] [id number]) Therapeutic Exercises Supine Exercises Y Supine Exercise Name unil from 90 to end-range Equipment Used L1 TB Reps/Minutes 5x shoulder flex Equipment Used L1 TB between hands, light tension Reps/Minutes 5x pec stretch Reps/Minutes 2 min Comments manual, cues to gradually wean from pillow under left UE when sleeping Prone Exercises T Reps/Minutes 5x Comments manual scapular facil I Reps/Minutes 5x Comments manual scapular facil Sitting Exercises wall slide with shoulder shrug Reps/Minutes 5x cat/cow Reps/Minutes 5x pulleys Sitting Exercise Name flex,abduction Reps/Minutes 10x ea trunk rotation Sitting Exercise Name stretch Reps/Minutes 2x shoulder shrugs Sitting Exercise Name carley and unil Reps/Minutes 5x Standing Exercises wall slide Standing Exercise Name forearms on wall shld flex, shld shrug at 90 deg Reps/Minutes 5x Comments cues for pain-free ROM Body blade Equipment Used small, med carley only Reps/Minutes 30 ea Comments 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 PT-OP-R Modalities Start: 07/22/23 12:59 Freq: Status: Active Protocol: Document 08/18/23 15:12 [facility] (Rec: 08/18/23 16:30 [facility] [id number]) Electric Stimulation Electric Stimulation Interferential Current (IFC) Body Location left shoulder Duration (Minutes) 10 Frequency 11 Target/Sweep Sweep Patient Position Hooklying Combined With Heat/Cold Cold Pack Comments Patient reports has TENS at home, she has never used. Encouraged to try at home if felt helpful today. Infrared Treatment Treatment left shoulder Duration (Minutes) 6 Body Position Sitting Continuous/Pulsed c Program or Protocal chronic pain and stiffness PT-OP-T Assessment and Plan Start: 07/22/23 12:59 Freq: Status: Active Protocol: Document 08/18/23 15:12 [facility] (Rec: 08/18/23 16:30 [facility] [id number]) Physical Therapy Assessment Goals Three Impairment activity intolerance Impairment UE Quickdash questionnaire 43% Short Term Goal (STG) Decrease Quickdash score to no greater than 30% as measure of improved activity tolerance and function left UE STG Duration 09/18/23 [facility] Goal (LTG) Decrease Quickdash score to no greater than 15% as measure of improved acivity tolerance and function left UE LTG Duration 10/22/23 One Impairment pain right shoulder and elbow Impairment 5-8/10 pain scale Short Term Goal (STG) decrease pain to no greater than 4/10 with all usual activities STG Duration 08/23/23 [facility] Goal (LTG) decrease pain to no greater than 2/10 with all usual activities including return to recreational activities such as kayaking. LTG Duration 10/22/23 Two Impairment Dec ROM and strength left shoulder and elbow Impairment Quickdash UE disability 100% Short Term Goal (STG) Patient to be instructed in progressive, individualized HEP for purposes of ROM, strengthening, and stabilization left shoulder and elbow STG Duration 09/04/23 [facility] Goal (LTG) Patient to be independent and compliant to HEP and demonstrate ROM WNL and strength 5/5 left shoulder and elbow LTG Duration 10/22/23 Assessment Summary Assessment Good tolerance for gentle progression of ther ex with cues for scapular activation and to stop if any pain. Improving scapular awareness, dec pain. Modalities helpful. Patient has TENS at home but needs to replace electrodes. Physical Therapy Plan Frequency and Duration Frequency of Treatment 2x/Week Duration of treatment (weeks) 8 Plan of Care Start Date 07/23/23 Plan of Care End Date 10/22/23 Therapeutic Interventions Therapeutic Interventions Home Exercise Program,Manual Therapy,Patient/Caregiver Education,Self-Care/Home Management,Soft Tissue Mobilization,Taping, Therapeutic Activities, Therapeutic Exercises Modalities Cold Pack/Ice Massage,Electric Stimulation,Hot Packs, Infrared Therapy,Iontophoresis ,Ultrasound Next Visit Focus/Plan Next Note Type Treatment Note Next Visit Plan Continue gentle ther ex progression as tolerated. Modalities and manual therapy PRN
--- NOTE | 2023-08-27 13:25 | PT.OTN ---
Current Diagnoses Unspecified disorder of synovium and tendon, left shoulder (08/26/23) Nondisplaced fracture of neck of left radius, initial encounter for closed fracture (08/26/23) Physical Therapy Treatment Note PT-OP-A Visit Information Start: 07/22/23 12:59 Freq: Status: Active Protocol: Document 08/26/23 12:56 [facility] (Rec: 08/26/23 13:48 [facility] [id number]) Out-Patient Physical Therapy Visit Information Visit Information Visit Type Treatment Note Visit Start Time 12:57 Visit Stop Time 16:08 Total Visit Minutes 56 Visit Number 7 Evaluation Information Evaluation Date 07/22/23 Precautions Precautions per physician recommendations to patient: please refrain from any overhead activities including any vigorous pushing and/or pulling movements. Please keep your elbow close to your body when performing activities with your arm. PT order is for ROM, strengthening, and stabilization. PT-OP-B Current Condition Start: 07/22/23 12:59 Freq: Status: Active Protocol: Document 08/26/23 12:56 [facility]AK (Rec: 08/26/23 13:48 [facility] [id number]) Current Condition History of Current Condition Onset Date July 2022 Current Complaints left shoulder pain, left elbow pain History of Current Condition left shoulder RCR 2020, saw pt post-op, difficult recovery August to December with frozen shoulder. Discontinued PT, kept doing exercises. February 2022 fell and broke proximal radius, finger, brused face, left UE in immobilizer. Saw OT for elbow rehab. Beginning of 2022 noting increased difficulty with left shoulder, did HEP, MRI June. Diagnosed with new tear RCR and slap lesion. Continues to work on not letting shoulder freeze. Does exercises for left elbow from OT, still with some pain. Advised by Dr. Miller not to use any weight away from her body, try ROM and strengthening. Pain moderate. Pain achy all the her arm. Can't sleep on her arm, can sleep on back. Taking anti- inflammatories 2x/day. Can't lift camera lense with left UE . Prior Treatments and Tests left shoulder arthrogram at [facility]: 1. Post surgical changes from RC tendon repair. Thinning of distal supraspinatus and infraspinatus tendons may be secondary to prior postsurgical changes vs recurrent mod grad partial articular side tearing. There is delamination and proximal retraction of articular sided fibers distal insertion. Bursal sided fibers appear to be intact although there may be focal bursal surface perforation at the infraspinatus tendon . 2. Mild proximal biceps long head tendinosis 3. 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 Grade 2 chondromalacia GH joint. Postsurgical changes AC joint w/ recurrent narrowing of supraspinatus outlet Future Testing and Treatments Planned Follow up with Dr. Miller in September. Treatment Goals Patient/Caregiver Goals improve left shoulder ROM and strength PT-OP-C Subjective Start: 07/22/23 12:59 Freq: Status: Active Protocol: Document 08/26/23 12:56 [facility]AK (Rec: 08/26/23 13:48 [facility] [id number]) OP-PT Subjective Patient Comments Patient Comments Exercises going well except flexion with band supine hurts elbow, also wall slides. Tolerated prone exercises PT-OP-J Posture/Palpation/Skin Start: 07/22/23 12:59 Freq: Status: Active Protocol: Document 07/22/23 13:48 [facility] (Rec: 07/23/23 17:11 [facility] [id number]) Posture Evaluation Position Sitting Head/C-Spine Posture Forward Head T-Spine Posture Increased Kyphosis Shoulder Posture (L) Elevated Scapula Posture (L) Retracted Arm Posture (L) Internally Rotated,(R) Internally Rotated Palpation Assessment Location proxi radius Palpation Findings Tenderness biceps origin Palpation Findings Tenderness RC insertion Palpation Findings Tenderness PT-OP-K Range of Motion Start: 07/22/23 12:59 Freq: Status: Active Protocol: Document 07/22/23 13:48 [facility] (Rec: 07/22/23 14:37 [facility] [id number]) Cervical Spine Range of Motion Cervical Spine Active Comments mild dec ROM Shoulder Goniometric Range of Motion Shoulder Left Flexion 135 Extension 20 Abduction 135 External Rotation at 45 degrees 75 Abduction Internal Rotation Behind Back (text) L1 Comments pain end-range elevation Right Shoulder ROM WFL Yes Internal Rotation Behind Back (text) T3 Elbow/Forearm Range of Motion Elbow/Forearm Left Elbow/Forearm ROM WFL No ROM Testing Position Sitting Elbow Flexion (degrees) 155 Elbow Extension (degrees) 5 Pronation (degrees) 75 Supination (degrees) 70 Right Elbow/Forearm ROM WFL Yes Elbow/Forearm ROM Limitations Elbow/Forearm ROM Limitations Soft Tissue Tightness,Pain PT-OP-L Special Tests Start: 07/22/23 12:59 Freq: Status: Active Protocol: Document 07/22/23 13:48 [facility] (Rec: 07/23/23 17:11 [facility] [id number]) Special Tests Shoulder Special Tests Elevation Impingement Test Results positive left Drop Arm Rotator Cuff Test Results positive left Belly Press Test Results neg PT-OP-M Strength Start: 07/22/23 12:59 Freq: Status: Active Protocol: Document 07/22/23 13:48 [facility] (Rec: 07/23/23 17:11 [facility] [id number]) Shoulder Strength Shoulder Manual Muscle Testing Left Flexion 3- Fair- Extension 3+ Fair+ Abduction (C5) 3- Fair- External Rotation 3+ Fair+ Internal Rotation 3+ Fair+ Right Flexion 5 Normal Extension 5 Normal Abduction (C5) 5 Normal Adduction 5 Normal External Rotation 5 Normal Internal Rotation 5 Normal Elbow/Forearm Strength Elbow and Forearm Manual Muscle Testing Left Flexion (C6) 4 Good Extension (C7) 4 Good Pronation 4 Good Supination 4 Good Comments pain prox radius with resistance Right Flexion (C6) 5 Normal Extension (C7) 5 Normal Pronation 5 Normal Supination 5 Normal PT-OP-Q Treatments Start: 07/22/23 12:59 Freq: Status: Active Protocol: Document 08/26/23 12:56 [facility] (Rec: 08/26/23 13:48 [facility] [id number]) Therapeutic Exercises Supine Exercises shoulder flex Equipment Used L1 TB between hands, light tension Reps/Minutes 5x Comments cues for thumb up, dec elbow pain Prone Exercises Y Prone Exercise Name to 100 deg Reps/Minutes 6x Comments cues for painfree motion, manual scapular upward rot T Reps/Minutes 5x Comments manual scapular facil I Equipment Used 1# Reps/Minutes 5x Comments manual scapular facil Sidelying Exercises clock Sidelying Exercise Name 12/6, 3/9, 2/8, 10/4 Reps/Minutes 10x ea Comments manual cues Sitting Exercises pulleys Sitting Exercise Name flex,abduction Reps/Minutes 10x ea shoulder shrugs Sitting Exercise Name carley and unil Reps/Minutes 5x Standing Exercises bicep curls Standing Exercise Name 3 positions Reps/Minutes 5-10x ea tricep extension Resistance L1 TB Reps/Minutes 10x Comments cues for scap engagement wall slide Standing Exercise Name forearms on wall shld flex, shld shrug at 90 deg Reps/Minutes 5x Comments cues for pain-free ROM posterior capsule stretch Reps/Minutes 2x30 Comments cues for starting with right UE, gentle to left UE with tolerated angle Body blade Equipment Used medium, med carley only Reps/Minutes 30 ea Comments 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, fwd/bck, IR/ER (both with Manual Therapy Treatment Soft Tissue Mobilization subscap Mobilization Type Sustained Pressure Intensity/Depth mod Body Position sidelying and supine Comments pain and stretch periscapular Mobilization Type Strumming,Sustained Pressure, Trigger Point Release Intensity/Depth mod Body Position Sidelying PT-OP-R Modalities Start: 07/22/23 12:59 Freq: Status: Active Protocol: Document 08/26/23 12:56 [facility] (Rec: 08/26/23 13:48 [facility] [id number]) Electric Stimulation Electric Stimulation Interferential Current (IFC) Body Location left shoulder Duration (Minutes) 10 Frequency 11 Target/Sweep Sweep Patient Position Hooklying Combined With Heat/Cold Cold Pack Comments Patient reports has TENS at home, she has never used. Encouraged to try at home if felt helpful today. Infrared Treatment Treatment left shoulder Duration (Minutes) 6 Body Position Sitting Continuous/Pulsed c Program or Protocal chronic pain and stiffness PT-OP-T Assessment and Plan Start: 07/22/23 12:59 Freq: Status: Active Protocol: Document 08/26/23 12:56 [facility] (Rec: 08/26/23 13:48 [facility] [id number]) Physical Therapy Assessment Goals Three Impairment activity intolerance Impairment UE Quickdash questionnaire 43% Short Term Goal (STG) Decrease Quickdash score to no greater than 30% as measure of improved activity tolerance and function left UE STG Duration 09/18/23 Technology [facility] Goal (LTG) Decrease Quickdash score to no greater than 15% as measure of improved acivity tolerance and function left UE LTG Duration 10/22/23 One Impairment pain right shoulder and elbow Impairment 5-8/10 pain scale Short Term Goal (STG) decrease pain to no greater than 4/10 with all usual activities STG Duration 08/23/23 Technology Manager Goal (LTG) decrease pain to no greater than 2/10 with all usual activities including return to recreational activities such as kayaking. LTG Duration 10/22/23 Two Impairment Dec ROM and strength left shoulder and elbow Impairment Quickdash UE disability 100% Short Term Goal (STG) Patient to be instructed in progressive, individualized HEP for purposes of ROM, strengthening, and stabilization left shoulder and elbow STG Duration 09/04/23 Correction Goal (LTG) Patient to be independent and compliant to HEP and demonstrate ROM WNL and strength 5/5 left shoulder and elbow LTG Duration 10/22/23 Progress Towards Goals Progress Towards Goals Progressing Toward Goals Assessment Summary Assessment Good tolerance for progression to med body blade though inc fatigue. Improved elbow tolerance for wall slide with cues for thumb up (ER) positiono f UE. Added bicep curl with weight and tricep ext theraband, and limited motion prone Y. Cont cues for pain-free ROM and resistance, scapular mechanics, including trial sidelying scapular clocks reqwuiring mod tactile cues. Physical Therapy Plan Frequency and Duration Frequency of Treatment 2x/Week Duration of treatment (weeks) 8 Plan of Care Start Date 07/23/23 Plan of Care End Date 10/22/23 Therapeutic Interventions Therapeutic Interventions Home Exercise Program,Manual Therapy,Patient/Caregiver Education,Self-Care/Home Management,Soft Tissue Mobilization,Taping, Therapeutic Activities, Therapeutic Exercises Modalities Cold Pack/Ice Massage,Electric Stimulation,Hot Packs, Infrared Therapy,Iontophoresis ,Ultrasound Next Visit Focus/Plan Next Note Type Treatment Note Next Visit Plan ASsess response to progression of ther ex today, cont as tolerated.
--- NOTE | 2023-09-04 16:20 | PT.OTN ---
Current Diagnoses Unspecified disorder of synovium and tendon, left shoulder (09/04/23) Nondisplaced fracture of neck of left radius, initial encounter for closed fracture (09/04/23) Physical Therapy Treatment Note PT-OP-A Visit Information Start: 07/22/23 12:59 Freq: Status: Active Protocol: Document 09/04/23 14:32 [facility] (Rec: 09/04/23 15:17 [facility] [id number]) Out-Patient Physical Therapy Visit Information Visit Information Visit Type Treatment Note Visit Start Time 14:32 Visit Stop Time 15:15 Visit Number 8 Evaluation Information Evaluation Date 07/22/23 Precautions Precautions per physician recommendations to patient: please refrain from any overhead activities including any vigorous pushing and/or pulling movements. Please keep your elbow close to your body when performing activities with your arm. PT order is for ROM, strengthening, and stabilization. PT-OP-B Current Condition Start: 07/22/23 12:59 Freq: Status: Active Protocol: Document 09/04/23 14:32 [facility]AK (Rec: 09/04/23 15:17 [facility] [id number]) Current Condition History of Current Condition Onset Date July 2022 Current Complaints left shoulder pain, left elbow pain History of Current Condition left shoulder RCR 2020, saw pt post-op, difficult recovery August to December with frozen shoulder. Discontinued PT, kept doing exercises. February 2022 fell and broke proximal radius, finger, brused face, left UE in immobilizer. Saw OT for elbow rehab. Beginning of 2022 noting increased difficulty with left shoulder, did HEP, MRI June. Diagnosed with new tear RCR and slap lesion. Continues to work on not letting shoulder freeze. Does exercises for left elbow from OT, still with some pain. Advised by Dr. Miller not to use any weight away from her body, try ROM and strengthening. Pain moderate. Pain achy all the her arm. Can't sleep on her arm, can sleep on back. Taking anti- inflammatories 2x/day. Can't lift camera lense with left UE . Prior Treatments and Tests left shoulder arthrogram at [facility]: 1. Post surgical changes from RC tendon repair. Thinning of distal supraspinatus and infraspinatus tendons may be secondary to prior postsurgical changes vs recurrent mod grad partial articular side tearing. There is delamination and proximal retraction of articular sided fibers distal insertion. Bursal sided fibers appear to be intact although there may be focal bursal surface perforation at the infraspinatus tendon . 2. Mild proximal biceps long head tendinosis 3. 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 Grade 2 chondromalacia GH joint. Postsurgical changes AC joint w/ recurrent narrowing of supraspinatus outlet Future Testing and Treatments Planned Follow up with Dr. Miller in September. PT-OP-C Subjective Start: 07/22/23 12:59 Freq: Status: Active Protocol: Document 09/04/23 14:32 [facility]AK (Rec: 09/04/23 15:17 [facility] [id number]) OP-PT Subjective Patient Comments Patient Comments Doing pretty well, muscle soreness, not pain. Goes back to surgeon on Friday. THen leaves on 1 month vacation. PT-OP-J Posture/Palpation/Skin Start: 07/22/23 12:59 Freq: Status: Active Protocol: Document 07/22/23 13:48 [facility] (Rec: 07/23/23 17:11 [facility] [id number]) Posture Evaluation Position Sitting Head/C-Spine Posture Forward Head T-Spine Posture Increased Kyphosis Shoulder Posture (L) Elevated Scapula Posture (L) Retracted Arm Posture (L) Internally Rotated,(R) Internally Rotated Palpation Assessment Location proxi radius Palpation Findings Tenderness biceps origin Palpation Findings Tenderness RC insertion Palpation Findings Tenderness PT-OP-K Range of Motion Start: 07/22/23 12:59 Freq: Status: Active Protocol: Document 07/22/23 13:48 [facility] (Rec: 07/22/23 14:37 [facility] [id number]) Cervical Spine Range of Motion Cervical Spine Active Comments mild dec ROM Shoulder Goniometric Range of Motion Shoulder Left Flexion 135 Extension 20 Abduction 135 External Rotation at 45 degrees 75 Abduction Internal Rotation Behind Back (text) L1 Comments pain end-range elevation Right Shoulder ROM WFL Yes Internal Rotation Behind Back (text) T3 Elbow/Forearm Range of Motion Elbow/Forearm Left Elbow/Forearm ROM WFL No ROM Testing Position Sitting Elbow Flexion (degrees) 155 Elbow Extension (degrees) 5 Pronation (degrees) 75 Supination (degrees) 70 Right Elbow/Forearm ROM WFL Yes Elbow/Forearm ROM Limitations Elbow/Forearm ROM Limitations Soft Tissue Tightness,Pain PT-OP-L Special Tests Start: 07/22/23 12:59 Freq: Status: Active Protocol: Document 07/22/23 13:48 [facility] (Rec: 07/23/23 17:11 [facility] [id number]) Special Tests Shoulder Special Tests Elevation Impingement Test Results positive left Drop Arm Rotator Cuff Test Results positive left Belly Press Test Results neg PT-OP-M Strength Start: 07/22/23 12:59 Freq: Status: Active Protocol: Document 07/22/23 13:48 [facility] (Rec: 07/23/23 17:11 [facility] [id number]) Shoulder Strength Shoulder Manual Muscle Testing Left Flexion 3- Fair- Extension 3+ Fair+ Abduction (C5) 3- Fair- External Rotation 3+ Fair+ Internal Rotation 3+ Fair+ Right Flexion 5 Normal Extension 5 Normal Abduction (C5) 5 Normal Adduction 5 Normal External Rotation 5 Normal Internal Rotation 5 Normal Elbow/Forearm Strength Elbow and Forearm Manual Muscle Testing Left Flexion (C6) 4 Good Extension (C7) 4 Good Pronation 4 Good Supination 4 Good Comments pain prox radius with resistance Right Flexion (C6) 5 Normal Extension (C7) 5 Normal Pronation 5 Normal Supination 5 Normal PT-OP-Q Treatments Start: 07/22/23 12:59 Freq: Status: Active Protocol: Document 09/04/23 14:32 [facility] (Rec: 09/04/23 15:17 [facility] [id number]) Therapeutic Exercises Supine Exercises shoulder flex Comments review next session Prone Exercises Y Prone Exercise Name to 120 deg Reps/Minutes 6x Comments cues for painfree motion, manual scapular upward rot T Reps/Minutes 10x Comments 65 cm ball I Equipment Used 1# Reps/Minutes 10x Comments 65 cm ball Sidelying Exercises clock Sidelying Exercise Name 12/, 10/10, 2/8, 10/4 Reps/Minutes 10x ea Comments manual cues Sitting Exercises resisted trunk rotation Comments review next session shoulder shrugs Sitting Exercise Name carley and unil Reps/Minutes 5x Standing Exercises pec stretch Standing Exercise Name single arm Reps/Minutes 2x30 Comments wall flexbar Reps/Minutes 10x Comments flexbar wall walking Resistance L1 TB Reps/Minutes 10x ea direction bicep curls Standing Exercise Name HEP tricep extension Standing Exercise Name HEP wall slide Standing Exercise Name forearms on wall shld flex, shld shrug at 90 deg Reps/Minutes 5x Comments cues for pain-free ROM trunk rotation Standing Exercise Name with loose UE's Reps/Minutes 5x posterior capsule stretch Reps/Minutes 2x30 Comments cues for starting with right UE, gentle to left UE with tolerated angle Body blade Equipment Used medium, med carley only Reps/Minutes 30 ea 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 Encouraged to try at home if felt helpful today. Infrared Treatment Treatment left shoulder Duration (Minutes) 6 Body Position Sitting Continuous/Pulsed c Program or Protocal chronic pain and stiffness PT-OP-T Assessment and Plan Start: 07/22/23 12:59 Freq: Status: Active Protocol: Document 09/04/23 14:32 [facility] (Rec: 09/04/23 15:17 [facility] [id number]) Physical Therapy Assessment Goals Three Impairment activity intolerance Impairment UE Quickdash questionnaire 43% Short Term Goal (STG) Decrease Quickdash score to no greater than 30% as measure of improved activity tolerance and function left UE STG Duration 09/18/23 Student Loan Counselor Goal (LTG) Decrease Quickdash score to no greater than 15% as measure of improved acivity tolerance and function left UE LTG Duration 10/22/23 One Impairment pain right shoulder and elbow Impairment 5-8/10 pain scale Short Term Goal (STG) decrease pain to no greater than 4/10 with all usual activities STG Duration 08/23/23 Student Loan Counselor Goal (LTG) decrease pain to no greater than 2/10 with all usual activities including return to recreational activities such as kayaking. LTG Duration 10/22/23 Two Impairment Dec ROM and strength left shoulder and elbow Impairment Quickdash UE disability 100% Short Term Goal (STG) Patient to be instructed in progressive, individualized HEP for purposes of ROM, strengthening, and stabilization left shoulder and elbow STG Duration 09/04/23 Student Loan Counselor Goal (LTG) Patient to be independent and compliant to HEP and demonstrate ROM WNL and strength 5/5 left shoulder and elbow LTG Duration 10/22/23 Progress Towards Goals Progress Towards Goals Progressing Toward Goals Assessment Summary Assessment Patient continues to improve left UE function with decreased pain. Able to progress prone shoulder ex to therapy ball, improving scapular control, added wall walk with L1 TB but fatigued quickly. Sees surgeon next week. Physical Therapy Plan Frequency and Duration Frequency of Treatment 2x/Week Duration of treatment (weeks) 8 Plan of Care Start Date 07/23/23 Plan of Care End Date 10/22/23 Therapeutic Interventions Therapeutic Interventions Home Exercise Program,Manual Therapy,Patient/Caregiver Education,Self-Care/Home Management,Soft Tissue Mobilization,Taping, Therapeutic Activities, Therapeutic Exercises Modalities Cold Pack/Ice Massage,Electric Stimulation,Hot Packs, Infrared Therapy,Iontophoresis ,Ultrasound Next Visit Focus/Plan Next Note Type Treatment Note Next Visit Plan ASsess response to exercise progression, consider adding 90/90 shld IR and ER with TB with forearm support.
--- NOTE | 2023-09-08 12:20 | PT.OTN ---
Current Diagnoses Unspecified disorder of synovium and tendon, left shoulder (09/08/23) Nondisplaced fracture of neck of left radius, initial encounter for closed fracture (09/08/23) Physical Therapy Treatment Note PT-OP-A Visit Information Start: 07/22/23 12:59 Freq: Status: Active Protocol: Document 09/08/23 11:21 [facility] (Rec: 09/08/23 12:19 [facility] [id number]) Out-Patient Physical Therapy Visit Information Visit Information Visit Type Treatment Note Visit Start Time 11:22 Visit Stop Time 12:17 Visit Number 9 Precautions Precautions per physician recommendations to patient: please refrain from any overhead activities including any vigorous pushing and/or pulling movements. Please keep your elbow close to your body when performing activities with your arm. PT order is for ROM, strengthening, and stabilization. PT-OP-B Current Condition Start: 07/22/23 12:59 Freq: Status: Active Protocol: Document 09/08/23 11:21 [facility] (Rec: 09/08/23 12:19 [facility] [id number]) Current Condition History of Current Condition Onset Date July 2022 Current Complaints left shoulder pain, left elbow pain History of Current Condition left shoulder RCR 2020, saw pt post-op, difficult recovery August to December with frozen shoulder. Discontinued PT, kept doing exercises. February 2022 fell and broke proximal radius, finger, brused face, left UE in immobilizer. Saw OT for elbow rehab. Beginning of 2022 noting increased difficulty with left shoulder, did HEP, MRI June. Diagnosed with new tear RCR and slap lesion. Continues to work on not letting shoulder freeze. Does exercises for left elbow from OT, still with some pain. Advised by Dr. Miller not to use any weight away from her body, try ROM and strengthening. Pain moderate. Pain achy all the her arm. Can't sleep on her arm, can sleep on back. Taking anti- inflammatories 2x/day. Can't lift camera lense with left UE . Prior Treatments and Tests left shoulder arthrogram at [facility]: 1. Post surgical changes from RC tendon repair. Thinning of distal supraspinatus and infraspinatus tendons may be secondary to prior postsurgical changes vs recurrent mod grad partial articular side tearing. There is delamination and proximal retraction of articular sided fibers distal insertion. Bursal sided fibers appear to be intact although there may be focal bursal surface perforation at the infraspinatus tendon . 2. Mild proximal biceps long head tendinosis 3. 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 Grade 2 chondromalacia GH joint. Postsurgical changes AC joint w/ recurrent narrowing of supraspinatus outlet Future Testing and Treatments Planned Follow up with Dr. Miller in September. PT-OP-C Subjective Start: 07/22/23 12:59 Freq: Status: Active Protocol: Document 09/08/23 11:21 [facility] (Rec: 09/08/23 12:19 [facility] [id number]) OP-PT Subjective Patient Comments Patient Comments Had some pain after wall walk exercise, just iced for a couple days, back to exercises yesterday, ok today. PT-OP-J Posture/Palpation/Skin Start: 07/22/23 12:59 Freq: Status: Active Protocol: Document 07/22/23 13:48 [facility] (Rec: 07/23/23 17:11 [facility] [id number]) Posture Evaluation Position Sitting Head/C-Spine Posture Forward Head T-Spine Posture Increased Kyphosis Shoulder Posture (L) Elevated Scapula Posture (L) Retracted Arm Posture (L) Internally Rotated,(R) Internally Rotated Palpation Assessment Location proxi radius Palpation Findings Tenderness biceps origin Palpation Findings Tenderness RC insertion Palpation Findings Tenderness PT-OP-K Range of Motion Start: 07/22/23 12:59 Freq: Status: Active Protocol: Document 07/22/23 13:48 [facility] (Rec: 07/22/23 14:37 [facility] [id number]) Cervical Spine Range of Motion Cervical Spine Active Comments mild dec ROM Shoulder Goniometric Range of Motion Shoulder Left Flexion 135 Extension 20 Abduction 135 External Rotation at 45 degrees 75 Abduction Internal Rotation Behind Back (text) L1 Comments pain end-range elevation Right Shoulder ROM WFL Yes Internal Rotation Behind Back (text) T3 Elbow/Forearm Range of Motion Elbow/Forearm Left Elbow/Forearm ROM WFL No ROM Testing Position Sitting Elbow Flexion (degrees) 155 Elbow Extension (degrees) 5 Pronation (degrees) 75 Supination (degrees) 70 Right Elbow/Forearm ROM WFL Yes Elbow/Forearm ROM Limitations Elbow/Forearm ROM Limitations Soft Tissue Tightness,Pain PT-OP-L Special Tests Start: 07/22/23 12:59 Freq: Status: Active Protocol: Document 07/22/23 13:48 [facility] (Rec: 07/23/23 17:11 [facility] [id number]) Special Tests Shoulder Special Tests Elevation Impingement Test Results positive left Drop Arm Rotator Cuff Test Results positive left Belly Press Test Results neg PT-OP-M Strength Start: 07/22/23 12:59 Freq: Status: Active Protocol: Document 07/22/23 13:48 [facility] (Rec: 07/23/23 17:11 [facility] [id number]) Shoulder Strength Shoulder Manual Muscle Testing Left Flexion 3- Fair- Extension 3+ Fair+ Abduction (C5) 3- Fair- External Rotation 3+ Fair+ Internal Rotation 3+ Fair+ Right Flexion 5 Normal Extension 5 Normal Abduction (C5) 5 Normal Adduction 5 Normal External Rotation 5 Normal Internal Rotation 5 Normal Elbow/Forearm Strength Elbow and Forearm Manual Muscle Testing Left Flexion (C6) 4 Good Extension (C7) 4 Good Pronation 4 Good Supination 4 Good Comments pain prox radius with resistance Right Flexion (C6) 5 Normal Extension (C7) 5 Normal Pronation 5 Normal Supination 5 Normal PT-OP-Q Treatments Start: 07/22/23 12:59 Freq: Status: Active Protocol: Document 09/08/23 11:21 [facility] (Rec: 09/08/23 12:19 [facility] [id number]) Therapeutic Exercises Sitting Exercises seated shoulder IR Resistance L1 TB Reps/Minutes 10x shld ER Sitting Exercise Name 90/90 Equipment Used mirror, table Reps/Minutes 10x shoulder shrugs Sitting Exercise Name carley and unil Reps/Minutes 5x Standing Exercises wall push ups Reps/Minutes 10x wall walking Comments held Body blade Equipment Used medium, med carley only Reps/Minutes 30 ea Comments 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, fwd/bck, IR/ER (both with Other Exercises quadriped wt shifts Reps/Minutes 5x child's pose Reps/Minutes 1x30 cat/cow Other Exercise Name quadriped Reps/Minutes 5x PT-OP-R Modalities Start: 07/22/23 12:59 Freq: Status: Active Protocol: Document 09/08/23 11:21 [facility] (Rec: 09/08/23 12:20 [facility] [id number]) Hot Pack/Cold Pack Treatment Cold Pack Location left shoulder Patient Position Sitting Patient Tolerance Good PT-OP-T Assessment and Plan Start: 07/22/23 12:59 Freq: Status: Active Protocol: Document 09/08/23 11:21 [facility] (Rec: 09/08/23 12:19 [facility] [id number]) Physical Therapy Assessment Goals Three Impairment activity intolerance Impairment UE Quickdash questionnaire 43% Short Term Goal (STG) Decrease Quickdash score to no greater than 30% as measure of improved activity tolerance and function left UE 09/08/23: STG Duration 09/18/23 Long-Term Goal (LTG) Decrease Quickdash score to no greater than 15% as measure of improved acivity tolerance and function left UE LTG Duration 10/22/23 One Impairment pain right shoulder and elbow Impairment 5-8/10 pain scale Short Term Goal (STG) decrease pain to no greater than 4/10 with all usual activities 09/08/23: STG Duration 08/23/23 Long-Term Goal (LTG) decrease pain to no greater than 2/10 with all usual activities including return to recreational activities such as kayaking. LTG Duration 10/22/23 Two Impairment Dec ROM and strength left shoulder and elbow Short Term Goal (STG) Patient to be instructed in progressive, individualized HEP for purposes of ROM, strengthening, and stabilization left shoulder and elbow 09/08/23: good progress, continue to progress HEP within tolerance STG Duration 09/04/23 Long-Term Goal (LTG) Shoulder flexion inc to 164, scaption 162, internal rotation to T12. Shoulder strength at least 4+ /5 all motions 09/08/23: patient has met ROM goals. Strength has improved to 4-/5 shoulder, 4+/5 elbow LTG Duration 10/22/23 Progress Towards Goals Progress Towards Goals Progressing Toward Goals Assessment Summary Assessment Patient continues to make good progress toward goals with gentle progression of HEP; patient is highly compliant to HEP. Min reports of impingment and good improvement in scapulohumeral rhythm. She has good potential for further improvements including her goal of returning to recreational activities including kayaking as a fdc goal. Physical Therapy Plan Frequency and Duration Frequency of Treatment 2x/Week Duration of treatment (weeks) 8 Plan of Care Start Date 07/23/23 Plan of Care End Date 10/22/23 Therapeutic Interventions Therapeutic Interventions Home Exercise Program,Manual Therapy,Patient/Caregiver Education,Self-Care/Home Management,Soft Tissue Mobilization,Taping, Therapeutic Activities, Therapeutic Exercises Modalities Cold Pack/Ice Massage,Electric Stimulation,Hot Packs, Infrared Therapy,Iontophoresis ,Ultrasound Next Visit Focus/Plan Next Note Type Treatment Note Next Visit Plan Patient to be gone x 1 month on vacation. Will resume PT when she returns for further strengthening and fucntional retraining.
--- NOTE | 2023-09-08 12:25 | PT.OTN ---
Current Diagnoses Unspecified disorder of synovium and tendon, left shoulder (09/08/23) Nondisplaced fracture of neck of left radius, initial encounter for closed fracture (09/08/23) Physical Therapy Treatment Note PT-OP-A Visit Information Start: 07/22/23 12:59 Freq: Status: Active Protocol: Document 09/08/23 11:21 [facility] (Rec: 09/08/23 12:19 [facility] [id number]) Out-Patient Physical Therapy Visit Information Visit Information Visit Type Treatment Note Visit Start Time 11:22 Visit Stop Time 12:17 Visit Number 9 Precautions Precautions per physician recommendations to patient: please refrain from any overhead activities including any vigorous pushing and/or pulling movements. Please keep your elbow close to your body when performing activities with your arm. PT order is for ROM, strengthening, and stabilization. PT-OP-B Current Condition Start: 07/22/23 12:59 Freq: Status: Active Protocol: Document 09/08/23 11:21 [facility] (Rec: 09/08/23 12:19 [facility] [id number]) Current Condition History of Current Condition Onset Date July 2022 Current Complaints left shoulder pain, left elbow pain History of Current Condition left shoulder RCR 2020, saw pt post-op, difficult recovery August to December with frozen shoulder. Discontinued PT, kept doing exercises. February 2022 fell and broke proximal radius, finger, brused face, left UE in immobilizer. Saw OT for elbow rehab. Beginning of 2022 noting increased difficulty with left shoulder, did HEP, MRI June. Diagnosed with new tear RCR and slap lesion. Continues to work on not letting shoulder freeze. Does exercises for left elbow from OT, still with some pain. Advised by Dr. Miller not to use any weight away from her body, try ROM and strengthening. Pain moderate. Pain achy all the her arm. Can't sleep on her arm, can sleep on back. Taking anti- inflammatories 2x/day. Can't lift camera lense with left UE . Prior Treatments and Tests left shoulder arthrogram at [facility]: 1. Post surgical changes from RC tendon repair. Thinning of distal supraspinatus and infraspinatus tendons may be secondary to prior postsurgical changes vs recurrent mod grad partial articular side tearing. There is delamination and proximal retraction of articular sided fibers distal insertion. Bursal sided fibers appear to be intact although there may be focal bursal surface perforation at the infraspinatus tendon . 2. Mild proximal biceps long head tendinosis 3. 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 Grade 2 chondromalacia GH joint. Postsurgical changes AC joint w/ recurrent narrowing of supraspinatus outlet Future Testing and Treatments Planned Follow up with Dr. Miller in September. PT-OP-C Subjective Start: 07/22/23 12:59 Freq: Status: Active Protocol: Document 09/08/23 11:21 [facility] (Rec: 09/08/23 12:19 [facility] [id number]) OP-PT Subjective Patient Comments Patient Comments Had some pain after wall walk exercise, just iced for a couple days, back to exercises yesterday, ok today. PT-OP-J Posture/Palpation/Skin Start: 07/22/23 12:59 Freq: Status: Active Protocol: Document 07/22/23 13:48 [facility] (Rec: 07/23/23 17:11 [facility] [id number]) Posture Evaluation Position Sitting Head/C-Spine Posture Forward Head T-Spine Posture Increased Kyphosis Shoulder Posture (L) Elevated Scapula Posture (L) Retracted Arm Posture (L) Internally Rotated,(R) Internally Rotated Palpation Assessment Location proxi radius Palpation Findings Tenderness biceps origin Palpation Findings Tenderness RC insertion Palpation Findings Tenderness PT-OP-K Range of Motion Start: 07/22/23 12:59 Freq: Status: Active Protocol: Document 07/22/23 13:48 [facility] (Rec: 07/22/23 14:37 [facility] [id number]) Cervical Spine Range of Motion Cervical Spine Active Comments mild dec ROM Shoulder Goniometric Range of Motion Shoulder Left Flexion 135 Extension 20 Abduction 135 External Rotation at 45 degrees 75 Abduction Internal Rotation Behind Back (text) L1 Comments pain end-range elevation Right Shoulder ROM WFL Yes Internal Rotation Behind Back (text) T3 Elbow/Forearm Range of Motion Elbow/Forearm Left Elbow/Forearm ROM WFL No ROM Testing Position Sitting Elbow Flexion (degrees) 155 Elbow Extension (degrees) 5 Pronation (degrees) 75 Supination (degrees) 70 Right Elbow/Forearm ROM WFL Yes Elbow/Forearm ROM Limitations Elbow/Forearm ROM Limitations Soft Tissue Tightness,Pain PT-OP-L Special Tests Start: 07/22/23 12:59 Freq: Status: Active Protocol: Document 07/22/23 13:48 [facility] (Rec: 07/23/23 17:11 [facility] [id number]) Special Tests Shoulder Special Tests Elevation Impingement Test Results positive left Drop Arm Rotator Cuff Test Results positive left Belly Press Test Results neg PT-OP-M Strength Start: 07/22/23 12:59 Freq: Status: Active Protocol: Document 07/22/23 13:48 [facility] (Rec: 07/23/23 17:11 [facility] [id number]) Shoulder Strength Shoulder Manual Muscle Testing Left Flexion 3- Fair- Extension 3+ Fair+ Abduction (C5) 3- Fair- External Rotation 3+ Fair+ Internal Rotation 3+ Fair+ Right Flexion 5 Normal Extension 5 Normal Abduction (C5) 5 Normal Adduction 5 Normal External Rotation 5 Normal Internal Rotation 5 Normal Elbow/Forearm Strength Elbow and Forearm Manual Muscle Testing Left Flexion (C6) 4 Good Extension (C7) 4 Good Pronation 4 Good Supination 4 Good Comments pain prox radius with resistance Right Flexion (C6) 5 Normal Extension (C7) 5 Normal Pronation 5 Normal Supination 5 Normal PT-OP-Q Treatments Start: 07/22/23 12:59 Freq: Status: Active Protocol: Document 09/08/23 11:21 [facility] (Rec: 09/08/23 12:19 [facility] [id number]) Therapeutic Exercises Sitting Exercises seated shoulder IR Resistance L1 TB Reps/Minutes 10x shld ER Sitting Exercise Name 90/90 Equipment Used mirror, table Reps/Minutes 10x shoulder shrugs Sitting Exercise Name carley and unil Reps/Minutes 5x Standing Exercises wall push ups Reps/Minutes 10x wall walking Comments held Body blade Equipment Used medium, med carley only Reps/Minutes 30 ea Comments carley clinical fellow, fwd/bck, IR/ER (both with Other Exercises quadriped wt shifts Reps/Minutes 5x child's pose Reps/Minutes 1x30 cat/cow Other Exercise Name quadriped Reps/Minutes 5x PT-OP-R Modalities Start: 07/22/23 12:59 Freq: Status: Active Protocol: Document 09/08/23 11:21 [facility] (Rec: 09/08/23 12:20 [facility] [id number]) Hot Pack/Cold Pack Treatment Cold Pack Location left shoulder Patient Position Sitting Patient Tolerance Good PT-OP-T Assessment and Plan Start: 07/22/23 12:59 Freq: Status: Active Protocol: Document 09/08/23 11:21 [facility] (Rec: 09/08/23 12:19 [facility] [id number]) Physical Therapy Assessment Goals Three Impairment activity intolerance Impairment UE Quickdash questionnaire 43% Short Term Goal (STG) Decrease Quickdash score to no greater than 30% as measure of improved activity tolerance and function left UE 09/08/23: 23%, goal met STG Duration goal met Care Home Goal (LTG) Decrease Quickdash score to no greater than 15% as measure of improved acivity tolerance and function left UE LTG Duration 10/22/23 One Impairment pain right shoulder and elbow Impairment 5-8/10 pain scale Short Term Goal (STG) decrease pain to no greater than 4/10 with all usual activities 09/08/23:usually 2/10, can increase with activity STG Duration 08/23/23 Care Home Goal (LTG) decrease pain to no greater than 2/10 with all usual activities including return to recreational activities such as kayaking. LTG Duration 10/22/23 Two Impairment Dec ROM and strength left shoulder and elbow Short Term Goal (STG) Patient to be instructed in progressive, individualized HEP for purposes of ROM, strengthening, and stabilization left shoulder and elbow 09/08/23: good progress, continue to progress HEP within tolerance STG Duration 09/04/23 Care Home Goal (LTG) Shoulder flexion inc to 164, scaption 162, internal rotation to T12. Shoulder strength at least 4+ /5 all motions 09/08/23: patient has met ROM goals. Strength has improved to 4-/5 shoulder, 4+/5 elbow LTG Duration 10/22/23 Progress Towards Goals Progress Towards Goals Progressing Toward Goals Assessment Summary Assessment Patient continues to make good progress toward goals with gentle progression of HEP; patient is highly compliant to HEP. Min reports of impingment and good improvement in scapulohumeral rhythm. She has good potential for further improvements including her goal of returning to recreational activities including kayaking as a care home goal. Physical Therapy Plan Frequency and Duration Frequency of Treatment 2x/Week Duration of treatment (weeks) 8 Plan of Care Start Date 07/23/23 Plan of Care End Date 10/22/23 Therapeutic Interventions Therapeutic Interventions Home Exercise Program,Manual Therapy,Patient/Caregiver Education,Self-Care/Home Management,Soft Tissue Mobilization,Taping, Therapeutic Activities, Therapeutic Exercises Modalities Cold Pack/Ice Massage,Electric Stimulation,Hot Packs, Infrared Therapy,Iontophoresis ,Ultrasound Next Visit Focus/Plan Next Note Type Treatment Note Next Visit Plan Patient to be gone x 1 month on vacation. Will resume PT when she returns for further strengthening and fucntional retraining.
--- NOTE | 2023-09-25 14:27 | PT.OPDS ---
Current Diagnoses Unspecified disorder of synovium and tendon, left shoulder (09/08/23) Nondisplaced fracture of neck of left radius, initial encounter for closed fracture (09/08/23) Visit Care Team Role Provider Type Lauren Zavala MD Family Provider Physician Primary Care Provider Specialty: Family Practice Address: [address] [place] [address], [address], [place], [address] Email: [email or web address] Patel MD Attending Provider Non-Staff Referring Provider Specialty: Orthopedic Surgery Address: [address] [place] [address] , [place], [address] Email: Visit Number Visit Number 9 Discharge Summary PT-OP-B Current Condition Start: 07/22/23 12:59 Freq: Status: Active Protocol: Document 09/08/23 11:21 [facility] (Rec: 09/08/23 12:19 [facility] [id number]) Current Condition History of Current Condition Onset Date July 2022 Current Complaints left shoulder pain, left elbow pain History of Current Condition left shoulder RCR 2020, saw pt post-op, difficult recovery August to December with frozen shoulder. Discontinued PT, kept doing exercises. February 2022 fell and broke proximal radius, finger, brused face, left UE in immobilizer. Saw OT for elbow rehab. Beginning of 2022 noting increased difficulty with left shoulder, did HEP, MRI June. Diagnosed with new tear RCR and slap lesion. Continues to work on not letting shoulder freeze. Does exercises for left elbow from OT, still with some pain. Advised by Dr. Miller not to use any weight away from her body, try ROM and strengthening. Pain moderate. Pain achy all the her arm. Can't sleep on her arm, can sleep on back. Taking anti- inflammatories 2x/day. Can't lift camera lense with left UE . Prior Treatments and Tests left shoulder arthrogram at [facility]: 1. Post surgical changes from RC tendon repair. Thinning of distal supraspinatus and infraspinatus tendons may be secondary to prior postsurgical changes vs recurrent mod grad partial articular side tearing. There is delamination and proximal retraction of articular sided fibers distal insertion. Bursal sided fibers appear to be intact although there may be focal bursal surface perforation at the infraspinatus tendon . 2. Mild proximal biceps long head tendinosis 3. 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 Grade 2 chondromalacia GH joint. Postsurgical changes AC joint w/ recurrent narrowing of supraspinatus outlet Future Testing and Treatments Planned Follow up with Dr. Miller in September. PT-OP-C Subjective Start: 07/22/23 12:59 Freq: Status: Active Protocol: Document 09/08/23 11:21 [facility] (Rec: 09/08/23 12:19 [facility] [id number]) OP-PT Subjective Patient Comments Patient Comments Had some pain after wall walk exercise, just iced for a couple days, back to exercises yesterday, ok today. PT-OP-J Posture/Palpation/Skin Start: 07/22/23 12:59 Freq: Status: Active Protocol: Document 07/22/23 13:48 [facility] (Rec: 07/23/23 17:11 [facility] [id number]) Posture Evaluation Position Sitting Head/C-Spine Posture Forward Head T-Spine Posture Increased Kyphosis Shoulder Posture (L) Elevated Scapula Posture (L) Retracted Arm Posture (L) Internally Rotated,(R) Internally Rotated Palpation Assessment Location proxi radius Palpation Findings Tenderness biceps origin Palpation Findings Tenderness RC insertion Palpation Findings Tenderness PT-OP-K Range of Motion Start: 07/22/23 12:59 Freq: Status: Active Protocol: Document 07/22/23 13:48 [facility] (Rec: 07/22/23 14:37 [facility] [id number]) Cervical Spine Range of Motion Cervical Spine Active Comments mild dec ROM Shoulder Goniometric Range of Motion Shoulder Left Flexion 135 Extension 20 Abduction 135 External Rotation at 45 degrees 75 Abduction Internal Rotation Behind Back (text) L1 Comments pain end-range elevation Right Shoulder ROM WFL Yes Internal Rotation Behind Back (text) T3 Elbow/Forearm Range of Motion Elbow/Forearm Left Elbow/Forearm ROM WFL No ROM Testing Position Sitting Elbow Flexion (degrees) 155 Elbow Extension (degrees) 5 Pronation (degrees) 75 Supination (degrees) 70 Right Elbow/Forearm ROM WFL Yes Elbow/Forearm ROM Limitations Elbow/Forearm ROM Limitations Soft Tissue Tightness,Pain PT-OP-L Special Tests Start: 07/22/23 12:59 Freq: Status: Active Protocol: Document 07/22/23 13:48 [facility] (Rec: 07/23/23 17:11 [facility] [id number]) Special Tests Shoulder Special Tests Elevation Impingement Test Results positive left Drop Arm Rotator Cuff Test Results positive left Belly Press Test Results neg PT-OP-M Strength Start: 07/22/23 12:59 Freq: Status: Active Protocol: Document 07/22/23 13:48 [facility] (Rec: 07/23/23 17:11 [facility] [id number]) Shoulder Strength Shoulder Manual Muscle Testing Left Flexion 3- Fair- Extension 3+ Fair+ Abduction (C5) 3- Fair- External Rotation 3+ Fair+ Internal Rotation 3+ Fair+ Right Flexion 5 Normal Extension 5 Normal Abduction (C5) 5 Normal Adduction 5 Normal External Rotation 5 Normal Internal Rotation 5 Normal Elbow/Forearm Strength Elbow and Forearm Manual Muscle Testing Left Flexion (C6) 4 Good Extension (C7) 4 Good Pronation 4 Good Supination 4 Good Comments pain prox radius with resistance Right Flexion (C6) 5 Normal Extension (C7) 5 Normal Pronation 5 Normal Supination 5 Normal PT-OP-T Assessment and Plan Start: 07/22/23 12:59 Freq: Status: Active Protocol: Document 09/25/23 14:26 [facility] (Rec: 09/25/23 14:27 [facility] [id number]) Physical Therapy Assessment Assessment Summary Assessment may benfit from further PT when returns from long vacation Physical Therapy Plan Discharge Physical Therapy Discharge Reasons Patient Request
== END 2023-09-30 10:30 | disposition home or self-care (01) ==
LOC: PHYS 11:15
PROVIDERS: Family Provider Family Medicine; PCP Family Medicine; Referring Provider Orthopaedic Surgery; Visit Provider Orthopaedic Surgery
DX: M67.912 Unspecified disorder of synovium and tendon, left shoulder (principal); S52.135A Nondisplaced fracture of neck of left radius, initial encounter for closed fracture
CPT/HCPCS: 97014; 97110; 97140; 97162; 97535; G0283

== ENCOUNTER → 2024-01-09 09:10 | Outpatient (CLI) | payer BC, SELFPAY ==
[2024-01-09 10:22] LABS: COVID-19 CEPHEID 4-PLEX PCR Negative (Negative); Influenza A - CEPHEID Flu A NEGATIVE (NEGATIVE); Influenza B - CEPHEID Flu B NEGATIVE (NEGATIVE); Respiratory Syncytial Virus Negative (Negative)
== END ==
PROVIDERS: Family Provider Family Medicine; PCP Family Medicine; Referring Provider Physician Assistant Surgical; Visit Provider Physician Assistant Surgical
DX: R05.9 Cough, unspecified (principal)
CPT/HCPCS: 0241U

== ENCOUNTER → 2024-01-09 09:35 | Outpatient (CLI) | payer BC, SELFPAY ==
--- NOTE | 2024-01-09 09:36 | DI.RAD.S_ITS ---
PROCEDURE: XR CHEST 2V INDICATIONS: Productive cough, dyspnea TECHNIQUE: 2 views of the chest were acquired. COMPARISON: None. FINDINGS: Surgical changes and devices: None. Lungs and pleura: Lungs are clear. No pleural effusions or pneumothorax. Mediastinum: Mediastinal contours are normal. Heart size is normal. Bones and chest wall: No suspicious bony abnormalities. Soft tissues appear unremarkable. IMPRESSION: No acute cardiopulmonary abnormality is seen. Dictated by: James Rivera M.D. on 01/09/2024 at 10:11 Approved by: James Rivera M.D. on 01/09/2024 at 10:11
== END ==
LOC: RAD 09:36
PROVIDERS: Family Provider Family Medicine; PCP Family Medicine; Referring Provider Physician Assistant Surgical; Visit Provider Physician Assistant Surgical
DX: R05.8 Other specified cough (principal); R06.00 Dyspnea, unspecified
CPT/HCPCS: 0241U; 71046

== ENCOUNTER → 2024-05-31 09:12 | Outpatient (CLI) | payer BC, SELFPAY ==
[2024-05-31 10:28] LABS: Add Manual Diff / Slide Review NO; Basophils Absolute Auto 0 /uL (0-100); Basophils Percent Auto 0.6 % (0-2); Eosinophils Absolute Auto 100 /uL (0-450); Eosinophils Percent Auto 2.6 % (2-4); Hematocrit 39.4 % (36-46); Hemoglobin 13.3 g/dL (12.0-16.0); Lymphocytes Absolute Auto 1600 /uL (1100-4500); Lymphocytes Percent Auto 40.3 % (25-40); Mean Corpuscular HGB Conc 33.7 % (30-36); Mean Corpuscular Volume 92.1 fL (80-100); Monocytes Absolute Auto 400 /uL (0-900); Monocytes Percent Auto 10.8 % (3-14); Neutrophils Absolute Auto 1800 /uL (1500-7000); Neutrophils Percent Auto 45.7 % (50-75); Platelet Count 351 X10^3/uL (150-400); Red Blood Cell Count 4.29 X10^6/uL (4.0-5.2); Red Cell Distribution Width 12.6 % (11.6-14.8); White Blood Cell Count 3.9 X10^3/uL (4.5-11.0)
[2024-05-31 10:40] LABS: Alanine Aminotransferase 19 IU/L (<35); Albumin 4.2 g/dL (3.5-5.0); Albumin Globulin Ratio 1.8 (1.0-2.8); Alkaline Phosphatase 69 U/L (38-126); Aspartate Aminotransferase 29 IU/L (14-36); BUN Creatinine Ratio 16.2 (6-22); Bilirubin Total 0.5 mg/dL (0.2-1.3); Blood Urea Nitrogen 11 mg/dL (7-17); Calcium 9.6 mg/dL (8.4-10.2); Carbon Dioxide 29 mmol/L (22-32); Chloride 100 mmol/L (98-107); Cholesterol 251 mg/dL (140-199); Estimated Glomerular Filt Rate > 60 mL/min (>60); Globulin 2.4 g/dL (1.7-4.1); Glucose 103 mg/dL (80-110); HEMOLYSIS < 15 (0-50); Potassium 4.4 mmol/L (3.4-5.1); Sodium 134 mmol/L (137-145); Total Protein 6.6 g/dL (6.3-8.2); Triglycerides 59 mg/dL (35-150)
[2024-05-31 10:50] LABS: HDL Cholesterol 114 mg/dL (40-60); LDL Cholesterol Calculated 125 mg/dL (<100)
[2024-05-31 11:08] LABS: Thyroid Stimulating Hormone 4.81 uIU/mL (0.47-4.68)
[2024-05-31 11:13] LABS: Ferritin 14 ng/mL (11-264)
== END ==
PROVIDERS: Family Provider Family Medicine; PCP Family Medicine; Referring Provider Family Medicine; Visit Provider Family Medicine
DX: L65.9 Nonscarring hair loss, unspecified (principal); E78.5 Hyperlipidemia, unspecified; Z87.440 Personal history of urinary (tract) infections; G43.809 Other migraine, not intractable, without status migrainosus; K21.9 Gastro-esophageal reflux disease without esophagitis; K22.719 Barrett's esophagus with dysplasia, unspecified
CPT/HCPCS: 36415; 80053; 80061; 82728; 84443; 85025

== ENCOUNTER → 2024-06-02 16:56 | Outpatient (CLI) | payer BC, SELFPAY ==
[2024-06-02 18:47] LABS: Free T3, Triiodothyronine Free 4.47 pg/mL (2.77-5.27); Free T4, Direct Thyroxine 0.98 ng/dL (0.78-2.19)
== END ==
PROVIDERS: Family Provider Family Medicine; PCP Family Medicine; Visit Provider Family Medicine
DX: E03.9 Hypothyroidism, unspecified (principal); L65.9 Nonscarring hair loss, unspecified; Z87.440 Personal history of urinary (tract) infections; G43.809 Other migraine, not intractable, without status migrainosus; K21.9 Gastro-esophageal reflux disease without esophagitis; K22.719 Barrett's esophagus with dysplasia, unspecified
CPT/HCPCS: 84439; 84481

== ENCOUNTER → 2025-02-08 15:50 | Outpatient (CLI) | payer BC, SELFPAY ==
--- NOTE | 2025-02-08 15:51 | DI.MG.S_ITS ---
MM screening mammo implant BI: 02/08/2025. BI-RADS: 2 CLINICAL: 64-year old female for bilateral screening mammogram. Tyrer-Cuzick lifetime risk of 8.0%. No personal or first-degree family history of breast cancer. Current reported family history of breast cancer: paternal aunt's daughter. The patient has bilateral implants. PRIOR EXAMS 08/26/2023, 03/13/2022, 03/04/2022, MAMMOGRAPHY TECHNIQUE: 2D and 3D (tomosynthesis) digital mammographic views obtained, with additional images as needed for full coverage. Current study was also evaluated with a Computer Aided Detection (CAD) system. DENSITY C. The breasts are heterogeneously dense, which may obscure small masses. IMPLANTS Breast implants present. MAMMOGRAPHY FINDINGS Bilateral: There are no suspicious masses, calcifications, or other findings in the breast. No significant change from comparison. IMPRESSION: * No evidence of malignancy with benign findings. RECOMMENDATIONS Bilateral * Annual screening mammography. OVERALL ASSESSMENT CATEGORY BI-RADS-2: Benign. The [employer] recommends annual screening mammography beginning at age 40 for women with average risk of breast cancer. ELECTRONICALLY SIGNED: Abby Avalos M.D. on 02/09/2025 at 10:06:50 AM PT Interpreting Station ID: [id number]
== END ==
PROVIDERS: Family Provider Family Medicine; PCP Family Medicine; Referring Provider Family Medicine; Visit Provider Family Medicine
DX: Z12.31 Encounter for screening mammogram for malignant neoplasm of breast (principal); Z80.3 Family history of malignant neoplasm of breast; R92.333 Mammographic heterogeneous density, bilateral breasts; Z98.82 Breast implant status
CPT/HCPCS: 77063; 77067

== ENCOUNTER → 2025-02-18 08:31 | Outpatient (CLI) | payer BC, SELFPAY ==
--- NOTE | 2025-02-18 08:32 | DI.US.S_ITS ---
PROCEDURE: US PERIPH VENOUS LOW EXTREM LT INDICATIONS: leg pain TECHNIQUE: Real-time imaging, as well as color and pulse Doppler interrogation, were performed of the lower extremity deep veins from the inguinal ligament to the popliteal fossa, with documentation of the visualized calf veins. COMPARISON: None. FINDINGS: The common femoral, femoral, popliteal, and the visualized calf veins are normally compressible, and free of intraluminal thrombus. Color and pulse Doppler demonstrate normal phasic intraluminal flow. There is normal augmentation response to distal compression maneuver. IMPRESSION: No findings of lower extremity deep venous thrombosis. Dictated by: Romero Pearson M.D. on 02/18/2025 at 12:36 Approved by: Romero Pearson M.D. on 02/18/2025 at 12:36
== END ==
PROVIDERS: Family Provider Family Medicine; PCP Family Medicine; Referring Provider Family Medicine; Visit Provider Family Medicine
DX: M79.605 Pain in left leg (principal)
CPT/HCPCS: 93971